=== PATIENT | female | born 1945 | race Caucasian/White ===

== ENCOUNTER 2018-09-11 06:52 | Day surgery (SDC) | payer OTHER ==
--- OUTSIDE RECORDS SUMMARY | 2018-09-11 06:57 | XMS REPORT | Clinical Summary ---
:1945 Author Organization [facility] Address [address] [place] [address] Care Team Providers Name Role Phone Lola Whitney MD Primary Care Provider Allergies Active Allergy Reactions Severity Noted Date Comments Meperidine Other (See Comments) Hallucinations Medications Medication Sig Dispensed Refills Start Date End Date Status DULoxetine (CYMBALTA) Take 60 mg by 0 Active 60 MG capsule mouth daily. BABY ASPIRIN ORAL Take by mouth. 0 Active cholecalciferol, Take 1,000 Units 0 Active vitamin D3, 1,000 unit by mouth daily. capsule NITROSTAT 0.4 mg SL 0 07/15/2015 Active tablet predniSONE (DELTASONE) 0 2015 Active 10 MG tablet pantoprazole Take 40 mg by 0 Active (PROTONIX) 40 MG mouth daily. tablet vitamin E 400 UNIT Take 400 Units by 0 Active capsule mouth daily. ORENCIA CLICKJECT 125 0 09/09/2016 Active mg/mL AtIn atorvastatin (LIPITOR) 0 09/08/2016 Active 40 MG tablet CALCIUM CARBONATE Take by mouth 2 0 Active (CALCIUM 600 ORAL) (two) times daily. metFORMIN (GLUCOPHAGE) TAKE ONE TABLET BY 90 tablet 0 04/05/2017 Active 500 MG tablet MOUTH DAILY WITH BREAKFAST metoprolol (TOPROL-XL) TAKE ONE TABLET BY 90 tablet 0 04/05/2017 Active 25 MG 24 hr tablet MOUTH DAILY losartan (COZAAR) 100 Take 100 mg by 0 03/15/2017 Active MG tablet mouth daily . Active Problems Problem Noted Date Elevated hemoglobin A1c 10/05/2016 Rheumatoid arthritis involving multiple sites with positive rheumatoid 2015 factor Elevated blood sugar 09/30/2015 Coronary artery disease 07/13/2015 Overview: s/p PCI after accelerating angina Hypertension GERD (gastroesophageal reflux disease) Immunizations Name Dates Previously Given Next Due Pneumococcal Conjugate (Prevnar) 13-Valent 09/30/2015 Family History Medical History Relation Name Comments Appendicitis Brother Colon cancer Father Alzheimer's disease Mother Arthritis Mother Hydrocephalus Mother Hypertension Mother Relation Name Status Comments Brother Alive Father Mother Sister Alive Social History Tobacco Use Types Packs/Day Years Used Date Never Smoker Smokeless Tobacco: Never Used Alcohol Use Drinks/Week oz/Week Comments Yes Socially Sex Assigned at Date Recorded Not on file Job Start Date Occupation Industry Not on file Not on file Not on file Travel History Travel Start Travel End No recent travel history available. Last Filed Vital Signs Not on file Plan of Treatment Not on file Results Not on fileafter 09/10/2017 Insurance Payer Benefit Plan / Group Subscriber ID Type Phone Address MEDICARE MEDICARE PART B xxxxxxxxxx Medicare AETNA - [place] CARE AETNA PPO OPEN [facility] xxxxxxxxxx PPO NAP HUMANA - MEDICARE M[place] HUMANA MEDICARE ADV xxxxxxxxx Maps Contracted CARE
--- OUTSIDE RECORDS SUMMARY | 2018-09-11 06:57 | XMS REPORT ---
:1945 [facility] Address [address] [place] [address] Care Team Providers Name Role Phone Unavailable Unavailable Unavailable Payers Payer Name Policy Type Policy Number Effective Date Expiration Date Problems This patient has no known problems. Allergies, Adverse Reactions, Alerts Allergy Allergy Status Severity Reaction(s) Onset Inactive Treating Comments Name Type Date Date Clinician No Known DA Active U 2003-03 Contrast -18 Allergies 00:00:0 0 No Known DA Active U 2003-03 Drug -18 Allergies 00:00:0 0 No Known DA Active U 2003-03 Food -18 Allergies 00:00:0 0 No Known DA Active U 2003-03 Other -18 Allergies 00:00:0 0 Medications This patient has no known medications. Results Test Description Test Time Test Comments Text Results Atomic Results Result Comments ZNEY SAGASTUME, 2 2017-08-03 17:14:00 Reason for FINAL REPORT PATIENT ID: VIEWS, LEFT Exam:->m05.79 [id number] 3 VIEWS OF THE RIGHT HAND, 3 VIEWS OF THE LEFT HAND HISTORY: Bilateral hand pain, M 05.79 COMPARISON: No comparison hand imaging FINDINGS: RIGHT HAND: AP, oblique, and lateral views of the right hand were obtained. No fracture or dislocation are identified. 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 Mild to moderate osteoarthritis of the thumb CMC and IP joints. Mild osteoarthritis of the third through fifth DIP joints. Mild soft tissue swelling at the level of the second DIP joint. No erosive changes are visualized in the hand. No acral osteolysis. LEFT HAND: AP, oblique, and lateral views the left hand were obtained. No fracture or dislocation are identified. Mild to moderate osteoarthritis of the thumb CMC and IP joints. Moderate to severe osteoarthritis of the fifth DIP joint. Moderate osteoarthritis of the third DIP joint. Mild osteoarthritis of the second and fourth DIP joints. No erosive changes are visualized. No acral osteolysis. IMPRESSION: 1. 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 2. No erosive changes are visualized. Signed: Yumiko Montgomery Verified Date/Time: 08/03/2017 17:14:37 Reading Location: [facility] Radiology Reading Room , HAND, 2 2017-08-03 17:14:00 Reason for FINAL REPORT PATIENT ID: DEV, RIGHT Exam:->m05.79 [id number] 3 VIEWS OF THE RIGHT HAND, 3 VIEWS OF THE LEFT HAND HISTORY: Bilateral hand pain, M 05.79 COMPARISON: No comparison hand imaging FINDINGS: RIGHT HAND: AP, oblique, and lateral views of the right hand were obtained. No fracture or dislocation are identified. 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 Mild to moderate osteoarthritis of the thumb CMC and IP joints. Mild osteoarthritis of the third through fifth DIP joints. Mild soft tissue swelling at the level of the second DIP joint. No erosive changes are visualized in the hand. No acral osteolysis. LEFT HAND: AP, oblique, and lateral views the left hand were obtained. No fracture or dislocation are identified. Mild to moderate osteoarthritis of the thumb CMC and IP joints. Moderate to severe osteoarthritis of the fifth DIP joint. Moderate osteoarthritis of the third DIP joint. Mild osteoarthritis of the second and fourth DIP joints. No erosive changes are visualized. No acral osteolysis. IMPRESSION: 1. 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 2. No erosive changes are visualized. Signed: Yumiko Montgomery Verified Date/Time: 08/03/2017 17:14:37 Reading Location: [facility] Radiology Reading Room , HIP, 2 2017-08-03 14:30:00 Reason for FINAL REPORT PATIENT ID: DEV, LEFT Exam:->m05.79 [id number] RIGHT HIP 2 VIEWS, LEFT HIP 2 VIEWS HISTORY: Bilateral hip pain, m 05.79 COMPARISON: No comparison hip imaging FINDINGS: AP and lateral views of each hip were obtained. No fracture or dislocation are identified. No joint space narrowing. Minimal lateral acetabular osteophytes bilaterally. Small enthesophytes in the bilateral greater trochanters. No femoral head collapse. No destructive bone lesion is identified. No erosive changes are visualized. Mild arthrosis of the sacroiliac joints. IMPRESSION: Minimal radiographic evidence of degenerative disease in the hips. Signed: Yumiko Montgomery Verified Date/Time: 08/03/2017 14:30:48 Reading Location: [facility] Radiology Reading Room , HIP, 2 2017-08-03 14:30:00 Reason for FINAL REPORT PATIENT ID: VIEWS, RIGHT Exam:->m05.79 [id number] RIGHT HIP 2 VIEWS, LEFT HIP 2 VIEWS HISTORY: Bilateral hip pain, m 05.79 COMPARISON: No comparison hip imaging FINDINGS: AP and lateral views of each hip were obtained. No fracture or dislocation are identified. No joint space narrowing. Minimal lateral acetabular osteophytes bilaterally. Small enthesophytes in the bilateral greater trochanters. No femoral head collapse. No destructive bone lesion is identified. No erosive changes are visualized. Mild arthrosis of the sacroiliac joints.
--- OUTSIDE RECORDS SUMMARY | 2018-09-11 06:57 | XMS REPORT | Clinical Summary ---
:1945 Author Organization [facility] Address [address] [place] [address] Care Team Providers Name Role Phone Lola Whitney MD Primary Care Provider Allergies Active Allergy Reactions Severity Noted Date Comments Meperidine Other (See Comments) 12/14/2015 other Medications Medication Sig Dispensed Refills Start Date End Date Status cholecalciferol, Take 1,000 0 Active vitamin D3, (VITAMIN Units by D3) 1,000 unit mouth. capsule DULoxetine (CYMBALTA) Take 60 mg by 0 Active 60 MG capsule mouth. aspirin 81 mg Chew. 0 Active chewable tablet tofacitinib citrate Take 1 tablet 0 Active (XELJANZ ORAL) by mouth daily. losartan (COZAAR) 100 Take 1 tablet 30 tablet 0 05/17/2018 Active MG tablet (100 mg 9 total) by mouth daily. NIFEdipine XL Take 1 tablet 30 tablet 0 05/17/2018 Active (PROCARDIA XL) 30 MG (30 mg total) 9 24 hr tablet by mouth daily. metoprolol succinate TAKE ONE 90 tablet 2 05/29/2018 Active XL (TOPROL-XL) 25 mg TABLET BY 24 hr tablet MOUTH DAILY pantoprazole Take 1 tablet 90 tablet 3 08/31/2018 Active (PROTONIX) 40 MG EC (40 mg total) 0 tabletIndications: by mouth Hiatal hernia, daily. Gastroesophageal reflux disease, esophagitis presence not specified, Gastric erosion, unspecified ulcer chronicity, Dyspepsia atorvastatin TAKE ONE 90 tablet 0 09/04/2018 Active (LIPITOR) 40 MG TABLET BY tablet MOUTH EVERY EVENING BABY ASPIRIN ORAL Take 81 mg by 0 Discontinued mouth daily. 8 nitroglycerin 0 07/15/2015 Discontinued (NITROSTAT) 0.4 MG SL 9 tablet abatacept (ORENCIA) 0 09/25/2015 Discontinued 125 mg/mL injection 8 fenofibrate (LOFIBRA) Take 54 mg by 0 Discontinued 54 MG tablet mouth. 8 predniSONE Take 1 tablet 0 Discontinued (DELTASONE) 10 MG every day by 8 tablet oral route. ticagrelor (BRILINTA) Take 1 tablet 180 tablet 3 08/18/2016 Discontinued 90 mg tablet (90 mg total) 8 by mouth 2 (two) times a day. vitamin E 1000 UNIT Take 1,000 0 Discontinued capsule Units by 8 mouth daily. atorvastatin TAKE ONE 90 tablet 2 01/17/2017 Discontinued (LIPITOR) 40 MG TABLET BY 8 tablet MOUTH EVERY EVENING CALCIUM Take by 0 Discontinued CARBONATE/VITAMIN D3 mouth. 8 (CALCIUM 600 + D,3, ORAL) losartan (COZAAR) 50 Take 1 tablet 90 tablet 3 04/05/2017 MG tablet (50 mg total) 8 by mouth daily. metoprolol succinate Take 1 tablet 90 tablet 3 06/06/2017 Discontinued XL (TOPROL-XL) 25 mg (25 mg total) 8 24 hr tablet by mouth once daily. pantoprazole Take 1 tablet 90 tablet 0 07/29/2017 Discontinued (PROTONIX) 40 MG EC (40 mg total) 9 tabletIndications: by mouth Hiatal hernia, daily. Gastroesophageal reflux disease, esophagitis presence not specified, Gastric erosion, unspecified ulcer chronicity, Dyspepsia metFORMIN Take 500 mg 0 Discontinued (GLUCOPHAGE) 500 mg by mouth 9 tablet daily with breakfast. aspirin (ECOTRIN) 81 Take 81 mg by 0 Discontinued MG enteric coated mouth daily. 8 tablet atorvastatin TAKE ONE 90 tablet 1 01/25/2018 Discontinued (LIPITOR) 40 MG TABLET BY 9 tablet MOUTH EVERY EVENING HYDROcodone-acetamino Take 1 tablet 60 tablet 0 04/04/2018 phen (NORCO) 10-325 by mouth 8 mg per tablet every 4 (four) hours as needed for moderate pain for up to 14 days. Max Daily Amount: 6 tablets tiZANidine (ZANAFLEX) Take 1 tablet 60 tablet 0 04/04/2018 2 MG tablet (2 mg total) 8 by mouth every 8 (eight) hours as needed for muscle spasms for up to 30 days. CLENPIQ 10 mg-3.5 Take 1 kit by 320 mL 0 08/31/2018 gram -12 gram/160 mL mouth once 9 solution for 1 dose. As per box Active Problems Problem Noted Date CAD (coronary artery disease) 05/16/2018 Lumbar stenosis 03/29/2018 Chest pain 01/17/2017 Abnormal EKG 01/17/2017 Coronary artery disease involving tanana coronary artery of tanana heart 09/09 without angina pectoris History of coronary artery stent placement 09/09/2016 Essential hypertension 09/09/2016 Ulcerative colitis Hiatal hernia GERD (gastroesophageal reflux disease) Gastric erosion Colon polyp Family history of colon cancer Hemorrhoids Encounters Date Type Specialty Care Team Description 09/02/2018 Refill Cardiology Dwayne Lubin MD 08/31/2018 Office Visit Gastroenterology Rose, Hemorrhoids, unspecified hemorrhoid type (Primary Dx); Arya Hiatal hernia; MD Mehreen Ulcerative colitis without complications, unspecified location (HCC); Gastric erosion, unspecified chronicity; Polyp of colon, unspecified part of colon, unspecified type; Gastroesophageal reflux disease without esophagitis; Gastroesophageal reflux disease, esophagitis presence not specified; Gastric erosion, unspecified ulcer chronicity; Dyspepsia 06/29/2018 Hospital Radiology Yaneli Dailey Low back pain, Encounter MD Magdy unspecified back pain laterality, unspecified chronicity, with sciatica presence unspecified 06/29/2018 Transcribe Orders Access Yaneli Dailey Low back pain, MD Magdy unspecified back pain laterality, unspecified chronicity, with sciatica presence unspecified (Primary Dx) 05/27/2018 Refill Cardiology Dwayne Lubin MD 05/17/2018 Patient Outreach Quality Denia Ray PharmD 05/14/2018 Emergency General Internal Shah, Chest pain, unspecified type (Primary Dx); - Medicine MD Bennett Gastroesophageal reflux disease without esophagitis 05/16/2018 Terry Stearns MD 05/01/2018 Telephone Gastroenterology Mar Oliveira RN 04/12/2018 Hospital Radiology Yaneli Dailey Low back pain, Encounter MD Magdy unspecified back pain laterality, unspecified chronicity, with sciatica presence unspecified 04/12/2018 Transcribe Orders Access Yaneli Dailey Low back pain, MD Magdy unspecified back pain laterality, unspecified chronicity, with sciatica presence unspecified (Primary Dx) 03/29/2018 Anesthesia Event General Surgery Gloria Anderson, SAGAR 03/29/2018 Surgery General Surgery AshlieYaneli EXTREME LATERAL MD Magdy INTERBODY FUSION WITH ALLOGRAFT L3-L5 03/29/2018 Hospital Orthopedic Surgery AshlieYaneli Lumbar stenosis with - Encounter MD Magdy neurogenic 04/04/2018 claudication 03/28/2018 Pre-Admit Testing Pre-Admission Testing Yaneli Dailey Appointment MD Magdy 02/23/2018 Orders Only Cardiology Dwayne Lubin MD 02/12/2018 [facility] Radiology Yaneli Dailey Lumbar radiculopathy Encounter MD Magdy 02/12/2018 Hospital Radiology Yaneli Dailey Lumbar radiculopathy Encounter MD Magdy 02/12/2018 [facility] Radiology Yaneli Dailey Lumbar radiculopathy Encounter MD Magdy 02/12/2018 Transcribe Orders Radiology Yaneli Dailey Lumbar radiculopathy MD Magdy (Primary Dx) 02/09/2018 Transcribe Orders Access Yaneli Dailey Lumbar radiculopathy MD Magdy (Primary Dx) 01/25/2018 Refill Cardiology Dwayne Lubin Med Rafaill MD Ty 01/23/2018 Office Visit Cardiology Dwayne Lubin Coronary artery MD Ty disease involving tanana coronary artery of tanana heart without angina pectoris (Primary Dx) after 09/10/2017 Immunizations Name Dates Previously Given Next Due FLUCELVAX QUAD PF (0.5mL syringe) 04/04/2018 Family History Medical History Relation Name Comments Colon cancer Father Relation Name Status Comments Father Mother Social History Tobacco Use Types Packs/Day Years Used Date Passive Smoke Exposure - Never Smoker Smokeless Tobacco: Never Used Alcohol Use Drinks/Week oz/Week Comments No Sex Assigned at Date Recorded Not on file Job Start Date Occupation Industry Not on file Not on file Not on file Travel History Travel Start Travel End No recent travel history available. Last Filed Vital Signs Vital Sign Reading Time Taken Blood Pressure 161/89 08/31/2018 3:57 PM PSYCHIATRIC ASSISTANT Pulse 132 08/31/2018 3:57 PM PSYCHIATRIC ASSISTANT Temperature 36.4 C (97.5 F) 08/31/2018 3:57 PM PSYCHIATRIC ASSISTANT Respiratory Rate 16 05/16/2018 7:18 AM PSYCHIATRIC ASSISTANT Oxygen Saturation 97% 05/16/2018 11:23 AM PSYCHIATRIC ASSISTANT Inhaled Oxygen Concentration - - Weight 98.4 kg (217 lb) 08/31/2018 3:57 PM PSYCHIATRIC ASSISTANT Height 160 cm (5' 3") 05/14/2018 10:30 AM PSYCHIATRIC ASSISTANT Body Mass Index 38.44 08/31/2018 3:57 PM PSYCHIATRIC ASSISTANT Plan of Treatment Date Type Specialty Care Team Description 11/21/2018 Office Visit Cardiology Dwayne Lubin MD [address] [facility] [address] [place] [id number] Health Maintenance Due Date Last Done Comments BREAST CANCER SCREENING 1996 COLON CANCER SCREENING 1996 SHINGLES VACCINES (#1) 1996 65+ PNEUMOCOCCAL VACCINE (1 of 2 - PCV13) 2011 PNEUMOCOCCAL POLYSACCHARIDE VACCINE AGE 65 AND OVER 2011 INFLUENZA VACCINE Completed 04/04/2018 Implants Implanted Type Area Sort Worker Device Shelf Model / Identifier Expiration Serial / Lot Date Bone Matriz Osteocel Pro Large - [id number] - [id number] Human Tissue N/A: NUVASIVE 11/24/2022 [id number] / Implanted: Qty: 1 on 03/29/2018 by Yaneli Dailey MD Implants N/A [id number] / LOT NA Bone Matriz Osteocel Pro Large - [id number] - [id number] Human Tissue N/A: NUVASIVE 12/27/2022 [id number] / Implanted: Qty: 1 on 03/29/2018 by Yaneli Dailey MD Implants N/A [id number] / LOT NA Drafton Dbm Orthoblend Small Defect 5cc - [id number] - [id number] Human Tissue N/A: MEDTRONIC 09/22/2019 [id number] / Implanted: Qty: 1 on 03/29/2018 by Yaneli Dailey MD Implants N/A SPINAL AND [id number] / BIOLOGICS LOT NA Putty Clgn Mastergraft Cer 0.75cc - [id number] Human Tissue N/A: MEDTRONIC 07/10/2020 [id number] / Implanted: Qty: 1 on 03/29/2018 by Yaneli Dailey MD Implants N/A SPINAL AND / BIOLOGICS [id number] Spacer [id number] Elevate X-Dayana 28x7mm - [id number] IPM IMPLANT N/A: MEDTRONIC 07/29/2023 [id number] / Implanted: 03/29/2018 (Quantity not on file) DEVICES N/A SOFAMOR DANEK / [id number] Screw [id number] Cn Mas 7.5x50 Cc - [id number] [id number] IMPLANT N/A: MEDTRONIC [id number] / Implanted: Qty: 2 on 03/29/2018 by Yaneli Dailey MD DEVICES N/A SOFAMOR DANEK / Shine [id number] 85mm Perc Shine 4.75mm Ccm - [id number] IPM IMPLANT N/A: MEDTRONIC [id number] / Implanted: Qty: 2 on 03/29/2018 by Yaneli Dailey MD DEVICES N/A SOFAMOR DANEK / Modulus Xlw, [id number] 15deg - [id number] IPM IMPLANT N/A: NUVASIVE SPINE 09/12/2022 [id number] / Implanted: 03/29/2018 (Quantity not on file) DEVICES N/A / [id number] Modulus Xlw, [id number] 10deg - [id number] IPM IMPLANT N/A: NUVASIVE SPINE 09/13/2022 [id number] / Implanted: 03/29/2018 (Quantity not on file) DEVICES N/A / [id number] Tmap Activator & Electrode Kit - [id number] IPM IMPLANT N/A: NUVASIVE SPINE / Implanted: 03/29/2018 (Quantity not on file) DEVICES N/A / Material Bone Hmsts Wtrsolbl 2.5g Ostene - [id number] Orthopedic N/A: [id number] / Implanted: 03/29/2018 (Quantity not on file) Trauma N/A / Implants [id number] Material Bone Hmsts Wtrsolbl 2.5g Ostene - [id number] Orthopedic N/A: [id number] / Implanted: 03/29/2018 (Quantity not on file) Trauma N/A / Implants [id number] Module Spinal Maxcess 4 - [id number] Spinal N/A: NUVASIVE [id number] / Implanted: Qty: 1 on 03/29/2018 by Yaneli Dailey MD Implants N/A / Kit Dil M5 Xlif - [id number] Spinal N/A: NUVASIVE [id number] / Implanted: 03/29/2018 (Quantity not on file) Implants N/A / Screw Bone Mul-Ax 6.5x45mm - [id number] Spinal N/A: MEDTRONIC [id number] / Implanted: Qty: 3 on 03/29/2018 by Yaneli Dailey MD Implants N/A SPINAL AND / BIOLOGICS Screw Spinal Canltd Mul-Ax Co-Cr Ti 4.75x6.5x50mm - [id number] Spinal N/A: MEDTRONIC [id number] / Implanted: Qty: 1 on 03/29/2018 by Yaneli Dailey MD Implants N/A SPINAL AND / BIOLOGICS Screw Spinal Canltd Mul-Ax Co-Cr Ti 4.75x7.5x40mm - [id number] Spinal N/A: MEDTRONIC [id number] / Implanted: Qty: 1 on 03/29/2018 by Yaneli Dailey MD Implants N/A SPINAL AND / BIOLOGICS Screw Bone Canltd Mul-Ax 7.5x45mm Cd Horizon - [id number] Spinal N/A: MEDTRONIC [id number] / Implanted: Qty: 1 on 03/29/2018 by Yaneli Dailey MD Implants N/A SPINAL AND / BIOLOGICS Set Screw 4.75 Solera Perc Ti - [id number] Spinal N/A: MEDTRONIC [id number] / Implanted: Qty: 8 on 03/29/2018 by Yaneli Dailey MD Implants N/A SPINAL AND / BIOLOGICS Pin Surgcl Percutns 100mm - [id number] Surgical N/A: MEDTRONIC [id number] / Implanted: 03/29/2018 (Quantity not on file) Implants; N/A NAVIGATION / Expanders; TECHNOLOGIES [id number] Extenders; [employer] Procedures Procedure Name Priority Date/Time Associated Comments Diagnosis XR LUMBAR SPINE AP Routine 06/29/2018 10:11 Low back pain, Results for this LATERAL FLEXION AND AM PSYCHIATRIC ASSISTANT unspecified back procedure are in EXTENSION pain laterality, the results unspecified section. chronicity, with sciatica presence unspecified CV CTA CORONARY STAT 05/30/2018 1:20 Results for this ARTERIES W CONTRAST AND PM PSYCHIATRIC ASSISTANT procedure are in FFR the results section. POC GLUCOSE Routine 05/16/2018 7:20 Results for this AM PSYCHIATRIC ASSISTANT procedure are in the results section. POC GLUCOSE Routine 05/15/2018 9:17 Results for this PM PSYCHIATRIC ASSISTANT procedure are in the results section. TROPONIN STAT 05/15/2018 1:00 Results for this PM PSYCHIATRIC ASSISTANT procedure are in the results section. POC GLUCOSE Routine 05/15/2018 11:47 Results for this AM PSYCHIATRIC ASSISTANT procedure are in the results section. ECHOCARDIOGRAM 2D Routine 05/15/2018 10:16 Results for this COMPLETE W MMODE AM PSYCHIATRIC ASSISTANT procedure are in SPECTRAL COLOR DOPPLER the results (69563) section. POC GLUCOSE Routine 05/15/2018 7:01 Results for this AM PSYCHIATRIC ASSISTANT procedure are in the results section. ESTIMATED GFR Routine 05/15/2018 5:08 Results for this AM PSYCHIATRIC ASSISTANT procedure are in the results section. COMPREHENSIVE METABOLIC Routine 05/15/2018 5:08 Results for this PANEL AM PSYCHIATRIC ASSISTANT procedure are in the results section. ECG 12-LEAD STAT 05/15/2018 3:23 Results for this AM PSYCHIATRIC ASSISTANT procedure are in the results section. POC GLUCOSE Routine 05/14/2018 9:20 Results for this PM PSYCHIATRIC ASSISTANT procedure are in the results section. URINALYSIS SCREEN AND Routine 05/14/2018 6:10 Results for this MICROSCOPY, WITH REFLEX PM PSYCHIATRIC ASSISTANT procedure are in TO CULTURE the results section. URINE CULTURE Routine 05/14/2018 6:10 Results for this PM PSYCHIATRIC ASSISTANT procedure are in the results section. TROPONIN Routine 05/14/2018 4:40 Results for this PM PSYCHIATRIC ASSISTANT procedure are in the results section. POC GLUCOSE Routine 05/14/2018 3:48 Results for this PM PSYCHIATRIC ASSISTANT procedure are in the results section. ECG 12-LEAD STAT 05/14/2018 11:53 Results for this AM PSYCHIATRIC ASSISTANT procedure are in the results section. XR CHEST 2 VW STAT 05/14/2018 11:13 Results for this AM PSYCHIATRIC ASSISTANT procedure are in the results section. ESTIMATED GFR STAT 05/14/2018 10:58 Results for this AM PSYCHIATRIC ASSISTANT procedure are in the results section. TROPONIN, I-STAT STAT 05/14/2018 10:58 Results for this AM PSYCHIATRIC ASSISTANT procedure are in the results section. COMPREHENSIVE METABOLIC STAT 05/14/2018 10:58 Results for this PANEL AM PSYCHIATRIC ASSISTANT procedure are in the results section. HC COMPLETE BLD COUNT STAT 05/14/2018 10:58 Results for this W/AUTO DIFF AM PSYCHIATRIC ASSISTANT procedure are in the results section. ECG ED PRELIMINARY Routine 05/14/2018 10:18 Results for this INTERPRETATION AM PSYCHIATRIC ASSISTANT procedure are in the results section. XR LUMBAR SPINE 2 OR 3 Routine 04/12/2018 1:28 Low back pain, Results for this VW PM CDT unspecified back procedure are in pain laterality, the results unspecified section. chronicity, with sciatica presence unspecified POC GLUCOSE Routine 04/04/2018 8:49 Results for this AM CDT procedure are in the results section. POC GLUCOSE Routine 04/04/2018 3:21 Results for this AM CDT procedure are in the results section. POC GLUCOSE Routine 04/03/2018 10:40 Results for this PM CDT procedure are in the results section. POC GLUCOSE Routine 04/03/2018 6:18 Results for this PM CDT procedure are in the results section. HEMOGLOBIN & HEMATOCRIT STAT 04/03/2018 12:25 Results for this PM CDT procedure are in the results section. POC GLUCOSE Routine 04/03/2018 12:20 Results for this PM CDT procedure are in the results section. POC GLUCOSE Routine 04/03/2018 7:22 Results for this AM CDT procedure are in the results section. ESTIMATED GFR Routine 04/03/2018 4:37 Results for this AM CDT procedure are in the results section. HC COMPLETE BLD COUNT Routine 04/03/2018 4:37 Results for this W/AUTO DIFF AM CDT procedure are in the results section. BASIC METABOLIC PANEL Routine 04/03/2018 4:37 Results for this AM CDT procedure are in the results section. PHOSPHORUS LEVEL Routine 04/03/2018 4:37 Results for this AM CDT procedure are in the results section. POC GLUCOSE Routine 04/02/2018 9:21 Results for this PM CDT procedure are in the results section. POC GLUCOSE Routine 04/02/2018 5:53 Results for this PM CDT procedure are in the results section. POC GLUCOSE Routine 04/02/2018 1:31 Results for this PM CDT procedure are in the results section. POC GLUCOSE Routine 04/02/2018 8:03 Results for this AM CDT procedure are in the results section. SMEAR REVIEW Routine 04/02/2018 4:30 Results for this AM CDT procedure are in the results section. HC COMPLETE BLD COUNT Routine 04/02/2018 4:30 Results for this W/AUTO DIFF AM CDT procedure are in the results section. ESTIMATED GFR Routine 04/02/2018 4:00 Results for this AM CDT procedure are in the results section. PHOSPHORUS LEVEL Routine 04/02/2018 4:00 Results for this AM CDT procedure are in the results section. MAGNESIUM LEVEL Routine 04/02/2018 4:00 Results for this AM CDT procedure are in the results section. BASIC METABOLIC PANEL Routine 04/02/2018 4:00 Results for this AM CDT procedure are in the results section. POC GLUCOSE Routine 04/01/2018 10:43 Results for this PM CDT procedure are in the results section. POC GLUCOSE Routine 04/01/2018 4:51 Results for this PM CDT procedure are in the results section. POC GLUCOSE Routine 04/01/2018 12:53 Results for this PM CDT procedure are in the results section. HC COMPLETE BLD COUNT Routine 04/01/2018 5:15 Results for this W/AUTO DIFF AM CDT procedure are in the results section. ESTIMATED GFR Routine 04/01/2018 4:00 Results for this AM CDT procedure are in the results section. PHOSPHORUS LEVEL Routine 04/01/2018 4:00 Results for this AM CDT procedure are in the results section. MAGNESIUM LEVEL Routine 04/01/2018 4:00 Results for this AM CDT procedure are in the results section. BASIC METABOLIC PANEL Routine 04/01/2018 4:00 Results for this AM CDT procedure are in the results section. POC GLUCOSE Routine 03/31/2018 6:44 Results for this PM CDT procedure are in the results section. ESTIMATED GFR Routine 03/31/2018 4:00 Results for this PM CDT procedure are in the results section. BASIC METABOLIC PANEL Routine 03/31/2018 4:00 Results for this PM CDT procedure are in the results section. POC GLUCOSE Routine 03/31/2018 11:56 Results for this AM CDT procedure are in the results section. POC GLUCOSE Routine 03/31/2018 8:32 Results for this AM CDT procedure are in the results section. B NATRIURETIC PEPTIDE Routine 03/31/2018 4:15 Results for this AM CDT procedure are in the results section. ESTIMATED GFR Routine 03/31/2018 4:00 Results for this AM CDT procedure are in the results section. PHOSPHORUS LEVEL Routine 03/31/2018 4:00 Results for this AM CDT procedure are in the results section. MAGNESIUM LEVEL Routine 03/31/2018 4:00 Results for this AM CDT procedure are in the results section. BASIC METABOLIC PANEL Routine 03/31/2018 4:00 Results for this AM CDT procedure are in the results section. URINALYSIS, AUTOMATED Routine 03/31/2018 12:00 Results for this WITH MICROSCOPY AM CDT procedure are in the results section. POC GLUCOSE Routine 03/30/2018 9:38 Results for this PM CDT procedure are in the results section. XR LUMBAR SPINE Routine 03/30/2018 9:11 Results for this COMPLETE 4+ VW PM CDT procedure are in the results section. XR CHEST 1 VW PORTABLE Routine 03/30/2018 7:12 Results for this PM CDT procedure are in the results section. POC GLUCOSE Routine 03/30/2018 5:33 Results for this PM CDT procedure are in the results section. ESTIMATED GFR STAT 03/30/2018 2:25 Results for this PM CDT procedure are in the results section. HC COMPLETE BLD COUNT STAT 03/30/2018 2:25 Results for this W/AUTO DIFF PM CDT procedure are in the results section. BASIC METABOLIC PANEL STAT 03/30/2018 2:25 Results for this PM CDT procedure are in the results section. BLOOD CULTURE, AEROBIC Routine 03/30/2018 11:35 Results for this & ANAEROBIC AM CDT procedure are in the results section. POC GLUCOSE Routine 03/30/2018 7:24 Results for this AM CDT procedure are in the results section. POC GLUCOSE Routine 03/29/2018 9:51 Results for this PM CDT procedure are in the results section. POC GLUCOSE Routine 03/29/2018 6:38 Results for this PM CDT procedure are in the results section. POC GLUCOSE Routine 03/29/2018 3:33 Results for this PM CDT procedure are in the results section. SURGICAL PATHOLOGY Routine 03/29/2018 3:21 Results for this REQUEST PM CDT procedure are in the results section. OR FL > 1 HOUR Routine 03/29/2018 2:30 Results for this PM CDT procedure are in the results section. POC GLUCOSE Routine 03/29/2018 11:57 Results for this AM CDT procedure are in the results section. OR FL > 1 HOUR Routine 03/29/2018 10:02 Results for this AM CDT procedure are in the results section. VA AN ELECTIVE Routine 03/29/2018 8:38 ENDOTRACHEAL AIRWAY AM CDT Procedure Note - Morales Marcelo CRNA - 03/29/2018 8:38 AM CDT Airway Date/Time: 03/29/2018 8:18 AM Performed by: MORALES MARCELO Authorized by: LILIAN REYES Location: OR Urgency: Elective Difficult Airway: No Preoxygenated with 100% O2: Yes C-spine Precautions Maintained Throughout: No Mask Ventilation: Easy mask (with oral airway in place ) Final Airway Type: Endotracheal airway Final Endotracheal Airway: ETT Cuffed: Yes Technique Used: Direct laryngoscopy Devices/Methods Used in Placement: Intubating stylet Insertion Site: Oral Blade Type: Knox Laryngoscope Blade/Videolaryngoscope Blade Size: 2 ETT Size (mm): 7.0 Cuff at minimum occlusion pressure: Yes Measured from: Teeth ETT to Teeth (cm): 21 Placement Verified by: CO2 detection, direct visualization and equal breath sounds Laryngoscopic view: Grade IIa - partial view of glottis Rapid Sequence Induction (RSI): No Modified RSI: No Number of Attempts at Approach: 1 Pt preoxygenated with 100% oxygen. MDA present for smooth IV induction. Eyes taped shut prior to airway manipulation. No change to dentition or oral mucosa. LAMINECTOMY, LUMBAR 03/29/2018 8:00 AM CDT Lumbar stenosis with neurogenic claudication Case Notes 11. LATERAL RIGHT SIDE DOWN POSITION, REGULAR OR BED REVERSED, C-ARM, NUVASIVE COROENT INSTRUMENTATION, 2, PRONE POSITION, PRO AXIS TABLE, WILL USE REGULAR CRISTAL TABLE, O-ARM, STEALTH S7, MICROSCOPE, BONE SCALPEL, AQUAMANTYS, MEDTRONIC VOYAGER INSTRUMENTATION, HOGSHEAD HOOPER, EST 6 HRS Special Needs 1. LATERAL RIGHT SIDE DOWN POSITION, REGULAR OR BED REVERSED, C-ARM, NUVASIVE COROENT INSTRUMENTATION, 2, PRONE POSITION, PRO AXIS TABLE, WILL USE REGULAR CRISTAL TABLE, O-ARM, STEALTH S7, MICROSCOPE, BONE SCALPEL, AQUAMANTYS, MEDTRONIC VOYAGER INSTRUMENTATION, HOGSHEAD HOOPER, EST 6 HRS FUSION, SPINE, LUMBAR, 03/29/2018 8:00 AM CDT Lumbar stenosis with INTERBODY, TRANSFORAMINAL neurogenic claudication APPROACH Case Notes 11. LATERAL RIGHT SIDE DOWN POSITION, REGULAR OR BED REVERSED, C-ARM, NUVASIVE COROENT INSTRUMENTATION, 2, PRONE POSITION, PRO AXIS TABLE, WILL USE REGULAR CRISTAL TABLE, O-ARM, STEALTH S7, MICROSCOPE, BONE SCALPEL, AQUAMANTYS, MEDTRONIC VOYAGER INSTRUMENTATION, HOGSHEAD HOOPER, EST 6 HRS Special Needs 1. LATERAL RIGHT SIDE DOWN POSITION, REGULAR OR BED REVERSED, C-ARM, NUVASIVE COROENT INSTRUMENTATION, 2, PRONE POSITION, PRO AXIS TABLE, WILL USE REGULAR CRISTAL TABLE, O-ARM, STEALTH S7, MICROSCOPE, BONE SCALPEL, AQUAMANTYS, MEDTRONIC VOYAGER INSTRUMENTATION, HOGSHEAD HOOPER, EST 6 HRS FUSION, SPINE, LUMBAR, 03/29/2018 8:00 AM CDT Lumbar stenosis with POSTERIOR APPROACH neurogenic claudication Case Notes 11. LATERAL RIGHT SIDE DOWN POSITION, REGULAR OR BED REVERSED, C-ARM, NUVASIVE COROENT INSTRUMENTATION, 2, PRONE POSITION, PRO AXIS TABLE, WILL USE REGULAR CRISTAL TABLE, O-ARM, STEALTH S7, MICROSCOPE, BONE SCALPEL, AQUAMANTYS, MEDTRONIC VOYAGER INSTRUMENTATION, HOGSHEAD HOOPER, EST 6 HRS Special Needs 1. LATERAL RIGHT SIDE DOWN POSITION, REGULAR OR BED REVERSED, C-ARM, NUVASIVE COROENT INSTRUMENTATION, 2, PRONE POSITION, PRO AXIS TABLE, WILL USE REGULAR CRISTAL TABLE, O-ARM, STEALTH S7, MICROSCOPE, BONE SCALPEL, AQUAMANTYS, MEDTRONIC VOYAGER INSTRUMENTATION, HOGSHEAD HOOPER, EST 6 HRS FUSION, SPINE, LUMBAR, 03/29/2018 8:00 AM CDT Lumbar stenosis with neurogenic XLIF claudication Case Notes 11. LATERAL RIGHT SIDE DOWN POSITION, REGULAR OR BED REVERSED, C-ARM, NUVASIVE COROENT INSTRUMENTATION, 2, PRONE POSITION, PRO AXIS TABLE, WILL USE REGULAR CRISTAL TABLE, O-ARM, STEALTH S7, MICROSCOPE, BONE SCALPEL, AQUAMANTYS, MEDTRONIC VOYAGER INSTRUMENTATION, HOGSHEAD HOOPER, EST 6 HRS Special Needs 1. LATERAL RIGHT SIDE DOWN POSITION, REGULAR OR BED REVERSED, C-ARM, NUVASIVE COROENT INSTRUMENTATION, 2, PRONE POSITION, PRO AXIS TABLE, WILL USE REGULAR CRISTAL TABLE, O-ARM, STEALTH S7, MICROSCOPE, BONE SCALPEL, AQUAMANTYS, MEDTRONIC VOYAGER INSTRUMENTATION, HOGSHEAD HOOPER, EST 6 HRS TYPE AND SCREEN Routine 03/29/2018 6:00 AM Results for this CDT procedure are in the results section. POC GLUCOSE Routine 03/29/2018 5:57 AM Results for this CDT procedure are in the results section. GENERAL SURGERY Routine 02/23/2018 XR LUMBAR SPINE Routine 02/12/2018 11:47 AM Lumbar radiculopathy Results for this COMPLETE W BENDING CDT procedure are in the results section. XR SPINE SCOLIOSIS Routine 02/12/2018 11:47 AM Lumbar radiculopathy Results for this 1 VIEW CDT procedure are in the results section. MRI LUMBAR SPINE Routine 02/12/2018 11:43 AM Lumbar radiculopathy Results for this WO CONTRAST CDT procedure are in the results section. ECG 12-LEAD Routine 01/23/2018 1:33 PM Coronary artery Results for this CDT disease involving procedure are in [place]ana coronary artery the results of [place]ana heart section. without angina pectoris after 09/10/2017 Results XR Lumbar Spine Ap Lateral Flexion And Extension (06/29/2018 10:11 AM PSYCHIATRIC ASSISTANT) Narrative Performed At EXAMINATION: XR LUMBAR SPINE AP LATERALFLEXION AND EXTENSION RADIANT CLINICAL HISTORY: M54.5 Low back pain, m54.5 COMPARISON:Lumbar radiographs 04/12/2018 IMPRESSION: Stable exam compared with 04/12/2018. Posterior spinal fusion L3-S1 with bilateral rods and screws. Interbody cage devices are again noted at these levels. Hardware appears intact. Preservation of the normal lumbar lordosis. Minimal left convex lower lumbar curvature. Vertebral body heights appear maintained. Mild intervertebral disc space narrowing at L1-L2 and L2-L3. No suspicious osseous lesion. [id number] Procedure Note Interface, Radiology Results Incoming - 06/29/2018 10:21 AM PSYCHIATRIC ASSISTANT EXAMINATION: XR LUMBAR SPINE AP LATERAL FLEXION AND EXTENSION CLINICAL HISTORY: M54.5 Low back pain, m54.5 COMPARISON: Lumbar radiographs 04/12/2018 IMPRESSION: Stable exam compared with 04/12/2018. Posterior spinal fusion L3-S1 with bilateral rods and screws. Interbody cage devices are again noted at these levels. Hardware appears intact. Preservation of the normal lumbar lordosis. Minimal left convex lower lumbar curvature. Vertebral body heights appear maintained. Mild intervertebral disc space narrowing at L1-L2 and L2-L3. No suspicious osseous lesion. [id number] Performing Organization Address City/State/Zipcode Phone Number [facility] [address] [place] [address] Cv cta coronary arteries w contrast and ffr if needed (05/30/2018 1:20 PM PSYCHIATRIC ASSISTANT) Narrative Performed At [facility] Nuclear Cardiology and Cardiac CT [address] [place] [address] CTA Coronary Arteries Report Pat.Name:KATHRYN BEASLEY Pat.ID:[id number] St.Date: 05/15/2018 Refer.MD:SOBEIDA BORGES MD Exam Time: 5:07:00 PMStudy Type:CTA Coronary Arteries Height:63inBSA: 1.96 m2 DOBAge:1945,72YSex: FEMALE BP:172/83HR: 66 bpm Nuclear Tech:YRN Gutiérrez(N)(CT) CPT - 4: CCTA w Thoracic Aorta (NonCongenital) [id number] Nuclear Event ID:[id number] Order ID:[id number] Reason for Study:Triple Rule Out Procedures:CT Prospective (intervals) SUMMARY: Technique: IV contrast was administered and sequential 0.[address] cuts were obtained through the chest using the Siemens Somatom Force CT scanner. Post-processing and 3D reconstruction were done using the Teliris workstation. Interactive image viewing and volumetric display and analysis were also performed. CTA RESULTS Left Main: A normal sized artery which arises normally from the left sinus of Valsalva and divides into the left anterior descending and circumflex coronary arteries. No significant atherosclerotic plaque is present. Left anterior descending (LAD): A normal sized artery which wraps around the apex and gives off one diagonal branch. Mild calcified and non-calcified atherosclerotic plaque is present in the proximal segment but without significant stenosis. Patent 15 mm long stent in the prox/mid LAD. The first diagonal is a normal sized artery which has no significant atherosclerotic plaquepresent. Left circumflex: A normal sized non-dominant artery which arises normally from the left main and gives off one major obtuse marginal artery before terminating in the AV groove. Mild non-calcified atherosclerotic plaque is present in the proximal segment with with moderate (50-69%) stenosis. The first obtuse marginal is a normal sized artery which has no significan atherosclerotic plaquepresent. Right coronary artery: A normal sized dominant artery which arises normally from the right sinus of Valsalva and gives off several right ventricular branches, the posterior descending artery and the posterolateral artery. No significant atherosclerotic plaqueis present in the proximal segment but without significant stenosis. The posterior descending is a normal sized artery which has no significant calcified and non-calcified atherosclerotic plaque present but no significant stenosis. The posterolateral is a normal sized artery which has mild calcified and non-calcified atherosclerotic plaque present but no significant stenosis. Stents: Patent 15 mm long stent in the mid LAD. Bypass Grafts: None. Pulmonary Arteries: Normal pulmonary artery sizes with no proximal thrombus identified. Left Atrial and Pulmonary Vein Dimensions: Left atrial size (A-P diameter) 4.1 cm. Normal PV anatomy There is no evidence of the left atrial appendage clot. Thoracic Aortic Dimensions: No aortic aneurysm or dissection is seen. Aortic root3.2 cm. Mid ascending aorta 3.7 cm. Aortic arch 2.5 cm.There is normal takeoff of the great vessels and no significant stenosis in the proximal visualized segments. Aortic Isthmus 2.7 cm. Descending thoracic aorta 2.4 cm. Pericardium: No pericardial effusion or pericardial thickening. Non-Cardiac Findings: Calcified right hilar lymph node. Calcifiec 6 mm right middle lobe. CONCLUSION Coronary CTA shows mild coronary atherosclerosis with moderate (50-69%) stenosis in the proximal LCx. No significant coronary artery stenosis in the LAD and LCX territories. Patent 15 mm long stent in the mid LAD. FFR-CT of 0.89 in the LCX distribution suggests that the lesion is not hemodynamically significant. STUDY QUALITY The study quality is excellent. COMMENTS None. The above report was based on a dedicated Cardiovascular CTA Protocol and interpreted by a Window Decorator.Should a more comprehensive assessment of non-cardiovascular findings be desired, please consult a radiologist.These images are available in the [facility] [place] PACS system. Signed 05/16/2018 8:30:09 AM Storm Mcelroy MD Revised Procedure Note Interface, Radiology Results In - 05/16/2018 8:30 AM [facility] Nuclear Cardiology and Cardiac CT [address] [place] [address] CTA Coronary Arteries Report Pat.Name: KATHRYN BEASLEY Pat.ID: [id number] .Date: 05/15/2018 Refer.MD: SOBEIDA BORGES MD Exam Time: 5:07:00 PM Study Type:CTA Coronary Arteries Height: 63in BSA: 1.96 m2 Age: 13 1945,72Y Sex: FEMALE BP: 172/83 HR: 66 bpm Nuclear Tech:YRN Gutiérrez(N)(CT) CPT - 4: CCTA w Thoracic Aorta (NonCongenital) [id number] Nuclear Event ID:[id number] Order ID: [id number] Reason for Study:Triple Rule Out Procedures:CT Prospective (intervals) SUMMARY: Technique: IV contrast was administered and sequential 0.[address] cuts were obtained through the chest using the Siemens Somatom Force CT scanner. Post-processing and 3D reconstruction were done using the Teliris workstation. Interactive image viewing and volumetric display and analysis were also performed. CTA RESULTS Left Main: A normal sized artery which arises normally from the left sinus of Valsalva and divides into the left anterior descending and circumflex coronary arteries. No significant atherosclerotic plaque is present. Left anterior descending (LAD): A normal sized artery which wraps around the apex and gives off one diagonal branch. Mild calcified and non-calcified atherosclerotic plaque is present in the proximal segment but without significant stenosis. Patent 15 mm long stent in the prox/mid LAD. The first diagonal is a normal sized artery which has no significant atherosclerotic plaque present. Left circumflex: A normal sized non-dominant artery which arises normally from the left main and gives off one major obtuse marginal artery before terminating in the AV groove. Mild non-calcified atherosclerotic plaque is present in the proximal segment with with moderate (50-69%) stenosis. The first obtuse marginal is a normal sized artery which has no significan atherosclerotic plaque present. Right coronary artery: A normal sized dominant artery which arises normally from the right sinus of Valsalva and gives off several right ventricular branches, the posterior descending artery and the posterolateral artery. No significant atherosclerotic plaque is present in the proximal segment but without significant stenosis. The posterior descending is a normal sized artery which has no significant calcified and non-calcified atherosclerotic plaque present but no significant stenosis. The posterolateral is a normal sized artery which has mild calcified and non-calcified atherosclerotic plaque present but no significant stenosis. Stents: Patent 15 mm long stent in the mid LAD. Bypass Grafts: None. Pulmonary Arteries: Normal pulmonary artery sizes with no proximal thrombus identified. Left Atrial and Pulmonary Vein Dimensions: Left atrial size (A-P diameter) 4.1 cm. Normal PV anatomy There is no evidence of the left atrial appendage clot. Thoracic Aortic Dimensions: No aortic aneurysm or dissection is seen. Aortic root 3.2 cm. Mid ascending aorta 3.7 cm. Aortic arch 2.5 cm. There is normal takeoff of the great vessels and no significant stenosis in the proximal visualized segments. Aortic Isthmus 2.7 cm. Descending thoracic aorta 2.4 cm. Pericardium: No pericardial effusion or pericardial thickening. Non-Cardiac Findings: Calcified right hilar lymph node. Calcifiec 6 mm right middle lobe. CONCLUSION Coronary CTA shows mild coronary atherosclerosis with moderate (50-69%) stenosis in the proximal LCx. No significant coronary artery stenosis in the LAD and LCX territories. Patent 15 mm long stent in the mid LAD. FFR-CT of 0.89 in the LCX distribution suggests that the lesion is not hemodynamically significant. STUDY QUALITY The study quality is excellent. COMMENTS None. The above report was based on a dedicated Cardiovascular CTA Protocol and interpreted by a Window Decorator. Should a more comprehensive assessment of non-cardiovascular findings be desired, please consult a radiologist. These images are available in the [facility] [place] PACS system. Signed 05/16/2018 8:30:09 AM Storm Mcelroy MD Revised Performing Organization Address City/State/Zipcode Phone Number [facility] [address] [place] [address] POC glucose (05/16/2018 7:20 AM PSYCHIATRIC ASSISTANT)Only the most recent of30 resultswithin the time period is included. POC glucose 107 (H) 65 - 99 mg/dL [facility] DEPARTMENT OF PATHOLOGY AND Comment: [facility] Notified RN Meter ID: [id number] Resistor Tester: janie roberts Performing Organization Address City/[facility]/Zipcode Phone Number [facility] DEPARTMENT OF PATHOLOGY AND [address] [place] [address] Troponin (05/15/2018 1:00 PM PSYCHIATRIC ASSISTANT)Only the most recent of2 resultswithin the time period is included. Troponin <0.30 0.00 - 0.30 ng/mL [facility] DEPARTMENT OF PATHOLOGY Comment: AND GENOMIC MEDICINE 0.30 - 1.49 ng/mlMay indicate increased risk of acute coronary syndrome. >=1.5 ng/mlConsistent with acute myocardial infarction. The diagnostic value of a single normal or non-diagnostic result is questionable.Serial samples at 2-6 hour intervals are required to rule out acute myocardial injury. Specimen Plasma specimen Performing Organization Address [facility] Phone Number [facility] DEPARTMENT OF PATHOLOGY AND [address] [place] [address] Echocardiogram complete w contrast and 3D if needed (05/15/2018 10:16 AM PSYCHIATRIC ASSISTANT) Narrative Performed At [facility] Echocardiography Report [address] [place] [address] Pat.Name:KATHRYN BEASLEY Pat.ID:[id number] .Date: 05/15/2018 Refer.MD:Terry Stearns MD Exam Time: 9:21:00 AMStudy Type:Routine Echo Height:63inWeight: 205lb BSA: 1.96 m2 DOBAge:1945,72Y Sex: FEMALEBP:168/91 HR:84 bpmSonogrphr: SOREN Marie Pat. Stat.:Inpatient Room:[facility] Study Status:Final Echo Event ID:[id number] Order ID:[id number] Reason for Study:CP, LAD, EVAL EF Procedures:2D Echo, Colorflow Doppler Race:C SUMMARY: LV EF is normal. Overall wall motion is normal. RV systolic function is normal. FINDINGS: LV: LV size is normal. Concentric left ventricular remodeling. LVEF is normal. Overall wall motion is normal. Estimated EFis 60-64%. RV: RV size is normal. RV systolic function is normal. RV wall motionis normal. LA: LA size is normal. RA: RA size is normal. AO: Aortic root diameter is normal. HENRIQUE: No pericardial effusion. AV: No structural AV abnormalities noted. MV: No structural MV abnormalities noted. PV: Pulmonic valve not well seen. TV: No structural TV abnormalities noted. A trace of tricuspid regurgitation Javed: LV relaxation is reduced, appropriate for age. LV filling pressureis normal. Other:Insufficient TR jet to estimate PA systolic pressure. MEASUREMENTS: 2D Parasternal [place] Ao An1.9 cmLVPWd1.1 cm LVOT 1.8 cmLA Ds2.9 cm LVIDd4.7 cmIndex2.4 cm/m Ao Rtd 3 cm Index1.5 cm/m LVIDs2.2 cmLV Jqfw406.8 g(87-129) LV%fs 53.2 % LVM Index 89.2 g/m2 IVSd 1 cmRWT0.5 LA Sng Plane LA Area 18.8 cm2(8.8-23.4) LA Vol51.7 ml Index26.4 ml/m LA LngAx 5.7 cm RA Sng Plane RA Area 15.1 cm2(8.3-19.5) RA Vol39.6 ml Index20.2 ml/m RA LngAx 5 cm DOPPLER LVOT Stroke Vol LVOT 1.9 cmLVOT CO7 l/min LVOT TVI31.8 cmLVOT CI3.6 l/m/m2 LVOT Tm328 xibwTK07 bpm LVOT SV 90.2 ml Signed 05/15/2018 01:27 PM Macrina Perez M.D. Procedure Note Interface, Radiology Results In - 05/15/2018 1:28 PM PSYCHIATRIC ASSISTANT Echocardiography Report [address] [place] [address] Pat.Name: KATHRYN BEASLEY [facility].ID: [id number] .Date: 05/15/2018 Refer.MD: Terry Stearns MD Exam Time: 9:21:00 AM Study Type:Routine Echo Height: 63in Weight: 205lb BSA: 1.96 m2 Age: 13 1945,72Y Sex: FEMALE BP: 168/91 HR: 84 bpm Sonogrphr: SOREN Marie. Stat.:Inpatient Room: [facility] Study Status:Final Echo Event ID:[id number] Order ID: [id number] Reason for Study:CP, LAD, EVAL EF Procedures:2D Echo, Colorflow Doppler Race: C SUMMARY: LV EF is normal. Overall wall motion is normal. RV systolic function is normal. FINDINGS: LV: LV size is normal. Concentric left ventricular remodeling. LV EF is normal. Overall wall motion is normal. Estimated EF is 60-64%. RV: RV size is normal. RV systolic function is normal. RV wall motion is normal. LA: LA size is normal. RA: RA size is normal. AO: Aortic root diameter is normal. HENRIQUE: No pericardial effusion. AV: No structural AV abnormalities noted. MV: No structural MV abnormalities noted. PV: Pulmonic valve not well seen. TV: No structural TV abnormalities noted. A trace of tricuspid regurgitation Javed: LV relaxation is reduced, appropriate for age. LV filling pressure is normal. Other: Insufficient TR jet to estimate PA systolic pressure. MEASUREMENTS: 2D Parasternal [place] Ao An 1.9 cm LVPWd 1.1 cm LVOT 1.8 cm LA Ds 2.9 cm LVIDd 4.7 cm Index 2.4 cm/m Ao Rtd 3 cm Index 1.5 cm/m LVIDs 2.2 cm LV Mass 174.8 g (87-129) LV%fs 53.2 % LVM Index 89.2 g/m2 IVSd 1 cm RWT 0.5 LA Sng Plane LA Area 18.8 cm2 (8.8-23.4) LA Vol 51.7 ml Index 26.4 ml/m LA LngAx 5.7 cm RA Sng Plane RA Area 15.1 cm2 (8.3-19.5) RA Vol 39.6 ml Index 20.2 ml/m RA LngAx 5 cm DOPPLER LVOT Stroke Vol LVOT 1.9 cm LVOT CO 7 l/min LVOT TVI 31.8 cm LVOT CI 3.6 l/m/m2 LVOT Tm 328 msec HR 78 bpm LVOT SV 90.2 ml Signed 05/15/2018 01:27 PM Macrina Perez M.D. Performing Organization Address City/State/Zipcode Phone Number [facility] [address] [place] [address] Estimated GFR (05/15/2018 5:08 AM PSYCHIATRIC ASSISTANT)Only the most recent of8 resultswithin the time period is included. Estimated GFR 84 mL/min/1.73 m2 [facility] DEPARTMENT OF Comment: PATHOLOGY AND GENOMIC CatergoryUnitsInterpretation MEDICINE G1 >=90 Normal or high G2 60-89Mildly decreased [id number] to moderately decreased [id number] to severely decreased G4 15-29Severely decreased G5 <15Kidney failure The eGFR was calculated using the Chronic Kidney Disease Epidemiology Collaboration (CKD-EPI) equation. Interpretation is based on recommendations of the National Kidney Foundation-Kidney Disease Outcomes Quality Initiative (NKF-KDOQI) published in 2014. Specimen Plasma specimen Performing Organization Address City/State/Zipcode Phone Number [facility] DEPARTMENT OF PATHOLOGY AND [address] [place] [address] [facility] Comprehensive metabolic panel (05/15/2018 5:08 AM PSYCHIATRIC ASSISTANT)Only the most recent of2 resultswithin the time period is included. Sodium 142 135 - 148 mEq/L [facility] DEPARTMENT OF PATHOLOGY AND GENOMIC MEDICINE Potassium 3.7 3.5 - 5.0 mEq/L [facility] DEPARTMENT OF PATHOLOGY AND GENOMIC MEDICINE Chloride 102 98 - 112 mEq/L [facility] DEPARTMENT OF PATHOLOGY AND GENOMIC MEDICINE CO2 26 24 - 31 mEq/L [facility] DEPARTMENT OF PATHOLOGY AND GENOMIC MEDICINE Anion gap 14@ANIO 7 - 15 mEq/L [facility] DEPARTMENT OF PATHOLOGY AND GENOMIC MEDICINE BUN 14 8 - 23 mg/dL [facility] DEPARTMENT OF PATHOLOGY AND GENOMIC MEDICINE Creatinine 0.72 0.50 - 0.90 mg/dL [facility] DEPARTMENT OF PATHOLOGY AND GENOMIC MEDICINE Glucose 106 (H) 65 - 99 mg/dL [facility] DEPARTMENT OF PATHOLOGY AND GENOMIC MEDICINE Calcium 9.4 8.8 - 10.2 mg/dL [facility] DEPARTMENT OF PATHOLOGY AND GENOMIC MEDICINE Protein 6.7 6.3 - 8.3 g/dL [facility] DEPARTMENT OF Comment: PATHOLOGY AND GENOMIC [place] 4.6-7.0 g/dL MEDICINE 1 week 4.4-7.6 g/dL 7 months-1year5.1-7.3 g/dL 1-2 years5.6-7.5 g/dL >3 years6.0-8.0 g/dL 18-150 6.3-8.3 g/dL Albumin 3.4 (L) 3.5 - 5.0 g/dL [facility] DEPARTMENT OF PATHOLOGY AND GENOMIC MEDICINE A/G ratio 1.0 0.7 - 3.8 [facility] DEPARTMENT OF PATHOLOGY AND GENOMIC MEDICINE Alkaline phosphatase 107 (H) 35 - 104 U/L [facility] DEPARTMENT OF PATHOLOGY AND GENOMIC MEDICINE AST 36 (H) 10 - 35 U/L [facility] DEPARTMENT OF PATHOLOGY AND GENOMIC MEDICINE ALT 23 5 - 50 U/L [facility] DEPARTMENT OF PATHOLOGY AND GENOMIC MEDICINE Total bilirubin 0.3 0.0 - 1.2 mg/dL [facility] DEPARTMENT OF PATHOLOGY AND GENOMIC MEDICINE Specimen Plasma specimen Performing Organization Address [facility] Phone Number [facility] DEPARTMENT PATHOLOGY AND [address] [place] [address] [facility] ECG 12 lead (05/15/2018 3:23 AM PSYCHIATRIC ASSISTANT)Only the most recent of3 resultswithin the time period is included. Ventricular rate 69 [facility] MUSE Atrial rate 69 [facility] MUSE VA interval 144 [facility] MUSE QRSD interval 78 [facility] MUSE QT interval 396 [facility] MUSE QTC interval 424 [facility] MUSE P axis 1 65 [facility] MUSE QRS axis 1 35 [facility] MUSE T wave axis 62 [facility] MUSE EKG impression Normal sinus rhythm-Normal ECG-In automated [facility] MUSE comparison with ECG of 23-JAN-2018 13:33,-No significant change was found- Performing Organization Address [facility] Phone Number [facility] MUSE [address] [place] [address] Urinalysis screen and microscopy, with reflex to culture (05/14/2018 6:10 PM PSYCHIATRIC ASSISTANT) Specimen site Clean catch [facility] DEPARTMENT OF PATHOLOGY AND GENOMIC MEDICINE Color, UA Yellow [facility] DEPARTMENT OF PATHOLOGY AND GENOMIC MEDICINE Appearance, UA Clear [facility] DEPARTMENT OF PATHOLOGY AND GENOMIC MEDICINE Specific gravity, UA 1.015 1.001 - 1.035 [facility] DEPARTMENT OF PATHOLOGY AND GENOMIC MEDICINE pH, UA 5.0 5.0 - 8.5 [facility] DEPARTMENT OF PATHOLOGY AND GENOMIC MEDICINE Protein, UA Negative Negative [facility] DEPARTMENT OF PATHOLOGY AND GENOMIC MEDICINE Glucose, UA Negative Negative [facility] DEPARTMENT OF PATHOLOGY AND GENOMIC MEDICINE Ketones, UA Negative Negative [facility] DEPARTMENT OF PATHOLOGY AND GENOMIC MEDICINE Bilirubin, UA Negative Negative [facility] DEPARTMENT OF PATHOLOGY AND GENOMIC MEDICINE Blood, UA Negative Negative [facility] DEPARTMENT OF PATHOLOGY AND GENOMIC MEDICINE Nitrite, UA Negative Negative [facility] DEPARTMENT OF PATHOLOGY AND GENOMIC MEDICINE Urobilinogen, UA <2.0 <2.0 [facility] DEPARTMENT OF PATHOLOGY AND GENOMIC MEDICINE Leukocyte esterase, UA Negative Negative [facility] DEPARTMENT OF PATHOLOGY AND GENOMIC MEDICINE Epithelial cells, UA 2 /HPF [facility] DEPARTMENT OF PATHOLOGY AND GENOMIC MEDICINE WBC, UA 1 0 - 4 /HPF [facility] DEPARTMENT OF PATHOLOGY AND GENOMIC MEDICINE RBC, UA 1 0 - 5 /HPF [facility] DEPARTMENT OF PATHOLOGY AND GENOMIC MEDICINE Bacteria, UA Few None seen [facility] DEPARTMENT OF PATHOLOGY AND GENOMIC MEDICINE Yeast, UA None seen [facility] DEPARTMENT OF PATHOLOGY AND GENOMIC MEDICINE Yeast with pseudohyphae, UA None seen [facility] DEPARTMENT OF PATHOLOGY AND GENOMIC MEDICINE Specimen Urine Performing Organization Address City/[facility]/Zipcode Phone Number [facility] DEPARTMENT OF PATHOLOGY AND [address] [place] [address] [facility] Urine culture (05/14/2018 6:10 PM PSYCHIATRIC ASSISTANT) Urine culture SEE COMMENTComment: Bacteriuria [facility] DEPARTMENT OF PATHOLOGY screen negative. AND GENOMIC MEDICINE Performing Organization Address [facility] Phone Number [facility] DEPARTMENT OF PATHOLOGY AND [address] [place] [address] [facility] XR Chest 2 Vw (05/14/2018 11:13 AM PSYCHIATRIC ASSISTANT) Narrative Performed At EXAMINATION:XR CHEST 2 VW [facility]IANT CLINICAL HISTORY:Chest painnormal ekg COMPARISON:Single view chest from 03/30/2018 and 2 view chest from 07/12/2015 IMPRESSION: PA and lateral radiographs of the chest was submitted for interpretation. No significant change in appearance of the chest when compared to previous examination. The lungs are clear. Calcified granulomas again noted within the right midlung. The mediastinal contours and cardiac silhouette are unchanged and unremarkable. Reticular/sclerotic bony lesion is again seen within the proximal right humerus which is unchanged compared to 07/2015 and is likely benign. The bones are otherwise unremarkable. [id number] Procedure Note Interface, Radiology Results Incoming - 05/14/2018 11:18 AM PSYCHIATRIC ASSISTANT EXAMINATION: XR CHEST 2 VW CLINICAL HISTORY: Chest pain normal ekg COMPARISON: Single view chest from 03/30/2018 and 2 view chest from 07/12/2015 IMPRESSION: PA and lateral radiographs of the chest was submitted for interpretation. No significant change in appearance of the chest when compared to previous examination. The lungs are clear. Calcified granulomas again noted within the right midlung. The mediastinal contours and cardiac silhouette are unchanged and unremarkable. Reticular/sclerotic bony lesion is again seen within the proximal right humerus which is unchanged compared to 07/2015 and is likely benign. The bones are otherwise unremarkable. [id number] Performing Organization Address City/[facility]/Zipcode Phone Number RADIANT [address] [place] [address] Troponin, I-Stat (05/14/2018 10:58 AM PSYCHIATRIC ASSISTANT) Troponin, I-Stat 0.00 0.00 - 0.08 ng/mL DEPARTMENT OF Comment: PATHOLOGY AND GENOMIC 0.09 - 1.49 ng/mlMay indicate increased risk of acute [facility] coronary syndrome. [facility] >=1.5 ng/mlConsistent with acute myocardial infarction. The diagnostic value of a single normal or non-diagnostic result is questionable.Serial samples at 2-6 hour intervals are required to rule out acute myocardial injury. Specimen Plasma specimen Performing Organization Address City/State/Zipcode Phone Number DEPARTMENT OF PATHOLOGY AND [address] [place] [address] [facility] CBC with platelet and differential (05/14/2018 10:58 AM PSYCHIATRIC ASSISTANT)Only the most recent of5 resultswithin the time period is included. WBC 6.30 4.50 - 11.00 k/uL [facility] RBC 3.99 (L) 4.20 - 5.50 m/uL [facility] HGB 11.1 (L) 12.0 - 16.0 g/dL [facility] HCT 33.8 (L) 37.0 - 47.0 % [facility] MCV 84.7 82.0 - 100.0 fL [facility] MCH 27.8 27.0 - 34.0 pg [facility] MCHC 32.8 31.0 - 37.0 g/dL [facility] RDW - SD 39.8 37.0 - 55.0 fL [facility] MPV 9.8 8.8 - 13.2 fL [facility] Platelet count 297 150 - 400 k/uL [facility] Neutrophils 54.3 39.0 - 69.0 % [facility] Lymphocytes 34.3 25.0 - 45.0 % [facility] Monocytes 8.4 0.0 - 10.0 % [facility] Eosinophils 2.5 0.0 - 5.0 % [facility] Basophils 0.5 0.0 - 1.0 % [facility] Specimen Blood Performing Organization Address City/State/Zipcode Phone Number DEPARTMENT OF PATHOLOGY AND [address] [place] [address] [facility] ECG ED Preliminary Interpretation - NOT AN ORDER (05/14/2018 10:18 AM PSYCHIATRIC ASSISTANT) Narrative Performed At Bennett Shah MD 05/14/20184:22 PM ECG ED Preliminary Interpretation - Not an Order Performed by: BENNETT SHAH Authorized by: BENNETT SHAH ECG reviewed by ED Physician in the absence of a medicaid specialist: yes Previous ECG: Previous ECG:Unavailable Interpretation: Interpretation: normal Rate: ECG rate:64 ECG rate assessment: normal Rhythm: Rhythm: sinus rhythm Ectopy: Ectopy: none QRS: QRS axis:Normal QRS intervals:Normal Conduction: Conduction: normal ST segments: ST segments:Normal T waves: T waves: normal XR Lumbar Spine 2 Or 3 Vw (04/12/2018 1:28 PM CDT) Narrative Performed At Study:XR LUMBAR SPINE 2 OR 3 VW RADIANT History:M54.5 Low back pain, M54.5 COMPARISON:March 30, 2018 IMPRESSION: 2 views of the lumbar spine. Stable changes of posterolateral and interbody fusion from L3 through S1. No hardware fractures or displacement. The lumbar lordosis is maintained. There are no subluxations. Vertebral body heights are within normal limits. The remaining disc spaces are without significant loss of height. Overlying soft tissues are unremarkable. [facility]-[id number] Procedure Note Interface, Radiology Results Incoming - 04/12/2018 2:24 PM CDT Study:XR LUMBAR SPINE 2 OR 3 VW History:M54.5 Low back pain, M54.5 COMPARISON:March 30, 2018 IMPRESSION: 2 views of the lumbar spine. Stable changes of posterolateral and interbody fusion from L3 through S1. No hardware fractures or displacement. The lumbar lordosis is maintained. There are no subluxations. Vertebral body heights are within normal limits. The remaining disc spaces are without significant loss of height. Overlying soft tissues are unremarkable. [id number] Performing Organization Address City/[facility]/Zipcode Phone Number [facility] [address] [place] [address] Hemoglobin & hematocrit (04/03/2018 12:25 PM CDT) HGB 8.1 (L) 12.0 - 16.0 g/dL [facility] DEPARTMENT OF PATHOLOGY AND GENOMIC MEDICINE HCT 25.8 (L) 37.0 - 47.0 % [facility] DEPARTMENT OF PATHOLOGY AND GENOMIC MEDICINE Specimen Blood Performing Organization Address [facility] Phone Number [facility] DEPARTMENT PATHOLOGY AND [address] [place] [phone] GENOMIC [facility] Phosphorus level (04/03/2018 4:37 AM CDT)Only the most recent of4 resultswithin the time period is included. Phosphorus 3.6 2.4 - 4.5 mg/dL [facility] DEPARTMENT OF PATHOLOGY AND GENOMIC MEDICINE Specimen Plasma specimen Performing Organization Address [facility] Phone Number [facility] DEPARTMENT PATHOLOGY AND [address] [place] [address] [facility] MEDICINE Basic metabolic panel (04/03/2018 4:37 AM CDT)Only the most recent of6 resultswithin the time period is included. Sodium 138 135 - 148 mEq/L [facility] DEPARTMENT OF PATHOLOGY AND GENOMIC MEDICINE Potassium 4.0 3.5 - 5.0 mEq/L [facility] DEPARTMENT OF PATHOLOGY AND GENOMIC MEDICINE Chloride 100 98 - 112 mEq/L [facility] DEPARTMENT OF PATHOLOGY AND GENOMIC MEDICINE CO2 26 24 - 31 mEq/L [facility] DEPARTMENT OF PATHOLOGY AND GENOMIC MEDICINE Anion gap 12@ANIO 7 - 15 mEq/L [facility] DEPARTMENT OF PATHOLOGY AND GENOMIC MEDICINE BUN 10 8 - 23 mg/dL [facility] DEPARTMENT OF PATHOLOGY AND GENOMIC MEDICINE Creatinine 0.67 0.50 - 0.90 mg/dL [facility] DEPARTMENT OF PATHOLOGY AND GENOMIC MEDICINE Glucose 96 65 - 99 mg/dL [facility] DEPARTMENT OF PATHOLOGY AND GENOMIC MEDICINE Calcium 8.7 (L) 8.8 - 10.2 mg/dL [facility] DEPARTMENT OF PATHOLOGY AND GENOMIC MEDICINE Specimen Plasma specimen Performing Organization Address [facility]/Zipcode Phone Number [facility] DEPARTMENT OF PATHOLOGY AND [address] [place] [address] GENOMIC MEDICINE Smear review (04/02/2018 4:30 AM CDT) Platelet slide review Logan adequate [facility] DEPARTMENT OF PATHOLOGY AND GENOMIC MEDICINE Anisocytosis Moderate [facility] DEPARTMENT OF PATHOLOGY AND GENOMIC MEDICINE Polychromasia Moderate [facility] DEPARTMENT OF PATHOLOGY AND GENOMIC MEDICINE Performing Organization Address City/[facility] Phone Number [facility] DEPARTMENT OF PATHOLOGY AND [address] [place] [address] Magnesium level (04/02/2018 4:00 AM CDT)Only the most recent of3 resultswithin the time period is included. Magnesium 2.3 1.6 - 2.4 mg/dL [facility] DEPARTMENT OF PATHOLOGY AND GENOMIC MEDICINE Specimen Plasma specimen Performing Organization Address City/[facility] Phone Number [facility] DEPARTMENT OF PATHOLOGY AND [address] [place] [address] B natriuretic peptide (03/31/2018 4:15 AM CDT) BNP 90 0 - 100 pg/mL [facility] DEPARTMENT OF PATHOLOGY AND GENOMIC MEDICINE Specimen Blood Performing Organization Address City/[facility] Phone Number [facility] DEPARTMENT OF PATHOLOGY AND [address] [place] [address] Urinalysis, automated with microscopy (03/31/2018 12:00 AM CDT) Color, UA Yellow [facility] DEPARTMENT OF PATHOLOGY AND GENOMIC MEDICINE Appearance, UA Clear [facility] DEPARTMENT OF PATHOLOGY AND GENOMIC MEDICINE Specific gravity, UA 1.018 1.001 - 1.035 [facility] DEPARTMENT OF PATHOLOGY AND GENOMIC MEDICINE pH, UA 5.0 5.0 - 8.5 [facility] DEPARTMENT OF PATHOLOGY AND GENOMIC MEDICINE Protein, UA Negative Negative [facility] DEPARTMENT OF PATHOLOGY AND GENOMIC MEDICINE Glucose, UA Negative Negative [facility] DEPARTMENT OF PATHOLOGY AND GENOMIC MEDICINE Ketones, UA Negative Negative [facility] DEPARTMENT OF PATHOLOGY AND GENOMIC MEDICINE Bilirubin, UA Negative Negative [facility] DEPARTMENT OF PATHOLOGY AND GENOMIC MEDICINE Blood, UA Negative Negative [facility] DEPARTMENT OF PATHOLOGY AND GENOMIC MEDICINE Nitrite, UA Negative Negative [facility] DEPARTMENT OF PATHOLOGY AND GENOMIC MEDICINE Urobilinogen, UA <2.0 <2.0 [facility] DEPARTMENT OF PATHOLOGY AND GENOMIC MEDICINE Leukocyte esterase, UA Negative Negative [facility] DEPARTMENT OF PATHOLOGY AND GENOMIC MEDICINE WBC, UA 2 0 - 4 /HPF [facility] DEPARTMENT OF PATHOLOGY AND GENOMIC MEDICINE RBC, UA 1 0 - 5 /HPF [facility] DEPARTMENT OF PATHOLOGY AND GENOMIC MEDICINE Bacteria, UA None seen None seen [facility] DEPARTMENT OF PATHOLOGY AND GENOMIC MEDICINE Yeast, UA None seen [facility] DEPARTMENT OF PATHOLOGY AND GENOMIC MEDICINE Yeast with pseudohyphae, UA None seen [facility] DEPARTMENT OF PATHOLOGY AND GENOMIC MEDICINE Specimen Urine Performing Organization Address City/[facility]/Zipcode Phone Number [facility] DEPARTMENT OF PATHOLOGY AND [address] [place] [address] GENOMIC MEDICINE XR Lumbar Spine Complete 4+ Vw (03/30/2018 9:11 PM CDT) Narrative Performed At EXAMINATION: XR LUMBAR SPINE COMPLETE 4VW RADIANT CLINICAL HISTORY: FOLLOW UP SPINE FUSION COMPARISON:Preoperative x-rays and lumbar spine from 02/12/2018. Findings:There is new anterior and posterior fusion from L3 to S1, with pedicle screws connected by vertical rods and laminectomy. There is graft material in the disc spaces. No acute abnormality is seen in the hardware or bone surrounding the hardware. There is good alignment. Compared to the preoperative exam, there is some increased disc space height, greater at L3-4 and L5-S1, and better alignment. The vertebral and disc space height and alignment, and degenerative changes are otherwise relatively stable at the other levels. IMPRESSION: Postoperative changes with areas of improved disc space height and alignment. [id number] Procedure Note Hm Interface, Radiology Results Incoming - 03/30/2018 11:32 PM CDT EXAMINATION: XR LUMBAR SPINE COMPLETE 4 VW CLINICAL HISTORY: FOLLOW UP SPINE FUSION COMPARISON: Preoperative x-rays and lumbar spine from 02/12/2018. Findings: There is new anterior and posterior fusion from L3 to S1, with pedicle screws connected by vertical rods and laminectomy. There is graft material in the disc spaces. No acute abnormality is seen in the hardware or bone surrounding the hardware. There is good alignment. Compared to the preoperative exam, there is some increased disc space height, greater at L3-4 and L5-S1, and better alignment. The vertebral and disc space height and alignment, and degenerative changes are otherwise relatively stable at the other levels. IMPRESSION: Postoperative changes with areas of improved disc space height and alignment. [facility]-[id number] Performing Organization Address [facility]/Zipcode Phone Number RADI[facility] [address] [place] [address] XR Chest 1 Vw Portable (03/30/2018 7:12 PM CDT) Narrative Performed At EXAMINATION:XR CHEST 1 VW PORTABLE HM RADIANT CLINICAL HISTORY:Shoulder painbursitis or tenosynovitis suspectedxray nondiagnostic, sob COMPARISON:December 14, 2015 chest IMPRESSION: No acute abnormality single view chest The lungs are clear. The heart is not enlarged. Mild vascular ectasia and atherosclerosis of the aorta unchanged The bony structures are within normal limits. [id number] Procedure Note Hm Interface, Radiology Results Incoming - 03/30/2018 7:28 PM CDT EXAMINATION: XR CHEST 1 VW PORTABLE CLINICAL HISTORY: Shoulder pain bursitis or tenosynovitis suspected xray nondiagnostic, sob COMPARISON: December 14, 2015 chest IMPRESSION: No acute abnormality single view chest The lungs are clear. The heart is not enlarged. Mild vascular ectasia and atherosclerosis of the aorta unchanged The bony structures are within normal limits. [id number] Performing Organization Address City/[facility]/Zipcode Phone Number [facility] [address] [place] [address] Blood culture, aerobic & anaerobic (03/30/2018 11:35 AM CDT) Blood culture isolate No growth after 5 days of incubation. [facility] DEPARTMENT OF Comment: PATHOLOGY AND GENOMIC Specimen Information MEDICINE Specimen Source: Blood Specimen Site: Antecubital Left Specimen Blood Performing Organization Address City/[facility] Phone Number [facility] DEPARTMENT OF PATHOLOGY AND [address] [place] [phone] GENOMIC MEDICINE Surgical pathology request (03/29/2018 3:21 PM CDT) [facility] DEPARTMENT OF PATHOLOGY AND GENOMIC MEDICINE Surgical pathology report See link below for PDF [facility] DEPARTMENT OF Lab Report PATHOLOGY AND GENOMIC MEDICINE Result status This is Final Report [facility] DEPARTMENT OF for [id number] PATHOLOGY AND GENOMIC MEDICINE Performing Organization Address [facility]ode Phone Number [facility] DEPARTMENT OF PATHOLOGY AND [address] [place] [address] GENOMIC MEDICINE OR [place] > I Hour (03/29/2018 2:30 PM CDT)Only the most recent of2 resultswithin the time period is included. Narrative Performed At EXAMINATION:OR FL 1 HOUR RADIANT C-arm fluoroscopy was requested in OR. LOCATION:OR # [id number] PROCEDURE: Posterior Lumbar Fusion START: 1015 END: 1430 FLUORO TIME:3.72secs DOSE:53.72 TECH(S): MA Scans:2 O-arm Case IMPRESSION: Separate operative report will be issued by the physician performing the procedure. [id number] Procedure Note Interface, Radiology Results Incoming - 03/29/2018 9:20 PM CDT EXAMINATION: OR FL 1 HOUR C-arm fluoroscopy was requested in OR. LOCATION:D3OR # [id number] PROCEDURE: Posterior Lumbar Fusion START: 1015 END: 1430 FLUORO TIME: 3.72secs DOSE:53.72 TECH(S): MA Scans:2 O-arm Case IMPRESSION: Separate operative report will be issued by the physician performing the procedure. [id number] Performing Organization Address City/[facility]/Zipcode Phone Number [facility] [address] [place] [address] Type and screen (03/29/2018 6:00 AM CDT) ABO grouping O [facility] DEPARTMENT OF PATHOLOGY AND GENOMIC MEDICINE Rh type NEG [facility] DEPARTMENT OF PATHOLOGY AND GENOMIC MEDICINE Antibody screen (gel) NEG [facility] DEPARTMENT OF PATHOLOGY AND GENOMIC MEDICINE Specimen Blood Performing Organization Address City/[facility] Phone Number [facility] DEPARTMENT OF PATHOLOGY AND [address] [place] [phone] GENOMIC MEDICINE General surgery (02/23/2018) Narrative Performed At XR Lumbar Spine Complete W Flex and Ext (02/12/2018 11:47 AM CDT) Narrative Performed At Study:XR LUMBAR SPINE COMPLETE W FLEX & EXTEND RADI[facility] History:M54.16 Radiculopathylumbar region, m54.16 COMPARISON:May 18, 2006 IMPRESSION: 6 views of the lumbar spine performed to include flexion and extension. There is a left convex curvature of the lumbar spine centered at L4. The lumbar lordosis maintained. There are no subluxations or induced listhesis. Vertebral body heights are within normal limits. No erosions. No lateral listhesis. There is severe disc space loss at L4-5 and L5/S1 indicating degenerative disc disease. Remaining disc spaces are mildly narrowed. There is significant facet arthrosis bilaterally at L3-4, L4-5, and L5/S1. Overlying soft tissues are unremarkable. [id number] Procedure Note Interface, Radiology Results Incoming - 02/12/2018 12:55 PM CDT Study:XR LUMBAR SPINE COMPLETE W FLEX & EXTEND History:M54.16 Radiculopathy lumbar region, m54.16 COMPARISON:May 18, 2006 IMPRESSION: 6 views of the lumbar spine performed to include flexion and extension. There is a left convex curvature of the lumbar spine centered at L4. The lumbar lordosis maintained. There are no subluxations or induced listhesis. Vertebral body heights are within normal limits. No erosions. No lateral listhesis. There is severe disc space loss at L4-5 and L5/S1 indicating degenerative disc disease. Remaining disc spaces are mildly narrowed. There is significant facet arthrosis bilaterally at L3-4, L4-5, and L5/S1. Overlying soft tissues are unremarkable. [id number] Performing Organization Address City/State/Zipcode Phone Number [facility] [address] [place] [address] XR Spine Scoliosis 1 vw (02/12/2018 11:47 AM CDT) Narrative Performed At EXAMINATION:XR SPINE SCOLIOSIS 1 VIEW [facility]IANT CLINICAL HISTORY:M54.16 Radiculopathylumbar region, m54.16 IMPRESSION: 8 images of the spine are submitted per scoliosis protocol. There is mild convex right curvature of the thoracolumbar region with a Swain angle 10 degrees spanning T10-L3.. Minimal convex left curvature of the upper thoracic spine and lower lumbar spine is also seen. The plumbline measures 3.4 cm right of the mid sacral line. The plumbline measures 2.6 cm anterior to the posterosuperior corner of the S1 vertebral body. Moderate multilevel disc degenerative changes are noted. Thoracic kyphosis is mildly exaggerated. [facility]-[id number] Procedure Note Interface, Radiology Results Incoming - 02/12/2018 12:58 PM CDT EXAMINATION: XR SPINE SCOLIOSIS 1 VIEW CLINICAL HISTORY: M54.16 Radiculopathy lumbar region, m54.16 IMPRESSION: 8 images of the spine are submitted per scoliosis protocol. There is mild convex right curvature of the thoracolumbar region with a Swain angle 10 degrees spanning T10-L3. . Minimal convex left curvature of the upper thoracic spine and lower lumbar spine is also seen. The plumbline measures 3.4 cm right of the mid sacral line. The plumbline measures 2.6 cm anterior to the posterosuperior corner of the S1 vertebral body. Moderate multilevel disc degenerative changes are noted. Thoracic kyphosis is mildly exaggerated. [facility]-[id number] Performing Organization Address City/State/Zipcode Phone Number YUAN BENITEZ [address] [place] [address] MRI Lumbar Spine Wo Contrast (02/12/2018 11:43 AM CDT) Narrative Performed At EXAMINATION: MRI LUMBAR SPINE WO CONTRAST ELI CLINICAL HISTORY: M54.16 Radiculopathylumbar region, M54.16 COMPARISON:Lumbar spine x-rays from 02/12/2018. TECHNIQUE: Multiplanar multisequence noncontrast enhanced examination was performed of the Lumbar spine. FINDINGS: There is increased lumbar lordosis. The lumbar curvature is convex towards the left. There are degenerative changes in the upper sacroiliac joints. There is decreased T2 signal in the lumbar discs. L5-S1: There is severe posterior disc space narrowing. There is dorsal spondylosis with central and paracentral protrusion indenting the subarachnoid space in the region of the S1 nerve roots with poste rior displacement of the left S1 nerve root. There is mild central canal stenosis. There is facet and ligamentum flavum hypertrophic changes with severe left and moderate right foraminal stenosis. There is extraforaminal spondylosis greater on the left and larger left lateral osteophytes with outward displacement of the left nerve and extension into the right nerve with possible outward displacement. L4-5: There is severe disc space narrowing with surrounding endplate degenerative change. There is mild left lateral listhesis. There is dorsal spondylosis with right paracentral protrusion indenting th e anterior subarachnoid space, greater on the right with mass effect on the right L5 nerve root. There is right laminectomy and resection of ligamentum flavum with enlargement of the posterior right subarachnoid space. There are facet hypertrophic change s and left ligamentum flavum hypertrophy. There is moderate left and severe right foraminal stenosis. L3-4: There is severe posterior disc space narrowing. There is broad central and paracentral protrusion superimposed upon disc bulge. There is posterior epidural fat and severe narrowing of the subarach noid space. There are facet and ligamentum flavum hypertrophic changes with moderate to severe right and moderate left foraminal stenosis. L2-3: There is greater posterior disc space narrowing. There is bulge with paracentral protrusions indenting the subarachnoid space. There is posterior epidural fat and mild narrowing of the AP dimensio n of the central subarachnoid space. There are facet and ligamentum flavum hypertrophic changes with mild left and moderate right foraminal stenosis. L1-2: There is bulge and facet hypertrophic changes without significant canal or foraminal stenosis. The distal cord ends at the L1-2 level and is grossly unremarkable. The study is not performed for proper imaging of soft tissue structures in the abdomen and pelvis. IMPRESSION: Degenerative changes with severe narrowing of the subarachnoid space at L3-4. Mass effect on the right L5 nerve root and the left S1 nerve root. Possible mass effect on the right S1 nerve root. Multilevel foraminal stenosis. Extraforaminal spondylosis at L5-S1 with outward displacement of the left nerve and extension into the right nerve and possible outward displacement. [id number] Procedure Note Hm Interface, Radiology Results - 02/12/2018 1:41 PM CDT EXAMINATION: MRI LUMBAR SPINE WO CONTRAST CLINICAL HISTORY: M54.16 Radiculopathy lumbar region, M54.16 COMPARISON: Lumbar spine x-rays from 02/12/2018. TECHNIQUE: Multiplanar multisequence noncontrast enhanced examination was performed of the Lumbar spine. FINDINGS: There is increased lumbar lordosis. The lumbar curvature is convex towards the left. There are degenerative changes in the upper sacroiliac joints. There is decreased T2 signal in the lumbar discs. L5-S1: There is severe posterior disc space narrowing. There is dorsal spondylosis with central and paracentral protrusion indenting the subarachnoid space in the region of the S1 nerve roots with posterior displacement of the left S1 nerve root. There is mild central canal stenosis. There is facet and ligamentum flavum hypertrophic changes with severe left and moderate right foraminal stenosis. There is extraforaminal spondylosis greater on the left and larger left lateral osteophytes with outward displacement of the left nerve and extension into the right nerve with possible outward displacement. L4-5: There is severe disc space narrowing with surrounding endplate degenerative change. There is mild left lateral listhesis. There is dorsal spondylosis with right paracentral protrusion indenting the anterior subarachnoid space, greater on the right with mass effect on the right L5 nerve root. There is right laminectomy and resection of ligamentum flavum with enlargement of the posterior right subarachnoid space. There are facet hypertrophic changes and left ligamentum flavum hypertrophy. There is moderate left and severe right foraminal stenosis. L3-4: There is severe posterior disc space narrowing. There is broad central and paracentral protrusion superimposed upon disc bulge. There is posterior epidural fat and severe narrowing of the subarachnoid space. There are facet and ligamentum flavum hypertrophic changes with moderate to severe right and moderate left foraminal stenosis. L2-3: There is greater posterior disc space narrowing. There is bulge with paracentral protrusions indenting the subarachnoid space. There is posterior epidural fat and mild narrowing of the AP dimension of the central subarachnoid space. There are facet and ligamentum flavum hypertrophic changes with mild left and moderate right foraminal stenosis. L1-2: There is bulge and facet hypertrophic changes without significant canal or foraminal stenosis. The distal cord ends at the L1-2 level and is grossly unremarkable. The study is not performed for proper imaging of soft tissue structures in the abdomen and pelvis. IMPRESSION: Degenerative changes with severe narrowing of the subarachnoid space at L3-4. Mass effect on the right L5 nerve root and the left S1 nerve root. Possible mass effect on the right S1 nerve root. Multilevel foraminal stenosis. Extraforaminal spondylosis at L5-S1 with outward displacement of the left nerve and extension into the right nerve and possible outward displacement. [id number] Performing Organization Address City/State/Zipcode Phone Number [facility] [address] [place] [address] after 09/10/2017 Insurance Payer Benefit Plan / Group Subscriber ID Type Phone Address [employer]ARE PPO/PFFS/[facility] xxxxxxxxx PPO Vijay cheung (Home) [place], [place] [phone] (Work) Advance Directives Patient has advance care planning documents on file. For more information, please contact:Sascha Senist[address] [place] [address]
[2018-09-11] MEDS ORDERED: NA CHLORIDE 0.9% 500 ML ONE (07:18)
[2018-09-11] MEDS ORDERED: PHENYLEPHRINE 10% OPTH 5ML ONE (07:18)
[2018-09-11] MEDS ORDERED: LIDOCAINE HCL/PF 3.5% OPTH GEL ONE (07:18)
[2018-09-11] MEDS ORDERED: CYCLOPENTOLATE 1% OPTH 2 ML ONE (07:18)
[2018-09-11] MEDS ORDERED: BUPIVACAINE 0.25% PF 10 ML VIAL ONE (07:18)
[2018-09-11] MEDS ORDERED: TETRACAINE HCL 0.5% 2ML OPTH ONE (07:18)
[2018-09-11] MEDS ORDERED: LIDOCAINE 2% MPF 5 ML VIAL ONE (07:18)
[2018-09-11] MEDS ORDERED: PHENYLEPHRINE 10% OPTH 5ML OPTH ONE ×2 (07:21→07:28)
[2018-09-11] MEDS ORDERED: CYCLOPENTOLATE 1% OPTH 2 ML OPTH ONE ×2 (07:21→07:28)
[2018-09-11] MEDS ORDERED: MIDAZOLAM HCL 2 MG/2 ML INJ ONE (08:27)
[2018-09-11] MEDS ORDERED: FENTANYL CITR 100 MCG/2 ML ONE (08:27)
--- NOTE | 2018-09-11 09:10 | P.BOP ---
Preoperative diagnosis: Nuclear sclerotic cataract OS Postoperative diagnosis: Same Primary procedure: Phacoemulsification with Toric IOL OS Estimated blood loss: None Anesthesia: Local (Topical with anesthesia for cataract surgery) Complications: None Implants: SA6AT6 +19.5 @ 166 Transferred to: Other (Day surgery) Condition: Good
[2018-09-11] MEDS ORDERED: EPINEPHRINE/PF 1 MG/ML AMP ONE ×2 (09:27→09:29)
[2018-09-11] MEDS ORDERED: NS 0.9% VIAL 0 ML ONE (09:27)
[2018-09-11] MEDS ORDERED: BALANCED SALT IRRIG PLAIN 500 ML BTL IRR ONE ×2 (09:27→09:29)
[2018-09-11] MEDS ORDERED: NS 0.9% VIAL 10 ML ONE (09:28)
[2018-09-11] MEDS ORDERED: DUOVISC 1 KIT OPTH ONE ×2 (09:28→09:29)
[2018-09-11] MEDS ORDERED: MOXIFLOXACIN HCL 10 DROPS/ML **OR USE OPTH ONE (09:29)
[2018-09-11] MEDS ORDERED: LIDOCAINE 1% MPF 2 ML AMPULE ONE (09:29)
--- NOTE | 2018-09-11 21:23 | OP ---
Date of Procedure: 09/11/2018 Surgeon: Savannah Aldana MD Anesthesiologist: Mindi Matt CRNA. Preoperative Diagnosis: Nuclear sclerotic cataract, OS (left eye). Operation Performed: Phacoemulsification with intraocular lens implant, left eye. Anesthesia: Per cataract surgery. Complications: None. Description Of Procedure: In the operating room the patient was prepped and draped in the usual sterile fashion for ophthalmic surgery. A lid speculum was placed in the left eye. Two paracentesis sites were made superiorly and inferiorly in the limbal cornea. Viscoat was placed in the anterior chamber and a crescent blade was used to make a corneal groove and tunnel, and a keratome was used to enter the anterior chamber. Provisc was placed in the anterior chamber and a 360 degree capsulotomy was performed with a cystitome. The lens was hydrodissected with BSS and rotated freely. The lens was removed with a stop and chop technique. A 3.95 phaco CDE was used to remove the lens. Residual cortex was removed with the irrigation and aspiration. Provisc was placed in the capsular bag. An SA6AT6 + 19.5 lens at 166 degrees was placed in the capsular bag without complications. Irrigation and aspiration was used to remove residual viscoelastic. The paracentesis sites were hydrated with BSS. The wound and paracentesis sites were inspected and found to be watertight. Vigamox 0.07 cc was placed intracamerally at the end of the procedure. The eye was irrigated with balanced salt solution. The eye was patched with a soft cotton patch and Mc metal shield. The patient was returned to day surgery in good condition. Comments: Akten was placed in the eye in Day Surgery and irrigated out of the eye with BSS in the OR. Preservative-free 1% lidocaine was placed in the anterior chamber prior to Viscoat. Discharge Instructions: Ms. Beasley is discharged to home in good condition and is to follow up with Dr. Aldana in the morning. JEREMIAS/CAROLINA Voice ID: [id number] Report ID: [id number]
== END 2018-09-11 09:52 | disposition home or self-care (01) ==
LOC: OR 06:52
PROVIDERS: ATTEND Ophthalmology Retina Specialist
PROC: 08RK3JZ Replacement of Left Lens with Synthetic Substitute, Percutaneous Approach (ICD-10-PCS; principal; 2018-09-11 08:30)
DX: H25.12 Age-related nuclear cataract, left eye (principal); I10 Essential (primary) hypertension; I25.10 Atherosclerotic heart disease of native coronary artery without angina pectoris; E78.5 Hyperlipidemia, unspecified; K21.9 Gastro-esophageal reflux disease without esophagitis; M19.90 Unspecified osteoarthritis, unspecified site; F32.9 Major depressive disorder, single episode, unspecified; Z95.5 Presence of coronary angioplasty implant and graft; Z79.82 Long term (current) use of aspirin; Z88.6 Allergy status to analgesic agent; Z80.9 Family history of malignant neoplasm, unspecified; Z82.3 Family history of stroke; Z82.49 Family history of ischemic heart disease and other diseases of the circulatory system
CPT/HCPCS: 66984; J0171; J2250; J3010; J2001; V2630; V2787

== ENCOUNTER 2018-10-23 07:19 | Day surgery (SDC) | payer OTHER ==
--- OUTSIDE RECORDS SUMMARY | 2018-10-23 07:23 | XMS REPORT | Clinical Summary ---
:1945 Author Organization [facility] Address [address] [place] [address] Care Team Providers Name Role Phone Lola [...] Abnormal EKG 01/17/2017 Coronary artery disease involving tangirnaq coronary artery of tangirnaq heart 09/09 without angina pectoris History of [...] Orders Only Cardiology Dwayne Lubin MD 02/12/2018 [facility] Radiology Yaneli Dailey Lumbar radiculopathy Encounter MD Magdy 02/12/2018 [facility] Radiology Yaneli Dailey Lumbar radiculopathy Encounter MD Magdy 02/12/2018 [facility] Radiology Yaneli Dailey Lumbar radiculopathy Encounter MD Magdy 02/12/2018 Transcribe Orders Radiology Yaneli Dailey Lumbar radiculopathy MD Magdy (Primary Dx) 02/09/2018 Transcribe Orders Access Yaneli Dailey Lumbar radiculopathy MD Magdy (Primary Dx) 01/25/2018 Refill Cardiology Dwayne Lubin Med Rafaill MD Ty 01/23/2018 Office Visit Cardiology Dwayne Lubin Coronary artery MD Ty disease involving tangirnaq coronary artery of tangirnaq heart without angina pectoris (Primary Dx) after 10/22/2017 Immunizations Name Dates Previously Given Next Due [...] Taken Blood Pressure 161/89 08/31/2018 3:57 PM EMERGENCY SERVICES DIRECTOR Pulse 132 08/31/2018 3:57 PM EMERGENCY SERVICES DIRECTOR Temperature 36.4 C (97.5 F) 08/31/2018 3:57 PM EMERGENCY SERVICES DIRECTOR Respiratory Rate 16 05/16/2018 7:18 AM EMERGENCY SERVICES DIRECTOR Oxygen Saturation 97% 05/16/2018 11:23 AM EMERGENCY SERVICES DIRECTOR Inhaled Oxygen Concentration - - Weight 98.4 kg (217 lb) 08/31/2018 3:57 PM EMERGENCY SERVICES DIRECTOR Height 160 cm (5' 3") 05/14/2018 10:30 AM EMERGENCY SERVICES DIRECTOR Body Mass Index 38.44 08/31/2018 3:57 PM EMERGENCY SERVICES DIRECTOR Plan of Treatment Date Type Specialty Care Team Description 11/21/2018 Office Visit Cardiology Dwayne Lubin MD [address] [facility] [address] [place] [address] Health Maintenance Due Date Last Done Comments BREAST CANCER SCREENING 1996 COLON CANCER SCREENING 1996 SHINGLES VACCINES (#1) 1996 65+ PNEUMOCOCCAL VACCINE (1 of 2 - PCV13) 2011 PNEUMOCOCCAL POLYSACCHARIDE VACCINE AGE 65 AND OVER 2011 INFLUENZA VACCINE 02/08/2019 04/04/2018 Implants Implanted Type Area Nutter Up Device Shelf Model / Identifier Expiration Serial / Lot Date Bone Matriz Osteocel Pro Large - [id number] - [id number] Human Tissue N/A: NUVASIVE 11/24/2022 [id number] / Implanted: Qty: 1 on 03/29/2018 by Yaneli Dailey MD Implants N/A [id number] / LOT NA Bone Matriz Osteocel Pro Large - [id number] - [id number] Human Tissue N/A: NUVASIVE 12/27/2022 [id number] / Implanted: Qty: 1 on 03/29/2018 by Yaneli Dailey MD Implants N/A [id number] / LOT NA Drafton Dbm Orthoblend Small Defect 5cc - [id number] - [id number] Human Tissue N/A: MEDTRONIC 09/22/2019 [id number] / Implanted: Qty: 1 on 03/29/2018 by Yaneli Dailey MD Implants N/A SPINAL AND [id number] / BIOLOGICS LOT NA Putty Clgn Mastergraft Cermc 0.75cc - [id number] Human Tissue N/A: MEDTRONIC 07/10/2020 [id number] / Implanted: Qty: 1 on 03/29/2018 by Yaneli Daiely MD Implants N/A SPINAL AND / BIOLOGICS [id number] Spacer [id number] Elevate X-Dayana 28x7mm - [id number] [id number] IMPLANT N/A: MEDTRONIC 07/29/2023 [id number] / Implanted: 03/29/2018 (Quantity not on file) DEVICES N/A SOFAMOR DANEK / [id number] Screw [id number] Cn Mas 7.5x50 Cc - [id number] [id number] IMPLANT N/A: MEDTRONIC [id number] / Implanted: Qty: 2 on 03/29/2018 by Yaneli Dailey MD DEVICES N/A SOFAMOR DANEK / Shine [id number] 85mm Perc Shine 4.75mm Ccm - [id number] [id number] IMPLANT N/A: MEDTRONIC [id number] / Implanted: Qty: 2 on 03/29/2018 by Yaneli Dailey MD DEVICES N/A SOFAMOR DANEK / Modulus Xlw, [id number] 15deg - [id number] [id number] IMPLANT N/A: NUVASIVE SPINE 09/12/2022 [id number] / Implanted: 03/29/2018 (Quantity not on file) DEVICES N/A / [id number] Modulus Xlw, [id number] 10deg - [id number] [id number] IMPLANT N/A: NUVASIVE SPINE 09/13/2022 [id number] / Implanted: 03/29/2018 (Quantity not on file) DEVICES N/A / [id number] Tmap Activator & Electrode Kit - [id number] [id number] IMPLANT N/A: NUVASIVE SPINE / Implanted: 03/29/2018 (Quantity not on file) DEVICES N/A / Material Bone Hmsts Wtrsolbl 2.5g Ostene - [id number] Orthopedic N/A: [id number] / Implanted: 03/29/2018 (Quantity not on file) Trauma N/A / Implants [id number] Material Bone Hmsts Wtrsolbl 2.5g Ostene - [id number] Orthopedic N/A: [id number] / Implanted: 03/29/2018 (Quantity not on file) Trauma N/A / Implants [id number] Spinal Maxcess 4 - [id number] Spinal N/A: NUVASIVE [id number] / Implanted: Qty: 1 on 03/29/2018 by Yaneli Dailey MD Implants N/A / Kit Dil M5 Xlif - [id number] Spinal N/A: NUVASIVE [id number] / Implanted: 03/29/2018 (Quantity not on file) Implants N/A / Screw Bone Mul-Ax 6.5x45mm - [id number] Spinal N/A: MEDTRONIC [id number] / Implanted: Qty: 3 on 03/29/2018 by Yaneli Dailey MD Implants N/A SPINAL AND / BIOLOGICS Screw Spinal Canltd Mul-Ax Co-Cr Ti 4.75x6.5x50mm - [id number] Spinal N/A: MEDTRONIC [id number] / Implanted: Qty: 1 on 03/29/2018 by Yaneli Dailey MD Implants N/A SPINAL AND / BIOLOGICS Screw Spinal Canltd Mul-Ax Co-Cr Ti 4.75x7.5x40mm - [id number] Spinal N/A: MEDTRONIC [id number] / Implanted: Qty: 1 on 03/29/2018 by Yaneli Dailey MD Implants N/A SPINAL AND / BIOLOGICS Screw Bone Canltd Mul-Ax 7.5x45mm Cd Horizon - [id number] Spinal N/A: MEDTRONIC [id number] / Implanted: Qty: 1 on 03/29/2018 by Yaneli Dailey MD Implants N/A SPINAL AND / BIOLOGICS Set Screw 4.75 Solera Perc Ti - [id number] Spinal N/A: MEDTRONIC [id number] / Implanted: Qty: 8 on 03/29/2018 by Yaneli Dailey MD Implants N/A SPINAL AND / BIOLOGICS Pin Surgcl Percutns 100mm - [id number] Surgical N/A: MEDTRONIC [id number] / Implanted: 03/29/2018 (Quantity not on file) Implants; N/A NAVIGATION / Expanders; TECHNOLOGIES [id number] Extenders; [place] [employer] Procedures Procedure Name Priority Date/Time Associated Comments Diagnosis XR LUMBAR SPINE AP Routine 06/29/2018 10:11 Low back pain, Results for this LATERAL FLEXION AND AM EMERGENCY SERVICES DIRECTOR unspecified back procedure are in EXTENSION pain laterality, the results unspecified section. chronicity, with sciatica presence unspecified CV CTA CORONARY STAT 05/30/2018 1:20 Results for this ARTERIES W CONTRAST AND PM EMERGENCY SERVICES DIRECTOR procedure are in FFR the results section. POC GLUCOSE Routine 05/16/2018 7:20 Results for this AM EMERGENCY SERVICES DIRECTOR procedure are in the results section. POC GLUCOSE Routine 05/15/2018 9:17 Results for this PM EMERGENCY SERVICES DIRECTOR procedure are in the results section. TROPONIN STAT 05/15/2018 1:00 Results for this PM EMERGENCY SERVICES DIRECTOR procedure are in the results section. POC GLUCOSE Routine 05/15/2018 11:47 Results for this AM EMERGENCY SERVICES DIRECTOR procedure are in the results section. ECHOCARDIOGRAM 2D Routine 05/15/2018 10:16 Results for this COMPLETE W MMODE AM EMERGENCY SERVICES DIRECTOR procedure are in SPECTRAL COLOR DOPPLER the results (54076) section. POC GLUCOSE Routine 05/15/2018 7:01 Results for this AM EMERGENCY SERVICES DIRECTOR procedure are in the results section. ESTIMATED GFR Routine 05/15/2018 5:08 Results for this AM EMERGENCY SERVICES DIRECTOR procedure are in the results section. COMPREHENSIVE METABOLIC Routine 05/15/2018 5:08 Results for this PANEL AM EMERGENCY SERVICES DIRECTOR procedure are in the results section. ECG 12-LEAD STAT 05/15/2018 3:23 Results for this AM EMERGENCY SERVICES DIRECTOR procedure are in the results section. POC GLUCOSE Routine 05/14/2018 9:20 Results for this PM EMERGENCY SERVICES DIRECTOR procedure are in the results section. URINALYSIS SCREEN AND Routine 05/14/2018 6:10 Results for this MICROSCOPY, WITH REFLEX PM EMERGENCY SERVICES DIRECTOR procedure are in TO CULTURE the results section. URINE CULTURE Routine 05/14/2018 6:10 Results for this PM EMERGENCY SERVICES DIRECTOR procedure are in the results section. TROPONIN Routine 05/14/2018 4:40 Results for this PM EMERGENCY SERVICES DIRECTOR procedure are in the results section. POC GLUCOSE Routine 05/14/2018 3:48 Results for this PM EMERGENCY SERVICES DIRECTOR procedure are in the results section. ECG 12-LEAD STAT 05/14/2018 11:53 Results for this AM EMERGENCY SERVICES DIRECTOR procedure are in the results section. XR CHEST 2 VW STAT 05/14/2018 11:13 Results for this AM EMERGENCY SERVICES DIRECTOR procedure are in the results section. ESTIMATED GFR STAT 05/14/2018 10:58 Results for this AM EMERGENCY SERVICES DIRECTOR procedure are in the results section. TROPONIN, I-STAT STAT 05/14/2018 10:58 Results for this AM EMERGENCY SERVICES DIRECTOR procedure are in the results section. COMPREHENSIVE METABOLIC STAT 05/14/2018 10:58 Results for this PANEL AM EMERGENCY SERVICES DIRECTOR procedure are in the results section. HC COMPLETE BLD COUNT STAT 05/14/2018 10:58 Results for this W/AUTO DIFF AM EMERGENCY SERVICES DIRECTOR procedure are in the results section. ECG ED PRELIMINARY Routine 05/14/2018 10:18 Results for this INTERPRETATION AM EMERGENCY SERVICES DIRECTOR procedure are in the results section. XR [...] CDT procedure are in the results section. VT AN ELECTIVE Routine 03/29/2018 8:38 ENDOTRACHEAL AIRWAY [...] MICROSCOPE, BONE SCALPEL, AQUAMANTYS, MEDTRONIC VOYAGER INSTRUMENTATION, EXTENSION DIVISION DIRECTOR, EST 6 HRS Special Needs 1. LATERAL RIGHT SIDE DOWN POSITION, REGULAR OR BED REVERSED, C-ARM, NUVASIVE COROENT INSTRUMENTATION, 2, PRONE POSITION, PRO AXIS TABLE, WILL USE REGULAR CRISTAL TABLE, O-ARM, STEALTH S7, MICROSCOPE, BONE SCALPEL, AQUAMANTYS, MEDTRONIC VOYAGER INSTRUMENTATION, EXTENSION DIVISION DIRECTOR, EST 6 HRS FUSION, SPINE, LUMBAR, 03/29/2018 8:00 AM CDT Lumbar stenosis with INTERBODY, TRANSFORAMINAL neurogenic claudication APPROACH Case Notes 11. LATERAL RIGHT SIDE DOWN POSITION, REGULAR OR BED REVERSED, C-ARM, NUVASIVE COROENT INSTRUMENTATION, 2, PRONE POSITION, PRO AXIS TABLE, WILL USE REGULAR CRISTAL TABLE, O-ARM, STEALTH S7, MICROSCOPE, BONE SCALPEL, AQUAMANTYS, MEDTRONIC VOYAGER INSTRUMENTATION, EXTENSION DIVISION DIRECTOR, EST 6 HRS Special Needs 1. LATERAL RIGHT SIDE DOWN POSITION, REGULAR OR BED REVERSED, C-ARM, NUVASIVE COROENT INSTRUMENTATION, 2, PRONE POSITION, PRO AXIS TABLE, WILL USE REGULAR CRISTAL TABLE, O-ARM, STEALTH S7, MICROSCOPE, BONE SCALPEL, AQUAMANTYS, MEDTRONIC VOYAGER INSTRUMENTATION, EXTENSION DIVISION DIRECTOR, EST 6 HRS FUSION, SPINE, LUMBAR, 03/29/2018 8:00 AM CDT Lumbar stenosis with POSTERIOR APPROACH neurogenic claudication Case Notes 11. LATERAL RIGHT SIDE DOWN POSITION, REGULAR OR BED REVERSED, C-ARM, NUVASIVE COROENT INSTRUMENTATION, 2, PRONE POSITION, PRO AXIS TABLE, WILL USE REGULAR CRISTAL TABLE, O-ARM, STEALTH S7, MICROSCOPE, BONE SCALPEL, AQUAMANTYS, MEDTRONIC VOYAGER INSTRUMENTATION, EXTENSION DIVISION DIRECTOR, EST 6 HRS Special Needs 1. LATERAL RIGHT SIDE DOWN POSITION, REGULAR OR BED REVERSED, C-ARM, NUVASIVE COROENT INSTRUMENTATION, 2, PRONE POSITION, PRO AXIS TABLE, WILL USE REGULAR CRISTAL TABLE, O-ARM, STEALTH S7, MICROSCOPE, BONE SCALPEL, AQUAMANTYS, MEDTRONIC VOYAGER INSTRUMENTATION, EXTENSION DIVISION DIRECTOR, EST 6 HRS FUSION, SPINE, LUMBAR, 03/29/2018 8:00 AM CDT Lumbar stenosis with neurogenic XLIF claudication Case Notes 11. LATERAL RIGHT SIDE DOWN POSITION, REGULAR OR BED REVERSED, C-ARM, NUVASIVE COROENT INSTRUMENTATION, 2, PRONE POSITION, PRO AXIS TABLE, WILL USE REGULAR CRISTAL TABLE, O-ARM, STEALTH S7, MICROSCOPE, BONE SCALPEL, AQUAMANTYS, MEDTRONIC VOYAGER INSTRUMENTATION, EXTENSION DIVISION DIRECTOR, EST 6 HRS Special Needs 1. LATERAL RIGHT SIDE DOWN POSITION, REGULAR OR BED REVERSED, C-ARM, NUVASIVE COROENT INSTRUMENTATION, 2, PRONE POSITION, PRO AXIS TABLE, WILL USE REGULAR CRISTAL TABLE, O-ARM, STEALTH S7, MICROSCOPE, BONE SCALPEL, AQUAMANTYS, MEDTRONIC VOYAGER INSTRUMENTATION, EXTENSION DIVISION DIRECTOR, EST 6 HRS TYPE AND SCREEN Routine [...] this CDT disease involving procedure are in tangirnaq coronary artery the results of tangirnaq heart section. without angina pectoris after 10/22/2017 Results XR Lumbar Spine Ap Lateral Flexion And Extension (06/29/2018 10:11 AM EMERGENCY SERVICES DIRECTOR) Narrative Performed At EXAMINATION: XR LUMBAR SPINE AP LATERALFLEXION AND EXTENSION HM [facility] CLINICAL HISTORY: M54.5 Low back pain, [...] L1-L2 and L2-L3. No suspicious osseous lesion. [id number] Procedure Note Hm Interface, Radiology Results Incoming - 06/29/2018 10:21 AM EMERGENCY SERVICES DIRECTOR EXAMINATION: XR LUMBAR SPINE AP LATERAL FLEXION [...] L1-L2 and L2-L3. No suspicious osseous lesion. [id number] Performing Organization Address City/State/Zipcode Phone Number [facility] [address] [place] [address] Cv cta coronary arteries w contrast and ffr if needed (05/30/2018 1:20 PM EMERGENCY SERVICES DIRECTOR) Narrative Performed At [facility] Nuclear Cardiology and Cardiac CT [address] [address] CTA Coronary Arteries Report Pat.Name:KATHRYN BEASLEY Pat.ID:[id number] St.Date: 05/15/2018 Refer.MD:SOBEIDA BORGES MD Exam Time: 5:07:00 PMStudy Type:CTA Coronary Arteries Height:63inBSA: 1.96 m2 DOBAge:1945,72YSex: FEMALE BP:172/83HR: 66 bpm Nuclear Tech:YRN Gutiérrez(N)(CT) CPT - 4: CCTA w Thoracic Aorta (NonCongenital) [id number] Nuclear Event ID:[id number] Order ID:[id number] Reason for Study:Triple Rule Out Procedures:CT Prospective (intervals) SUMMARY: Technique: IV contrast was administered and sequential 0.[address] cuts were obtained through the chest using the Siemens Somatom Force CT scanner. Post-processing and 3D reconstruction were done using the Living Lens Enterprise workstation. Interactive image viewing and volumetric display [...] Cardiovascular CTA Protocol and interpreted by a Home Health Assistant.Should a more comprehensive assessment of non-cardiovascular findings be desired, please consult a radiologist.These images are available in the [facility] [employer] PACS system. Signed 05/16/2018 8:30:09 AM Storm Mcelroy MD Revised Procedure Note Interface, Radiology Results In - 05/16/2018 8:30 AM EMERGENCY SERVICES DIRECTOR Nuclear Cardiology and Cardiac CT [address] [place] [address] CTA Coronary Arteries Report Pat.Name: KATHRYN BEASLEY Pat.ID: [id number] .Date: 05/15/2018 Refer.MD: SOBEIDA BORGES MD Exam Time: 5:07:00 PM Study Type:CTA Coronary Arteries Height: 63in BSA: 1.96 m2 Age: 13 1945,72Y Sex: FEMALE BP: 172/83 HR: 66 bpm Nuclear Tech:YRN Gutiérrez(N)(CT) CPT - 4: CCTA w Thoracic Aorta (NonCongenital) [id number] Nuclear Event ID:[id number] Order ID: [id number] Reason for Study:Triple Rule Out Procedures:CT Prospective (intervals) SUMMARY: Technique: IV contrast was administered and sequential 0.[address] cuts were obtained through the chest using the Siemens Somatom Force CT scanner. Post-processing and 3D reconstruction were done using the Living [employer] Enterprise workstation. Interactive image viewing and volumetric display [...] Cardiovascular CTA Protocol and interpreted by a Home Health Assistant. Should a more comprehensive assessment of non-cardiovascular findings be desired, please consult a radiologist. These images are available in the [facility] [employer] PACS system. Signed 05/16/2018 8:30:09 AM Storm Mcelroy MD Revised Performing Organization Address City/State/Zipcode Phone Number [facility] [address] [place] [address] POC glucose (05/16/2018 7:20 AM EMERGENCY SERVICES DIRECTOR)Only the most recent of30 resultswithin the time period is included. POC glucose 107 (H) 65 - 99 mg/dL [facility] DEPARTMENT OF PATHOLOGY AND Comment: [employer] MEDICINE [facility] Notified RN Meter ID: [id number] Filament Cutter: janie roberts Performing Organization Address City/[facility]/Zipcode Phone Number [facility] DEPARTMENT OF PATHOLOGY AND [address] [place] [address] GENOMIC [facility] Troponin (05/15/2018 1:00 PM EMERGENCY SERVICES DIRECTOR)Only the most recent of2 resultswithin the time period is included. Troponin <0.30 0.00 - 0.30 ng/mL [facility] DEPARTMENT OF PATHOLOGY Comment: AND GENOMIC MEDICINE 0.30 - 1.49 ng/mlMay indicate increased risk of acute coronary syndrome. >=1.5 ng/mlConsistent with acute myocardial infarction. The diagnostic value of a single normal or non-diagnostic result is questionable.Serial samples at 2-6 hour intervals are required to rule out acute myocardial injury. Specimen Plasma specimen Performing Organization Address City/[facility] Phone Number [facility] DEPARTMENT OF PATHOLOGY AND [address] [place] [address] Echocardiogram complete w contrast and 3D if needed (05/15/2018 10:16 AM EMERGENCY SERVICES DIRECTOR) Narrative [facility] E[facility] Report [address] [place] [address] Pat.Name:KATHRYN BEASLEY Christina Pat.ID:[id number] .Date: 05/15/2018 Refer.MD:Terry Stearns MD Exam Time: 9:21:00 AMStudy Type:Routine Echo Height:63inWeight: 205lb BSA: 1.96 m2 DOBAge:1945,72Y Sex: FEMALEBP:168/91 HR:84 bpmSonogrphr: SOREN Marie Pat. Stat.:Inpatient Room:[facility] Study Status:Final Echo Event ID:[id number] Order ID:[id number] Reason for Study:CP, LAD, EVAL EF Procedures:2D [...] PA systolic pressure. MEASUREMENTS: 2D Parasternal Long [place] Ao An1.9 cmLVPWd1.1 cm LVOT 1.8 cmLA Ds2.9 cm LVIDd4.7 cmIndex2.4 cm/m Ao Rtd 3 cm Index1.5 cm/m LVIDs2.2 cmLV Ghzi389.8 g(87-129) LV%fs 53.2 % LVM Index 89.2 g/m2 IVSd 1 cmRWT0.5 LA Sng Plane LA Area 18.8 cm2(8.8-23.4) LA Vol51.7 ml Index26.4 ml/m LA LngAx 5.7 cm RA Sng Plane RA Area 15.1 cm2(8.3-19.5) RA Vol39.6 ml Index20.2 ml/m RA LngAx 5 cm DOPPLER LVOT Stroke Vol LVOT 1.9 cmLVOT CO7 l/min LVOT TVI31.8 cmLVOT CI3.6 l/m/m2 LVOT Tm328 qkzgBW60 bpm LVOT SV 90.2 ml Signed 05/15/2018 01:27 PM Macrina Perez M.D. Procedure Note Interface, Radiology Results In - 05/15/2018 1:28 PM EMERGENCY SERVICES DIRECTOR Echocardiography Report [address] [facility], [place] [address] Pat.Name: KATHRYN BEASLEY Pat.ID: [id number] .Date: 05/15/2018 Refer.MD: Terry Stearns MD Exam Time: 9:21:00 AM Study Type:Routine Echo Height: 63in Weight: 205lb BSA: 1.96 m2 Age: 13 1945,72Y Sex: FEMALE BP: 168/91 HR: 84 bpm Sonogrphr: SOREN Marie. Stat.:Inpatient Room: [facility] Study Status:Final Echo Event ID:[id number] Order ID: [id number] Reason for Study:CP, LAD, EVAL EF Procedures:2D [...] PA systolic pressure. MEASUREMENTS: 2D Parasternal Long [place] Ao An 1.9 cm LVPWd 1.1 cm [...] Performing Organization Address City/State/Zipcode Phone Number [facility] [address] [place] [address] Estimated GFR (05/15/2018 5:08 AM EMERGENCY SERVICES DIRECTOR)Only the most recent of8 resultswithin the time period is included. Estimated GFR 84 mL/min/1.73 m2 [facility] DEPARTMENT OF Comment: PATHOLOGY AND GENOMIC CatergoryUnitsInterpretation MEDICINE G1 >=90 Normal or high G2 60-89Mildly decreased P6t67-17Towphr to moderately decreased L6d11-09Qrvvpjwjtp to severely decreased G4 15-29Severely decreased G5 <15Kidney failure The eGFR was calculated using the Chronic Kidney Disease Epidemiology Collaboration (CKD-EPI) equation. Interpretation is based on recommendations of the National Kidney Foundation-Kidney Disease Outcomes Quality Initiative (NKF-KDOQI) published in 2014. Specimen Plasma specimen Performing Organization Address City/State/Zipcode Phone Number [facility] DEPARTMENT OF PATHOLOGY AND [address] [place] [address] [employer] MEDICINE Comprehensive metabolic panel (05/15/2018 5:08 AM EMERGENCY SERVICES DIRECTOR)Only the most recent of2 resultswithin the time period is included. Sodium 142 135 - 148 mEq/L [facility] DEPARTMENT OF PATHOLOGY AND GENOMIC MEDICINE Potassium 3.7 3.5 - 5.0 mEq/L [facility] DEPARTMENT OF PATHOLOGY AND GENOMIC MEDICINE Chloride 102 98 - 112 mEq/L [facility] DEPARTMENT OF PATHOLOGY AND GENOMIC MEDICINE CO2 26 24 - 31 mEq/L [facility] DEPARTMENT OF PATHOLOGY AND GENOMIC MEDICINE Anion gap 14@ANIO 7 - 15 mEq/L [facility] DEPARTMENT OF PATHOLOGY AND GENOMIC MEDICINE BUN 14 8 - 23 mg/dL [facility] DEPARTMENT OF PATHOLOGY AND GENOMIC MEDICINE Creatinine 0.72 0.50 - 0.90 mg/dL [facility] DEPARTMENT OF PATHOLOGY AND GENOMIC MEDICINE Glucose 106 (H) 65 - 99 mg/dL [facility] DEPARTMENT OF PATHOLOGY AND GENOMIC MEDICINE Calcium 9.4 8.8 - 10.2 mg/dL [facility] DEPARTMENT OF PATHOLOGY AND GENOMIC MEDICINE Protein 6.7 6.3 - 8.3 g/dL [facility] DEPARTMENT OF Comment: PATHOLOGY AND GENOMIC [place] 4.6-7.0 g/dL MEDICINE 1 week 4.4-7.6 g/dL 7 months-1year5.1-7.3 g/dL 1-2 years5.6-7.5 g/dL >3 years6.0-8.0 g/dL 18-150 6.3-8.3 g/dL Albumin 3.4 (L) 3.5 - 5.0 g/dL [facility] DEPARTMENT OF PATHOLOGY AND GENOMIC MEDICINE A/G ratio 1.0 0.7 - 3.8 [facility] DEPARTMENT OF PATHOLOGY AND GENOMIC MEDICINE Alkaline phosphatase 107 (H) 35 - 104 U/L [facility] DEPARTMENT OF PATHOLOGY AND GENOMIC MEDICINE AST 36 (H) 10 - 35 U/L [facility] DEPARTMENT OF PATHOLOGY AND GENOMIC MEDICINE ALT 23 5 - 50 U/L [facility] DEPARTMENT OF PATHOLOGY AND GENOMIC MEDICINE Total bilirubin 0.3 0.0 - 1.2 mg/dL [facility] DEPARTMENT OF PATHOLOGY AND GENOMIC MEDICINE Specimen Plasma specimen Performing Organization Address City/[facility] [place] [place] Phone Number [facility] DEPARTMENT PATHOLOGY AND [address] [place] [address] [facility] ECG 12 lead (05/15/2018 3:23 AM EMERGENCY SERVICES DIRECTOR)Only the most recent of3 resultswithin the time period is included. Ventricular rate 69 [facility] Atrial rate 69 [facility] VT interval 144 [facility] QRSD interval 78 [facility] QT interval 396 [facility] QTC interval 424 [facility] P axis 1 65 [facility] MUSE QRS axis 1 35 [facility] T wave axis 62 [facility] EKG impression Normal sinus rhythm-Normal ECG-In automated [facility] comparison with ECG of 23-JAN-2018 13:33,-No significant change was found- Performing Organization Address City/[facility] Phone Number [facility] [address] [place] [address] Urinalysis screen and microscopy, with reflex to culture (05/14/2018 6:10 PM EMERGENCY SERVICES DIRECTOR) Specimen site Clean catch [facility] DEPARTMENT OF PATHOLOGY AND GENOMIC MEDICINE Color, UA Yellow [facility] DEPARTMENT OF PATHOLOGY AND GENOMIC MEDICINE Appearance, UA Clear [facility] DEPARTMENT OF PATHOLOGY AND GENOMIC MEDICINE Specific gravity, UA 1.015 1.001 - 1.035 [facility] DEPARTMENT OF PATHOLOGY AND GENOMIC MEDICINE pH, UA 5.0 5.0 - 8.5 [facility] DEPARTMENT OF PATHOLOGY AND GENOMIC MEDICINE Protein, UA Negative Negative [facility] DEPARTMENT OF PATHOLOGY AND GENOMIC MEDICINE Glucose, UA Negative Negative [facility] DEPARTMENT OF PATHOLOGY AND GENOMIC MEDICINE Ketones, UA Negative Negative [facility] DEPARTMENT OF PATHOLOGY AND GENOMIC MEDICINE Bilirubin, UA Negative Negative [facility] DEPARTMENT OF PATHOLOGY AND GENOMIC MEDICINE Blood, UA Negative Negative [facility] DEPARTMENT OF PATHOLOGY AND GENOMIC MEDICINE Nitrite, UA Negative Negative [facility] DEPARTMENT OF PATHOLOGY AND GENOMIC MEDICINE Urobilinogen, UA <2.0 <2.0 [facility] DEPARTMENT OF PATHOLOGY AND GENOMIC MEDICINE Leukocyte esterase, UA Negative Negative [facility] DEPARTMENT OF PATHOLOGY AND GENOMIC MEDICINE Epithelial cells, UA 2 /HPF [facility] DEPARTMENT OF PATHOLOGY AND GENOMIC MEDICINE WBC, UA 1 0 - 4 /HPF [facility] DEPARTMENT OF PATHOLOGY AND GENOMIC MEDICINE RBC, UA 1 0 - 5 /HPF [facility] DEPARTMENT OF PATHOLOGY AND GENOMIC MEDICINE Bacteria, UA Few None seen [facility] DEPARTMENT OF PATHOLOGY AND GENOMIC MEDICINE Yeast, UA None seen [facility] DEPARTMENT OF PATHOLOGY AND GENOMIC MEDICINE Yeast with pseudohyphae, UA None seen [facility] DEPARTMENT OF PATHOLOGY AND GENOMIC MEDICINE Specimen Urine Performing Organization Address City/[facility]ode Phone Number [facility] DEPARTMENT OF PATHOLOGY AND [address] [place] [address] [facility] MEDICINE Urine culture (05/14/2018 6:10 PM EMERGENCY SERVICES DIRECTOR) Urine culture SEE COMMENTComment: Bacteriuria [facility] DEPARTMENT OF PATHOLOGY screen negative. AND GENOMIC MEDICINE Performing Organization Address [facility] Centercoor Phone Number [facility] DEPARTMENT OF PATHOLOGY AND [address] [place] [address] GENOMIC MEDICINE XR Chest 2 Vw (05/14/2018 11:13 AM EMERGENCY SERVICES DIRECTOR) Narrative Performed At EXAMINATION:XR CHEST 2 VW [...] likely benign. The bones are otherwise unremarkable. [id number] Procedure Note Interface, Radiology Results Incoming - 05/14/2018 11:18 AM EMERGENCY SERVICES DIRECTOR EXAMINATION: XR CHEST 2 VW CLINICAL HISTORY: [...] likely benign. The bones are otherwise unremarkable. [id number] Performing Organization Address City/State/Zipcode Phone Number [facility] [address] [place] [address] Troponin, I-Stat (05/14/2018 10:58 AM EMERGENCY SERVICES DIRECTOR) Troponin, I-Stat 0.00 0.00 - 0.08 ng/mL DEPARTMENT OF Comment: PATHOLOGY AND GENOMIC 0.09 - 1.49 ng/mlMay indicate increased risk of acute [facility] coronary syndrome. [facility] >=1.5 ng/mlConsistent with acute myocardial infarction. The diagnostic value of a single normal or non-diagnostic result is questionable.Serial samples at 2-6 hour intervals are required to rule out acute myocardial injury. Specimen Plasma specimen Performing Organization Address City/[facility]/Zipcode Phone Number DEPARTMENT OF PATHOLOGY AND [address] [place] [address] [facility] CBC with platelet and differential (05/14/2018 10:58 AM EMERGENCY SERVICES DIRECTOR)Only the most recent of5 resultswithin the time period is included. WBC 6.30 4.50 - 11.00 k/uL [facility] RBC 3.99 (L) 4.20 - 5.50 m/uL [facility] HGB 11.1 (L) 12.0 - 16.0 g/dL [facility] HCT 33.8 (L) 37.0 - 47.0 % [facility] MCV 84.7 82.0 - 100.0 fL [facility] MCH 27.8 27.0 - 34.0 pg [facility] MCHC 32.8 31.0 - 37.0 g/dL [facility] RDW - SD 39.8 37.0 - 55.0 fL [facility] MPV 9.8 8.8 - 13.2 fL [facility] Platelet count 297 150 - 400 k/uL DEPARTMENT OF PATHOLOGY AND GENOMIC MEDICINE, [facility] Neutrophils 54.3 39.0 - 69.0 % [facility] Lymphocytes 34.3 25.0 - 45.0 % [facility] Monocytes 8.4 0.0 - 10.0 % [facility] Eosinophils 2.5 0.0 - 5.0 % [facility] Basophils 0.5 0.0 - 1.0 % [facility] Specimen Blood Performing Organization Address City/State/Zipcode Phone Number DEPARTMENT OF PATHOLOGY AND [address] [place] [address] [facility] ECG ED Preliminary Interpretation - NOT AN ORDER (05/14/2018 10:18 AM EMERGENCY SERVICES DIRECTOR) Narrative Performed At Bennett Shah MD 05/14/20184:22 PM ECG ED Preliminary Interpretation - Not an Order Performed by: BENNETT SHAH Authorized by: BENNETT SHAH ECG reviewed by ED Physician 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 Overlying soft tissues are unremarkable. [facility]-[id number] Procedure Note Interface, Radiology Results Incoming - [...] of height. Overlying soft tissues are unremarkable. [id number] Performing Organization Address City/[facility] Centercode Phone Number [facility] [address] [place] [address] Hemoglobin & hematocrit (04/03/2018 12:25 PM CDT) HGB 8.1 (L) 12.0 - 16.0 g/dL [facility] DEPARTMENT OF PATHOLOGY AND GENOMIC MEDICINE HCT 25.8 (L) 37.0 - 47.0 % [facility] DEPARTMENT OF PATHOLOGY AND GENOMIC MEDICINE Specimen Blood Performing Organization Address [facility] [place] [place] Phone Number [facility] DEPARTMENT OF PATHOLOGY AND [address] [place] [address] GENOMIC MEDICINE Phosphorus level (04/03/2018 4:37 AM CDT)Only the most recent of4 resultswithin the time period is included. Phosphorus 3.6 2.4 - 4.5 mg/dL [facility] DEPARTMENT OF PATHOLOGY AND GENOMIC MEDICINE Specimen Plasma specimen Performing Organization Address [facility], [place] Phone Number [facility] DEPARTMENT OF PATHOLOGY AND [address] [place] [address] [facility] MEDICINE Basic metabolic panel (04/03/2018 4:37 AM CDT)Only the most recent of6 resultswithin the time period is included. Sodium 138 135 - 148 mEq/L [facility] DEPARTMENT OF PATHOLOGY AND GENOMIC MEDICINE Potassium 4.0 3.5 - 5.0 mEq/L [facility] DEPARTMENT OF PATHOLOGY AND GENOMIC MEDICINE Chloride 100 98 - 112 mEq/L [facility] DEPARTMENT OF PATHOLOGY AND GENOMIC MEDICINE CO2 26 24 - 31 mEq/L [facility] DEPARTMENT OF PATHOLOGY AND GENOMIC MEDICINE Anion gap 12@ANIO 7 - 15 mEq/L [facility] DEPARTMENT OF PATHOLOGY AND GENOMIC MEDICINE BUN 10 8 - 23 mg/dL [facility] DEPARTMENT OF PATHOLOGY AND GENOMIC MEDICINE Creatinine 0.67 0.50 - 0.90 mg/dL [facility] DEPARTMENT OF PATHOLOGY AND GENOMIC MEDICINE Glucose 96 65 - 99 mg/dL [facility] DEPARTMENT OF PATHOLOGY AND GENOMIC MEDICINE Calcium 8.7 (L) 8.8 - 10.2 mg/dL [facility] DEPARTMENT OF PATHOLOGY AND GENOMIC MEDICINE Specimen Plasma specimen Performing Organization Address [facility] Centercode Phone Number [facility] DEPARTMENT OF PATHOLOGY AND [address] [place] [address] GENOMIC MEDICINE Smear review (04/02/2018 4:30 AM CDT) Platelet slide review Logan adequate [facility] DEPARTMENT OF PATHOLOGY AND GENOMIC MEDICINE Anisocytosis Moderate [facility] DEPARTMENT OF PATHOLOGY AND GENOMIC MEDICINE Polychromasia Moderate [facility] DEPARTMENT OF PATHOLOGY AND GENOMIC MEDICINE Performing Organization Address City/[facility] Centercode Phone Number [facility] DEPARTMENT OF PATHOLOGY AND [address] [place] [address] Magnesium level (04/02/2018 4:00 AM CDT)Only the most recent of3 resultswithin the time period is included. Magnesium 2.3 1.6 - 2.4 mg/dL [facility] DEPARTMENT OF PATHOLOGY AND GENOMIC MEDICINE Specimen Plasma specimen Performing Organization Address City/[facility] Centercode Phone Number [facility] DEPARTMENT OF PATHOLOGY AND [address] [place] [address] B natriuretic peptide (03/31/2018 4:15 AM CDT) BNP 90 0 - 100 pg/mL [facility] DEPARTMENT OF PATHOLOGY AND GENOMIC MEDICINE Specimen Blood Performing Organization Address [facility] Centercoor Phone Number [facility] DEPARTMENT OF PATHOLOGY AND [address] [place] [address] Urinalysis, automated with microscopy (03/31/2018 12:00 AM CDT) Color, UA Yellow [facility] DEPARTMENT OF PATHOLOGY AND GENOMIC MEDICINE Appearance, UA Clear [facility] DEPARTMENT OF PATHOLOGY AND GENOMIC MEDICINE Specific gravity, UA 1.018 1.001 - 1.035 [facility] DEPARTMENT OF PATHOLOGY AND GENOMIC MEDICINE pH, UA 5.0 5.0 - 8.5 [facility] DEPARTMENT OF PATHOLOGY AND GENOMIC MEDICINE Protein, UA Negative Negative [facility] DEPARTMENT OF PATHOLOGY AND GENOMIC MEDICINE Glucose, UA Negative Negative [facility] DEPARTMENT OF PATHOLOGY AND GENOMIC MEDICINE Ketones, UA Negative Negative [facility] DEPARTMENT OF PATHOLOGY AND GENOMIC MEDICINE Bilirubin, UA Negative Negative [facility] DEPARTMENT OF PATHOLOGY AND GENOMIC MEDICINE Blood, UA Negative Negative [facility] DEPARTMENT OF PATHOLOGY AND GENOMIC MEDICINE Nitrite, UA Negative Negative [facility] DEPARTMENT OF PATHOLOGY AND GENOMIC MEDICINE Urobilinogen, UA <2.0 <2.0 [facility] DEPARTMENT OF PATHOLOGY AND GENOMIC MEDICINE Leukocyte esterase, UA Negative Negative [facility] DEPARTMENT OF PATHOLOGY AND GENOMIC MEDICINE WBC, UA 2 0 - 4 /HPF [facility] DEPARTMENT OF PATHOLOGY AND GENOMIC MEDICINE RBC, UA 1 0 - 5 /HPF [facility] DEPARTMENT OF PATHOLOGY AND GENOMIC MEDICINE Bacteria, UA None seen None seen [facility] DEPARTMENT OF PATHOLOGY AND GENOMIC MEDICINE Yeast, UA None seen [facility] DEPARTMENT OF PATHOLOGY AND GENOMIC MEDICINE Yeast with pseudohyphae, UA None seen [facility] DEPARTMENT OF PATHOLOGY AND GENOMIC MEDICINE Specimen Urine Performing Organization Address City/[facility]/Zipcode Phone Number [facility] DEPARTMENT OF PATHOLOGY AND [address] [place] [address] GENOMIC MEDICINE XR Lumbar Spine Complete 4+ [...] of improved disc space height and alignment. [id number] Procedure Note Interface, Radiology Results Incoming - 03/30/2018 11:32 [...] of improved disc space height and alignment. [id number] Performing Organization Address City/[facility]/Zipcode Phone Number [facility] [address] [place] [address] XR Chest 1 Vw Portable (03/30/2018 7:12 PM CDT) Narrative Performed At EXAMINATION:XR CHEST 1 VW PORTABLE HM [facility] CLINICAL HISTORY:Shoulder painbursitis or tenosynovitis suspectedxray nondiagnostic, sob COMPARISON:December 14, 2015 chest IMPRESSION: No acute abnormality single view chest The lungs are clear. The heart is not enlarged. Mild vascular ectasia and atherosclerosis of the aorta unchanged The bony structures are within normal limits. [id number] Procedure Note Hm Interface, Radiology Results Incoming [...] The bony structures are within normal limits. [id number] Performing Organization Address City/[facility]/Zipcode Phone Number [facility] [address] [place] [address] Blood culture, aerobic & anaerobic (03/30/2018 11:35 AM CDT) Blood culture isolate No growth after 5 days of incubation. [facility] DEPARTMENT OF Comment: PATHOLOGY AND GENOMIC Specimen Information MEDICINE Specimen Source: Blood Specimen Site: Antecubital Left Specimen Blood Performing Organization Address City/[facility]ercode Phone Number [facility] DEPARTMENT OF PATHOLOGY AND [address] [place] [address] GENOMIC MEDICINE Surgical pathology request (03/29/2018 3:21 PM CDT) [facility] DEPARTMENT OF PATHOLOGY AND GENOMIC MEDICINE Surgical pathology report See link below for PDF [facility] DEPARTMENT OF Lab Report PATHOLOGY AND GENOMIC MEDICINE Result status This is Final Report [facility] DEPARTMENT OF for [id number] PATHOLOGY AND GENOMIC MEDICINE Performing Organization Address [facility]/Zipcode Phone Number [facility] DEPARTMENT OF PATHOLOGY AND [address] [place] [address] GENOMIC MEDICINE OR [place] > I Hour [...] performing the procedure. [id number] Performing Organization Address City/[facility]/Zipcode Phone Number [facility] [address] [place] [address] Type and screen (03/29/2018 6:00 AM CDT) ABO grouping O [facility] DEPARTMENT OF PATHOLOGY AND GENOMIC MEDICINE Rh type NEG [facility] DEPARTMENT OF PATHOLOGY AND GENOMIC MEDICINE Antibody screen (gel) NEG [facility] DEPARTMENT OF PATHOLOGY AND GENOMIC MEDICINE Specimen Blood Performing Organization Address City/[facility]ercoor Phone Number [facility] DEPARTMENT OF PATHOLOGY AND [address] [place] [address] GENOMIC MEDICINE General surgery (02/23/2018) Narrative Performed [...] and L5/S1. Overlying soft tissues are unremarkable. [id number] Procedure Note Interface, Radiology Results Incoming - [...] and L5/S1. Overlying soft tissues are unremarkable. [id number] Performing Organization Address City/State/Zipcode Phone Number [facility] [address] [place] [address] XR Spine Scoliosis 1 vw (02/12/2018 11:47 [...] are noted. Thoracic kyphosis is mildly exaggerated. [facility]-[id number] Procedure Note Interface, Radiology Results Incoming - [...] are noted. Thoracic kyphosis is mildly exaggerated. 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 [facility]-[id number] Procedure Note Hm Interface, Radiology Results - [...] the right nerve and possible outward displacement. [facility]-[id number] Performing Organization Address City/State/Zipcode Phone Number [facility] [address] [place] [address] after 10/22/2017 Insurance Payer Benefit Plan / Group Subscriber ID Type Phone Address [employer] MEDICARE [employer] MEDICARE PPO/PFFS/[facility] xxxxxxxxx PPO Vijay cheung (Home) [place], [place] [phone] (Work) Advance Directives Patient has advance care planning documents on file. For more information, please contact:Sascha Mendoza[address] [place] [address]
--- OUTSIDE RECORDS SUMMARY | 2018-10-23 07:23 | XMS REPORT ---
:1945 Author Organization [facility] Address [address] [place] [address] Care Team Providers Name Role Phone Unavailable [...] Comments Text Results Atomic Results Result Comments ZENY SAGASTUME, 2 2017-08-03 17:14:00 Reason for FINAL REPORT PATIENT ID: VIEWS, LEFT Exam:->[id number] 3 VIEWS OF THE RIGHT HAND, 3 [...] Montgomery Verified Date/Time: 08/03/2017 17:14:37 Reading Location: [facility] Radiology Reading Room , HAND, 2 2017-08-03 17:14:00 Reason for FINAL REPORT PATIENT ID: DEV, RIGHT Exam:->[id number] 3 VIEWS OF THE RIGHT HAND, 3 [...] [place] Verified Date/Time: 08/03/2017 17:14:37 Reading Location: [facility] Radiology Reading Room , HIP, 2 2017-08-03 14:30:00 Reason for FINAL REPORT PATIENT ID: DEV, LEFT Exam:->[id number] [id number] RIGHT HIP 2 VIEWS, LEFT HIP 2 [...] [place] Verified Date/Time: 08/03/2017 14:30:48 Reading Location: [facility] Radiology Reading Room , HIP, 2 2017-08-03 14:30:00 Reason for FINAL REPORT PATIENT ID: VIEWS, RIGHT Exam:->m05.79 [id number] RIGHT HIP 2 VIEWS, LEFT HIP 2 [...]
[2018-10-23] MEDS ORDERED: LIDOCAINE 2% MPF 5 ML VIAL ONE (08:08)
[2018-10-23] MEDS ORDERED: CYCLOPENTOLATE 1% OPTH 2 ML ONE (08:08)
[2018-10-23] MEDS ORDERED: TETRACAINE HCL 0.5% 4ML OPTH ONE (08:09)
[2018-10-23] MEDS ORDERED: BUPIVACAINE 0.25% PF 10 ML VIAL ONE (08:09)
[2018-10-23] MEDS ORDERED: PHENYLEPHRINE 10% OPTH 5ML OPTH ONE ×2 (08:12→08:17)
[2018-10-23] MEDS ORDERED: CYCLOPENTOLATE 1% OPTH 2 ML OPTH ONE ×2 (08:12→08:17)
[2018-10-23] MEDS ORDERED: PHENYLEPHRINE 10% OPTH 5ML ONE ×2 (08:13→08:23)
[2018-10-23] MEDS ORDERED: NA CHLORIDE 0.9% 0 ML ONE (08:13)
[2018-10-23] MEDS ORDERED: LIDOCAINE HCL/PF 3.5% OPTH GEL ONE ×2 (08:14→08:23)
[2018-10-23] MEDS ORDERED: NS 0.9% VIAL 10 ML ONE (08:19)
[2018-10-23] MEDS ORDERED: NA CHLORIDE 0.9% 500 ML ONE (08:23)
[2018-10-23] MEDS: DUOVISC 1 KIT OPTH ONE ×2 (08:47→09:18)
[2018-10-23] MEDS: BALANCED SALT IRRIG PLAIN 500 ML BTL IRR ONE ×2 (08:47→09:18)
[2018-10-23] MEDS: LIDOCAINE 1% MPF 2 ML AMPULE ONE ×2 (08:48→09:18)
[2018-10-23] MEDS: EPINEPHRINE/PF 1 MG/ML AMP ONE ×2 (08:48→09:18)
[2018-10-23] MEDS: MOXIFLOXACIN HCL 10 DROPS/ML **OR USE OPTH ONE ×4 (08:48→09:42)
[2018-10-23] MEDS ORDERED: MIDAZOLAM HCL 2 MG/2 ML INJ ONE (09:04)
[2018-10-23] MEDS ORDERED: FENTANYL CITR 100 MCG/2 ML ONE (09:04)
--- NOTE | 2018-10-23 09:49 | P.BOP ---
Preoperative diagnosis: Nuclear sclerotic cataract and regular astigmatism OD Postoperative diagnosis: Same Primary procedure: Phacoemulsification with Toric IOL OD Estimated blood loss: None Anesthesia: Local (Topical with anesthesia for cataract surgery) Complications: None Implants: SN6AT5 +18.5 @ 12 degrees Transferred to: Other (Day surgery) Condition: Good
--- NOTE | 2018-10-23 21:06 | OP ---
Date of Procedure: 10/23/2018 Surgeon: Savannah Aldana MD Anesthesiologist: 1.Elmira Shipley CRNA. 2. Lexa Rowe MD. Preoperative Diagnosis: Nuclear sclerotic cataract and regular astigmatism, right eye. Operation Performed: Phacoemulsification with Toric intraocular lens implant, right eye. Anesthesia: Per cataract surgery. Complications: None. Description Of Procedure: In the operating room the patient was prepped and draped in the usual sterile fashion for ophthalmic surgery. A lid speculum was placed in the right eye. Two paracentesis sites were made superiorly and inferiorly in the limbal cornea. Viscoat was placed in the anterior chamber and a crescent blade was used to make a corneal groove and tunnel, and a keratome was used to enter the anterior chamber. Provisc was placed in the anterior chamber and a 360 degree capsulotomy was performed with a cystitome. The lens was hydrodissected with BSS and rotated freely. The lens was removed with a stop and chop technique. 4.88 phaco CDE was used to remove the lens. Residual cortex was removed with the irrigation and aspiration. Provisc was placed in the capsular bag. A SN6AT5 +18.5 at 12 degrees lens was placed in the capsular bag without complications. Irrigation and aspiration were used to remove residual viscoelastic. The paracentesis sites were hydrated with BSS. The wound and paracentesis sites were inspected and found to be watertight. Vigamox 0.07 cc was placed intracamerally at the end of the procedure. The eye was irrigated with balanced salt solution. The eye was patched with a soft cotton patch and Mc metal shield. The patient was returned to day surgery in good condition. Comments: Akten was placed in the eye in Day Surgery and irrigated out of the eye in the OR. Preservative-free 1% lidocaine was placed in the anterior chamber prior to Viscoat. Discharge Instructions: Ms. Beasley is discharged to home in good condition and is to follow up with Dr. Aldana in the morning. JEREMIAS/CAROLINA Voice ID: [id number] Report ID: [id number] AGA
== END 2018-10-23 10:22 | disposition home or self-care (01) ==
LOC: OR 07:19
PROVIDERS: ATTEND Ophthalmology Retina Specialist
PROC: 08RJ3JZ Replacement of Right Lens with Synthetic Substitute, Percutaneous Approach (ICD-10-PCS; principal; 2018-10-23 09:00)
DX: H25.11 Age-related nuclear cataract, right eye (principal); H52.221 Regular astigmatism, right eye; E11.9 Type 2 diabetes mellitus without complications; I10 Essential (primary) hypertension; M19.90 Unspecified osteoarthritis, unspecified site; Z79.899 Other long term (current) drug therapy
CPT/HCPCS: 66984; J0171; J2250; J3010; J2001

== ENCOUNTER 2021-04-09 19:41 | Emergency (ER) | payer OTHER ==
[2021-04-09 21:23] LABS: SARS-COV-2 RT PCR NEGATIVE (NEGATIVE)
--- NOTE | 2021-04-09 21:25 | RAD REPORT ---
EXAM DESCRIPTION: Wero Valdez (2 Views)04/09/2021 9:11 pm CLINICAL HISTORY: Cough COMPARISON: 2017 FINDINGS: Calcified granuloma right lung. The lungs appear clear of acute infiltrate. The heart is normal size IMPRESSION: No acute abnormalities displayed
[2021-04-09 21:51] LABS: Absolute Lymphocytes (CBC) 1.2 K/uL (0.7-4.9); Basophils % 1.3 % (0-1.3); Hematocrit 34.8 % (36.0-45.0); Lymphocytes % 31.4 % (15.3-44.8); MPV 7.6 fL (7.6-11.3); RBC Red Blood Cell Count 4.03 M/uL (3.86-4.86)
[2021-04-09 22:09] LABS: ALT/SGPT 39 U/L (12-78); AST/SGOT 31 U/L (15-37); Albumin 3.4 g/dL (3.4-5.0); Alkaline Phosphatase 93 U/L (45-117); BUN Blood Urea Nitrogen 26 mg/dL (7-18); Bicarbonate 24 mmol/L (21-32); Bilirubin Direct 0.2 mg/dL (0-0.2); Bilirubin Total 0.7 mg/dL (0.2-1.0); Glucose Level 140 mg/dL (74-106); NT PRO-BNP 119 pg/mL (<125); Potassium 3.3 mmol/L (3.5-5.1); Sodium Level 137 mmol/L (136-145); Troponin (Emerg Dept Use Only) < 0.02 ng/mL (0.0-0.045)
[2021-04-09 22:11] LABS: Anisocytosis 1+; Blood Morphology Comment NOTED (NOT SEEN); Hypochromasia 1+; Platelet Estimate ADEQ; Polychromasia 1+; White Blood Cell Scan OK (OK)
[2021-04-09 22:13] LABS: Protime INR 1.11
[2021-04-09 22:18] LABS: Magnesium 1.4 mg/dL (1.8-2.4)
[2021-04-09 23:38] LABS: Urine Blood Trace-intact (Negative); Urine Glucose Negative (Negative); Urine Protein Negative (Negative)
[2021-04-09] MEDS ORDERED: NA CHLORIDE 0.9% 250 ML ONE (23:45)
[2021-04-10] MEDS ORDERED: Magnesium Sulfate 2gm IVPB 2 G/50 ML BAG IV ONE (00:26)
[2021-04-10] MEDS ORDERED: POTASSIUM 25 MEQ EFFERV TAB ONE (00:26)
[2021-04-10 00:44] LABS: Urine Bacteria <20 /HPF (<20); Urine RBC <5 /HPF (NONE SEEN)
[2021-04-10] MEDS ORDERED: NA CHLORIDE 0.9% 1,000 ML ONE (01:05)
--- NOTE | 2021-04-10 01:52 | EDPHYS ---
Physician Documentation [facility] Name: Leonor Beasley Age: 75 yrs Sex: Female : 1945 Arrival Date: 04/09/2021 Time: 19:47 Bed 24 Private MD: ED Physician Micheal Syed HPI: 04/09 21:00 This 75 yrs old Female presents to ER via Ambulatory with complaints of cp Cough, Fever. 21:00 The patient or guardian reports cough, with no sputum, fever. cp 21:00 Onset: The symptoms/episode began/occurred 04/02/2021. cp 21:00 Severity of symptoms: in the emergency department the symptoms are unchanged, despite cp home interventions. Modifying factors: the symptoms are aggravated by exertion. Associated signs and symptoms: Pertinent negatives: chest pain, abdominal pain, shortness of breath. Patient reports she has been taking prescribed Zithromax and without improvement of cough. Historical: - Allergies: 20:11 Demerol; vg1 - Home Meds: 20:11 atorvastatin oral [Active]; Metoprolol Tartrate Oral [Active]; Melatonin Oral [Active]; vg1 Famotidine Oral [Active]; duloxetine oral [Active]; pantoprazole oral [Active]; losartan oral [Active]; Hydrochlorothiazide Oral [Active]; - PMHx: 20:11 Hypertensive disorder; High Cholesterol; Rheumatoid arthritis; Pneumonia; vg1 - PSHx: 20:11 Stented artery; vg1 - Immunization history:: Adult Immunizations up to date, Client reports receiving the 2nd dose of the Covid vaccine. - Social history:: Smoking status: Patient denies any tobacco usage or history of. ROS: 21:05 Constitutional: Negative for body aches, chills, fever, poor PO intake. cp 21:05 Eyes: Negative for injury, pain, redness, and discharge. cp 21:05 ENT: Negative for drainage from ear(s), ear pain, sore throat, difficulty swallowing, difficulty handling secretions. 21:05 Cardiovascular: Negative for chest pain, edema, palpitations. 21:05 Respiratory: Positive for cough, with no reported sputum, Negative for shortness of breath, wheezing. 21:05 Abdomen/GI: Negative for abdominal pain, vomiting, diarrhea, constipation. 21:05 Neuro: Negative for altered mental status, dizziness, headache, syncope, weakness. 21:05 All other systems are negative. Exam: 21:10 Constitutional: The patient appears in no acute distress, alert, awake, cp non-diaphoretic, non-toxic, well developed, well nourished, obese. 21:10 Head/Face: Normocephalic, atraumatic. cp 21:10 Eyes: Periorbital structures: appear normal, Conjunctiva: normal, no exudate, no injection, Sclera: no appreciated abnormality, Lids and lashes: appear normal, bilaterally. 21:10 ENT: External ear(s): are unremarkable, Ear canal(s): are normal, clear, TM's: dullness, bilaterally, Nose: is normal, Mouth: Lips: moist, Oral mucosa: moist, Posterior pharynx: Airway: no evidence of obstruction, patent, Tonsils: no enlargement, no exudate, erythema, that is mild. 21:10 Neck: ROM/movement: is normal, is supple, without pain, no range of motions limitations, no meningismus. 21:10 Chest/axilla: Inspection: normal, Palpation: is normal, no crepitus, no tenderness. 21:10 Cardiovascular: Rate: tachycardic, Rhythm: regular, Edema: is not appreciated, JVD: is not appreciated. 21:10 Respiratory: the patient does not display signs of respiratory distress, Respirations: normal, no use of accessory muscles, no retractions, Breath sounds: bronchial sounds, that are mild, are heard diffusely, stridor, is not appreciated, wheezing: is not appreciated. 21:10 Abdomen/GI: Inspection: abdomen appears normal, Bowel sounds: active, all quadrants, Palpation: abdomen is soft and non-tender, in all quadrants, rebound tenderness, is not appreciated, involuntary guarding, is not appreciated. 21:10 Back: pain, is absent, ROM is normal. 21:10 Neuro: Orientation: to person, place \T\ time. Mentation: is normal, Motor: moves all fours, strength is normal. Vital Signs: 20:00 BP 104 / 78; Pulse 118; Resp 22; Temp 99; Pulse Ox 94% ; Weight 96.6 kg; Height 5 ft. 3 wr in. (160.02 cm); Pain 0/10; 20:00 BP 145 / 83; Pulse 100; Resp 20; Temp 99; Pulse Ox 92% ; wr 20:06 BP 104 / 78; Pulse 118; Resp 22; Temp 99.4(O); Pulse Ox 94% on R/A; Weight 96.62 kg; vg1 Height 5 ft. 3 in. (160.02 cm); Pain 0/10; 04/10 01:38 BP 148 / 85; Pulse 100; Resp 20; Temp 99; Pulse Ox 92% ; wr 03:49 BP 135 / 79; Pulse 88; Resp 16; Temp 98.5(O); Pulse Ox 100% on R/A; Pain 0/10; bc5 04/09 20:06 Body Mass Index 37.73 (96.62 kg, 160.02 cm) vg1 MDM: 04/09 20:51 Patient medically screened. cp 04/10 01:50 Data reviewed: vital signs, nurses notes, lab test result(s), radiologic studies, plain cp films. 01:50 Test interpretation: by ED physician or midlevel provider: plain radiologic studies. cp Counseling: I had a detailed discussion with the patient and/or guardian regarding: the historical points, exam findings, and any diagnostic results supporting the discharge/admit diagnosis, lab results, radiology results, to return to the emergency department if symptoms worsen or persist or if there are any questions or concerns that arise at home. Response to treatment: the patient's symptoms have markedly improved after treatment. ED course: VSS. Patient reports symptoms improved. No signs of respiratory distress and patient appears non-toxic. Oxygen sats 100% on RA. Will discharge to home for continued monitoring. 04/09 21:07 Order name: Basic Metabolic Panel cp 04/09 21:07 Order name: CBC with Diff cp 04/09 21:07 Order name: LFT's cp 04/09 21:07 Order name: Magnesium cp 04/09 21:07 Order name: NT PRO-BNP cp 04/09 21:07 Order name: PT-INR; Complete Time: 23:24 cp 04/10 01:30 Interpretation: Normal except: PT 12.8. cp 04/09 21:07 Order name: Troponin (emerg Dept Use Only); Complete Time: 23:24 cp 04/09 21:07 Order name: Lactate; Complete Time: 23:24 cp 04/09 21:07 Order name: Procalcitonin; Complete Time: 23:24 04/09 21:07 Order name: Blood Culture Adult (2) 04/09 20:52 Order name: XRAY Chest Pa And Lat (2 Views); Complete Time: 21:45 04/09 21:45 Interpretation: Report reviewed. 04/09 21:08 Order name: Basic Metabolic Panel; Complete Time: 23:24 EDMS 04/09 23:24 Interpretation: Normal except: K 3.3; GLUC 140; BUN 26; CRE 1.37; GFR 38. 04/09 21:08 Order name: CBC with Automated Diff; Complete Time: 23:24 EDMS 04/09 23:25 Interpretation: Normal except: WBC 4.00; HCT 34.8; RDW 22.8. 04/09 21:08 Order name: Liver (Hepatic) Function; Complete Time: 23:24 EDMS 04/10 01:31 Interpretation: Normal except: GLOB 3.6; A/G 0.9. 04/09 21:08 Order name: Magnesium; Complete Time: 23:24 EDMS 04/10 01:30 Interpretation: Abnormal: MG 1.4. 04/09 21:08 Order name: NT PRO-BNP; Complete Time: 23:24 EDMS 04/09 21:23 Order name: COVID-19/FLU A+B; Complete Time: 21:45 EDMS 04/09 21:46 Order name: Urine Microscopic Only; Complete Time: 00:57 04/10 01:31 Interpretation: Normal except: UWBC 5-10; SQEPI 5-10. 04/09 21:52 Order name: CBC Smear Scan; Complete Time: 23:24 EDMS 04/09 23:38 Order name: Urine Dipstick-Ancillary; Complete Time: 00:32 EDMS 04/10 00:32 Interpretation: Normal except: UBLD Trace-intact; UESTR 1+. 04/09 21:07 Order name: EKG; Complete Time: 21:08 04/09 21:07 Order name: Cardiac monitoring; Complete Time: 00:17 04/09 21:07 Order name: EKG - Nurse/Tech; Complete Time: 00:16 04/09 21:07 Order name: IV Saline Lock; Complete Time: 00:16 04/09 21:07 Order name: Labs collected and sent; Complete Time: 00:16 cp 04/09 21:07 Order name: O2 Per Protocol; Complete Time: 00:16 cp 04/09 21:07 Order name: O2 Sat Monitoring; Complete Time: 00:17 cp 04/09 21:46 Order name: Urine Dipstick-Ancillary (obtain specimen); Complete Time: 00:16 cp Administered Medications: 04/09 23:27 CANCELLED (Physician Discretion): NS 0.9% 250 ml IV at bolus once cp 23:27 CANCELLED (Physician Discretion): SOLU-Medrol (methylPrednisoLONE) 80 mg IVP once cp 04/10 00:14 Drug: Magnesium Sulfate 2 grams Route: IVPB; Infused Over: 2 hrs; Site: right wr antecubital; 00:15 Drug: Potassium Effervescent Tablet 50 mEq Route: PO; wr 00:16 Not Given (Patient Refused): NS 0.9% 500 ml IV at 500 ml/hr continuous wr 00:50 Drug: NS 0.9% 1000 ml Route: IV; Rate: 1 bolus; Site: right antecubital; wr 02:00 Drug: Xopenex (levalbuterol) 1.25 mg Route: Inhalation; wr 02:00 Drug: LevaQUIN (levofloxacin) 750 mg Route: IVPB; Site: right antecubital; wr 02:13 Drug: SOLU-Medrol (methylPrednisoLONE) 80 mg Route: IVP; Site: right antecubital; wr 02:14 Drug: NS 0.9% 500 ml Route: IV; Rate: bolus; Site: right antecubital; wr 02:26 Not Given (Duplicate Order; Given IV): LevaQUIN (levofloxacin) 750 mg PO once wr Disposition Summary: 04/10/21 01:51 Discharge Ordered Location: Home cp Problem: new cp Symptoms: have improved cp Condition: Stable cp Diagnosis - Acute bronchitis, unspecified cp Followup: cp - With: Christina Coleman MD - When: 2 - 3 days - Reason: Recheck today's complaints Discharge Instructions: - Discharge Summary Sheet cp - Acute Bronchitis, Adult cp Forms: - Medication Reconciliation Form cp - Thank You Letter cp - Antibiotic Education cp - Prescription Opioid Use cp Prescriptions: - albuterol sulfate 90 mcg/actuation Inhalation HFA aerosol inhaler - inhale 2 puff by INHALATION route every 4-6 hours; 1 Inhaler; Refills: 0, cp Product Selection Permitted - Prednisone 20 mg Oral Tablet - take 2 tablets by ORAL route once daily for 5 days; 10 tablet; Refills: 0, cp Product Selection Permitted - levofloxacin 500 mg Oral Tablet - take 1 tablet by ORAL route once daily for 7 days start morning of 04-11-2021; 7 cp tablet; Refills: 0, Product Selection Permitted - Tessalon Perles 100 mg Oral Capsule - take 2 capsule by ORAL route every 8 hours As needed; 30 capsule; Refills: 0, cp Product Selection Permitted Signatures: Dispatcher [employer] EDMS Julio Rollins PA PA cp Jovita Bain RN RN vg1 Jr Carlin Corrections: (The following items were deleted from the chart) 04/09 20:14 20:11 PMHx: Myocardial infarction; 1 1 20:38 20:16 CORONAVIRUS+MR.LAB.BRZ ordered. EDMS EDMS 20:38 20:16 Influenza Screen (A \T\ B)+BA.LAB.BRZ ordered. EDMS EDMS 21:41 21:08 CORONAVIRUS+MR.LAB.BRZ ordered. EDMS EDMS 23:27 21:46 NS 0.9% 250 ml IV at bolus once ordered. cp cp 23:27 23:26 SOLU-Medrol (methylPrednisoLONE) 80 mg IVP once ordered. cp cp
--- NOTE | 2021-04-10 01:52 | ER ---
Nurse's Notes [facility] Name: Leonor Beasley Age: 75 yrs Sex: Female : 1945 Arrival Date: 04/09/2021 Time: 19:47 Bed 24 Private MD: Diagnosis: Acute bronchitis, unspecified Presentation: 04/09 20:06 Chief complaint: Patient states: Productive cough began on 04/02/21. On 04/04/21 was vg1 tested at [facility] for Covid and results were Negative. Pt states fatigue, cough, congestion, diarrhea. States is prone to getting pneumonia. Denies shortness of breath, difficulty breathing, chest pain. Coronavirus screen: Vaccine status: Patient reports receiving the 2nd dose of the covid vaccine. Client presents with at least one sign or symptom that may indicate coronavirus-19. Standard/surgical mask placed on the client. Provider contacted for isolation considerations. Ebola Screen: Patient negative for fever greater than or equal to 101.5 degrees Fahrenheit, and additional compatible Ebola Virus Disease symptoms. Initial Sepsis Screen: Does the patient meet any 2 criteria? RR > 20 per min. HR > 90 bpm. Yes Does the patient have a suspected source of infection?. Risk Assessment: Do you want to hurt yourself or someone else? Patient reports no desire to harm self or others. Onset of symptoms was April 02, 2021. 20:06 Method Of Arrival: Ambulatory vg1 20:06 Acuity: BOUCHRA 3 vg1 Triage Assessment: 20:11 General: Appears in no apparent distress. comfortable, Behavior is calm, cooperative. vg1 Pain: Denies pain. Historical: - Allergies: 20:11 Demerol; vg1 - Home Meds: 20:11 atorvastatin oral [Active]; Metoprolol Tartrate Oral [Active]; Melatonin Oral [Active]; vg1 Famotidine Oral [Active]; duloxetine oral [Active]; pantoprazole oral [Active]; losartan oral [Active]; Hydrochlorothiazide Oral [Active]; - PMHx: 20:11 Hypertensive disorder; High Cholesterol; Rheumatoid arthritis; Pneumonia; vg1 - PSHx: 20:11 Stented artery; vg1 - Immunization history:: Adult Immunizations up to date, Client reports receiving the 2nd dose of the Covid vaccine. - Social history:: Smoking status: Patient denies any tobacco usage or history of. Screenin/01 00:33 Abuse screen: Denies. Nutritional screening: No deficits noted. Tuberculosis screening: wr No symptoms or risk factors identified. Fall Risk None identified. Assessment: 00:33 Reassessment: No changes from previously documented assessment. wr Vital Signs: 04/09 20:00 BP 104 / 78; Pulse 118; Resp 22; Temp 99; Pulse Ox 94% ; Weight 96.6 kg; Height 5 ft. 3 wr in. (160.02 cm); Pain 0/10; 20:00 BP 145 / 83; Pulse 100; Resp 20; Temp 99; Pulse Ox 92% ; wr 20:06 BP 104 / 78; Pulse 118; Resp 22; Temp 99.4(O); Pulse Ox 94% on R/A; Weight 96.62 kg; vg1 Height 5 ft. 3 in. (160.02 cm); Pain 0/10; 04/10 01:38 BP 148 / 85; Pulse 100; Resp 20; Temp 99; Pulse Ox 92% ; wr 03:49 BP 135 / 79; Pulse 88; Resp 16; Temp 98.5(O); Pulse Ox 100% on R/A; Pain 0/10; bc5 04/09 20:06 Body Mass Index 37.73 (96.62 kg, 160.02 cm) vg1 ED Course: 04/09 19:47 Patient arrived in ED. wm 20:11 Triage completed. vg1 20:11 Arm band placed on. vg1 20:23 COVID swab sent to lab. Flu and/or RSV swab sent to lab. vg1 20:30 Julio Rollins PA is PHCP. cp 20:30 Micheal Syed MD is Attending Physician. cp 21:11 XRAY Chest Pa And Lat (2 Views) In Process Unspecified. EDMS 21:40 Magnesium Sent. wr 21:40 NT PRO-BNP Sent. wr 21:40 CBC with Automated Diff Sent. wr 21:40 Liver (Hepatic) Function Sent. wr 21:40 Basic Metabolic Panel Sent. wr 21:55 Procalcitonin Sent. wr 04/10 00:16 Urine Microscopic Only Sent. wr 00:17 NT PRO-BNP Sent. wr 00:17 Magnesium Sent. wr 00:17 LFT's Sent. wr 00:17 CBC with Diff Sent. wr 00:17 Basic Metabolic Panel Sent. wr 01:51 Christina Coleman MD is Referral Physician. cp 03:48 Patient has correct armband on for positive identification. bc5 03:48 No provider procedures requiring assistance completed. IV discontinued, intact, bc5 bleeding controlled, No redness/swelling at site. Pressure dressing applied. Administered Medications: 04/09 23:27 CANCELLED (Physician Discretion): NS 0.9% 250 ml IV at bolus once cp 23:27 CANCELLED (Physician Discretion): SOLU-Medrol (methylPrednisoLONE) 80 mg IVP once cp 04/10 00:14 Drug: Magnesium Sulfate 2 grams Route: IVPB; Infused Over: 2 hrs; Site: right wr antecubital; 00:15 Drug: Potassium Effervescent Tablet 50 mEq Route: PO; wr 00:16 Not Given (Patient Refused): NS 0.9% 500 ml IV at 500 ml/hr continuous wr 00:50 Drug: NS 0.9% 1000 ml Route: IV; Rate: 1 bolus; Site: right antecubital; wr 02:00 Drug: Xopenex (levalbuterol) 1.25 mg Route: Inhalation; wr 02:00 Drug: LevaQUIN (levofloxacin) 750 mg Route: IVPB; Site: right antecubital; wr 02:13 Drug: SOLU-Medrol (methylPrednisoLONE) 80 mg Route: IVP; Site: right antecubital; wr 02:14 Drug: NS 0.9% 500 ml Route: IV; Rate: bolus; Site: right antecubital; wr 02:26 Not Given (Duplicate Order; Given IV): LevaQUIN (levofloxacin) 750 mg PO once wr Outcome: 01:51 Discharge ordered by . cp 03:48 Discharged to home ambulatory, with family. bc5 03:48 Condition: improved 03:48 Discharge instructions given to patient, Instructed on discharge instructions, follow up and referral plans. 03:49 Patient left the ED. bc5 Signatures: Dispatcher [employer] EDMS Julio Rollins PA PA cp Garcia, Victoria, RN RN vg1 Jaci Tellez Willena Griselda Coulter RN RN bc5 Corrections: (The following items were deleted from the chart) 04/09 20:14 20:11 PMHx: Myocardial infarction; vg1 vg1 21:41 21:40 CORONAVIRUS+MRDAKOTA.BRZ drawn and sent. EDMS 04/10 01:41 00:54 BP 148 / 85; Pulse 100bpm; Resp 20bpm; Pulse Ox 62%; Temp 99F; wr 02:17 02:14 LevaQUIN (levofloxacin) 750 mg PO [facility]
[2021-04-10] MEDS ORDERED: NA CHLORIDE 0.9% 500 ML ONE (02:22)
[2021-04-10] MEDS ORDERED: METHYLPREDNISOLONE 40 MG INJ ONE (02:27)
[2021-04-10] MEDS ORDERED: LEVALBUTEROL 1.25 MG/3 ML NEB ONE (02:29)
[2021-04-10] MEDS ORDERED: Levofloxacin 750mg IV 750 MG/150 ML BAG IV ONE (02:29)
[2021-04-10 04:01] VITALS: BP 135/79; TEMP 98.5; O2SAT 100
== END 2021-04-10 03:49 | disposition home or self-care (01) ==
LOC: ER 19:41
DX: J20.9 Acute bronchitis, unspecified (principal); I10 Essential (primary) hypertension; E78.00 Pure hypercholesterolemia, unspecified; Z20.822 Contact with and (suspected) exposure to COVID-19; Z88.5 Allergy status to narcotic agent
CPT/HCPCS: 87040 ×2; 85025; 80048; 36415; 83735; 85610; 80076; 83605; 84484; 84145; 83880; 0240U; 71046; 96375; 96374; 99284; J3475; J7050; J7040; J7030; J2920; 81003; 81015

== ENCOUNTER 2022-11-18 18:10 | Inpatient (IN) | payer OTHER ==
--- OUTSIDE RECORDS SUMMARY | 2022-11-18 18:45 | XMS REPORT | Continuity of Care Document ---
:1945 Author Organization [facility] t Address [address] [facility] [address] [place] [id number] Care Team Providers Name Role Phone Jared NEWBERRY, Gold Rose Primary Care Physician Mendel Fuller Attending Clinician Unavailable Kenisha NEWBERRY, Dwayne Crawford Attending Clinician Chi Dailey MD Attending Clinician ALFREDO ANDRADE Attending Clinician Unavailable GC_SWHATBIC_Baird_M Attending Clinician Unavailable Nayla Maier MA Attending Clinician Unavailable Yumiko Marsh Attending Clinician Unavailable ARLET_Mary_Nina Attending Clinician Unavailable Yumiko Marsh Attending Clinician [phone] Adri Mark RN Attending Clinician Unavailable Jorge Sharp Attending Clinician JORGE SHARP Attending Clinician Unavailable GC_SWHAOMC_Baird_M Attending Clinician Unavailable Kirti Nicolas RN Attending Clinician Unavailable Only, Ang Db Test Attending Clinician Unavailable Marybeth Tate Attending Clinician MARYBETH ALONSO Attending Clinician Unavailable Doctor Unassigned, [place] Attending Clinician Unavailable Kenisha NEWBERRY, Suraj Attending Clinician Rose NEWBERRY, Arya Verde Attending Clinician [phone] Gena Elizondo MA Attending Clinician Unavailable Priscila Byrnes MD, [facility] Attending Clinician Unavailable Jaspal Lundy DO Attending Clinician Hua NEWBERRY, Ortiz Streeter Attending Clinician [phone] Delfina Dodson APRN Attending Clinician Mo Rangel Attending Clinician Unavailable NADEEN MARK Attending Clinician Unavailable JARED YEN Admitting Clinician Unavailable GC_SWHATBIC_Baird_M Admitting Clinician Unavailable DWAYNE DE Admitting Clinician Unavailable Yumiko Marsh Admitting Clinician Unavailable ARLET_Mary_Faviola_ Admitting Clinician Unavailable Jorge Sharpmalo Admitting Clinician JORGE SHARP AHMAD Admitting Clinician Unavailable GC_SWHAOMC_Baird_M Admitting Clinician Unavailable Mendel Fuller Admitting Clinician Unavailable Physician, No Primary or Family Admitting Clinician UnavailCHI Keller Admitting Clinician Unavailable Payers Payer Name Policy Type Policy Number Effective Date Expiration Date S jeremiah UHC MEDICARE [id number] 2020 [facility] 00:00:00 ZZZHMO/POS [id number] 2015 00:00:00 MEDICARE PART A [id number] \[id number] - MEDICARE TRS-CARE MEDICARE [id number] [facility] ZZZTRS-CARE [id number] MEDICARE ADVANTAGE [employer] [id number] (MEDICARE REPLACEMENT/ADVANT AGE - PPO) Problems Condition Condition Condition Status Onset Resolution Last Treating Co mments Source Name Details Category Date Date Treatment Clinician Date Arthritis Arthritis Problem Active Aza tigre of left of Left 8-05 Orthope foot Foot 00:00: dic 00 Sports Medicin e Arthritis Arthritis Problem Active Aza tigre of right of Right 8-05 Orthop e foot Foot 00:00: dic 00 Sports Medicin e Bilateral Bilateral Problem Active Aza tigre foot joint Foot Joint 02-11 Or thope pain Pain 00:00: dic 00 Sports Medicin e PAIN PAIN Diagnosis Active 2021-12-12 Mem oria Active 11-26 07:33:00 l 11/26/2021 00:00: [place] [address] 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 peripheral Peripheral 2- Or thope neuropathy Neuropathy 00:00: di c 00 Sports Medicin e Lumbar Lumbar Problem Active 2020-07 Shannon radiculopa Radiculopa 2- Or thope thy thy 00:00: dic 00 Sports Medicin e Acetabular Acetabular Problem Active 2020-07 A zalea labrum Labrum 2 Orthope detachment Detachment 00:00: di c 00 Sports Medicin e Greater Greater Problem Active Shannon trochanter Trochanter 03-11 Or thope ic pain ic Pain 00:00: dic syndrome Syndrome 00 Sports Medicin e Chronic Chronic Disease Active [facility] left left 8-09 Health shoulder shoulder 00:00: pain pain 00 Nontraumat Nontraumat Disease Active U T ic ic 8-09 Health incomplete incomplete 00:00: tear of tear of 00 left left rotator rotator cuff cuff Synovitis Synovitis Disease Active [facility] of left of left 8-09 Health shoulder shoulder 00:00: 00 Primary Primary Disease Active UT osteoarthr osteoarthr 8 He alth itis of itis of 00:00: left left 00 shoulder shoulder Loose body Loose Body Problem Active A zalea in joint in Joint 720 Orthop e of left of Left 00:00: dic shoulder Shoulder 00 Sports region Region Medicin e Preop Preop Disease Active 2019-07 Methodi examinatio examinatio 07-22 st n n 00:00: Hospita 00 l Pain of Pain of Problem Active Shannon left Left 04-08 Orthope shoulder Shoulder 00:00: dic joint Joint 00 Sports Medicin e Iliotibial Iliotibial Problem Active A zalea band Band 1-03 Orthope friction Friction 00:00: dic syndrome Syndrome 00 Sports Medicin e Articular Articular Problem Active Aza tigre cartilage Cartilage 04-09 Orth ope disorder Disorder 00:00: dic of hip of Hip 00 Sports Medicin e Soft Soft Problem Active Shannon tissue Tissue 04-09 Orthope lesion Lesion 00:00: dic 00 Sports Medicin e Injury of Injury of Problem Active Aza tigre lower limb Lower Limb 04-09 Or thope 00:00: dic 00 Sports Medicin e Rheumatoid Rheumatoid Problem Active A zalea arthritis Arthritis 02-05 Orth ope 00:00: dic 00 Sports Medicin e Secondary Secondary Problem Active Aza tigre osteoarthr Osteoarthr 02-05 Or thope itis itis 00:00: dic 00 Sports Medicin e Ganglion Ganglion Problem Active Azapatricio a cyst of Cyst of 02-05 Orthope right foot Right Foot 00:00: di c 00 Sports Medicin e Hip pain Hip Pain Problem Active Azale a 5-06 Orthope 00:00: dic 00 Sports Medicin e CAD CAD Disease Active 2017-07 Methodi (coronary (coronary 07-16 st artery artery 00:00: Hospita disease) disease) 00 l Lumbar Lumbar Disease Active Methodi stenosis stenosis 03-29 st 00:00: Hospita 00 l Rotator Rotator Problem Active Shannon cuff Cuff 1-24 Orthope syndrome Syndrome 00:00: dic 00 Sports Medicin e Shoulder Shoulder Problem Active Azale a tendinitis Tendinitis - Or thope 00:00: dic 00 Sports Medicin e Full Full Problem Active Shannon thickness Thickness 1-24 Orth ope rotator Rotator 00:00: dic cuff tear Cuff Tear 00 Spor ts Medicin e Sprain of Sprain of Problem Active Aza tigre shoulder Shoulder 1-24 Orthop e 00:00: dic 00 Sports Medicin e Chest pain Chest pain Disease Active M ethodi 7 st 00:00: Hospita 00 l Angina Angina Disease Active Methodi pectoris pectoris 7 st 00:00: Hospita 00 l Abnormal Abnormal Disease Active Metho di EKG EKG 7 st 00:00: Hospita 00 l Elevated Elevated Disease Active [facility] hemoglobin hemoglobin 3-28 [facility] kes A1c A1c 00:00: Medical 00 Center CAD in CAD in Disease Active [facility] [place] 3[place]02 st artery artery 00:00: Hospita 00 l History of History of Disease Active M ethodi coronary coronary 3-02 st artery artery 00:00: Hospita stent stent 00 l placement placement Essential Essential Disease Active Met hodi hypertensi hypertensi 3-02 st on on 00:00: Hospita 00 l Vitamin D Vitamin D Problem Active Roseline via deficiency Deficiency 07-19 Me dical 00:00: 00 Rheumatoid Rheumatoid Problem Active P rivia arthritis Arthritis 07-19 Medi yokasta 00:00: 00 Osteopenia Osteopenia Problem Active P rivia 07-19 Medical 00:00: 00 History of History of Problem Active P [facility] hormone Hormone 07-19 Medical replacemen Replacemen 00:00: t (HRT) t (HRT) 00 History of History of Problem Active P [facility] vaginal Vaginal 07-19 Medical hysterecto Hysterecto 00:00: my my 00 Rheumatoid Rheumatoid Disease Active C [facility] arthritis arthritis 9-13 [facility] s involving involving 00:00: Medi yokasta multiple multiple 00 Center sites with sites with positive positive rheumatoid rheumatoid factor factor Elevated Elevated Disease Active [facility] blood [facility] 3[facility]22 [facility] sugar sugar 00:[facility] Medical 00 Center Coronary Coronary Disease Active Overview: [facility] artery artery 1-03 [facility] disease disease 00:00: g of this Medic al 00 note Center might be different from the original. s/p PCI after accelerat ing angina Coronary Coronary Disease Active Overview: [facility] artery artery 1-03 [facility] disease disease 00:00: g of this Medic al 00 note Center might be different from the original. s/p PCI after accelerat ing angina Coronary Coronary Problem Active Priv[facility] a arterioscl Arterioscl 1- Me dical erosis erosis 00:00: 00 Idiopathic Idiopathic Problem Active P rivia peripheral Peripheral 8- Me dical neuropathy Neuropathy 00:00: 00 Visual Visual Problem Active [facility] disturbanc Disturbanc 8 Me dical e e 00:00: 00 Acute Acute Problem Active [facility] ill-define Ill-define 8 Me dical d d 00:00: cerebrovas Cerebrovas 00 cular cular disease Disease Disorder Disorder Problem Active Privi a of trunk of Trunk 02-13 Medica l 00:00: 00 Hypertensi Hypertensi Disease Active C [facility] Ulcerative Ulcerative Disease Active M ethodi colitis colitis st Hospita l Hiatal Hiatal Disease Active Methodi hernia hernia st Hospita l GERD GERD Disease Active Methodi (gastroeso (gastroeso st phageal phageal Hospita reflux reflux l disease) disease) Gastric Gastric Disease Active Methodi erosion erosion st Hospita l Colon Colon Disease Active [facility]i polyp polyp st Hospita l Family Family Disease Active Methodi history of history of st colon colon Hospita cancer cancer l Hemorrhoid Hemorrhoid Disease Active M ethodi s s st Hospita l Lower Lower Disease Active Methodi abdominal abdominal st pain pain Hospita l Chronic Chronic Problem Active 2021-12-13 Me moria back pain back pain 21:32:29 l (disorder) (disorder) He rmann Active Problem 12/13/2021 [facility] Depressive Depressiv Problem Active 2021-12-13 Memoria disorder e disorder 21:32:29 l (disorder) (disorder) He rmann Active Problem 12/13/2021 [facility] 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:32: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 Herm luis eyelids eyelids (disorder) (disorder) Active Problem 12/13/2021 and ptosis [facility] Hyperlipid Hyperlipi Problem Active 2021-12-13 Memoria emia demia 21:32:29 l (disorder) (disorder) He ann Active Problem 12/13/2021 [facility] History of Past Illness Condition Condition Condition Status Onset Resolution Last Treating Co mments Source Name Details Category Date Date Treatment Clinician Date Unspecifie Unspecifi Problem 2021-12-13 2021-12-13 Memoria d ed 12-10 21:32:29 21:32:29 l ectropion ectropion 20:01: Herm luis of right of right 00 eye, eye, unspecifie unspecifie d eyelid d eyelid 12/10/2021 12/13/2021 [facility] Unspecifie Problem 2021-12-13 2021-12-13 Memoria d ptosis Unspecifie 12-10 21:32:29 21:32:29 l of d ptosis 20:00: [place] bilateral of 00 eyelids bilateral eyelids 12/10/2021 12/13/2021 [facility] Unspecifie Unspecifi Problem 2021-12-13 2021-12-13 Memoria d ed 12-10 21:32:29 21:32:29 l ectropion ectropion 20:00: Herm luis of left of left 00 lower lower eyelid eyelid 12/10/2021 12/13/2021 [facility] Unspecifie Unspecifi Problem 2021-12-13 2021-12-13 Memoria d ed 12-10 21:32:29 21:32:29 l exophthalm exophthalm 19:59: He rmann os os 00 12/10/2021 12/13/2021 [facility] Allergies, Adverse Reactions, Alerts Allergy Allergy Status Severity Reaction(s) Onset Inactive Treating Comm ents Source Name Type Date Date Clinician Demerol Allergy Active Confusion 2020-07 Azale a to 09-01 Orthope substanc 00:00: dic e 00 Sports Medicin e meperidi DA Active SV HALLUCINATIO 2020-07 HC A ne N 08-16 00:00: Orthope 00 dic Hospita l cedar DA Active MO SINUS 2020-07 [facility] leaf [place] Orthope 00 dic Hospita l Meperidi Propensi Active Other [place] ne ty to 02-16 reaction( Health adverse 00:00: s): Other reaction 00 (See s Comments) Hallucina tions meperidi DA Active SV 2020-0 [facility] ne 5 00:00: Orthope 00 dic Hospita l cedar DA Active MO 2019-0 [facility] leaf 11-27 00:00: Orthope 00 dic Hospita l meperidi DA Active SV HALLUCINATIO 2019-0 HC A ne N -20 [place] 00:00: Orthope 00 dic Hospita l cedar DA Active MO SINUS 2019-0 [facility] [place] 00:[place] Orthope 00 dic Hospita l meperidi DA Active SV 2020-0 [facility] ne 1-03 [place] 00:00: Orthope 00 dic Hospita l cedar DA Active MO 2020-0 [facility] leaf 1-03 00:00: Orthope 00 dic Hospita l meperidi DA Active SV HALLUCINATIO 2020-0 HC A ne N 1-03 [place] 00:00: Orthope 00 dic Hospita l cedar DA Active MO SINUS 2020-0 [facility] leaf CONGE[place]/S 1-[place] 00:00: Orthope 00 dic Hospita l meperidi DA Active SV 2019- [facility] ne 2- [place] 00:00: Orthope 00 dic Hospita l cedar DA Active MO 2018- [facility] leaf 2- [place] 00:00: Orthope 00 dic Hospita l meperidi DA Active SV HALLUCINATIO 2018- HC A ne N 2 [place] 00:00: Orthope 00 dic Hospita l cedar DA Active MO SINUS 2018- [facility] leaf [place]- [place] 00:00: Orthope 00 dic Hospita l meperidi DA Active SV 2018- [facility] ne 0-03 [place] 00:00: Orthope 00 dic Hospita l meperidi DA Active SV 2018-0 [facility] ne 03-09 [place] 00:00: Orthope 00 dic Hospita l Meperidi Propensi Active Other (See 20160 other Me thodi ne ty to Comments) 12-13 st adverse 00:00: Hospita reaction 00 l s to drug Meperidi Drug Active UT ne Hcl Allergy 02-13 Health 00:00: 00 Demerol Allergy Active [facility] to 02-13 Medical substanc 00:00: e 00 No Known DA Active U 2002- [facility] Contrast 03-28 [place] Allergie 00:00: Orthope s 00 dic Hospita l No Known DA Active U 2002-0 [facility] Drug 03-28 [place] Allergie 00:00: Orthope s 00 dic Hospita l No Known DA Active U 2002-0 [facility] Food 03-28 [place] Allergie 00:00: Orthope s 00 dic Hospita l No Known DA Active U 2002-0 [facility] Other 03-28 [place] Allergie 00:00: Orthope s 00 dic Hospita l MEPERIDI Allergy Active Other [facility] Demerol< Demerol< Active Memori a sup>1</s sup>1</s l up> up> Jarrod Meperidi Drug Active Other (See Hallucina C HI [facility] ne Allergy Comments) [facility] NO KNOWN Drug Active Univers ALLERGIE Class ity of S [facility] Family History Family Member Diagnosis Comments Start Date Stop Date Source Natural mother Alzheimer's disease C [facility] Natural mother Arthritis [facility] Natural mother Hydrocephalus [facility] Natural mother Hypertension [facility] Natural mother No Known Problems [facility] Natural brother Appendicitis [facility] Natural brother No Known Problems [facility] Natural father Colon cancer [facility] Natural father Colon [facility] Maternal aunt No Known Problems [facility] Maternal No Known Problems [facility] No Known Problems [facility] Maternal uncle No Known Problems [facility] Other No [facility] Paternal aunt No Known Problems [facility] Paternal No Known Problems [facility] Paternal No Known Problems [facility] Paternal uncle No Known Problems [facility] Natural sister No Known Problems [facility] Family member Nguyễn's esophagus Me [facility] Family member [facility] Family member Celiac disease [facility] Family member Cirrhosis [facility] Family member Colon polyps [facility] Family member Crohn's disease [facility] Family member Cystic fibrosis [facility] Family member Eating disorder [facility] Family member Esophageal cancer Meth [facility] Family member GERD [facility] Family member MARKETING PROJECT MANAGER Cancer [facility] Family member Hemochromatosis Method [facility] Family member Inflammatory bowel Met [facility] Family member Irritable bowel Method [facility] Family member Liver [facility] Family member [facility] disease [facility] Family member [facility]reatic [facility] member [facility]reatitis [facility] Family member Rectal [facility] Family member Stomach cancer [facility] Family member Ulcerative colitis [facility] Social History Social Habit Start Date Stop Date Quantity Comments Source History of tobacco Passive smoker Tx thodist [facility] Gender [facility] Sexual orientation [facility] Exposure to Not sure University of SARS-CoV-2 (event) [place] [facility] History SDOH [facility] Alcohol [facility] History SDOH [facility] Alcohol Std Drinks Medica l Center History SDOH [facility] Alcohol Binge Medical Angelita ter Tobacco use and 2022-07-15 2022-07-15 Smokeless [place] [employer] of exposure 00:00:00 00:00:00 tobacco non-user Medicine Alcohol intake 2022-03-11 2022-03-11 Current Cheondoism 00:00:00 00:00:00 non-drinker of Hospital alcohol (finding) History of Social 2022-03-11 2022-03-[address] function 00:00:00 00:00:00 Hospital Social History 2021-11-27 2021-11-27 [facility] ermann 20:55:55 20:55:55 Alcohol Comment 2015-09-30 2015-09-[address] [facility] kes 00:00:00 00:00:00 [facility] Sex [birth year] [facility]ism 00:00:00 00:00:00 [facility] Smoking Status Start Date Stop Date Source Unknown if ever smoked [facility] Never smoked tobacco [place] [facility] Medications Ordered Filled Start Stop Current Ordering Indication Dosage Frequency Signature Comments Components Source Medication Medication Date Date Medication? Clinician (SIG) Name Name aspirin 2022- No 81mg QD Take 1 Methodi (ECOTRIN) - 05-02 tablet (81 st 81 MG 10:46: 00:00 mg total) Hospit a enteric 02 :00 by mouth l coated daily. tablet famotidine Yes 40mg QD Take 1 Metho di (PEPCID) 40 5-02 tablet (40 st MG tablet 09:50: mg total) Hos mary 09 by mouth l daily. folic acid Yes 1mg QD Take 1 Metho di (FOLVITE) 1 5-02 tablet (1 st MG tablet 09:50: mg total) Hos mary 09 by mouth l daily. methotrexat 0 Yes 2.5mg Q7D Take 1 Met hodi e 2.5 MG 5-[address] tablet 09:50: (2.5 mg Hospita 09 total) by l mouth once a week. 4 tablets cholecalcif 0 Yes 1000U Take 1 Met hodi polina, 5-[address] vitamin D3, 09:50: (1,000 Hosp brice (VITAMIN 09 Units l D3) 1,000 total) by unit mouth. capsule DULoxetine 2022-0 Yes 60mg Take 1 Metho di (CYMBALTA) 5-[address] 60 MG 09:50: (60 mg Hospita capsule 09 total) by l mouth. ezetimibe 2022-0 Yes 10mg QD Take 1 Method i (ZETIA) 10 5-02 tablet (10 st mg tablet 09:50: mg total) Hos mary 09 by mouth l daily. losartan 3-0 Yes 100mg QD Take 1 Method i (COZAAR) 5-[address] 100 MG 09:50: (100 mg Hospita tablet 09 total) by l mouth daily. melatonin 3 2022-0 Yes 5mg QD Take 5 mg M ethodi mg tablet -[address] 09:50: nightly. Hospita 09 l golimumab 2022-0 Yes 2mg/kg Infuse 2 Me thodi (SIMPONI 5-02 mg/kg into st ARIA) 12.5 09:50: a venous Hos mary mg/mL 09 catheter l solution once. metoprolol 2022-0 Yes TAKE ONE Met hodi succinate 4-[address] XL 00:00: MOUTH Hospita (TOPROL-XL) 00 DAILY l 50 mg 24 hr tablet methotrexat 2022-0 Yes 2.5mg Take 2.5 B aylor e 1-05 mg by Rentz (RHEUMATREX 15:14: mouth of ) 2.5 MG 36 every 7 Medicin tablet days. e potassium 2022-0 Yes 10meq Take 10 Bayl or chloride 1-05 mEq by Rentz (MICRO-K) 15:14: mouth of 10 MEQ 36 daily. Medicin capsule e famotidine 2022-0 Yes 10mg Take 10 mg B aylor (PEPCID) 10 1-05 by mouth Marycruz ege MG tablet 15:14: two times of 36 daily. Medicin e aspirin EC 2022-0 Yes [id number] Take by [place] 81 MG 1-05 mouth. College tablet 15:14: of 36 Medicin e vitamin E 3-0 Yes [id number] 400U Take 400 Javier 400 UNITS 1-05 [facility] 15:14: mouth. of 36 Medicin e Vitamin E 3-0 Yes [id number] 1000U Take 1,000 Javier 1000 UNITS 1-05 Units by Colle ge CAPS 15:14: mouth. of 36 Medicin e Cholecalcif Yes Vitamin D3 [place] polina 25 MCG 1-05 25 mcg Colleg e (1000 UT) 15:14: (1,000 of CAPS 36 unit) Medicin capsule e Take by oral route. duloxetine Yes 60mg Take 60 mg B aylor (CYMBALTA) 1-05 by mouth Colle ge 60 MG 15:14: daily. of capsule 36 Medicin e Melatonin 3 Yes melatonin B aylor MG [facility] 1-05 3 mg Rentz 15:14: capsule of 36 Medicin e gabapentin 2021-07 Yes 100mg Take 100 Ba ylor (NEURONTIN) 2-25 mg by Rentz 100 MG 00:00: mouth 3 of capsule 00 times Medicin daily. e atorvastati 2021-07 Yes TAKE ONE Me thodi n (LIPITOR) 1-[address] 40 mg 00:00: MOUTH Hospita tablet 00 EVERY l EVENING atorvastati 2021-07 Yes TAKE ONE Me thodi n (LIPITOR) 1-[address] 40 mg 00:00: MOUTH Hospita tablet 00 EVERY l EVENING hydroCHLORO 2021-07 Yes TAKE ONE Me thodi thiazide 0-[address] (HYDRODIURI 00:00: MOUTH Hospi ta L) 12.5 MG 00 DAILY l tablet hydroCHLORO 2021-07 Yes TAKE ONE Me thodi thiazide 0-[address] (HYDRODIURI 00:00: MOUTH Hospi ta L) 12.5 MG 00 DAILY l tablet golimumab 2021-07 Yes 2mg/kg Infuse 2 Me thodi (SIMPONI 0-11 mg/kg into st ARIA) 12.5 13:19: a venous Hos mary mg/mL 25 catheter l solution once. furosemide 2021-07 No 40mg QD Take 1 Meth veronika (LASIX) 40 0-11 10-12 tablet (40 st mg tablet 00:00: 04:59 mg total) Ho spita 00 :00 by mouth l daily. potassium 2021-07 No 10meq QD Take 1 Meth veronika chloride 0-11 10-12 tablet (10 st (KLOR-CON) 00:00: 04:59 mEq total) Hospita 10 MEQ CR 00 :00 by mouth l tablet daily. furosemide 2021-07 No 40mg QD Take 1 Meth veronika (LASIX) 40 0-11 10-12 tablet (40 st mg tablet 00:00: 04:59 mg total) Ho spita 00 :00 by mouth l daily. potassium 2021-07 No 10meq QD Take 1 Meth veronika chloride 0-11 10-12 tablet (10 st (KLOR-CON) 00:00: 04:59 mEq total) Hospita 10 MEQ CR 00 :00 by mouth l tablet daily. famotidine Yes 40mg QD Take 1 Metho di (PEPCID) 40 9- tablet (40 st MG tablet 19:55: mg total) Hos mary 04 by mouth l daily. aspirin Yes 81mg QD Take 1 Methodi (ECOTRIN) 03-11 tablet (81 st 81 MG 19:55: mg total) Hospita enteric 04 by mouth l coated daily. tablet folic acid Yes 1mg QD Take 1 Metho di (FOLVITE) 1 03-11 tablet (1 st MG tablet 19:55: mg total) Hos mary 04 by mouth l daily. methotrexat Yes 2.5mg Q7D Take 1 Met hodi e 2.5 MG 03-[address] tablet 19:55: (2.5 mg Hospita 04 total) by l mouth once a week. 4 tablets cholecalcif Yes 1000U Take 1,000 Methodi polina, 8-[address] vitamin D3, 21:16: mouth. Hosp brice (VITAMIN 57 l D3) 1,000 unit capsule DULoxetine Yes 60mg Take 60 mg M ethodi (CYMBALTA) 8-[address] 60 MG 21:16: Hospita capsule 57 l ezetimibe 0 Yes 10mg QD Take 10 mg Me thodi (ZETIA) 10 8-[address] mg tablet 21:16: daily. Hospit a 57 l losartan 0 Yes 100mg QD Take 100 Meth veronika (COZAAR) 8-[address] 100 MG 21:16: mouth Hospita tablet 57 daily. l melatonin 3 Yes 5mg QD Take 5 mg M ethodi mg tablet 8-[address] 21:16: nightly. Hospita 57 l furosemide 2021- No 40mg QD Take 1 Meth veronika (LASIX) 40 03-10 tablet (40 st mg tablet 00:00: 04:59 mg total) Ho spita 00 :00 by mouth l daily for 30 days. potassium 2021- No 10meq QD Take 1 Meth veronika chloride 03-[address] (MICRO-K) 00:00: 04:59 (10 mEq Hosp brice 10 MEQ CR 00 :00 total) by l capsule mouth daily for 30 days. furosemide 2021- No 40mg QD Take 1 Meth veronika (LASIX) 40 03-10 tablet (40 st mg tablet 00:00: 04:59 mg total) Ho spita 00 :00 by mouth l daily for 30 days. potassium 2021- No 10meq QD Take 1 Meth veronika chloride 03-[address] (MICRO-K) 00:00: 04:59 (10 mEq Hosp brice 10 MEQ CR 00 :00 total) by l capsule mouth daily for 30 days. atorvastati 2021- No TAKE ONE M ethodi n (LIPITOR) 8-10 -[address] 40 mg 00:00: 00:00 [facility] tablet 00 :00 EVERY l EVENING atorvastati 2021- No TAKE ONE M ethodi n (LIPITOR) 8-10 11-[address] 40 mg 00:00: 00:[facility] tablet 00 :00 EVERY l EVENING metoprolol Yes TAKE ONE Met hodi succinate 7-[address] XL 00:00: [facility] (TOPROL-XL) 00 DAILY l 50 mg 24 hr tablet metoprolol 2022- No TAKE ONE Me thodi succinate 7-18 04-[address] XL 00:00: 00:00 [facility] (TOPROL-XL) 00 :00 DAILY l 50 mg 24 hr tablet atorvastati No Notes: Margarito jase n 6- (Same as: l 02:00: Lipitor) famotidine No 40 mg, Memor ia 6 Route: PO, l 02:00: Bedtime, Dosing Weight 104.091, kg, Start date: 12/11/21 21:00:00 CDT, Duration: 30 day, Stop date: 01/09/22 21:00:00 CDT melatonin No Notes: Memori a 6-04 (Same as: l 02:00: Melatonin) Metoprolol No Notes: Memor ia Succinate 6-04 (Same as: l ER 50 mg 02:00: Toprol XL) Her rao oral May split tablet, tab, but extended do not release crush. atorvastati No Notes: Margarito jase n 6-04 (Same as: l 02:00: Lipitor) famotidine No 40 mg, Memor ia 6-04 Route: PO, l 02:00: Bedtime, Dosing Weight 104.091, kg, Start date: 12/11/21 21:00:00 CDT, Duration: 30 day, Stop date: 01/09/22 21:00:00 CDT melatonin No Notes: Memori a 6-04 (Same as: l 02:00: Melatonin) Metoprolol No Notes: Memor ia Succinate 6-04 (Same as: l ER 50 mg 02:00: Toprol XL) Her rao oral May split tablet, tab, but extended do not release crush. atorvastati No Notes: Margarito ajse n 6-04 (Same as: l 02:00: Lipitor) famotidine No 40 mg, Memor ia 6-04 Route: PO, l 02:00: Bedtime, Dosing Weight 104.091, kg, Start date: 12/11/21 21:00:00 CDT, Duration: 30 day, Stop date: 01/09/22 21:00:00 CDT melatonin No Notes: Memori a 6-04 (Same as: l 02:00: Melatonin) Metoprolol No Notes: Memor ia Succinate 6-04 (Same as: l ER 50 mg 02:00: Toprol XL) Her rao oral 00 May split tablet, tab, but extended do not release crush. atorvastati No Notes: Margarito jase n 6-04 (Same as: l 02:00: Lipitor) famotidine No 40 mg, Memor ia 6-04 Route: PO, l 02:00: Bedtime, Dosing Weight 104.091, kg, Start date: 12/11/21 21:00:00 CDT, Duration: 30 day, Stop date: 01/09/22 21:00:00 CDT melatonin No Notes: Memori a 6-04 (Same as: l 02:00: Melatonin) Metoprolol No Notes: Memor ia Succinate 6-04 (Same as: l ER 50 mg 02:00: Toprol XL) Her rao oral May split tablet, tab, but extended do not release crush. atorvastati No Notes: Margarito jase n 6-04 (Same as: l 02:00: Lipitor) famotidine No 40 mg, Memor ia 6- Route: PO, l 02:00: Bedtime, Dosing Weight 104.091, kg, Start date: 12/11/21 21:00:00 CDT, Duration: 30 day, Stop date: 01/09/22 21:00:00 CDT melatonin No Notes: Memori a 6-04 (Same as: l 02:00: Melatonin) Metoprolol No Notes: Memor ia Succinate 6-04 (Same as: l ER 50 mg 02:00: Toprol XL) Her rao oral May split tablet, tab, but extended do not release crush. atorvastati No Notes: Margarito jase n 6-04 (Same as: l 02:00: Lipitor) famotidine No 40 mg, Memor ia 6-04 Route: PO, l 02:00: Bedtime, Dosing Weight 104.091, kg, Start date: 12/11/21 21:00:00 CDT, Duration: 30 day, Stop date: 01/09/22 21:00:00 CDT melatonin No Notes: Memori a 6-04 (Same as: l 02:00: Melatonin) [place] 00 Metoprolol No Notes: Memor ia Succinate 6-04 (Same as: l ER 50 mg 02:00: Toprol XL) Her rao oral 00 May split tablet, tab, but extended do not release crush. DULoxetine No Notes: Memor ia 6-03 (Same as: l 14:00: Cymbalta) [place] (Do Not Crush) ezetimibe No Notes: Memori a 6-03 (Same as: l 14:00: Zetia) [place] hydrochloro No 12.5 mg, 1 Memoria thiazide 6-03 cap, l 14:00: Route: PO, [place] 00 Drug form: CAP, Daily, Dosing Weight 104.091, kg, Start date: 12/11/21 9:00:00 CDT, Duration: 30 day, Stop date: 01/09/22 9:00:00 CDT, 0 losartan No Notes: Memoria 6-03 (Same as: l 14:00: Cozaar) [place] pantoprazol No Notes: Margarito jase e 6-03 Tablet l 14:00: should not [place] 00 be chewed or crushed. (Same as: Protonix) pantoprazol No Notes: Margarito jase e 6-03 Tablet l 14:00: should not [place] 00 be chewed or crushed. (Same as: Protonix) DULoxetine No Notes: Memor ia 6-03 (Same as: l 14:00: Cymbalta) [place] 00 (Do Not Crush) ezetimibe No Notes: Memori a 6-03 (Same as: l 14:00: Zetia) [place] hydrochloro No 12.5 mg, 1 Memoria thiazide 6-03 cap, l 14:00: Route: PO, [place] 00 Drug form: CAP, Daily, Dosing Weight 104.091, kg, Start date: 12/11/21 9:00:00 CDT, Duration: 30 day, Stop date: 01/09/22 9:00:00 CDT, 0 losartan 2021-0 No Notes: Memoria 6-03 (Same as: l 14:00: Cozaar) [place] pantoprazol No Notes: Margarito jase e 6-03 Tablet l 14:00: should not [place] 00 be chewed or crushed. (Same as: Protonix) DULoxetine No Notes: Memor ia 6-03 (Same as: l 14:00: Cymbalta) [place] (Do Not Crush) ezetimibe No Notes: Memori a 6-03 (Same as: l 14:00: Zetia) [place] hydrochloro No 12.5 mg, 1 Memoria thiazide 6-03 cap, l 14:00: Route: PO, [place] 00 Drug form: CAP, Daily, Dosing Weight 104.091, kg, Start date: 12/11/21 9:00:00 CDT, Duration: 30 day, Stop date: 01/09/22 9:00:00 CDT, 0 losartan No Notes: Memoria 6-03 (Same as: l 14:00: Cozaar) [place] 00 pantoprazol No Notes: Margarito jase e 6-03 Tablet l 14:00: should not [place] 00 be chewed or crushed. (Same as: Protonix) DULoxetine No Notes: Memor ia 6-03 (Same as: l 14:00: Cymbalta) [place] (Do Not Crush) ezetimibe No Notes: Memori a 6-03 (Same as: l 14:00: Zetia) [place] hydrochloro No 12.5 mg, 1 Memoria thiazide 6-03 cap, l 14:00: Route: PO, [place] 00 Drug form: CAP, Daily, Dosing Weight 104.091, kg, Start date: 12/11/21 9:00:00 CDT, Duration: 30 day, Stop date: 01/09/22 9:00:00 CDT, 0 losartan No Notes: Memoria 6-03 (Same as: l 14:00: Cozaar) [place] 00 pantoprazol No Notes: Margarito jase e 6-03 Tablet l 14:00: should not [place] 00 be chewed or crushed. (Same as: Protonix) DULoxetine No Notes: Memor ia 6-03 (Same as: l 14:00: Cymbalta) [place] 00 (Do Not Crush) ezetimibe No Notes: Memori a 6-03 (Same as: l 14:00: Zetia) hydrochloro No 12.5 mg, 1 Memoria thiazide 6-03 cap, l 14:00: Route: PO, Drug form: CAP, Daily, Dosing Weight 104.091, kg, Start date: 12/11/21 9:00:00 CDT, Duration: 30 day, Stop date: 01/09/22 9:00:00 CDT, 0 losartan No Notes: Memoria 6-03 (Same as: l 14:00: Cozaar) pantoprazol No Notes: Margarito jase e 6-03 Tablet l 14:00: should not [place] 00 be chewed or crushed. (Same as: Protonix) DULoxetine No Notes: Memor ia 6-03 (Same as: l 14:00: Cymbalta) (Do Not Crush) ezetimibe No Notes: Memori a 6-03 (Same as: l 14:00: Zetia) hydrochloro No 12.5 mg, 1 Memoria thiazide 6-03 cap, l 14:00: Route: PO, [place] 00 Drug form: CAP, Daily, Dosing Weight 104.091, kg, Start date: 12/11/21 9:00:00 CDT, Duration: 30 day, Stop date: 01/09/22 9:00:00 CDT, 0 losartan No Notes: Memoria 6-03 (Same as: l 14:00: Cozaar) Tobradex Yes 1 appl, Memori a ophthalmic 6-03 BOTH EYES, l ointment 13:02: QID, X 15 Herm day, # 3.5 gm, 0 Refill(s), Pharmacy: [facility] [id number], 160.02, cm, 12/10/21 20:42:00 CDT, Height, 104.091, kg, 12/10/21 20:42:00 CDT, Weight Tobradex 2-0 Yes 1 appl, Memori a ophthalmic 6-03 BOTH EYES, l ointment 13:02: QID, X 15 Herm luis 00 day, # 3.5 gm, 0 Refill(s), Pharmacy: [facility] [id number], 160.02, cm, 12/10/21 20:42:00 CDT, Height, 104.091, kg, 12/10/21 20:42:00 CDT, Weight Tobradex 2021-0 Yes 1 appl, Memori a ophthalmic 6-03 BOTH EYES, l ointment 13:02: QID, X 15 Herm luis 00 day, # 3.5 gm, 0 Refill(s), Pharmacy: [facility] [id number], 160.02, cm, 12/10/21 20:42:00 CDT, Height, 104.091, kg, 12/10/21 20:42:00 CDT, Weight Tobradex 2021-0 Yes 1 appl, Memori a ophthalmic 6-03 BOTH EYES, l ointment 13:02: QID, X 15 Herm luis 00 day, # 3.5 gm, 0 Refill(s), Pharmacy: [facility] [id number], 160.02, cm, 12/10/21 20:42:00 CDT, Height, 104.091, kg, 12/10/21 20:42:00 CDT, Weight Tobradex 2-0 Yes 1 appl, Memori a ophthalmic 6-03 BOTH EYES, l ointment 13:02: QID, X 15 Herm luis 00 day, # 3.5 gm, 0 Refill(s), Pharmacy: [facility] [id number], 160.02, cm, 12/10/21 20:42:00 CDT, Height, 104.091, kg, 12/10/21 20:42:00 CDT, Weight Tobradex 2022-0 Yes 1 appl, Memori a ophthalmic 6-03 BOTH EYES, l ointment 13:02: QID, X 15 Herm day, # 3.5 gm, 0 Refill(s), Pharmacy: [facility] [id number], 160.02, cm, 12/10/21 20:42:00 CDT, Height, 104.091, kg, 12/10/21 20:42:00 CDT, Weight lidocaine No Route: IV, Me moria (ANES) 12-10 Drug form: l 20:25: INJ, ONCE, Stop date: 12/10/21 15:25:00 CDT glycopyrrol No Route: IV, Memoria ate (ANES) 12-10 Drug form: l 20:25: INJ, ONCE, Stop date: 12/10/21 15:25:00 CDT neostigmine No Route: IV, Memoria (ANES) 12-10 Drug form: l 20:25: INJ, ONCE, Stop date: 12/10/21 15:25:00 CDT lidocaine No Route: IV, Me moria (ANES) 12-10 Drug form: l 20:25: INJ, ONCE, Stop date: 12/10/21 15:25:00 CDT glycopyrrol No Route: IV, Memoria ate (ANES) 12-10 Drug form: l 20:25: INJ, ONCE, Stop date: 12/10/21 15:25:00 CDT neostigmine No Route: IV, Memoria (ANES) 12-10 Drug form: l 20:25: INJ, ONCE, Stop date: 12/10/21 15:25:00 CDT lidocaine No Route: IV, Me moria (ANES) 12-10 Drug form: l 20:25: INJ, ONCE, Stop date: 12/10/21 15:25:00 CDT glycopyrrol No Route: IV, Memoria ate (ANES) 12-10 Drug form: l 20:25: INJ, ONCE, Stop date: 12/10/21 15:25:00 CDT neostigmine No Route: IV, Memoria (ANES) 12-10 Drug form: l 20:25: INJ, ONCE, Stop date: 12/10/21 15:25:00 CDT lidocaine No Route: IV, Me moria (ANES) 12-10 Drug form: l 20:25: INJ, ONCE, Stop date: 12/10/21 15:25:00 CDT glycopyrrol No Route: IV, Memoria ate (ANES) 12-10 Drug form: l 20:25: INJ, ONCE, Stop date: 12/10/21 15:25:00 CDT neostigmine No Route: IV, Memoria (ANES) 12-10 Drug form: l 20:25: INJ, ONCE, Stop date: 12/10/21 15:25:00 CDT lidocaine No Route: IV, Me moria (ANES) 12-10 Drug form: l 20:25: INJ, ONCE, Stop date: 12/10/21 15:25:00 CDT glycopyrrol No Route: IV, Memoria ate (ANES) 12-10 Drug form: l 20:25: INJ, ONCE, Stop date: 12/10/21 15:25:00 CDT neostigmine No Route: IV, Memoria (ANES) 12-10 Drug form: l 20:25: INJ, ONCE, Stop date: 12/10/21 15:25:00 CDT lidocaine No Route: IV, Me moria (ANES) 12-10 Drug form: l 20:25: INJ, ONCE, Stop date: 12/10/21 15:25:00 CDT glycopyrrol No Route: IV, Memoria ate (ANES) 12-10 Drug form: l 20:25: INJ, ONCE, Stop date: 12/10/21 15:25:00 CDT neostigmine No Route: IV, Memoria (ANES) 12-10 Drug form: l 20:25: INJ, ONCE, Stop date: 12/10/21 15:25:00 CDT ondansetron 2021-0 No Route: IV, Memoria (ANES) 12-10 Drug form: l 19:49: INJ, ONCE, Stop date: 12/10/21 14:49:00 CDT ondansetron 2021-0 No Route: IV, Memoria (ANES) 12-10 Drug form: l 19:49: INJ, ONCE, Stop date: 12/10/21 14:49:00 CDT ondansetron 2021-0 No Route: IV, Memoria (ANES) 12-10 Drug form: l 19:49: INJ, ONCE, Stop date: 12/10/21 14:49:00 CDT ondansetron 2021-0 No Route: IV, Memoria (ANES) 12-10 Drug form: l 19:49: INJ, ONCE, Stop date: 12/10/21 14:49:00 CDT ondansetron 2021-0 No Route: IV, Memoria (ANES) 12-10 Drug form: l 19:49: INJ, ONCE, Stop date: 12/10/21 14:49:00 CDT ondansetron 2021-0 No Route: IV, Memoria (ANES) 12-10 Drug form: l 19:49: INJ, ONCE, Stop date: 12/10/21 14:49:00 CDT hydromorpho 2021-0 No Route: IV, Memoria ne (ANES) 12-10 Drug form: l 19:34: INJ, ONCE, Stop date: 12/10/21 14:34:00 CDT hydromorpho 2021-0 No Route: IV, Memoria ne (ANES) 12-10 Drug form: l 19:34: INJ, ONCE, Stop date: 12/10/21 14:34:00 CDT hydromorpho 2021-0 No Route: IV, Memoria ne (ANES) 12-10 Drug form: l 19:34: INJ, ONCE, Stop date: 12/10/21 14:34:00 CDT hydromorpho 2021-0 No Route: IV, Memoria ne (ANES) 12-10 Drug form: l 19:34: INJ, ONCE, Stop date: 12/10/21 14:34:00 CDT hydromorpho 0 No Route: IV, Memoria ne (ANES) 12-10 Drug form: l 19:34: INJ, ONCE, Stop date: 12/10/21 14:34:00 CDT hydromorpho 0 No Route: IV, Memoria ne (ANES) 12-10 Drug form: l 19:34: INJ, ONCE, Stop date: 12/10/21 14:34:00 CDT fentaNYL 0 No Route: IV, Mem oria (ANES) 12-10 Drug form: l 18:53: INJ, ONCE, Stop date: 12/10/21 13:53:00 CDT fentaNYL 2021-0 No Route: IV, Mem oria (ANES) 12-10 Drug form: l 18:53: INJ, ONCE, Stop date: 12/10/21 13:53:00 CDT fentaNYL 2021-0 No Route: IV, Mem oria (ANES) 12-10 Drug form: l 18:53: INJ, ONCE, Stop date: 12/10/21 13:53:00 CDT fentaNYL 2021-0 No Route: IV, Mem oria (ANES) 12-10 Drug form: l 18:53: INJ, ONCE, Stop date: 12/10/21 13:53:00 CDT fentaNYL 2021-0 No Route: IV, Mem oria (ANES) 12-10 Drug form: l 18:53: INJ, ONCE, Stop date: 12/10/21 13:53:00 CDT fentaNYL 2021-0 No Route: IV, Mem oria (ANES) 12-10 Drug form: l 18:53: INJ, ONCE, Stop date: 12/10/21 13:53:00 CDT ePHEDrine 0 No Route: IV, Me moria (ANES) 12-10 Drug form: l 18:32: INJ, ONCE, Stop date: 12/10/21 13:32:00 CDT ePHEDrine 0 No Route: IV, Me moria (ANES) 12-10 Drug form: l 18:32: INJ, ONCE, Stop date: 12/10/21 13:32:00 CDT ePHEDrine 0 No Route: IV, moria (ANES) 12-10 Drug form: l 18:32: INJ, ONCE, Stop date: 12/10/21 13:32:00 CDT ePHEDrine 0 No Route: IV, moria (ANES) 12-10 Drug form: l 18:32: INJ, ONCE, Stop date: 12/10/21 13:32:00 CDT ePHEDrine No Route: IV, moria (ANES) 12-10 Drug form: l 18:32: INJ, ONCE, Stop date: 12/10/21 13:32:00 CDT ePHEDrine No Route: IV, moria (ANES) 12-10 Drug form: l 18:32: INJ, ONCE, Stop date: 12/10/21 13:32:00 CDT midazolam No Route: IV, moria (ANES) 12-10 Drug form: l 18:27: SOLN, ONCE, Stop date: 12/10/21 13:27:00 CDT propofol No Route: IV, Mem oria (ANES) 12-10 Drug form: l 18:27: INJ, ONCE, Stop date: 12/10/21 13:27:00 CDT rocuronium No Route: IV, M emoria (ANES) 12-10 Drug form: l 18:27: INJ, ONCE, Stop date: 12/10/21 13:27:00 CDT dexamethaso No Route: IV, Memoria ne (ANES) 12-10 Drug form: l 18:27: INJ, ONCE, Stop date: 12/10/21 13:27:00 CDT ceFAZolin No Route: IV, moria (ANES) 12-10 Drug form: l 18:27: INJ, ONCE, Stop date: 12/10/21 13:27:00 CDT phenylephri No Route: IV, Memoria ne (ANES) 12-10 Drug form: l 18:27: INJ, ONCE, [place] 00 Stop date: 12/10/21 13:27:00 CDT midazolam 0 No Route: IV, Me moria (ANES) 12-10 Drug form: l 18:27: SOLN, [place] ONCE, Stop date: 12/10/21 13:27:00 CDT propofol 0 No Route: IV, Mem oria (ANES) 12-10 Drug form: l 18:27: INJ, ONCE, [place] 00 Stop date: 12/10/21 13:27:00 CDT rocuronium 0 No Route: IV, M emoria (ANES) 12-10 Drug form: l 18:27: INJ, ONCE, Stop date: 12/10/21 13:27:00 CDT dexamethaso No Route: IV, Memoria ne (ANES) 12-10 Drug form: l 18:27: INJ, ONCE, [place] 00 Stop date: 12/10/21 13:27:00 CDT ceFAZolin No Route: IV, Me moria (ANES) 12-10 Drug form: l 18:27: INJ, ONCE, Stop date: 12/10/21 13:27:00 CDT phenylephri 0 No Route: IV, Memoria ne (ANES) 12-10 Drug form: l 18:27: INJ, ONCE, [place] 00 Stop date: 12/10/21 13:27:00 CDT midazolam 0 No Route: IV, Me moria (ANES) 12-10 Drug form: l 18:27: SOLN, [place] ONCE, Stop date: 12/10/21 13:27:00 CDT propofol 0 No Route: IV, Mem oria (ANES) 12-10 Drug form: l 18:27: INJ, ONCE, [place] 00 Stop date: 12/10/21 13:27:00 CDT rocuronium 0 No Route: IV, M emoria (ANES) 12-10 Drug form: l 18:27: INJ, ONCE, [place] 00 Stop date: 12/10/21 13:27:00 CDT dexamethaso 2021-0 No Route: IV, Memoria ne (ANES) 12-10 Drug form: l 18:27: INJ, ONCE, Stop date: 12/10/21 13:27:00 CDT ceFAZolin 2021-0 No Route: IV, Me moria (ANES) 12-10 Drug form: l 18:27: INJ, ONCE, Stop date: 12/10/21 13:27:00 CDT phenylephri 2021-0 No Route: IV, Memoria ne (ANES) 12-10 Drug form: l 18:27: INJ, ONCE, Stop date: 12/10/21 13:27:00 CDT midazolam 2021-0 No Route: IV, Me moria (ANES) 12-10 Drug form: l 18:27: SOLN, ONCE, Stop date: 12/10/21 13:27:00 CDT propofol 2021-0 No Route: IV, Mem oria (ANES) 12-10 Drug form: l 18:27: INJ, ONCE, Stop date: 12/10/21 13:27:00 CDT rocuronium 2021-0 No Route: IV, M emoria (ANES) 12-10 Drug form: l 18:27: INJ, ONCE, Stop date: 12/10/21 13:27:00 CDT dexamethaso 2021-0 No Route: IV, Memoria ne (ANES) 12-10 Drug form: l 18:27: INJ, ONCE, Stop date: 12/10/21 13:27:00 CDT ceFAZolin 2021-0 No Route: IV, Me moria (ANES) 12-10 Drug form: l 18:27: INJ, ONCE, Stop date: 12/10/21 13:27:00 CDT phenylephri 2021-0 No Route: IV, Memoria ne (ANES) 12-10 Drug form: l 18:27: INJ, ONCE, Stop date: 12/10/21 13:27:00 CDT midazolam 2021-0 No Route: IV, Me moria (ANES) 6-02 Drug form: l 18:27: SOLN, [place] 00 ONCE, Stop date: 12/10/21 13:27:00 CDT propofol 0 No Route: IV, Mem oria (ANES) 12-10 Drug form: l 18:27: INJ, ONCE, [place] 00 Stop date: 12/10/21 13:27:00 CDT rocuronium 0 No Route: IV, Stevo emoria (ANES) 12-10 Drug form: l 18:27: INJ, ONCE, [place] 00 Stop date: 12/10/21 13:27:00 CDT dexamethaso 0 No Route: IV, Memoria ne (ANES) 12-10 Drug form: l 18:27: INJ, ONCE, Stop date: 12/10/21 13:27:00 CDT ceFAZolin No Route: IV, Me moria (ANES) 12-10 Drug form: l 18:27: INJ, ONCE, Stop date: 12/10/21 13:27:00 CDT phenylephri 0 No Route: IV, Memoria ne (ANES) 12-10 Drug form: l 18:27: INJ, ONCE, Stop date: 12/10/21 13:27:00 CDT midazolam 0 No Route: IV, Me moria (ANES) 12-10 Drug form: l 18:27: SOLN, [place] 00 ONCE, Stop date: 12/10/21 13:27:00 CDT propofol 0 No Route: IV, Mem oria (ANES) 12-10 Drug form: l 18:27: INJ, ONCE, [place] 00 Stop date: 12/10/21 13:27:00 CDT rocuronium 0 No Route: IV, M emoria (ANES) 12-10 Drug form: l 18:27: INJ, ONCE, [place] 00 Stop date: 12/10/21 13:27:00 CDT dexamethaso 0 No Route: IV, Memoria ne (ANES) 12-10 Drug form: l 18:27: INJ, ONCE, [place] 00 Stop date: 12/10/21 13:27:00 CDT ceFAZolin No Route: IV, Me moria (ANES) 12-10 Drug form: l 18:27: INJ, ONCE, Stop date: 12/10/21 13:27:00 CDT phenylephri No Route: IV, Memoria ne (ANES) 12-10 Drug form: l 18:27: INJ, ONCE, Stop date: 12/10/21 13:27:00 CDT ANES No 10 mg, 2 Memoria labetalol 6-02 mL, Route: l 18:16: IVP, Drug form: INJ, Q5Min, Dosing Weight 102.4, kg, PRN Elevated BP, Start date: 12/10/21 13:16:00 CDT, Duration: 5 doses or times, Stop date: 12/12/21 0:00:00 CDT, 0 ANES No Notes: Max Memoria acetaminoph -02 acetaminop l en 18:16: hen 4000 mg/day (4 gm/day). (Same as: Tylenol Extra Strength) ANES No Notes: Memoria oxyCODONE 5 6-02 (Same as: l mg 18:16: Roxicodone ) release tablet ANES No Notes: Memoria HYDROmorpho 6-02 Same as l ne 18:16: Dilaudid ANES No Notes: Memoria flumazenil 6-02 (Same as: l 18:16: Romazicon) ANES No Notes: Memoria naloxone 6-02 Same as l 18:16: Narcan No Notes: Memoria ondansetron 6-02 (Same as: l 18:16: Zofran) MEDICATION WASTE Product Size: 4 mg Product Wasted: ___ mg ANES No 10 mg, 2 Memoria labetalol 6-02 mL, Route: l 18:16: IVP, Drug form: INJ, Q5Min, Dosing Weight 102.4, kg, PRN Elevated BP, Start date: 12/10/21 13:16:00 CDT, Duration: 5 doses or times, Stop date: 12/12/21 0:00:00 CDT, 0 No Notes: Max Memoria acetaminoph 6-02 acetaminop l en 18:16: hen 4000 [place] 00 mg/day (4 gm/day). (Same as: Tylenol Extra Strength) No Notes: Memoria oxyCODONE 5 6-02 (Same as: l mg 18:16: Roxicodone immediate ) release tablet No Notes: Memoria HYDROmorpho 6-02 Same as l ne 18:16: Dilaudid No Notes: Memoria flumazenil 6-02 (Same as: l 18:16: Romazicon) No Notes: Memoria naloxone 6-02 Same as l 18:16: Narcan No Notes: Memoria ondansetron 6-02 (Same as: l 18:16: Zofran) MEDICATION WASTE Product Size: 4 mg Product Wasted: ___ mg No 10 mg, 2 Memoria labetalol 6-02 mL, Route: l 18:16: IVP, Drug form: INJ, Q5Min, Dosing Weight 102.4, kg, PRN Elevated BP, Start date: 12/10/21 13:16:00 CDT, Duration: 5 doses or times, Stop date: 12/12/21 0:00:00 CDT, 0 No Notes: Max Memoria acetaminoph 6-02 acetaminop l en 18:16: hen 4000 [place] 00 mg/day (4 gm/day). (Same as: Tylenol Extra Strength) No Notes: Memoria oxyCODONE 5 6-02 (Same as: l mg 18:16: Roxicodone immediate ) release tablet No Notes: Memoria HYDROmorpho 6-02 Same as l ne 18:16: Dilaudid No Notes: Memoria flumazenil 6-02 (Same as: l 18:16: Romazicon) [place] No Notes: Memoria naloxone 6-02 Same as l 18:16: Narcan [place] No Notes: Memoria ondansetron 6-02 (Same as: l 18:16: Zofran) [place] 00 MEDICATION WASTE Product Size: 4 mg Product Wasted: ___ mg No 10 mg, 2 Memoria labetalol 6-02 mL, Route: l 18:16: IVP, Drug [place] 00 form: INJ, Q5Min, Dosing Weight 102.4, kg, PRN Elevated BP, Start date: 12/10/21 13:16:00 CDT, Duration: 5 doses or times, Stop date: 12/12/21 0:00:00 CDT, 0 No Notes: Max Memoria acetaminoph 6-02 acetaminop l en 18:16: hen 4000 00 mg/day (4 gm/day). (Same as: Tylenol Extra Strength) No Notes: [facility]oria oxyCODONE 5 6-02 (Same as: l mg 18:16: Roxicodone [place] ) release tablet No Notes: Memoria HYDROmorpho 6-02 Same as l ne 18:16: Dilaudid [place] 00 No Notes: Memoria flumazenil 6-02 (Same as: l 18:16: Romazicon) No Notes: Memoria naloxone 6-02 Same as l 18:16: Narcan [place] No Notes: Memoria ondansetron 6-02 (Same as: l 18:16: Zofran) MEDICATION WASTE Product Size: 4 mg Product Wasted: ___ mg ANE No 10 mg, 2 Memoria labetalol 6-02 mL, Route: l 18:16: IVP, Drug [place] 00 form: INJ, Q5Min, Dosing Weight 102.4, kg, PRN Elevated BP, Start date: 12/10/21 13:16:00 CDT, Duration: 5 doses or times, Stop date: 12/12/21 0:00:00 CDT, 0 No Notes: Max Memoria acetaminoph 6-02 acetaminop l en 18:16: hen 4000 [place] 00 mg/day (4 gm/day). (Same as: Tylenol Extra Strength) No Notes: [facility]oria oxyCODONE 5 6-02 (Same as: l mg 18:16: Roxicodone immediate ) release tablet No Notes: [facility]oria HYDROmorpho 6-02 Same as l ne 18:16: Dilaudid No Notes: [facility]oria flumazenil 6-02 (Same as: l 18:16: Romazicon) No Notes: [facility]oria naloxone 6-02 Same as l 18:16: Narcan No Notes: [facility] ondansetron 6-02 (Same as: l 18:16: Zofran) MEDICATION WASTE Product Size: 4 mg Product Wasted: ___ mg No 10 mg, 2 Memoria labetalol 6-02 mL, Route: l 18:16: IVP, Drug form: INJ, Q5Min, Dosing Weight 102.4, kg, PRN Elevated BP, Start date: 12/10/21 13:16:00 CDT, Duration: 5 doses or times, Stop date: 12/12/21 0:00:00 CDT, 0 No Notes: Max Memoria acetaminoph 6-02 acetaminop l en 18:16: hen 4000 [place] 00 mg/day (4 gm/day). (Same as: Tylenol Extra Strength) No Notes: [facility]oria oxyCODONE 5 6-02 (Same as: l mg 18:16: Roxicodone immediate ) release tablet No Notes: [facility]oria HYDROmorpho 6-02 Same as l ne 18:16: Dilaudid No Notes: [facility]oria flumazenil 6- (Same as: l 18:16: Romazicon) No Notes: [facility]oria naloxone 6- Same as l 18:16: Narcan No Notes: [facility]oria ondansetron - (Same as: l 18:16: Zofran) MEDICATION WASTE Product Size: 4 mg Product Wasted: ___ mg Isolyte S No Route: IV, Me moria PH 7.4 6-02 Total l (ANES) 1000 17:45: Volume: Her rao mL 00 1,000, Start date: 12/10/21 12:45:00 CDT, Stop date: 12/10/21 13:45:00 CDT Isolyte S No Route: IV, Me moria PH 7.4 6-02 Total l (ANES) 1000 17:45: Volume: Her rao mL 00 1,000, Start date: 12/10/21 12:45:00 CDT, Stop date: 12/10/21 13:45:00 CDT Isolyte S No Route: IV, Me moria PH 7.4 6-02 Total l (ANES) 1000 17:45: Volume: Her rao mL 00 1,000, Start date: 12/10/21 12:45:00 CDT, Stop date: 12/10/21 13:45:00 CDT Isolyte S No Route: IV, Me moria PH 7.4 6-02 Total l (ANES) 1000 17:45: Volume: Her rao mL 00 1,000, Start date: 12/10/21 12:45:00 CDT, Stop date: 12/10/21 13:45:00 CDT Isolyte S No Route: IV, Me moria PH 7.4 6-02 Total l (ANES) 1000 17:45: Volume: Her rao mL 00 1,000, Start date: 12/10/21 12:45:00 CDT, Stop date: 12/10/21 13:45:00 CDT Isolyte S 2022-0 No Route: IV, Me moria PH 7.4 12-10 Total l (ANES) 1000 17:45: Volume: Her rao mL 00 1,000, Start date: 12/10/21 12:45:00 CDT, Stop date: 12/10/21 13:45:00 CDT Isolyte S No Notes: Memori a PH 7.4 12-10 (Same as: l 1,000 mL 15:33: Isolyte S Herm luis 00 PH7.4, Normosol-R PH 7.4, Plasma-Lyt e A ) Isolyte S No Notes: Memori a PH 7.4 12-10 (Same as: l 1,000 mL 15:33: Isolyte S Herm luis 00 PH7.4, Normosol-R PH 7.4, Plasma-Lyt e A ) Isolyte S No Notes: Memori a PH 7.4 12-10 (Same as: l 1,000 mL 15:33: Isolyte S Herm luis 00 PH7.4, Normosol-R PH 7.4, Plasma-Lyt e A ) Isolyte S No Notes: Memori a PH 7.4 12-10 (Same as: l 1,000 mL 15:33: Isolyte S Herm luis 00 PH7.4, Normosol-R PH 7.4, Plasma-Lyt e A ) Isolyte S No Notes: Memori a PH 7.4 12-10 (Same as: l 1,000 mL 15:33: Isolyte S Herm luis 00 PH7.4, Normosol-R PH 7.4, Plasma-Lyt e A ) Isolyte S No Notes: Memori a PH 7.4 12-10 (Same as: l 1,000 mL 15:33: Isolyte S Herm luis 00 PH7.4, Normosol-R PH 7.4, Plasma-Lyt e A ) Emend No 40 mg, Memoria 12-10 Route: PO, l 10:00: PRE OP, [place] 00 Dosing Weight 102.6, kg, Start date: 12/10/21 5:00:00 CDT, Duration: 1 doses or times Emend No 40 mg, Memoria 12-10 Route: PO, l 10:00: PRE OP, Dosing Weight 102.6, kg, Start date: 12/10/21 5:00:00 CDT, Duration: 1 doses or times Emend 0 No 40 mg, Memoria 12-10 Route: PO, l 10:00: PRE OP, Dosing Weight 102.6, kg, Start date: 12/10/21 5:00:00 CDT, Duration: 1 doses or times Emend 0 No 40 mg, Memoria 12-10 Route: PO, l 10:00: PRE OP, Dosing Weight 102.6, kg, Start date: 12/10/21 5:00:00 CDT, Duration: 1 doses or times Emend 0 No 40 mg, [facility]oria 12-10 Route: PO, l 10:00: PRE OP, Dosing Weight 102.6, kg, Start date: 12/10/21 5:00:00 CDT, Duration: 1 doses or times Emend 0 No 40 mg, [facility] 12-10 Route: PO, l 10:00: PRE OP, Dosing Weight 102.6, kg, Start date: 12/10/21 5:00:00 CDT, Duration: 1 doses or times Simponi 2021-0 No IV, 0 [facility] Aria 5-20 Refill(s) l 21:18: Simponi 2021-0 No IV, 0 [facility] Aria 5-20 Refill(s) l 21:18: Simponi 2021-0 No IV, 0 [facility] Aria 5-20 Refill(s) l 21:18: Simponi 2021-0 No IV, 0 [facility] Aria 5-20 Refill(s) l 21:18: Simponi 2021-0 No IV, 0 [facility] Aria 5-20 Refill(s) l 21:18: [place] 2021-0 No IV, 0 [facility] Aria 5-20 Refill(s) l 21:18: losartan 2021-0 Yes 100 mg = 1 [facility] 100 mg oral 5-20 tab, PO, l tablet 21:17: Daily, 0 [place] 00 Refill(s) hydrochloro 0 Yes 12.5 mg, Me moria thiazide 5-20 PO, Daily, l 21:17: 0 [place] 00 Refill(s) Unknown No Refill(s) [facility] Home 5-20 0 l Medication 21:17: losartan Yes 100 mg = 1 [facility] 100 mg oral 5-20 tab, PO, l tablet 21:17: Daily, 0 [place] 00 Refill(s) hydrochloro 0 Yes 12.5 mg, Me [facility]ia thiazide 5-20 PO, Daily, l 21:17: 0 [place] 00 Refill(s) Unknown No Refill(s) [facility] 5-20 0 l Medication 21:17: losartan 0 Yes 100 mg = 1 [facility] 100 mg oral 5-20 tab, PO, l tablet 21:17: Daily, 0 [place] 00 Refill(s) hydrochloro 0 Yes 12.5 mg, Me moria thiazide 5-20 PO, Daily, l 21:17: 0 [place] 00 Refill(s) Unknown No Refill(s) [facility] 5-20 0 l Medication 21:17: losartan Yes 100 mg = 1 [facility] 100 mg oral 5-20 tab, PO, l tablet 21:17: Daily, 0 [place] 00 Refill(s) hydrochloro 0 Yes 12.5 mg, Me moria thiazide 5-20 PO, Daily, l 21:17: 0 [place] 00 Refill(s) Unknown No Refill(s) [facility] 5-20 0 l Medication 21:17: losartan 0 Yes 100 mg = 1 [facility] 100 mg oral 5-20 tab, PO, l tablet 21:17: Daily, 0 [place] 00 Refill(s) hydrochloro 0 Yes 12.5 mg, Me moria thiazide 5-20 PO, Daily, l 21:17: 0 [place] 00 Refill(s) Unknown No Refill(s) [facility] 5-20 0 l Medication 21:17: [place] 00 losartan 0 Yes 100 mg = 1 [facility] 100 mg oral 5-20 tab, PO, l tablet 21:17: Daily, 0 Refill(s) hydrochloro 0 Yes 12.5 mg, Me moria thiazide 5-20 PO, Daily, l 21:17: 0 Refill(s) Unknown No Refill(s) [facility] 5-20 0 l Medication 21:17: ezetimibe Yes 10 mg = 1 [facility] 10 mg oral 5-20 tab, PO, l tablet 21:16: Daily, 0 Refill(s) DULoxetine 0 Yes 60 mg, PO, M emoria 5-20 Daily, 0 l 21:16: Refill(s) pantoprazol 0 Yes 40 mg, PO, Memoria e 5-20 Daily, 0 l 21:16: Refill(s) ezetimibe Yes 10 mg = 1 [facility] 10 mg oral 5-20 tab, PO, l tablet 21:16: Daily, 0 Refill(s) DULoxetine 0 Yes 60 mg, PO, M emoria 5-20 Daily, 0 l 21:16: Refill(s) pantoprazol 0 Yes 40 mg, PO, Memoria e 5-20 Daily, 0 l 21:16: Refill(s) ezetimibe Yes 10 mg = 1 [facility] 10 mg oral 5-20 tab, PO, l tablet 21:16: Daily, 0 Refill(s) DULoxetine 0 Yes 60 mg, PO, M emoria 5-20 Daily, 0 l 21:16: Refill(s) pantoprazol 2021-0 Yes 40 mg, PO, Memoria e 5-20 Daily, 0 l 21:16: Refill(s) ezetimibe Yes 10 mg = 1 [facility] 10 mg oral 5-20 tab, PO, l tablet 21:16: Daily, 0 Refill(s) DULoxetine 2022-0 Yes 60 mg, PO, M emoria 5-20 Daily, 0 l 21:16: Refill(s) pantoprazol 0 Yes 40 mg, PO, Memoria e 5-20 Daily, 0 l 21:16: Refill(s) ezetimibe 0 Yes 10 mg = 1 [facility] 10 mg oral 5-20 tab, PO, l tablet 21:16: Daily, 0 Refill(s) DULoxetine 0 Yes 60 mg, PO, M emoria 5-20 Daily, 0 l 21:16: Refill(s) pantoprazol 0 Yes 40 mg, PO, Memoria e 5-20 Daily, 0 l 21:16: Refill(s) ezetimibe Yes 10 mg = 1 [facility] 10 mg oral 5-20 tab, PO, l tablet 21:16: Daily, 0 Refill(s) DULoxetine 0 Yes 60 mg, PO, M emoria 5-20 Daily, 0 l 21:16: Refill(s) pantoprazol 0 Yes 40 mg, PO, Memoria e 5-20 Daily, 0 l 21:16: Refill(s) Metoprolol Yes 50 mg = 1 Me moria Succinate 5-20 tab, PO, l ER 50 mg 21:15: Bedtime, 0 Her rao oral 00 Refill(s) tablet, extended release melatonin 0 Yes Bedtime, 0 Me moria 5-20 Refill(s) l 21:15: famotidine 0 Yes 40 mg, PO, M emoria 5-20 Bedtime, 0 l 21:15: Refill(s) Metoprolol 0 Yes 50 mg = 1 Me moria Succinate 5-20 tab, PO, l ER 50 mg 21:15: Bedtime, 0 Her rao oral 00 Refill(s) tablet, extended release melatonin 2021-0 Yes Bedtime, 0 Me moria 5-20 Refill(s) l 21:15: famotidine 2021-0 Yes 40 mg, PO, M emoria 5-20 Bedtime, 0 l 21:15: Refill(s) Metoprolol Yes 50 mg = 1 Me moria Succinate 5-20 tab, PO, l ER 50 mg 21:15: Bedtime, 0 Her rao oral 00 Refill(s) tablet, extended release melatonin 0 Yes Bedtime, 0 Me moria 5-20 Refill(s) l 21:15: famotidine 0 Yes 40 mg, PO, M emoria 5-20 Bedtime, 0 l 21:15: Refill(s) Metoprolol Yes 50 mg = 1 Me moria Succinate 5-20 tab, PO, l ER 50 mg 21:15: Bedtime, 0 Her rao oral 00 Refill(s) tablet, extended release melatonin 0 Yes Bedtime, 0 Me moria 5-20 Refill(s) l 21:15: famotidine 0 Yes 40 mg, PO, M emoria 5-20 Bedtime, 0 l 21:15: Refill(s) Metoprolol Yes 50 mg = 1 Me moria Succinate 5-20 tab, PO, l ER 50 mg 21:15: Bedtime, 0 Her rao oral 00 Refill(s) tablet, extended release melatonin 0 Yes Bedtime, 0 Me moria 5-20 Refill(s) l 21:15: famotidine 0 Yes 40 mg, PO, M emoria 5-20 Bedtime, 0 l 21:15: Refill(s) Metoprolol 0 Yes 50 mg = 1 Me moria Succinate 5-20 tab, PO, l ER 50 mg 21:15: Bedtime, 0 Her rao oral 00 Refill(s) tablet, extended release melatonin 0 Yes Bedtime, 0 Me moria 5-20 Refill(s) l 21:15: famotidine 2021-0 Yes 40 mg, PO, M emoria 5-20 Bedtime, 0 l 21:15: Refill(s) atorvastati Yes 40 mg = 1 M emoria n 40 mg 5-20 tab, PO, l oral tablet 21:14: Bedtime, 0 Refill(s) atorvastati Yes 40 mg = 1 M emoria n 40 mg 5-20 tab, PO, l oral tablet 21:14: Bedtime, 0 Refill(s) atorvastati Yes 40 mg = 1 M emoria n 40 mg 5-20 tab, PO, l oral tablet 21:14: Bedtime, 0 Refill(s) atorvastati Yes 40 mg = 1 M emoria n 40 mg 5-20 tab, PO, l oral tablet 21:14: Bedtime, 0 Refill(s) atorvastati Yes 40 mg = 1 M emoria n 40 mg 5-20 tab, PO, l oral tablet 21:14: Bedtime, 0 Refill(s) atorvastati Yes 40 mg = 1 M emoria n 40 mg 5-20 tab, PO, l oral tablet 21:14: Bedtime, 0 Refill(s) aspirin Yes 81 mg, PO, Margarito jase 5-20 Daily, 0 l 21:07: Refill(s) aspirin Yes 81 mg, PO, Margarito jase 5-20 Daily, 0 l 21:07: Refill(s) aspirin Yes 81 mg, PO, Margarito jase 5-20 Daily, 0 l 21:07: Refill(s) aspirin Yes 81 mg, PO, Margarito ajse 5-20 Daily, 0 l 21:07: Refill(s) aspirin Yes 81 mg, PO, Margarito jase 5-20 Daily, 0 l 21:07: Refill(s) aspirin Yes 81 mg, PO, Margarito jase 5-20 Daily, 0 l 21:07: Refill(s) ezetimibe Yes 10mg Take 10 mg Ba [facility] (ZETIA) 10 5-20 by mouth Colle ge MG tablet 00:00: daily. Medicin e losartan Yes 100mg Take 100 [facility] or (COZAAR) 5-20 mg by [facility] 100 MG 00:00: mouth of tablet 00 daily. Medicin e hydroCHLORO 2021- No [id number] TAKE ONE [facility] thiazide 4-19 10-[address] (HYDRODIURI 00:00: 00:00 MOUTH Hosp brice L) 12.5 MG 00 :00 DAILY l tablet hydroCHLORO 2021- No [id number] TAKE ONE [facility] thiazide 4-19 10-[address] (HYDRODIURI 00:00: 00:00 MOUTH Hosp brice L) 12.5 MG 00 :00 DAILY l tablet atorvastati 2021- No TAKE ONE M ethodi n (LIPITOR) 4-19 08-[address] 40 mg 00:00: 00:00 MOUTH Hospita tablet 00 :00 EVERY l EVENING atorvastati 2021- No TAKE ONE M ethodi n (LIPITOR) -19 08-[address] 40 mg 00:00: 00:00 MOUTH Hospita tablet 00 :00 EVERY l EVENING atorvastati 2021- No TAKE ONE M ethodi n (LIPITOR) 1-21 04-[address] 40 mg 00:00: 00:00 MOUTH Hospita tablet 00 :00 EVERY l EVENING metoprolol 2020-07- No TAKE ONE Me thodi succinate 0-04 07-[address] XL 00:00: 00:00 MOUTH Hospita (TOPROL-XL) 00 :00 DAILY l 50 mg 24 hr tablet metoprolol 2020-07- No TAKE ONE Me thodi succinate 0-04 07-[address] XL 00:00: 00:00 MOUTH Hospita (TOPROL-XL) 00 :00 DAILY l 50 mg 24 hr tablet hydroCHLORO 2020-07- No [id number] TAKE ONE [facility] thiazide 0-04 04-[address] (HYDRODIURI 00:00: 00:00 MOUTH Hosp brice L) 12.5 MG 00 :00 DAILY l tablet golimumab Yes 2mg/kg Infuse 2 Me thodi ([place] 8-17 mg/kg into st ARI[facility]) 12.5 16:08: a venous Hos mary mg/mL 39 catheter l solution once. lidocaine 2020- No [id number] 1mL UT (Xylocaine) 02-16 Health 1 % 19:20: 19:20 injection 1 00 :00 mL methylPREDN 2020- No [id number] 80mg UT ISolone 02-16 Health acetate 19:20: 19:20 (DEPO-Medro 00 :00 l) injection 80 mg methylPREDN 2020- No [id number] 80mg 80 mg, UT ISolone 02-16 Intra-rosa mar[facility] Healt h acetate 19:20: 19:20 cular, (DEPO-Medro 00 :00 Once PRN l) Procedure, injection Starting 80 mg on Tue02/16/21 at 1420, For 1 dose lidocaine 2020- No [id number] 1mL 1 mL, UT (Xylocaine) 02-16 Injection, H ealth 1 % 19:20: 19:20 Once PRN injection 1 00 :00 Procedure, mL Starting on Tue02/16/21 at 1420, For 1 dose atorvastati Yes TAKE ONE Me thodi n (LIPITOR) 7-[address] 40 mg 00:00: MOUTH Hospita tablet 00 EVERY l EVENING pantoprazol Yes 40mg QD Take 1 Meth veronika e 7-13 tablet (40 st (PROTONIX) 00:00: mg total) Ho spita 40 MG EC 00 by mouth l tablet daily. pantoprazol Yes 40mg QD Take 1 Meth veronika e 7-13 tablet (40 st (PROTONIX) 00:00: mg total) Ho spita 40 MG EC 00 by mouth l tablet daily. pantoprazol 2021- No 40mg QD Take 1 Met hodi e 7-13 07-14 tablet (40 st (PROTONIX) 00:00: 04:59 mg total) H ospita 40 MG EC 00 :00 by mouth l tablet daily. cholecalcif Yes 1000U Take 1,000 [facility] polina, 7-[address] vitamin D3, 14:28: mouth. Hosp brice (VITAMIN 50 l D3) 1,000 unit capsule DULoxetine Yes 60mg Take 60 mg M ethodi (CYMBALTA) 01-[address] 60 MG 14:28: Hospita capsule 50 l ezetimibe Yes 10mg QD Take 10 mg Me thodi (ZETIA) 10 01-[address] mg tablet 14:28: daily. Hospit a 50 l losartan Yes 100mg QD Take 100 Meth veronika (COZAAR) 01-[address] 100 MG 14:28: mouth Hospita tablet 50 daily. l melatonin 3 Yes Take by Met hodi mg tablet [address] 14:28: Hospita 50 l NIFEdipine 2020- No 30mg QD Take 30 mg [facility] XL 01-[address] (PROCARDIA 14:20: 00:00 daily. Hosp brice XL) 30 MG 44 :00 l 24 hr tablet pantoprazol Yes [id number] TAKE ONE [facility] e 7-[address] (PROTONIX) 00:00: MOUTH Hospit a 40 MG EC 00 DAILY l tablet pantoprazol Yes [id number] TAKE ONE [facility] e 7-[address] (PROTONIX) 00:00: MOUTH Hospit a 40 MG EC 00 DAILY l tablet pantoprazol Yes [id number] TAKE ONE [facility] e 7-[address] (PROTONIX) 00:00: MOUTH Hospit a 40 MG EC 00 DAILY l tablet atorvastati 2020- No TAKE ONE M ethodi n (LIPITOR) 4- TABLET BY st 40 mg 00:00: 00:00 MOUTH Hospita tablet 00 :00 EVERY l EVENING hydroCHLORO Yes [id number] TAKE ONE [facility] thiazide 4-[address] (HYDRODIURI 00:00: MOUTH Hospi ta L) 12.5 MG 00 DAILY l tablet atorvastati 2020- No TAKE ONE M ethodi n (LIPITOR) 1-11 -[address] 40 mg 00:00: 00:00 MOUTH Hospita tablet 00 :00 EVERY l EVENING metoprolol 2019-07 Yes TAKE ONE Met hodi succinate 2-[address] XL 00:00: MOUTH Hospita (TOPROL-XL) 00 DAILY l 50 mg 24 hr tablet pantoprazol 2019-07 [id number] TAKE ONE Methodi e 2-28 07-[address] (PROTONIX) 00:00: 00:00 MOUTH Hospi ta 40 MG EC 00 :00 DAILY l tablet phenazopyri 2019-07 200mg [id number] Take 1 [facility] dine 08-08 12-[id number] (PYRIDIUM) 00:00: 05:59 3D (200 mg Hos mary 200 MG 00 :00 total) by l tablet mouth 3 (three) times a day as needed for bladder spasms for up to 3 days. aspirin 81 2019-07 Chew. Metho di mg chewable 07-28 st tablet 00:17: 00:00 Hospita 30 :00 l meloxicam 2019-07 15mg QD Take 15 mg M ethodi (MOBIC) 15 07-[address] mg tablet 00:17: 00:00 daily. Hospi ta 30 :00 l nitrofurant 2019-07 100mg Q.5D Take 1 Me thodi oin, 07-[address] macrocrysta 00:00: 05:59 (100 mg Ho spita l-monohydra 00 :00 total) by l te, mouth 2 (Macrobid) (two) 100 MG times a capsule day for 7 days. tiZANidine 2019-07 2mg Q8H Take 1 Meth veronika (ZANAFLEX) 07-27 tablet (2 st 2 MG tablet 00:00: 05:59 mg total) Hospita 00 :00 by mouth l every 8 (eight) hours as needed for muscle spasms for up to 30 days. HYDROcodone 2019-07 [id number] 1{tbl} Q6H Take 1 [facility] -acetaminop 07-[address] hen (NORCO) 00:00: 05:59 mouth Hosp brice 5-325 mg 00 :00 every 6 l per tablet (six) hours as needed for moderate pain for up to 10 days .acute pain. Max Daily Amount: 4 tablets atorvastati 2019-07 TAKE ONE M ethodi n (LIPITOR) 0-09 01-[address] 40 mg 00:00: 00:00 MOUTH Hospita tablet 00 :00 EVERY l EVENING atorvastati 2019- No TAKE ONE M ethodi n (LIPITOR) 01-[address] 40 mg 00:00: 00:00 MOUTH Hospita tablet 00 :00 EVERY l EVENING hydroCHLORO 2020- No [id number] TAKE ONE [facility] thiazide 12-16 04-[address] (HYDRODIURI 00:00: 00:00 MOUTH Hosp brice L) 12.5 MG 00 :00 DAILY l tablet pantoprazol 2019- No [id number] TAKE ONE Methodi e 3-15 12- TABLET BY st (PROTONIX) 00:00: 00:00 MOUTH Hospi ta 40 MG EC 00 :00 DAILY l tablet Robaxin-750 Robaxin-750 No Robaxin-75 [place] 750 mg 750 mg 2-27 0 750 mg [facility] tablet TAKE tablet TAKE 00:00: tablet dic 1 PO BID 1 PO BID 00 TAKE 1 PO Sp orts BID Medicin e naproxen naproxen No naproxen A zalea 500 mg 500 mg 1-02 500 mg [facility] tablet Take tablet Take 00:00: tablet dic 1 by mouth 1 by mouth 00 Take 1 by Sports twice a day twice a day mouth Medicin with food with food twice a e day with food [place] 5 [place] 5 No [place] 5 Azal ea mg-325 mg mg-325 mg 1-02 mg-325 mg [facility] tablet TAKE tablet TAKE 00:00: tablet dic 1 PO EVERY 1 PO EVERY 00 TAKE 1 PO Sports 6 HOURS PRN 6 HOURS PRN EVERY 6 Medicin PAIN PAIN HOURS PRN e PAIN metoprolol 2018-07- No 25mg QD Take 1 Meth veronika succinate 08-16- tablet (25 st XL 00:00: 00:00 mg total) Hospita (TOPROL-XL) 00 :00 by mouth l 25 mg 24 hr daily. tablet pantoprazol Yes [id number] 40mg Take 40 mg Javier e 1-19 by mouth. [facility] (PROTONIX) 00:00: of 40 MG 00 Medicin tablet e pantoprazol 2016-07 Yes 40mg QD Take [address] [facility] 0-13 [facility] (PROTONIX) 13:12: daily. Medic al 40 MG 11 Center tablet pantoprazol 2016-07 Yes 40mg QD Take [address] [facility] 0-13 by [facility] (PROTONIX) 13:12: daily. Medic al 40 MG 11 Center tablet pantoprazol 2016-07 Yes 40mg QD Take [address] [facility] 0-13 by [facility] (PROTONIX) 13:12: daily. Medic al 40 MG 11 Center tablet pantoprazol 2016-07 Yes 40mg QD Take [address] [facility] e 0-13 by mouth [facility] (PROTONIX) 13:12: daily. Medic al 40 MG 11 Center tablet DULoxetine 2016-07 Yes 60mg QD Take [address] (CYMBALTA) 0-13 by [facility] 60 MG 13:04: daily. Medical capsule 10 [place] BABY 2016-07 Yes Take by [facility] ASPIRIN 0-13 [facility]. [facility] ORAL 13:04: Medical 10 [place] cholecalcif 2016-07 Yes 1000U QD Take 1,[address] polina, 0-13 Units by [facility] vitamin D3, 13:04: mouth Medic al 1,000 unit 10 daily. [place] capsule vitamin E 2016-07 Yes 400U QD Take [address] 400 UNIT 0-13 Units by [facility] capsule 13:04: mouth Medical 10 daily. [place] CALCIUM 2016-07 Yes Q.5D Take by [facility] CARBONATE 0-13 mouth 2 [facility] (CALCIUM 13:04: (two) Medical 600 ORAL) 10 times Center daily. DULoxetine 2016-07 Yes 60mg QD Take [address] (CYMBALTA) 0-13 [facility] 60 MG 13:04: daily. Medical capsule 10 [place] BABY 2016-07 Yes Take by [facility] ASPIRIN 0-13 mouth. [facility] ORAL 13:04: Medical [address] [place] [address] cholecalcif 2016-07 Yes 1000U QD Take 1,[address] polina, 0-13 Units by [facility] vitamin D3, 13:04: mouth Medic al 1,000 unit 10 daily. [place] capsule vitamin E 2016-07 Yes 400U QD Take [address] 400 UNIT 0-13 Units by [facility] capsule 13:04: mouth Medical 10 daily. [place] CALCIUM 2016-07 Yes Q.5D Take by [facility] CARBONATE 0-13 mouth 2 [facility] (CALCIUM 13:04: (two) Medical 600 ORAL) 10 times Center daily. DULoxetine 2016-07 Yes 60mg QD Take [address] (CYMBALTA) 0-13 [facility] 60 MG 13:04: daily. Medical capsule 10 [place] BABY 2016-07 Yes Take by [facility] ASPIRIN 0-13 mouth. [facility] ORAL 13:04: Medical 10 [place] cholecalcif 2016-07 Yes 1000U QD Take 1,[address] polina, 0-13 Units by [facility] vitamin D3, 13:04: mouth Medic al 1,000 unit 10 daily. [place] capsule vitamin E 2016-07 Yes 400U QD Take [address] 400 UNIT 0-13 Units by [facility] capsule 13:04: mouth Medical 10 daily. [place] CALCIUM 2016-07 Yes Q.5D Take by [facility] CARBONATE 0-13 mouth 2 [facility] (CALCIUM 13:04: (two) Medical 600 ORAL) 10 times Center daily. DULoxetine 2016-07 Yes 60mg QD Take [address] (CYMBALTA) 0-13 [facility] 60 MG 13:04: daily. Medical capsule 10 [place] BABY 2016-07 Yes Take by [facility] ASPIRIN 0-13 mouth. [facility] ORAL 13:04: Medical 10 [place] cholecalcif 2016-07 Yes 1000U QD Take 1,[address] polina, 0-13 Units by [facility] vitamin D3, 13:04: mouth Medic al 1,000 unit 10 daily. [place] capsule vitamin E 2016-07 Yes 400U QD Take [address] 400 UNIT 0-13 Units by [facility] capsule 13:04: mouth Medical 10 daily. [place] CALCIUM 2016-07 Yes Q.5D Take by [facility] CARBONATE 0-13 mouth 2 [facility] (CALCIUM 13:04: (two) Medical 600 ORAL) 10 times Center daily. metFORMIN Yes TAKE ONE [facility] (GLUCOPHAGE 9-26 TABLET BY Tomy es ) 500 MG 00:00: MOUTH Medical tablet 00 DAILY WITH Center BREAKFAST metoprolol Yes TAKE ONE [facility] (TOPROL-XL) 9-26 TABLET BY Tomy es 25 MG 24 hr 00:00: MOUTH Medic al tablet 00 DAILY [place] metoprolol Yes [id number] TAKE ONE [place] (TOPROL-XL) 9-26 TABLET BY Col lege 25 MG XL 00:00: MOUTH of tablet 00 DAILY Medicin e metformin Yes [id number] TAKE ONE Javier (GLUCOPHAGE 9-26 TABLET BY Col lege ) 500 MG 00:00: MOUTH of tablet 00 DAILY WITH Medicin BREAKFAST e metoprolol Yes TAKE ONE [facility] (TOPROL-XL) 9-26 TABLET BY Tomy es 25 MG 24 hr 00:00: MOUTH Medic al tablet 00 DAILY [place] metFORMIN Yes TAKE ONE [facility] (GLUCOPHAGE 9-26 TABLET BY Tomy es ) 500 MG 00:00: MOUTH Medical tablet 00 DAILY WITH Center BREAKFAST metoprolol Yes TAKE ONE [facility] (TOPROL-XL) 9-26 TABLET BY Tomy es 25 MG 24 hr 00:00: MOUTH Medic al tablet 00 DAILY [place] metFORMIN Yes TAKE ONE [facility] (GLUCOPHAGE 9-26 TABLET BY Tomy es ) 500 MG 00:00: MOUTH Medical tablet 00 DAILY WITH Center BREAKFAST metoprolol Yes TAKE ONE [facility] (TOPROL-XL) 9-26 TABLET BY Tomy es 25 MG 24 hr 00:00: MOUTH Medic al tablet 00 DAILY [place] metFORMIN Yes TAKE ONE [facility] (GLUCOPHAGE 9-26 TABLET BY Tomy es ) 500 MG 00:00: MOUTH Medical tablet 00 DAILY WITH Center BREAKFAST losartan Yes 100mg QD Take [address] (COZAAR) 9-05 mg by [facility] 100 MG 00:00: mouth Medical tablet 00 daily . [place] losartan Yes 100mg QD Take [address] (COZAAR) 9-05 mg by [facility] 100 MG 00:00: mouth Medical tablet 00 daily . [place] losartan Yes 100mg QD Take [address] (COZAAR) 9-05 mg by [facility] 100 MG 00:00: mouth Medical tablet 00 daily . [place] losartan Yes 100mg QD Take [address] (COZAAR) 9-05 mg by [facility] 100 MG 00:00: mouth Medical tablet 00 daily . [place] ORENCIA Yes [facility] CLICKJECT 3-02 [facility] 125 mg/mL 00:00: Medical AtIn 00 [place] Abatacept Yes [id number] [facility] 125 MG/ML 09-09 [facility] SOAJ 00:00: of 00 Medicin e ORENCIA Yes [facility] CLICKJECT 3-02 [facility] 125 mg/mL 00:00: Medical AtIn 00 [place] ORENCIA Yes [facility] CLICKJECT 3-02 [facility] 125 mg/mL 00:[facility] [address] [facility]-02 [facility] 125 mg/mL 00:00: Medical AtIn 00 [place] atorvasta Yes [facility] n (LIPITOR) 3-01 [facility] 40 MG 00:00: Medical tablet 00 [place] atorvastati Yes [id number] Ba [facility] n (LIPITOR) 3-01 [facility] 40 MG 00:[facility] 40 MG 00:00: Medical tablet 00 [place] atorvasta Yes [facility] n (LIPITOR) 3-01 [facility] 40 MG 00:00: Medical tablet 00 [place] atorvasta Yes [facility] n (LIPITOR) 3-01 [facility] 40 MG 00:00: Medical tablet 00 [place] NITROSTAT [address] [facility] 0.4 mg SL 1-05 [facility] tablet 00:00: Medical 00 [place] NITROSTAT [address] [facility] 0.4 mg SL 1-05 [facility] tablet 00:00: Medical 00 [place] NITROSTAT [address] [facility] 0.4 mg SL 1-05 [facility] tablet 00:00: Medical 00 [place] NITROSTAT [id number] [facility] [facility] 0.4 mg SL 1-05 [facility] tablet 00:00: Medical 00 [place] predniSONE 2015- Yes [facility] (DELTASONE) 2-23 [facility] 10 MG 00:00: Medical tablet 00 [place] predniSONE 2015- Yes [facility] (DELTASONE) 2-23 [facility] 10 MG 00:00: Medical tablet 00 [place] predniSONE 2015- Yes [facility] (DELTASONE) 2-23 [facility] 10 MG 00:00: Medical tablet 00 [place] predniSONE 2015- Yes [facility] (DELTASONE) 2-23 [facility] 10 MG 00:00: Medical tablet 00 [place] pantoprazol pantoprazol No pantoprazo [facility] 40 mg e 40 mg le 40 mg Medic al intravenous intravenous intravenou solution solution s solution Inject by Inject by Inject by intravenous intravenous intravenou route. route. s route. pantoprazol pantoprazol No pantoprazo [facility] 40 mg e 40 mg le 40 mg Medic al tablet,sher tablet,sher tablet,del yed release yed release ayed release potassium potassium No potassium [facility] chloride ER chloride ER chloride Medical 10 mEq 10 mEq ER 10 mEq capsule,ext capsule,ext capsule,ex ended ended tended release release release Vitamin D3 Vitamin D3 No Vitamin D3 [facility] 25 mcg 25 mcg 25 mcg Medical (1,000 (1,000 (1,000 unit) unit) unit) capsule capsule capsule Take by Take by Take by oral route. oral route. oral route. amlodipine amlodipine No amlodipine [facility] 2.5 2.5 2.5 [facility] mg-atorvast mg-atorvast mg-atorvas dic atin 10 mg atin 10 mg tatin 10 Sports tablet RX tablet RX mg tablet Medicin by other MD by other RX by e irma NEWBERRY atorvastati atorvastati No atorvastat [facility] n 40 mg n 40 mg in 40 mg Medic al tablet Take tablet Take tablet 1 tablet 1 tablet Take 1 every day every day tablet by oral by oral every day route. route. by oral route. Aspir-81 mg Aspir-81 mg No Aspir-81 [facility] tablet,sher tablet,sher mg O rthope yed release yed release tablet,del dic RX by other RX by other debi vizcaino MD, MD release RX Medicin by other e cephalexin cephalexin No cephalexin [facility] 500 mg 500 mg 500 mg Medical capsule capsule capsule atorvastati atorvastati No atorvastat [facility] n 40 mg n 40 mg in 40 mg Orth[facility] pe tablet tablet tablet dic Sports Medicin e duloxetine duloxetine No duloxetine [facility] 60 mg 60 mg 60 mg Medical capsule,del capsule,del capsule,de ayed ayed layed release release release duloxetine duloxetine No duloxetine [facility] 20 mg 20 mg 20 mg [facility] capsule,del capsule,del capsule,de dic ayed ayed layed Sports release RX release RX release RX Medicin by other MD by other MD by other e ezetimibe ezetimibe No ezetimibe [facility] 10 mg 10 mg 10 mg Medical tablet tablet tablet duloxetine duloxetine No duloxetine [facility] 60 mg 60 mg 60 mg [facility] capsule,del capsule,del capsule,de dic ayed ayed layed Sports release release release Medici n e famotidine famotidine No famotidine [facility] 40 mg 40 mg 40 mg Medical tablet Take tablet Take tablet 1 tablet 1 tablet Take 1 every day every day tablet by oral by oral every day route. route. by oral route. ezetimibe ezetimibe No ezetimibe [facility] 10 mg 10 mg 10 mg [facility] tablet RX tablet RX tablet RX dic by other MD by other by other Sports MD Antoinette turner folic acid folic acid No folic acid [facility] 1 mg tablet 1 mg tablet 1 mg M edical tablet famotidine famotidine No famotidine [facility] 40 mg 40 mg 40 mg [facility] tablet tablet tablet dic [facility] Medic[facility] e furosemide furosemide No furosemide [facility] 40 mg 40 mg 40 mg Medical tablet tablet tablet hydrochloro hydrochloro No hydrochlor [facility] thiazide thiazide othiazide Or thope 12.5 mg 12.5 mg 12.5 mg dic capsule RX capsule RX capsule RX Sports by other MD by other MD by other Antoinette turner hydrochloro hydrochloro No hydrochlor [facility] thiazide thiazide othiazide Me dical 12.5 mg 12.5 mg 12.5 mg tablet tablet tablet losartan 25 losartan 25 No losartan [facility] mg tablet mg tablet 25 mg [facility] RX by other RX by other tablet RX dic MD [place] by other Sports MD Antoinette turner hydrocodone hydrocodone No hydrocodon [facility] 10 10 e 10 Medical mg-acetamin mg-acetamin mg-acetami ophen 325 ophen 325 nophen 325 mg tablet mg tablet mg tablet melatonin 3 melatonin 3 No melatonin [facility] mg capsule mg capsule 3 mg Ort hope capsule dic [facility] Medicin e losartan losartan No losartan Roseline via 100 mg 100 mg 100 mg Medical tablet tablet tablet metoprolol metoprolol No metoprolol [facility] succinate succinate succinate Orthope ER 100 mg ER 100 mg ER 100 mg dic tablet,exte tablet,exte tablet,ext Sports nded nded ended Medicin release 24 release 24 release 24 e hr RX by hr RX by hr RX by other MD irma solis MD methotrexat methotrexat No methotrexa [facility] e sodium e sodium te sodium Me dical 2.5 mg 2.5 mg 2.5 mg tablet tablet tablet Protonix 40 Protonix 40 No Protonix [facility] mg granules mg granules 40 mg [facility] delayed-rel delayed-rel granules dic ease packet ease packet delayed-re Sports RX by other RX by other triston Curry MD, MD packet RX e by other metoprolol metoprolol No metoprolol [facility] succinate succinate succinate Medical ER 50 mg ER 50 mg ER 50 mg tablet,exte tablet,exte tablet,ext nded nded ended release 24 release 24 release 24 hr hr hr Simponi Simponi No Simponi [facility] ARIA ARIA ARIA Orthope dic Sports Medicin e mupirocin 2 mupirocin 2 No mupirocin [facility] % topical % topical 2 % Medic al ointment ointment topical ointment neomycin neomycin No neomycin Roseline via 3.5 3.5 3.5 Medical mg/g-polymy mg/g-polymy mg/g-polym ochoa B ochoa B yxin B 10,000 10,000 10,000 unit/g-dexa unit/g-dexa unit/g-dex meth 0.1 % meth 0.1 % ameth 0.1 eye oint eye oint % eye oint Immunizations Ordered Immunization Filled Immunization Date Status Commen Source Name Name [id number]-FwZ-[id number]-19mR 2021-11-30 Completed Margarito rial [facility]rod NABNT-[id number] 00:00:00 OSCC-UfF-1STPDD-19mR 2021-11-30 Completed Margarito ria Jarrod NABNT-[id number] 00:00:00 KVVW-QuG-9YPMPQ-19mR 2021-11-30 Completed Margarito rial [place] NABNT-[id number] 00:00:00 RWAZ-BgP-3PXMXK-19mR 2021-11-30 Completed Margarito rial [place] NABNT-[id number] 00:00:00 VWSU-WjH-3HISIS-19mR 2021-11-30 Completed [place] NABNT-[id number] 00:00:00 VIVB-DaI-6FJVFO-19mR 2021-11-30 Completed Margarito rial [place] NABNT-[id number] 00:00:00 SQTY-EsE-3XUAII-19mR 2020-09-04 Completed [facility] [facility] [place] NABNT-[id number] 00:00:00 Covid-19 Vaccine 2020-09-[address] [facility] MRNA (PF) 12yr+ 00:00:00 Medical C enter (Pfizer/BioNTech)(IM M601) Covid-19 Vaccine 2020-09-[address] [facility] MRNA (PF) 12yr+ 00:00:00 Medical C enter (Pfizer/BioNTech)(IM M601) Covid-19 Vaccine 2020-09-[address] [facility] Mrna (Pf) 00:00:00 [facility] Center (Pfizer/biontech) Covid-19 Vaccine 2020-09-[address] [facility] MRNA (PF) 12yr+ 00:00:00 Medical C enter (Pfizer/BioNTech)(IM M601) SMNE-JpK-6AEPNQ-19mR 2020-09-04 Completed [facility] [facility] [place] NABNT-[id number] 00:00:00 KPAA-QdR-2IYYYX-19mR 2020-09-04 Completed [facility] [place] NABNT-[id number] 00:00:00 LFFW-XyD-6APDVB-19mR 2020-09-04 Completed [place] [facility] [place] NABNT-[id number] 00:00:00 LMWQ-ZvJ-3NSZHT-19mR 2020-09-04 Completed [facility] [place] NABNT-[id number] 00:00:00 JZSW-ZnD-4PGBFE-19mR 2020-09-04 Completed Margarito rial [place] NABNT-[id number] 00:00:00 LVNV-HtB-3YGHTV-19mR 2020-08-07 Completed Margarito rial [facility] NABNT-[id number] 00:00:00 Covid-19 Vaccine 2020-08-[address] [facility] MRNA (PF) 12yr+ 00:00:00 Medical C enter (Pfizer/BioNTech)(IM M601) Covid-19 Vaccine 2020-08-[address] [facility] MRNA (PF) 12yr+ 00:00:00 Medical C enter (Pfizer/BioNTech)(IM M601) Covid-19 Vaccine 2020-08-[address] [facility] Mrna (Pf) 00:00:00 [facility] Center (Pfizer/biontech) Covid-19 Vaccine 2020-08-[address] [facility] MRNA (PF) 12yr+ 00:00:00 Medical C enter (Pfizer/BioNTech)(IM M601) BCAW-NoY-7NIRHE-19mR 2020-08-07 Completed [facility] [place] NABNT-[id number] 00:00:00 JCYQ-MpX-4LTSTB-19mR 2020-08-07 Completed [facility] [place] NABNT-[id number] 00:00:00 OEQS-TkZ-0YTDCY-19mR 2020-08-07 Completed Margarito rial [place] NABNT-[id number] 00:00:00 DCEU-WuW-9HIDFH-19mR 2020-08-07 Completed [place] [facility] [place] NABNT-[id number] 00:00:00 OUUU-QyH-7BEEAH-19mR 2020-08-07 Completed Margarito rial [facility]rod NABNT-[id number] 00:00:00 FLUCELVAX QUAD PF 2018-04-[address] [facility] Hospital FLUCELVAX QUAD PF 2018-04-[address] 00:[facility] Hospital FLUCELVAX QUAD PF 2018-04-[address] 00:[facility]:00 Hospital Pneumococcal 2015-09-[address] [facility] Conjugate (Prevnar) 00:00:00 [facility] Pneumococcal 2015-09-[address] [facility] Conjugate (Prevnar) 00:00:00 [facility] Pneumococcal 2015-09-[address] [facility] Conjugate (Prevnar) 00:00:00 [facility] Pneumococcal 2015-09-[address] [facility] Conjugate (Prevnar) 00:00:00 [facility] Vital Signs Vital Name Observation Time Observation Value Comments Source Systolic blood 2022-07-15 20:55:00 120 mm[Hg] [facility] Medicine Diastolic blood 2022-07-15 20:55:00 78 mm[Hg] [facility] Medicine Heart rate 2022-07-15 20:55:00 70 /min [facility] Respiratory rate 2022-07-15 20:55:00 16 /min [facility] Body height 2022-07-15 20:55:[address] [facility] Body weight 2022-07-15 20:55:[address] [facility] BMI 2022-07-15 20:55:00 38.67 kg/m2 [facility] BP Diastolic 2022-05-14 00:00:00 80 mm[Hg] Vivekia Stevo edical Height 2022-05-14 00:00:00 63 [in_i] [facility] BMI (Body Mass 2022-05-14 00:00:00 39.3 kg/m2 [facility] Medical Index) BP Systolic 2022-05-14 00:00:00 126 mm[Hg] Bonnie Whiteside edical Body Weight 2022-05-14 00:00:00 221.8 [lb_av] [facility] Body height 2021-02-16 18:17:00 [facility] 2021-02-16 18:17:00 [facility] BMI 2021-02-16 18:17:00 38.44 kg[facility] Body height 2021-02-16 18:17:00 160 [facility] Body weight 2021-02-16 18:17:00 [facility]431 [facility] BMI 2021-02-16 18:17:00 38.44 kg[facility] Systolic blood 2022-11-09 14:48:00 143 mm[Hg] [facility] pressure Diastolic blood 2022-11-09 14:48:00 74 mm[Hg] [facility] pressure Heart rate 2022-11-09 14:48:00 87 /min [facility] Body height 2022-11-09 14:48:00 160 cm [facility] Body weight 2022-11-09 14:48:00 101.152 [facility] 2022-11-09 14:48:00 39.50 kg/m2 [facility] Systolic blood 2022-04-20 18:19:00 136 mm[Hg] [facility] pressure Diastolic blood 2022-04-20 18:19:00 72 mm[Hg] [facility] pressure Heart rate 2022-04-20 18:19:00 70 /min [facility] Body height 2022-04-20 18:19:00 160 cm [facility] Body weight 2022-04-20 18:19:00 101.152 kg [facility] BMI 2022-04-20 18:19:00 39.50 kg/m2 [facility] Respiratory rate 2022-03-11 00:30:00 21 /min [facility] Oxygen saturation in 2022-03-11 00:30:00 95 /min [facility] Arterial blood by Pulse oximetry Body temperature 2022-03-10 23:05:00 36.11 Bianka [facility] Heart Rate 2021-12-11 13:03:09 [facility] [place] Respitory Rate 2021-12-11 13:03:09 [facility] Systolic (mm Hg) 2021-12-11 13:02:36 Margarito rial [facility] Diastolic (mm Hg) 2021-12-11 13:02:36 Mem [facility]rial [facility] Heart Rate 2021-12-11 13:02:36 [facility] Heart Rate 2021-12-11 04:15:30 [facility] Respitory Rate 2021-12-11 04:15:30 [facility] [place] Systolic (mm Hg) 2021-12-11 04:15:25 Marg[facility]ito [facility] [place] Diastolic (mm Hg) 2021-12-11 04:15:25 [facility] [place] Temperature Oral (F) 2021-12-11 04:14:54 [facility] 2021-12-11 01:42:00 160.02 cm [facility] Weight 2021-12-11 01:42:00 [facility] BMI Calculated 2021-12-11 01:42:00 [facility] [place] Respitory Rate 2021-12-11 01:39:41 [facility] Systolic (mm Hg) 2021-12-11 01:39:34 Margarito rial [place] Diastolic (mm Hg) 2021-12-11 01:39:34 Mem [facility] [place] Temperature Oral (F) 2021-12-11 01:38:55 98 F [facility] [place] Weight 2021-12-10 15:48:00 [facility] BMI Calculated 2021-12-10 15:48:00 Giacomo brannon [place] Temperature Oral (F) 2021-12-03 14:39:51 98.2 F [facility] Height 2021-11-27 20:18:00 160.02 cm [facility] Systolic blood 2021-02-24 16:08:00 139 mm[Hg] [facility] pressure Diastolic blood 2021-02-24 16:08:00 63 mm[Hg] [facility] pressure Heart rate 2021-02-24 16:08:00 67 /min [facility] Body height 2021-02-24 16:08:00 160 cm [facility] Body weight 2021-02-24 16:08:00 100.245 kg [facility] BMI 2021-02-24 16:08:00 39.15 kg/m2 [facility] Body temperature 2020-06-08 17:55:58 36.56 Bianka [facility] Respiratory rate 2020-06-08 17:55:58 18 /min [facility] Oxygen saturation in 2020-06-08 17:55:58 100 /min [facility] Arterial blood by Pulse oximetry Procedures Procedure Date / Time Performing Clinician Source Performed CT LUMBAR SPINE WO 2022-09-20 22:00:04 [facility] CONTRAST XR SPINE SCOLIOSIS 2-3 2022-09-20 21:49:[address] [facility] VIEWS AMB REF TO 2022-07-15 15:39:05 [facility] GASTROENTEROLOGY [facility] Medicine MAMMO, screening, 2022-05-14 00:00:00 [facility] ical bilateral CV LEFT HEART CATH LV GRAM 2022-03-10 22:51:47 Dwayne De [facility] WITH CORS POC GLUCOSE 2022-03-10 18:09:00 Dwayne De spital ECG PRE/POST OP 2022-03-10 17:52:55 Dwayne De spital COMPREHENSIVE METABOLIC 2022-03-09 16:11:00 Dwayne De [facility] PANEL CBC WITH PLATELET AND 2022-03-09 16:11:[address] [facility] DIFFERENTIAL PT AND PTT 2022-03-09 16:11:00 Dwayne De spital XR, foot, 2 view 2022-02-12 00:00:00 [facility], foot, w/o contrast 2022-02-12 00:00:00 Harjit lerma [facility] ECG 12-LEAD 2021-12-15 16:08:45 Dwayne De Ho spital ASSIGNMENT OF BENEFITS 2021-04-05 15:45:46 Doctor Unassigned, Un iversity [facility] [place] ARTHROCENTESIS 2021-02-16 19:20:00 Debora, [facility] ASPIR&/INJ MAJOR JT/BURSA W/O US CV STRESS TEST NUCLEAR 2020-09-11 19:25:39 [facility] MYOCARDIAL PERFUSION 2020-09-11 19:25:39 [facility] REST STRESS 1 DAY XR LUMBAR SPINE 2 OR 3 2020-09-03 16:23:47 [facility] XR LUMBAR SPINE 2 OR 3 2020-06-17 19:42:04 [facility] URINALYSIS 2020-06-08 17:03:[address] [facility] BLOOD CULTURE, AEROBIC & 2020-06-08 16:30:00 Kamron [facility] ANAEROBIC URINE CULTURE 2020-06-08 16:15:[address] [facility] BLOOD CULTURE, AEROBIC & 2020-06-08 16:15:00 Kamron Jaspal [facility] ANAEROBIC HC COMPLETE BLD COUNT 2020-06-08 16:15:00 Kamron Jaspal [facility] W/AUTO DIFF BASIC METABOLIC PANEL 2020-06-08 16:15:00 Kamron [facility] LACTIC ACID, I-STAT 2020-06-08 16:15:00 Jaspal Lundy [facility] ESTIMATED GFR 2020-06-08 16:15:[address] [facility] XR LUMBAR SPINE 2 OR 3 VW 2020-06-04 14:30:09 [facility]SE 2020-05-27 19:07:00 Chi Dailey [facility] ospital BASIC METABOLIC PANEL 2020-05-27 11:01:00 [facility] HC COMPLETE BLD COUNT 2020-05-27 11:01:00 [facility] W/AUTO DIFF MAGNESIUM LEVEL 2020-05-27 11:01:00 Melinda Francois Ho spital PHOSPHORUS LEVEL 2020-05-27 11:01:00 Melinda Francois H ospital ESTIMATED GFR 2020-05-27 11:01:00 Melinda Francois spital INFLUENZA ANTIGEN TEST, 2020-05-26 23:46:00 [facility] REFLEX NEGATIVE TO RPP RESPIRATORY PATHOGEN PANEL 2020-05-26 23:46:00 [facility] WITH COVID-19 RT-PCR XR CHEST 1 VW PORTABLE 2020-05-26 23:43:30 [facility] BASIC METABOLIC PANEL 2020-05-26 11:50:00 Melinda scott [facility] HC COMPLETE BLD COUNT 2020-05-26 11:50:00 Melinda scott [facility] W/AUTO DIFF MAGNESIUM LEVEL 2020-05-26 11:50:00 Melinda Francois Ho spital PHOSPHORUS LEVEL 2020-05-26 11:50:00 Melinda Francois ospital ESTIMATED GFR 2020-05-26 11:50:00 Melinda Francois Ho spital URINALYSIS, AUTOMATED WITH 2020-05-26 02:28:00 [facility] XR ABDOMEN 1 VW PORTABLE 2020-05-25 23:38:48 Aylin Petty [facility] BLOOD CULTURE, AEROBIC & 2020-05-25 22:49:00 Aylin Petty [facility] ANAEROBIC [facility] LACTIC ACID LEVEL 2020-05-25 22:48:00 [facility] COMPLETE BLD COUNT 2020-05-25 22:48:00 Aylin Petty [facility]FF [facility] PANEL 2020-05-25 22:48:00 Aylin Petty [facility] ESTIMATED GFR 2020-05-25 22:48:00 Aylin Petty Ho spital [place] BLOOD CULTURE, AEROBIC & 2020-05-25 22:24:00 Aylin Petty [facility] ANAEROBIC [facility] BASIC METABOLIC PANEL 2020-05-25 11:00:00 Melinda Francois [facility] HC COMPLETE BLD COUNT 2020-05-25 11:00:00 Melinda Francois [facility] W/AUTO DIFF MAGNESIUM LEVEL 2020-05-25 11:00:00 Melinda Francois Ho spital PHOSPHORUS LEVEL 2020-05-25 11:00:00 Melinda Francois H ospital ESTIMATED GFR 2020-05-25 11:00:00 Melinda Francois spital POC GLUCOSE 2020-05-25 03:30:00 Chi Dailey H ospital XR LUMBAR SPINE COMPLETE 2020-05-24 23:39:21 Cih Dailey [facility] 4+ VW PREPARE RBC 2020-05-24 18:45:00 Aylin Petty Ho spital [place] HEMOGLOBIN & HEMATOCRIT 2020-05-24 16:55:00 [facility] POC GLUCOSE 2020-05-24 16:39:00 Chi Dailey H ospital HC COMPLETE BLD COUNT 2020-05-24 11:30:00 Leland Erazo [facility] W/AUTO DIFF Francisco BASIC METABOLIC PANEL 2020-05-24 11:30:00 Leland Erazo [facility] Francisco MAGNESIUM LEVEL 2020-05-24 11:30:00 Leland Erazo spital [place] ESTIMATED GFR 2020-05-24 11:30:00 Leland Erazo spital Francisco POC GLUCOSE 2020-05-24 03:06:00 Chi Dailey H ospital POC GLUCOSE 2020-05-23 22:52:00 Ashlie, Chi Curran Cheondoism H ospital POC GLUCOSE 2020-05-23 17:33:00 Ashlie, Chi Curran [facility] H ospital POC GLUCOSE 2020-05-23 14:47:00 Chi Dailey Cheondoism H ospital HC COMPLETE BLD COUNT 2020-05-23 10:12:00 [facility] W/AUTO DIFF Francisco BASIC METABOLIC PANEL 2020-05-23 10:12:00 [facility] Francisco B NATRIURETIC PEPTIDE 2020-05-23 10:12:00 [facility] Francisco MAGNESIUM LEVEL 2020-05-23 10:12:00 Castro, [facility] Kelly [place] PHOSPHORUS LEVEL 2020-05-23 10:12:00 Zachariah Erazooj Cheondoism ospital [place] ESTIMATED GFR 2020-05-23 10:12:00 Zachariah Erazooj Kelly Najera spilety [place] SMEAR REVIEW 2020-05-23 10:12:00 Zachariah Erazooj Kelyl Najera spilety [place] XR CHEST 1 VW PORTABLE 2020-05-22 23:18:54 Ramon Oneal [facility] POC GLUCOSE 2020-05-22 21:54:00 Chi Dailey Magdy Mendoza H ospital [place] > 1 HOUR 2020-05-22 20:15:00 Chi Dailey Magdy Senist H ospital ARTERIAL BLOOD GAS, 2020-05-22 18:55:00 [facility], [facility] CORRECTED SODIUM LEVEL, SYRINGE 2020-05-22 18:55:00 [facility], [facility] POTASSIUM, SYRINGE 2020-05-22 18:55:00 [facility] HEMOGLOBIN, SYRINGE 2020-05-22 18:55:00 [facility] IONIZED CALCIUM, ARTERIAL 2020-05-22 18:55:00 [facility] GLUCOSE LEVEL, SYRINGE 2020-05-22 18:55:[address] [facility] MAGNESIUM LEVEL 2020-05-22 18:55:00 [facility] LACTIC ACID, SYRINGE 2020-05-22 18:55:00 [facility] Center Hospital SODIUM LEVEL, SYRINGE 2020-05-22 16:30:00 Gist, [facility] ARTERIAL BLOOD GAS, 2020-05-22 16:30:00 Gist, [facility] CORRECTED POTASSIUM, SYRINGE 2020-05-22 16:30:00 Gist, [facility] HEMOGLOBIN, SYRINGE 2020-05-22 16:30:00 Gist, [facility] IONIZED CALCIUM, ARTERIAL 2020-05-22 16:30:00 Gist, [facility] GLUCOSE LEVEL, SYRINGE 2020-05-22 16:30:00 Gist, [facility] LACTIC ACID, SYRINGE 2020-05-22 16:30:00 Gist, [facility] MAGNESIUM LEVEL 2020-05-22 16:30:00 [facility], [facility] ospital OR [place] < 1 HOUR 2020-05-22 15:05:00 Gist, [facility] ospital CENTRAL LINE 2020-05-22 15:02:36 Ramon Oneal ospital [place] AN ELECTIVE 2020-05-22 14:48:00 Ramon Oneal ospital ENDOTRACHEAL AIRWAY SURGICAL PATHOLOGY REQUEST 2020-05-22 14:48:00 [facility], [facility] ARTERIAL LINE 2020-05-22 14:45:01 Ramon Oneal ospital ARTERIAL BLOOD GAS, 2020-05-22 14:40:00 Gist, [facility] CORRECTED POTASSIUM, SYRINGE 2020-05-22 14:40:00 [facility], [facility] SODIUM LEVEL, SYRINGE 2020-05-22 14:40:00 Gist, [facility] IONIZED CALCIUM, ARTERIAL 2020-05-22 14:40:00 Gist, [facility] HEMOGLOBIN, SYRINGE 2020-05-22 14:40:00 [facility], [facility] MAGNESIUM LEVEL 2020-05-22 14:40:00 [facility], [facility] ospital GLUCOSE LEVEL, SYRINGE 2020-05-22 14:40:00 [facility], [facility] LACTIC ACID, SYRINGE 2020-05-22 14:40:00 [facility], [facility] FUSION, SPINE, LUMBAR, 2020-05-22 13:10:00 [facility], [facility] XLIF FUSION, SPINE, LUMBAR, 2020-05-22 13:10:00 [facility] POSTERIOR APPROACH COVID-19 QUALITATIVE 2020-05-19 17:44:00 Chi Dailey [facility] RT-PCR ECG PRE/POST OP 2020-05-19 17:37:15 Ivory [facility] PREPARE RBC 2020-05-19 17:20:00 [facility] HEMOGLOBIN A1C 2020-05-19 17:20:00 [facility] PARTIAL THROMBOPLASTIN 2020-05-19 17:20:00 Ivory [facility] TIME (PTT) PROTHROMBIN TIME WITH INR 2020-05-19 17:20:00 [facility] COMPREHENSIVE METABOLIC 2020-05-19 17:20:00 [facility] PANEL HC COMPLETE BLD COUNT 2020-05-19 17:20:00 [facility]O DIFF ESTIMATED GFR 2020-05-19 17:20:00 [facility] Orthopedic Surgery 2020-05-11 00:00:[address] [facility] [facility] LUMBAR SPINE WO 2020-03-26 20:03:11 [facility] CONTRAST MRI LUMBAR SPINE WO 2020-03-26 18:08:00 [facility] Chi [facility] CONTRAST XR LUMBAR SPINE 2 OR 3 VW 2020-03-19 18:46:32 [facility] Hip Arthroscopy Dx 2019-07-11 00:00:00 [facility] Operative Procedure on 2019-03-11 00:00:00 [facility] Spinal Structure Back / Spine Surgery 2018-03-11 00:00:00 [facility] Colonoscopy 2014-07-11 00:00:00 [facility] Urologic Surgery 2009-09-15 00:00:00 [facility] yokasta Back / Spine Surgery 2006-07-11 00:00:00 [facility] Hysterectomy (Ovaries 1982-07-11 00:00:00 [facility] Remain) Ophthalmology - Cataract [facility] Surgery Breast Surgery - [facility] Lumpectomy Hysterectomy [facility] [place] stimulator<sup>3</sup> back surgery<sup>1</sup> Titi Chaoann PCI<sup>2</sup> [facility] Plan of Care Planned Activity Planned Date Details Comments Source Future Scheduled Test 2025-04-10 [facility] Center colon (procedure) [code = 488050757] Future Scheduled Test 2023-03-[address] VACC[address] [facility] 00:00:00 (Season Ended) [code Medical Center = INFLUENZA VACCINE (Season Ended)] Future Scheduled Test 2023-03-[address] [facility] 00:00:00 (Season Ended) [code Medical Center = INFLUENZA VACCINE (Season Ended)] Future Scheduled Test 2022-11-18 Hepatitis C screening [facility] 18:29:12 (procedure) [code = 325827987] Future Scheduled Test 2022-11-18 SHINGLES VACCINES (1 [facility] 18:29:12 of 2) [code = SHINGLES VACCINES (1 of 2)] Future Scheduled Test 2022-11-18 65+ PNEUMOCOCCAL [facility] 18:29:12 VACCINE (2 - PPSV23 if available, else PCV20) [code = 65+ PNEUMOCOCCAL VACCINE (2 - PPSV23 if available, else PCV20)] Future Scheduled Test 2022-11-18 COLONOSCOPY SCREENING [facility] 18:29:12 [code = COLONOSCOPY SCREENING] Future Scheduled Test 2022-11-18 INFLUENZA VACCINE [facility] 18:29:12 [code = INFLUENZA VACCINE] Future Scheduled Test 2022-10-07 Hepatitis C screening [facility] 16:12:32 (procedure) [code = 266031360] Future Scheduled Test 2022-10-07 SHINGLES VACCINES (1 [facility] 16:12:32 of 2) [code = SHINGLES VACCINES (1 of 2)] Future Scheduled Test 2022-10-07 65+ PNEUMOCOCCAL [facility] 16:12:32 VACCINE (2 - PPSV23 if available, else PCV20) [code = 65+ PNEUMOCOCCAL VACCINE (2 - PPSV23 if available, else PCV20)] Future Scheduled Test 2022-10-07 COLONOSCOPY SCREENING [facility] 16:12:32 [code = COLONOSCOPY SCREENING] Future Scheduled Test 2022-07-22 TETANUS SHOT (ADULT) [employer] 20:41:38 [code = TETANUS SHOT Medicin e (ADULT)] Future Scheduled Test 2022-07-22 BMI Follow Up Plan [facility] 20:41:38 [code = BMI Follow Up Medici ne Plan] Future Scheduled Test 2022-07-22 Hepatitis C screening [facility] 20:41:38 (procedure) [code = Medicine [id number]] Future Scheduled Test 2022-07-22 ZOSTER VACCINE (1 of [facility] 20:41:38 2) [code = ZOSTER Medicine VACCINE (1 of 2)] Future Scheduled Test 2022-07-22 Fall Screen [code = [facility] 20:41:38 Fall Screen] Medicine Future Scheduled Test 2022-07-[address] [facility] 20:41:38 osteoporosis Medicine (procedure) [code = [id number]] Future Scheduled Test 2022-07-22 Pneumococcal 65+ (1 - [facility] 20:41:38 PCV) [code = Medicine Pneumococcal 65+ (1 - PCV)] Future Scheduled Test 2022-07-22 Medicare Awv [facility] 20:41:38 (Initial) [code = Medicine Medicare Awv (Initial)] Future Scheduled Test 2022-07-22 FLU VACCINE > 6 [facility] 20:41:38 MONTHS [code = FLU Medicine VACCINE > 6 MONTHS] Future Scheduled Test 2022-07-22 COVID-19 Vaccine (3 - [facility] 20:41:38 Booster for Pfizer Medicine series) [code = COVID-19 Vaccine (3 - Booster for Pfizer series)] Future Scheduled Test 2022-07-11 [facility] 00:00:00 [code = FALLS RISK Medical C enter SCREENING] Future Scheduled Test 2022-07-11 [facility] R[facility] [facility]CRE[facility] 00:00:00 [code = FALLS RISK Medical C enter SCREENING] Diagnostic Test 2022-05-14 [place] IgE Ab [facility] P[facility] 00:00:00 [Units/volume] in Serum [code = 6195-2] Diagnostic Test 2022-05-14 Mucor racemosus IgE [facility] Pending 00:00:00 Ab [Units/volume] in Serum [code = 6182-0] Future Scheduled Test 2022-03-[address] VACC[address] [facility] (#1[facility] [code = Medical Center INFLUENZA VACCINE (#1)] Future Scheduled Test 2021-07-11 [facility]CRE[facility] 00:00:00 [code = FALLS RISK Medical C enter SCREENING] Future Scheduled Test 2021-03-[address] [facility] 00:00:00 (#1) [code = Medical Center INFLUENZA VACCINE (#1)] Future Scheduled Test 2021-02-01 COVID-19 VACCINE (3 - [facility] 00:00:00 Booster for Pfizer Medical C enter series) [code = COVID-19 VACCINE (3 - Booster for Pfizer series)] Future Scheduled Test 2020-10-30 COVID-19 VACCINE (3 - [facility] 00:00:00 Booster for Pfizer Medical C enter series) [code = COVID-19 VACCINE (3 - Booster for Pfizer series)] Future Scheduled Test 2020-10-30 COVID-19 VACCINE (3 - [facility] 00:00:00 Booster for Pfizer Medical C enter series) [code = COVID-19 VACCINE (3 - Booster for Pfizer series)] Future Scheduled Test 2020-07-11 [facility] [facility]CRE[facility] 00:00:00 [code = FALLS RISK Medical C enter SCREENING] Future Scheduled Test 2016-09-29 PNEUMOCOCCAL 65+ YRS [facility] 00:00:00 (2 of 2 - PPSV23) Medical nter [code = PNEUMOCOCCAL 65+ YRS (2 of 2 - PPSV23)] Future Scheduled Test 2016-09-29 PNEUMOCOCCAL 65+ YRS [facility] 00:00:00 (2 - PPSV23 or PCV20) [facility] [code = PNEUMOCOCCAL 65+ YRS (2 - PPSV23 or PCV20)] Future Scheduled Test 2016-08-12 [facility] [place] breast (procedure) [code = 596383426] Future Scheduled Test 2015-11-25 PNEUMOCOCCAL 65+ Y[facility] 00:00:00 (2 - PPSV23 if Medical Cente r available, else PCV20) [code = PNEUMOCOCCAL 65+ YRS (2 - PPSV23 if available, else PCV20)] Future Scheduled Test 2015-11-25 PNEUMOCOCCAL 65+ YRS [facility] 00:00:00 (2 - PPSV23 if Medical Cente r available, else PCV20) [code = PNEUMOCOCCAL 65+ YRS (2 - PPSV23 if available, else PCV20)] Future Scheduled Test 2012-06-[address] [facility] 00:00:00 WELLNESS (YEAR 2 or Medical Center FIRST YEAR if no IPPE) [code = MEDICARE ANNUAL WELLNESS (YEAR 2 or FIRST YEAR if no IPPE)] Future Scheduled Test 2012-06-[address] [facility] 00:00:00 WELLNESS (YEAR 2 or Medical Center FIRST YEAR if no IPPE) [code = MEDICARE ANNUAL WELLNESS (YEAR 2 or FIRST YEAR if no IPPE)] Future Scheduled Test 2012-06-[address] [facility] 00:00:00 WELLNESS (YEAR 2 or Medical Center FIRST YEAR if no IPPE) [code = MEDICARE ANNUAL WELLNESS (YEAR 2 or FIRST YEAR if no IPPE)] Future Scheduled Test 2012-06-[address] [facility] 00:00:00 WELLNESS (YEAR 2 or Medical Center FIRST YEAR if no IPPE) [code = MEDICARE ANNUAL WELLNESS (YEAR 2 or FIRST YEAR if no IPPE)] Future Scheduled Test 1996 SHINGLES VACCINES ([address] [facility] 00:00:00 of 2) [code = Medical Center SHINGLES VACCINES (1 of 2)] Future Scheduled Test 1996 SHINGLES VACCINES ([address] [facility] 00:00:00 of 2) [code = Medical Center SHINGLES VACCINES (1 of 2)] Future Scheduled Test 1996 SHINGLES VACCINES ([address] [facility] 00:00:00 of 2) [code = Medical Center SHINGLES VACCINES (1 of 2)] Future Scheduled Test 1996 SHINGLES VACCINES ([address] [facility] 00:00:00 of 2) [code = Medical Center SHINGLES VACCINES (1 of 2)] Future Scheduled Test 1965 DTAP/TDAP/TD VACCINES [facility] 00:00:00 (1 - Tdap) [code = Medical C enter DTAP/TDAP/TD VACCINES (1 - Tdap)] Future Scheduled Test 1965 DTAP/TDAP/TD VACCINES [facility] 00:00:00 (1 - Tdap) [code = Medical C enter DTAP/TDAP/TD VACCINES (1 - Tdap)] Future Scheduled Test 1965 DTAP/TDAP/TD VACCINES [facility] 00:00:00 (1 - Tdap) [code = Medical C enter DTAP/TDAP/TD VACCINES (1 - Tdap)] Future Scheduled Test 1965 DTAP/TDAP/TD VACCINES [facility] 00:00:00 (1 - Tdap) [code = Medical C enter DTAP/TDAP/TD VACCINES (1 - Tdap)] Future Scheduled Test 1964 HEPATITIS C SCREENING [facility] 00:00:00 [code = HEPATITIS C Medical Center SCREENING] Future Scheduled Test 1964 HEPATITIS C SCREENING [facility] 00:00:00 [code = HEPATITIS C Medical Center SCREENING] Future Scheduled Test 1964 HEPATITIS C SCREENING [facility] 00:00:00 [code = HEPATITIS C Medical Center SCREENING] Future Scheduled Test 1964 HEPATITIS C SCREENING [facility] 00:00:00 [code = HEPATITIS C Medical Center SCREENING] Future Scheduled Test [address] [facility] 00:00:00 Counseling and Medical Cente r Screening (12+) [code = Tobacco Cessation Counseling and Screening (12+)] Future Scheduled Test [address] [facility] 00:00:00 Counseling and Medical Cente r Screening (12+) [code = Tobacco Cessation Counseling and Screening (12+)] Future Scheduled Test [address] [facility] 00:00:00 Counseling and Medical Cente r Screening (12+) [code = Tobacco Cessation Counseling and Screening (12+)] Future Scheduled Test 1946 DXA SCAN [code = DXA [facility] 00:00:00 SCAN] Medical Center Future Scheduled Test 1946 DXA SCAN [code = DXA [facility] 00:00:00 SCAN] Medical Center Future Scheduled Test 1946 DXA SCAN [code = DXA [facility] 00:00:00 SCAN] Medical Center Future Scheduled Test 65+ PNEUMOCOCCAL Me [facility] VACCINE (1 of 2 - PPSV23) [code = 65+ PNEUMOCOCCAL VACCINE (1 of 2 - PPSV23)] Future Scheduled Test Hepatitis C screening [facility] (procedure) [code = 117307752] Future Scheduled Test BREAST CANCER [facility] SCREENING [code = BREAST CANCER SCREENING] Future Scheduled Test SHINGLES VACCINES [facility] (#1) [code = SHINGLES VACCINES (#1)] Future Scheduled Test INFLUENZA VACCINE [facility] [code = INFLUENZA VACCINE] Future Scheduled Test COLONOSCOPY SCREENING [facility] [code = COLONOSCOPY SCREENING] Future Appointment 2023-05-14 Caity Ram, [address] [facility] 00:00:00 [facility]; [address], [place] [address] Instructions [facility] Encounters Start End Encounter Admission Attending Care Care Encounter Source Date/Time Date/Time Type Type Clinicians Facility Department ID 2022-01-09 Outpatient [facility] [id number] [place] 08:[place]:56 [id number] [facility] 2021-12-03 Outpatient [facility] [id number] [place] 09:16:31 [id number] [facility] 2021-11-26 Outpatient [facility] [id number] [place] 11:12:44 [id number] [facility] 2021-06-15 Outpatient TELMA FullerTO HCATO [id number] [facility] 17:44:33 Mufaddal [facility] 2021-02-16 Outpatient [facility] [id number] [place] 13:10:44 [facility] 2019-07-13 Inpatient EL Alina, HCATO SURG [id number] [facility] 13:00:00 Mufaddal [address] [facility] 2022-11-09 2022-11-09 Office De, 1.2.840.1 [id number] 8089 [facility] 10:00:00 15:02:23 Visit Dwayne Crawford 75937.1.[address] 3.430.2.7 Hospit a .3.894075 l .8 2022-11-09 2022-11-09 Travel 1.2.840.1 1.2.410.151 4346 [id number] [facility] 00:00:00 00:00:[address] 3.430.2.7 0.2.7.3.698 Ho spita .3.979542 084.8 l .8 2022-11-09 2022-11-09 Outpatient KENISHA, [facility] [id number] 954 [place] 00:00:00 00:00:00 DWAYNE [address] 2022-10-19 2022-10-19 Refill Kenisha, 1.2.840.1 [id number] 7925 [facility]i 00:00:00 00:00:00 Dwayne Crawford [address]84.[address] 3.430.2.7 Hospit a .3.613637 l .8 2022-10-18 2022-10-18 Travel 1.2.840.1 1.2.304.583 3732 626328 [facility]i 00:00:00 00:00:[address] 3.430.2.7 0.2.7.3.698 Ho spita .3.905340 084.8 l .8 2022-09-20 2022-09-20 [facility] Gist, 1.2.840.1 [id number] 78771 02024 Methodi 16:22:12 23:59:00 Encounter Chi Curran 23107.1.[address] 3.430.2.7 Hospit a .3.217417 l .8 2022-09-20 2022-09-20 [facility] Gist, 1.2.840.1 [id number] 96909 Methodi 16:21:56 16:21:56 Encounter Chi Curran 12203.1.[address] 3.430.2.7 Hospit a .3.389526 l .8 2022-09-20 2022-09-20 [facility] Gist, 1.2.840.1 [id number] 84888 Methodi 16:21:56 16:21:56 Encounter Chi Curran 92733.1.[address] 3.430.2.7 Hospit a .3.630642 l .8 2022-09-20 2022-09-20 Travel 1.2.840.1 1.2.751.546 8451 728737 Methodi 00:00:00 00:00:[address] 3.430.2.7 0.2.7.3.698 Ho spita .3.059425 084.8 l .8 2022-09-20 2022-09-20 Hospital GIST, 1.2.840.1 [id number] [id number] [place] 00:00:00 00:00:00 Jovanni MIRELES 66573.1.[address] .3.476514 .8 2022-09-20 2022-09-20 Travel 1.2.840.1 1.2.257.201 9144 145991 Methodi 00:00:00 00:00:[address] 3.430.2.7 0.2.7.3.698 Ho spita .3.157433 084.8 l .8 2022-09-06 2022-09-06 Refill De, 1.2.840.1 [id number] 073582 6898 Methodi 00:00:00 00:00:[address] 3.430.2.7 Hospit a .3.123536 l .8 2022-09-06 2022-09-06 Refill Kenisha, 1.2.840.1 [id number] 854637 1909 [facility]i 00:00:00 00:00:00 [address] 3.430.2.7 Hospit a .3.824004 l .8 2022-09-01 2022-09-01 Telephone Kenisha, 1.2.840.1 [id number] 2099 124887 [facility]i 00:00:00 00:00:[address] 3.430.2.7 Hospit a .3.842703 l .8 2022-09-01 2022-09-01 Telephone Kenisha, 1.2.840.1 [id number] 2099 932336 [facility]i 00:00:00 00:00:[address] 3.430.2.7 Hospit a .3.434562 l .8 2022-08-31 2022-08-31 Travel 1.2.840.1 1.2.300.040 0907 004062 Methodi 00:00:00 00:00:[address] 3.430.2.7 0.2.7.3.698 Ho spita .3.735735 084.8 l .8 2022-08-31 2022-08-31 Travel 1.2.840.1 1.2.002.642 1685 740915 Methodi 00:00:00 00:00:[address] 3.430.2.7 0.2.7.3.698 Ho spita .3.331143 084.8 l .8 2022-08-29 2022-08-29 Community Gist, 1.2.840.1 [id number] 2099 433179 Methodi 00:00:00 00:00:00 Orders Chi Curran 77540.1.1 629 s t 3.430.2.7 Hospit a .3.286679 l .8 2022-08-29 2022-08-29 Community Gist, 1.2.840.1 [id number] 2099 827771 Methodi 00:00:00 00:00:00 Orders Chi Curran 07649.1.1 629 s t 3.430.2.7 Hospit a .3.378957 l .8 2022-07-29 2022-07-29 Telephone Kenisha 1.2.840.1 [id number] 2099 006104 Methodi 00:00:00 00:00:00 Dwayne [address] 3.430.2.7 Hospit a .3.183473 l .8 2022-07-29 2022-07-29 Telephone Kenisha 1.2.840.1 [id number] 2099 059610 Methodi 00:00:00 00:00:00 Dwayne Crawford [address].1.[address] 3.430.2.7 Hospit a .3.796703 l .8 2022-07-15 2022-07-23 [facility] OLGA ANDRADE 1.2.840.[id number] [place] [address] 14:29:46 19:53:33 Visit ALFREDO AMBULATOR 350.1.13.21 College Y 0.2.7.2.686 114.9478614 Medi lana 310 e 2022-05-28 2022-05-28 Refill Kenisha, 1.2.840.1 [id number] 819534 8299 Methodi 00:00:00 00:00:00 [address] 3.430.2.7 Hospit a .3.570157 l .8 2022-05-28 2022-05-28 Refill Kenisha, 1.2.840.1 [id number] 030014 8941 Methodi 00:00:00 00:00:[address] 3.430.2.7 Hospit a .3.094067 l .8 2022-05-14 2022-05-14 [facility] 6036-20 [facility] 00:00:00 00:00:00 _Yo_M [id number] Medic al 2022-05-14 2022-05-14 [facility] [id number] [facility] 00:00:00 00:00:00 [facility] tereza Ram MD: [facility]_ [address] [facility]* [place], [address], [place] [address] , Ph. 2022-05-13 2022-05-13 [facility] 6036-20 [facility] 00:00:00 00:00:00 _Bailinh_M [id number] Medic al 2022-04-23 2022-04-23 Refill Kenisha, 1.2.840.1 [id number] 323725 4962 [facility]i 00:00:00 00:00:[address] 3.430.2.7 Hospit a .3.064745 l .8 2022-04-23 2022-04-23 Refchaka De, 1.2.840.1 [id number] 485890 5312 Methodi 00:00:00 00:00:00 [address] 3.430.2.7 Hospit a .3.218588 l .8 2022-04-20 2022-04-20 Office De, 1.2.840.1 [id number] 592483 5129 Methodi 13:20:00 15:46:00 Visit Dwayne R. 95017.1.[address] 3.430.2.7 Hospit a .3.479261 l .8 2022-04-20 2022-04-20 Office De, 1.2.840.1 569657485 820320 4303 Methodi 13:20:00 15:46:00 Visit Dwayne R. 17554.1.[address] 3.430.2.7 Hospit a .3.197117 l .8 2022-04-20 2022-04-20 Travel 1.2.840.1 1.2.735.637 1576 384042 Methodi 00:00:00 00:00:[address] 3.430.2.7 0.2.7.3.698 Ho spita .3.544215 084.8 l .8 2022-04-20 2022-04-20 Travel 1.2.840.1 1.2.909.513 7112 508038 Methodi 00:00:00 00:00:[address] 3.430.2.7 0.2.7.3.698 Ho spita .3.102437 084.8 l .8 2022-03-30 2022-03-30 Telephone De, 1.2.840.1 [id number] 2099 197083 Methodi 00:00:00 00:00:00 [address] 3.430.2.7 Hospit a .3.200684 l .8 2022-03-30 2022-03-30 Telephone De, 1.2.840.1 [id number] 2099 820313 Methodi 00:00:00 00:00:[address] 3.430.2.7 Hospit a .3.727136 l .8 2022-03-18 2022-03-18 Travel 1.2.840.1 1.2.260.117 1140 805390 Methodi 00:00:00 00:00:[address] 3.430.2.7 0.2.7.3.698 Ho spita .3.144655 084.8 l .8 2022-03-18 2022-03-18 Travel 1.2.840.1 1.2.783.996 2982 438209 Methodi 00:00:00 00:00:[address] 3.430.2.7 0.2.7.3.698 Ho spita .3.977878 084.8 l .8 2022-03-10 2022-03-10 [facility] 1.2.840.1 [id number] 52 Methodi 12:18:00 19:55:00 Encounter Dwayne R. 39023.1.[address] 3.430.2.7 Hospit a .3.745134 l .8 2022-03-10 2022-03-10 [facility] 1.2.840.1 [id number] 52 Methodi 12:18:00 19:55:00 Encounter Dwayne R. 81897.1.[address] 3.430.2.7 Hospit a .3.242367 l .8 2022-03-10 2022-03-10 [facility] 1.2.840.1 [id number] 212706 6521 Methodi 15:08:00 15:58:00 [address] 3.430.2.7 Hospit a .3.656912 l .8 2022-03-10 2022-03-10 [facility] 1.2.840.1 [id number] 979328 2087 Methodi 15:08:00 15:58:00 [address] 3.430.2.7 Hospit a .3.667707 l .8 2022-03-09 2022-03-09 Office De, 1.2.840.1 [id number] 532212 4108 Methodi 10:30:00 15:53:09 Visit Dwayne R. 19225.1.[address] 3.430.2.7 Hospit a .3.790494 l .8 2022-03-09 2022-03-09 Office De, 1.2.840.1 702007060 717162 9130 Methodi 10:30:00 15:53:09 Visit Dwayne R. 70648.1.[address] 3.430.2.7 Hospit a .3.589477 l .8 2022-03-09 2022-03-09 Lab De, 1.2.840.1 674314544 127250 9838 Methodi 11:15:00 11:20:00 Dway[address]05.[address] 3.430.2.7 Hospit a .3.596720 l .8 2022-03-09 2022-03-09 Lab Kenisha, 1.2.840.1 [id number] 976317 4633 Methodi 11:15:00 11:20:00 D[address] 3.430.2.7 Hospit a .3.955043 l .8 2022-03-09 2022-03-09 Shima Maier, 1.2.840.1 [id number] 060 9139575 Methodi 00:00:00 00:00:00 Only Nayla 75387.1.[address] 3.430.2.7 Hospit a .3.610518 l .8 2022-03-09 2022-03-09 Travel 1.2.840.1 1.2.288.353 0291 020660 Methodi 00:00:00 00:00:[address] 3.430.2.7 0.2.7.3.698 Ho spita .3.866459 084.8 l .8 2022-03-09 2022-03-09 Orders Livier, 1.2.840.1 [id number] 545 3350309 Methodi 00:00:00 00:00:00 Only Nayla 78289.1.[address] 3.430.2.7 Hospit a .3.720643 l .8 2022-03-09 2022-03-09 Travel 1.2.840.1 1.2.567.820 2283 388779 Methodi 00:00:00 00:00:[address] 3.430.2.7 0.2.7.3.698 Ho spita .3.157691 084.8 l .8 2022-02-25 2022-02-25 Outpatient VALERIE Reed RADI [id number] [facility] 13:08:00 13:08:00 Yumiko 94 [facility] 2022-02-18 2022-02-18 Outpatient VALERIE Reed RADI [id number] [facility] 09:56:00 09:56:00 Yumiko 91 [facility] 2022-02-16 2022-02-16 Abel De, 1.2.840.1 [id number] 697804 6186 Methodi 00:00:00 00:00:00 Dwayne Crawford 30929.1.[address] 3.430.2.7 Hospit a .3.264009 l .8 2022-02-16 2022-02-16 Abel De, 1.2.840.1 [id number] 115099 9979 Methodi 00:00:00 00:00:00 Dwayne Crawford [address]23.1.[address] 3.430.2.7 Hospit a .3.187658 l .8 2022-02-15 2022-02-15 Outpatient FOG_Vennix_ AOSM AOSM 560 2420-20 [facility] 00:00:00 00:00:00 Nina [id number] [facility] 2022-02-12 2022-02-12 Outpatient VALERIE Reed RADI [id number] [facility] 09:28:00 09:28:00 Yumiko 73 [facility] 2022-02-12 2022-02-12 Outpatient FOG_Vennix_ AOSM AOSM 560 2420-20 [facility] 00:00:00 00:00:00 Nina 010048 [facility] e 2022-02-12 2022-02-12 Yumiko Whiteside AOSM [place] - Ortho [id number] 5 [facility] 00:00:00 00:00:00 Mai Marsh MD: 7401 FOG_Ofc dic [facility] Spo [facility], [place] [address] , Ph. [phone] 2022-02-12 2022-02-12 Outpatient PEPPER Marsh AOSM [id number] c-1 00:00:00 00:00:00 Yumiko Whiteside [id number]-b [id number] 2022-02-08 2022-02-08 Telephone Jas, 1.2.840.1 [id number] 2099 028118 Methodi 00:00:00 00:00:[address] 3.430.2.7 Hospit a .3.061392 l .8 2022-02-08 2022-02-08 Telephone Jas 1.2.840.1 [id number] 2099 555741 Methodi 00:00:00 00:00:[address] 3.430.2.7 Hospit a .3.989760 l .8 2022-02-04 2022-02-04 Outpatient FOG_Vennix_ AOSM AOSM 560 2420-20 [facility] 00:00:00 00:00:00 Nina 690172 [facility] 2022-01-23 2022-01-23 Refill Kenisha 1.2.840.1 [id number] 913142 0848 Methodi 00:00:00 00:00:00 [address] 3.430.2.7 Hospit a .3.090948 l .8 2022-01-23 2022-01-23 Refill Kenisha 1.2.840.1 [id number] 565661 5682 Methodi 00:00:00 00:00:00 D[address] 3.430.2.7 Hospit a .3.157425 l .8 2021-12-15 2021-12-15 Office De, 1.2.840.1 [id number] 302542 1780 Methodi 11:30:00 15:57:57 Visit Dwayne Crawford 43725.1.[address] 3.430.2.7 Hospit a .3.157676 l .8 2021-12-15 2021-12-15 Office De, 1.2.840.1 [id number] 671022 7631 Methodi 11:30:00 15:57:57 Visit Dwayne Crawford 03399.1.[address] 3.430.2.7 Hospit a .3.163331 l .8 2021-12-15 2021-12-15 Travel 1.2.840.1 1.2.474.765 5757 190778 Methodi 00:00:00 00:00:[address] 3.430.2.7 0.2.7.3.698 Ho spita .3.386078 084.8 l .8 2021-12-15 2021-12-15 Travel 1.2.840.1 1.2.575.817 0662 612006 Methodi 00:00:00 00:00:[address] 3.430.2.7 0.2.7.3.698 Ho spita .3.262404 084.8 l .8 2021-12-11 2021-12-11 [facility]35 [id number] [facility] 01:37:00 14:15:00 n r Jarrod 00 [facility] 2021-12-11 2021-12-11 [facility] 3735 312485 [facility] 01:37:00 14:15:00 n r Jarrod 00 l [facility] 2021-12-10 2021-12-11 Outpatient Aron [facility] [id number] 20:37:00 09:15:00 Jorge Alaniz 2021-12-10 2021-12-11 [facility] 20:37:00 09:15:00 JORGE 2021-11-02 2021-11-02 Travel 1.2.840.1 1.2.865.967 7917 673812 Methodi 00:00:00 00:00:[address] 3.430.2.7 0.2.7.3.698 Ho spita .3.393078 084.8 l .8 2021-10-26 2021-10-26 Refill Kenisha, 1.2.840.1 [id number] [id number] 3419 Methodi 00:00:00 00:00:00 Dwayne Crawford 15798.1.[address] 3.430.2.7 Hospit a .3.566342 l .8 2021-07-24 2021-07-24 Outpatient [facility]_ PRIV PRIV 501 6036-20 [facility] 01:58:00 01:58:00 Baird_M 635576 Medica l 2021-06-26 2021-06-26 Outpatient [facility]_ PRIV PRIV 501 6036-20 [facility] 02:21:00 02:21:00 Baird_M 734693 Medica l 2021-06-15 2021-06-15 [id number] 12:36:00 12:36:00 Mendel [address] [facility] 2021-04-06 2021-04-06 Letter MAMADOU Nicolas 1.2.840.114 [id number] [facility] 00:00:00 00:00:00 (Out) Kirti LANDAVERDE 350.1.13.10 it y of [facility] 4.2.7.2.686 [place] [phone] [place] [address] [place] 2021-04-05 2021-04-05 Laboratory Only, Ang Db Test [facility] 1.2.8 40.114 [id number] [facility] 10:47:15 11:02:15 Only Abilio [facility] 350.1.13.10 ity of [place] 4.2.7.2.686 [place] as Alonso?Blea [phone] [place] dical [address] Medical Office [facility] 2021-04-05 2021-04-05 Outpatient Dhruv ALONSO [facility] [id number] 003 Univers 11:00:00 11:00:00 MARYBETH ity [facility] 2021-04-05 2021-04-05 Orders Doctor CEDILLO 1.2.840.114 [id number] Univers 00:00:00 00:00:00 Only Unassigned, AKHIL 350.1.13.10 ity of [place] [facility] 4.2.7.2.686 More[place] as [phone] [address] 2021-03-18 2021-03-18 Outpatient GIST, [facility] [id number] [address] [place] 00:00:00 00:00:00 [facility] 2021-03-18 2021-03-18 Outpatient [facility], [facility] [id number] [address] [place] [address] 00:00:00 00:00:00 [facility] Pena [facility] 2021-03-11 2021-03-11 Outpatient LAXMI Fuller, HCATO RADI [id number] -202 [facility] 12:21:00 12:21:00 Mufaddal [address] [facility] 2021-02-24 2021-02-24 Office De, 1.2.840.1 [id number] 6368 Methodi 11:02:10 14:53:21 Visit Dwayne Crawford 21818.1.[address] 3.430.2.7 Hospit a .3.813651 l .8 2021-02-24 2021-02-24 [facility] Gist, 1.2.840.1 [id number] 2100 [id number] Methodi 00:00:00 00:00:00 Orders Chi Curran 01590.1.1 263 s t 3.430.2.7 Hospit a .3.278803 l .8 2021-02-24 2021-02-24 Travel 1.2.840.1 1.2.940.696 3909 617746 Methodi 00:00:00 00:00:[address] 3.430.2.7 0.2.7.3.698 Ho spita .3.646865 084.8 l .8 2021-02-16 2021-02-16 Office SUNDEEP De ORTHO 1.2.740.946 5609 66685 [place] 12:35:38 14:15:01 Visit Suraj SUGAR 350.1.13.58 He alth [place] 9.2.7.2.686 [id number] 1 2021-02-16 2021-02-16 Office SUNDEEP De ORTHO 1.2.258.594 7592 59394 12:35:38 14:15:01 Visit Suraj SUGAR 350.1.13.58 [place] 9.2.7.2.686 [id number] 1 2021-01-26 2021-01-26 Refill Kenisha, 1.2.840.1 [id number] 968217 9970 Methodi 00:00:00 00:00:00 Dwayne Crawford [address]133.1.[address] 3.430.2.7 Hospit a .3.049822 l .8 2021-01-20 2021-01-20 Office Rose, 1.2.840.1 [id number] 07145 70697 Methodi 15:16:13 16:37:29 Visit Arya 19144.1.[address] [place] 3.430.2.7 Hospit a .3.829721 l .8 2021-01-20 2021-01-20 Travel 1.2.840.1 1.2.509.854 5312 154886 Methodi 00:00:00 00:00:[address] 3.430.2.7 0.2.7.3.698 Ho spita .3.307883 084.8 l .8 2021-01-12 2021-01-12 Refill Rose, 1.2.840.1 [id number] 96416 60157 Methodi 00:00:00 00:00:[address] [place] 3.430.2.7 Hospit a .3.655664 l .8 2021-01-06 2021-01-06 Telephone Elizondo, 1.2.840.1 [id number] 2100 388573 Methodi 00:00:00 00:00:[address] 3.430.2.7 Hospit a .3.304155 l .8 2021-01-06 2021-01-06 Telephone Rose, 1.2.840.1 [id number] 755 8030062 Methodi 00:00:00 00:00:[address] [place] 3.430.2.7 Hospit a .3.016813 l .8 2021-01-06 2021-01-06 Travel 1.2.840.1 1.2.718.107 5266 514254 Methodi 00:00:00 00:00:[address] 3.430.2.7 0.2.7.3.698 Ho spita .3.145629 084.8 l .8 2020-10-29 2020-10-29 Refill De, 1.2.840.1 [id number] 6798 Methodi 00:00:00 00:00:00 Dwayne Crawford 72293.1.[address] 3.430.2.7 Hospit a .3.354073 l .8 2020-10-13 2020-10-13 Refill De, 1.2.840.1 [id number] 3070 Methodi 00:00:00 00:00:[address] 3.430.2.7 Hospit a .3.331721 l .8 2020-09-09 2020-09-09 Travel 1.2.840.1 1.2.692.862 5071 810548 Methodi 00:00:00 00:00:[address] 3.430.2.7 0.2.7.3.698 Ho spita .3.209332 084.8 l .8 2020-09-04 2020-09-04 Immunizati Covid [facility] [id number] [id number] 08:54:55 09:04:55 on Employee, Sergio frye Chi [facility] 2020-09-04 2020-09-04 Outpatient EL [facility] [id number] 944 [facility] 00:00:00 00:00:00 2020-09-03 2020-09-03 Hospital [facility], 1.2.840.1 [id number] 22023 94097 Methodi 09:56:33 23:59:00 Encounter Chi Curran 40173.1.[address] 3.430.2.7 Hospit a .3.588143 l .8 2020-09-03 2020-09-03 Travel 1.2.840.1 1.2.670.790 6962 [id number] Methodi 00:00:00 00:00:[address] 3.430.2.7 0.2.7.3.698 Ho spita .3.043138 084.8 l .8 2020-09-03 2020-09-03 Transcribe [facility], 1.2.840.1 [id number] Methodi 00:00:00 00:00:00 Orders Chi Magdy 70395.1.1 763 s t 3.430.2.7 Hospit a .3.356717 l .8 2020-08-12 2020-08-12 Office New [facility], 1.2.840.1 [id number] 9394 Methodi 09:27:24 15:27:03 Visit Dwayne Crawford 56029.1.[address] 3.430.2.7 Hospit a .3.632021 l .8 2020-08-12 2020-08-12 Travel 1.2.840.1 1.2.214.274 4159 196324 Methodi 00:00:00 00:00:[address] 3.430.2.7 0.2.7.3.698 Ho spita .3.177755 084.8 l .8 2020-08-07 2020-08-07 Immunizati Covid [facility] [id number] [id number] [facility] St 14:25:46 14:35:46 on Employee, Sergio frye Chi [facility] 2020-08-07 2020-08-07 Outpatient EL SLE [facility] [id number] [facility] 00:00:00 00:00:00 2020-07-24 2020-07-24 Travel 1.2.840.1 1.2.894.696 8184 780405 Methodi 00:00:00 00:00:[address] 3.430.2.7 0.2.7.3.698 Ho spita .3.583118 084.8 l .8 2020-07-20 2020-07-20 Refill Kenisha, 1.2.840.1 [id number] 127047 2913 Methodi 00:00:00 00:00:00 Dwayne Crawford [address]354.1.[address] 3.430.2.7 Hospit a .3.426039 l .8 2020-07-05 2020-07-05 Refill Kenisha, 1.2.840.1 [id number] 0444 Methodi 00:00:00 00:00:00 Dwayne Crawford [address]1473.1.[address] 3.430.2.7 Hospit a .3.576319 l .8 2020-07-05 2020-07-05 Refill Rose, 1.2.840.1 [id number] 16038 83217 Methodi 00:00:00 00:00:[address] Lyone 3.430.2.7 Hospit a .3.269730 l .8 2020-06-17 2020-06-17 Hospital [facility], 1.2.840.1 [id number] 08970 88414 Methodi 13:16:36 23:59:00 Jovanni Curran [address]444.1.[address] 3.430.2.7 Hospit a .3.255958 l .8 2020-06-17 2020-06-17 Travel 1.2.840.1 1.2.492.144 3107 346048 Methodi 00:00:00 00:00:[address] 3.430.2.7 0.2.7.3.698 Ho spita .3.856820 084.8 l .8 2020-06-16 2020-06-16 [facility] Gist, 1.2.840.1 [id number] 2100 577115 Methodi 00:00:00 00:00:00 Orders Chi Curran 28090.1.1 764 s t 3.430.2.7 Hospit a .3.567572 l .8 2020-06-08 2020-06-08 Emergency Kamron, Jaspal 1.2.840.1 [id number] Methodi 09:12:00 11:57:[address] 3.430.2.7 Hospit a .3.309493 l .8 2020-06-08 2020-06-08 Travel 1.2.840.1 1.2.175.501 4027 160864 Methodi 00:00:00 00:00:[address] 3.430.2.7 0.2.7.3.698 Ho spita .3.240037 084.8 l .8 2020-06-04 2020-06-04 [facility] Gist, 1.2.840.1 [id number] 54320 05050 Methodi 07:30:00 23:59:00 Jovanni Curran [address]324.1.[address] 3.430.2.7 Hospit a .3.394662 l .8 2020-06-04 2020-06-04 [facility] Gist, 1.2.840.1 [id number] Methodi 00:00:00 00:00:00 Orders Chi Curran 13387.1.1 126 s t 3.430.2.7 Hospit a .3.002933 l .8 2020-06-04 2020-06-04 Travel 1.2.840.1 1.2.180.831 1865 946315 Methodi 00:00:00 00:00:[address] 3.430.2.7 0.2.7.3.698 Ho spita .3.606760 084.8 l .8 2020-05-22 2020-05-27 Hospital Gist, 1.2.840.1 [id number] 80387 01479 Methodi 04:40:00 18:17:00 Jovanni Curran [address]855.1.[address] 3.430.2.7 Hospit a .3.401089 l .8 2020-05-22 2020-05-22 Anesthesia Ortiz Sequeira. 1.2.840 .1 [id number] Methodi 07:11:00 15:50:00 Event Delfina Dodson 22809.1.[address] 3.430.2.7 Hospit a .3.760610 l .8 2020-05-22 2020-05-22 Surgery Gist, 1.2.840.1 [id number] 640373 8575 Methodi 07:15:00 13:40:00 Chi Curran 00076.1.1 114 s t 3.430.2.7 Hospit a .3.732327 l .8 2020-05-21 2020-05-21 Travel 1.2.840.1 1.2.609.891 5669 643070 Methodi 00:00:00 00:00:[address] 3.430.2.7 0.2.7.3.698 Ho spita .3.272641 084.8 l .8 2020-05-19 2020-05-19 Pre-Admiss Gist, 1.2.840.1 [id number] 500 [id number] Methodi 11:01:34 12:01:34 ion Chi Curran 17734.1.1 959 s t Testing 3.430.2.7 Hospit a .3.700856 l .8 2020-05-19 2020-05-19 Travel 1.2.840.1 1.2.286.221 9867 041754 Methodi 00:00:00 00:00:[address] 3.430.2.7 0.2.7.3.698 Ho spita .3.511371 084.8 l .8 2020-04-18 2020-04-18 Refill De, 1.2.840.1 [id number] 176332 6067 Methodi 00:00:00 00:00:[address] Dwayne Crawford [address]646.1.[address] 3.430.2.7 Hospit a .3.227876 l .8 2020-04-17 2020-04-17 Outpatient TELMA RangelTO [facility] [id number] -202 [facility] 12:15:00 12:15:00 [place] [address] [facility] 2020-03-26 2020-03-26 [facility], 1.2.840.1 [id number] 13893 Methodi 13:00:00 23:59:00 Encounter Chi Curran 13488.1.[address] 3.430.2.7 Hospit a .3.752558 l .8 2020-03-26 2020-03-26 [facility], 1.2.840.1 [id number] 33830 Methodi 12:20:00 12:59:00 Encounter Chi Curran 75878.1.[address] 3.430.2.7 Hospit a .3.866122 l .8 2020-03-25 2020-03-25 Travel 1.2.840.1 1.2.843.390 8828 060421 Methodi 00:00:00 00:00:[address] 3.430.2.7 0.2.7.3.698 Reinaldo ibarra .3.033492 084.8 l .8 2020-03-20 2020-03-20 Transcribe [facility], 1.2.840.1 [id number] 716 [id number] Methodi 00:00:00 00:00:00 Orders Chi Curran 30500.1.1 346 s t 3.430.2.7 Hospit a .3.649266 l .8 2020-03-19 2020-03-19 [facility], 1.2.840.1 [id number] 10214 33271 Methodi 13:00:00 23:59:00 Encounter Chi Curran 48767.1.[address] 3.430.2.7 Hospit a .3.299032 l .8 2020-03-19 2020-03-19 Travel 1.2.840.1 1.2.721.424 8767 240037 Methodi 00:00:00 00:00:[address] 3.430.2.7 0.2.7.3.698 Ho spita .3.838393 084.8 l .8 2020-03-13 2020-03-13 Transcribe Gist, 1.2.840.1 [id number] 492 [id number] Methodi 00:00:00 00:00:00 Orders Chi Curran 15753.1.1 760 s t 3.430.2.7 Hospit a .3.621794 l .8 2019-11-28 2019-11-28 Outpatient TELMA FullerTO RADI [id number] [facility] 13:30:00 13:30:00 Mendel [address] [facility] 2017-05-02 2017-05-02 Outpatient JAS [facility] [id number] [address] 00:00:00 00:00:00 [facility] Results Test Description Test Time Test Comments Results Result Comments Source ECG Pre/Post Op 2022-03-12 23:34:14 Test Item Value Reference Range Interpretation Comme nts Ventricular rate (test code = 253) 83 Atrial rate (test code = 255) 83 WA interval (test code = 266) 104 QRSD interval (test code = 260) 76 QT interval (test code = 264) 378 QTC interval (test code = 265) 444 P axis 1 (test code = 267) 77 QRS axis 1 (test code = 268) 19 T wave axis (test code = 270) 46 EKG impression (test code = 273) ^^^ Poor data quality, interpretat ion may be adversely affected-Sinus rhythm with short WA-Right atrial enlargement-Marked ST abnormality, possible inferior subendocardial injury-Abnormal ECG-In automated comparison with ECG of 15-DEC-2021 11:08,-ST more depressed in Inferior leads-ST now depressed in Anterior leads-T wave inversion now evident in Inferior leads-Nonspecific T wave abnormality now evident in Anterior leads-Electronically Signed By Halie NEWBERRY, [facility] ([id number]) on 03/12/2022 6:34:09 [id number] 23:34:14 Test Item Value Reference Range Interpretation Comments Ventricular rate 83 (test code = 253) Atrial rate (test 83 code = 255) WA interval (test 104 code = 266) QRSD interval (test 76 code = 260) QT interval (test 378 code = 264) QTC interval (test 444 code = 265) P axis 1 (test code = 77 267) QRS axis 1 (test code 19 = 268) T wave axis (test 46 code = 270) EKG impression (test ^^^ Poor data quality, code = 273) interpretation may be adversely affected-Sinus rhythm with short WA-Right atrial enlargement-Marked ST abnormality, possible inferior subendocardial injury-Abnormal ECG-In automated comparison with ECG of 15-DEC-2021 11:08,-ST more depressed in Inferior leads-ST now depressed in Anterior leads-T wave inversion now evident in Inferior leads-Nonspecific T wave abnormality now evident in Anterior leads-Electronically Signed By Halie NEWBERRY [facility] ([id number]) on 03/12/2022 6:34:[address] [facility] [id number] 18:10:00 Test Item Value Reference Range Interpretation Comments POC glucose (test code = 112 mg/dL 65-99 H Ope rator Name: [id number]) Rodney Sommer e ID: [id number]~Beata tabl e: [facility] Notified cost engineer Interpretation (test Abnormal code = 32729-9) [facility] [id number] 18:10:00 Test Item Value Reference Range Interpretation Comments POC glucose (test code = 112 mg/dL 65-99 H Ope rator Name: [id number]) Rodney Sommer e ID: [id number]~Beata tabl e: TM Notified cost engineer Interpretation (test Abnormal code = 22665-2) [facility] [id number] 12:13:00 Test Item Value Reference Range Interpretation Comments Glucose (test code = 94 mg/dL 65-99 Fastin g 2345-7) reference interval BUN (test code = 23 mg/dL 7-25 3094-0) Creatinine (test 1.04 mg/dL 0.60-1.00 H code = 2160-0) eGFR (test code = 56 See_Comment L The eGFR i s based 8257) on the CKD-EPI 2020 equation. To calculate the n ew eGFR from a previous Creatinine or Cystatin Cresul t, go to https://www.kid ne y.org/profbarbara na paulino/kdoqi/gfr%5F ca lculator [Automated message] The system which generated this result transmitted reference range : > OR = 60 mL/min/1.73m2. The reference range was not used to interpr et this result as normal/abnormal . BUN/creatinine ratio 22 See_Comment [Autom ated (test code = 3097-3) message ] The system which generated this result transmitted reference range : 6 - 22 (calc). The reference range was not used to interpr et this result as normal/abnormal . Sodium (test code = 140 mmol/L 675-200 7614-2) Potassium (test code 4.2 mmol/L 3.5-5.3 = 2823-3) Chloride (test code 104 mmol/L 98-110 = 2075-0) CO2 (test code = 26 mmol/L 20-32 2027-9) Calcium (test code = 9.7 mg/dL 8.6-10.4 04405-9) Protein (test code = 6.7 g/dL 6.1-8.1 2885-2) Albumin, S (test 4.0 g/dL 3.6-5.1 code = 1751-7) Globulin, total 2.7 See_Comment [Automated (test code = message] The 20745-3) system which generated this result transmitted reference range : 1.9 - 3.7 g/dL (calc). The reference range was not used to interpret this result as normal/abnormal . Albumin/globulin 1.5 See_Comment [Automated ratio (test code = message] The 1759-0) system which generated this result transmitted reference range : 1.0 - 2.5 (calc ). The reference range was not used to interpr et this result as normal/abnormal . Total bilirubin 0.5 mg/dL 0.2-1.2 (test code = 1975-2) Alkaline phosphatase 87 U/L 37-153 (test code = 6768-6) AST (test code = 19 U/L 10-35 1920-8) ALT (test code = 22 U/L 01-06 1742-6) RAC (test code = Performing RAC) Organization Information: Site ID: MARTINA Name: [facility] Lab Address: [address] [place] [phone] Director: Heron Kwan Lab Interpretation Abnormal (test code = 76980-0) [facility] with platelet and [id number] 12:13:00 Test Item Value Reference Range Interpretation Comments WBC (test code = 5.8 See_Comment [Automated 7990-2) message] The system which generated this result transmitted reference range : 3.8 - 10.8 Thousand/uL. Th e reference range was not used to interpret this result as normal/abnormal . RBC (test code = 4.24 See_Comment [Automated 569-8) message] The system which generated this result transmitted reference range : 3.80 - 5.10 Million/uL. The reference range was not used to interpret this result as normal/abnormal . HGB (test code = 12.6 g/dL 11.7-15.5 718-7) HCT (test code = 37.5 % 35.0-45.0 4544-3) MCV (test code = 88.4 fL 80.0-100.0 787-2) MCH (test code = 29.7 pg 27.0-33.0 785-6) MCHC (test code = 33.6 g/dL 32.0-36.0 786-4) RDW (test code = 18.0 % 11.0-15.0 H 788-0) Platelet count (test 232 See_Comment [Autom ated code = 777-3) message] The system which generated this result transmitted reference range : 140 - 400 Thousand/uL. Th e reference range was not used to interpret this result as normal/abnormal . MPV (test code = 10.0 fL 7.5-12.5 776-5) Neutrophils, 3712 See_Comment [Automated absolute (test code message] The = 801-8) system which generated this result transmitted reference range : 1,500 - 7,800 cells/uL. The reference range was not used to interpret this result as normal/abnormal . Lymphocytes, 1230 See_Comment [Automated absolute (test code message] The = 731-0) system which generated this result transmitted reference range : 850 - 3,900 cells/uL. The reference range was not used to interpret this result as normal/abnormal . Monocytes, absolute 731 See_Comment [Automa angel (test code = 742-7) message] The system which generated this result transmitted reference range : 200 - 950 cells/uL. The reference range was not used to interpret this result as normal/abnormal . Eosinophils, 110 See_Comment [Automated absolute (test code message] The = 711-2) system which generated this result transmitted reference range : 15 - 500 cells/uL. The reference range was not used to interpret this result as normal/abnormal . Basophils, absolute 17 See_Comment [Automa angel (test code = 704-7) message] The system which generated this result transmitted reference range : 0 - 200 cells/u L. The reference range was not used to interpr et this result as normal/abnormal . Neutrophils (test 64 % code = 770-8) Lymphocytes (test 21.2 % code = 736-9) Monocytes (test code 12.6 % = 5905-5) Eosinophils (test 1.9 % code = 713-8) Basophils + RC (test 0.3 % code = 706-2) RAC (test code = Performing RAC) Organization Information: Site ID: RGA Name: [facility] Lab Address: [address] [place] [phone] Director: Heron Kwan Lab Interpretation Abnormal (test code = 04227-4) [facility] [id number] 12:13:00 Test Item Value Reference Interpretation Comments Range PTT (test code 25 See_Comment This test dee s not been = 13491-8) validated for monitoringunfra ctionated heparin therapy . For testing thatis validated for this type o f therapy, please referto the Heparin Anti-Xa assay ( test code 17811). For add itional information, pl ease refer tohttp://educat ion.Wikibon/fa q/ZOI423(Thi s link is being provided for informational/e ducational purposes only.) [Automated message] The sy stem which generated this result transmitted ref erence range: 23 - 32 sec. The reference range was not used to interpr et this result as aristeo l/abnormal. INR (test code 1.0 Reference Ran ge = 6301-6) 0.9-1.1Moderate -intensity Warfarin Therap y 2.0-3.0Higher-i ntensity Warfarin Therap y 3.0-4.0 Prothrombin 10.3 See_Comment [Automated mes alice] The time (test code system which generated this = 5902-2) result transmit angel reference range : 9.0 - 11.5 sec. The refere nce range was not used to interpret this result as normal/abnormal . RAC (test code Performing = RAC) Organization Information: Site ID: A Name: [facility] Address: [address] [place] [address] Director: Heron Kwan [facility] [id number] 12:13:00 Test Item Value Reference Range Interpretation Comments Glucose (test code = 94 mg/dL 65-99 Fastin g 2345-7) reference interval BUN (test code = 23 mg/dL 7-25 3094-0) Creatinine (test 1.04 mg/dL 0.60-1.00 H code = 2160-0) eGFR (test code = 56 See_Comment L The eGFR i s based 8257) on the CKD-EPI 2020 equation. To calculate the n ew eGFR from a previous Creatinine or Cystatin Cresul t, go to https://www.kid ne y.org/professio na ls/kdoqi/gfr%5F ca lculator [Automated message] The system which generated this result transmitted reference range : > OR = 60 mL/min/1.73m2. The reference range was not used to interpr et this result as normal/abnormal . BUN/creatinine ratio 22 See_Comment [Autom ated (test code = 3097-3) message ] The system which generated this result transmitted reference range : 6 - 22 (calc). The reference range was not used to interpr et this result as normal/abnormal . Sodium (test code = 140 mmol/L 292-997 6401-2) Potassium (test code 4.2 mmol/L 3.5-5.3 = 2823-3) Chloride (test code 104 mmol/L 98-110 = 2075-0) CO2 (test code = 26 mmol/L 20-32 2027-9) Calcium (test code = 9.7 mg/dL 8.6-10.4 77870-9) Protein (test code = 6.7 g/dL 6.1-8.1 5-2) Albumin, S (test 4.0 g/dL 3.6-5.1 code = 1751-7) Globulin, total 2.7 See_Comment [Automated (test code = message] The ) system which generated this result transmitted reference range : 1.9 - 3.7 g/dL (calc). The reference range was not used to interpret this result as normal/abnormal . Albumin/globulin 1.5 See_Comment [Automated ratio (test code = message] The ) system which generated this result transmitted reference range : 1.0 - 2.5 (calc ). The reference range was not used to interpr et this result as normal/abnormal . Total bilirubin 0.5 mg/dL 0.2-1.2 (test code = 1974-) Alkaline phosphatase 87 U/L 37-153 (test code = 6768-6) AST (test code = 19 U/L 10-35 1919-8) ALT (test code = 22 U/L 01-06-6) RAC (test code = Performing RAC) Organization Information: Site ID: RGA [facility]: [facility] Lab Address: [address] [place] [address] Director: Heron Kwan Lab Interpretation Abnormal (test code = 77169-8) [facility] with platelet and [id number] 12:13:00 Test Item Value Reference Range Interpretation Comments WBC (test code = 5.8 See_Comment [Automated 4590-2) message] The system which generated this result transmitted reference range : 3.8 - 10.8 Thousand/uL. Th e reference range was not used to interpret this result as normal/abnormal . RBC (test code = 4.24 See_Comment [Automated 531-8) message] The system which generated this result transmitted reference range : 3.80 - 5.10 Million/uL. The reference range was not used to interpret this result as normal/abnormal . HGB (test code = 12.6 g/dL 11.7-15.5 718-7) HCT (test code = 37.5 % 35.0-45.0 4544-3) MCV (test code = 88.4 fL 80.0-100.0 787-2) MCH (test code = 29.7 pg 27.0-33.0 785-6) MCHC (test code = 33.6 g/dL 32.0-36.0 786-4) RDW (test code = 18.0 % 11.0-15.0 H 788-0) Platelet count (test 232 See_Comment [Autom ated code = 777-3) message] The system which generated this result transmitted reference range : 140 - 400 Thousand/uL. Th e reference range was not used to interpret this result as normal/abnormal . MPV (test code = 10.0 fL 7.5-12.5 776-5) Neutrophils, 3712 See_Comment [Automated absolute (test code message] The = 751-8) system which generated this result transmitted reference range : 1,500 - 7,800 cells/uL. The reference range was not used to interpret this result as normal/abnormal . Lymphocytes, 1230 See_Comment [Automated absolute (test code message] The = 731-0) system which generated this result transmitted reference range : 850 - 3,900 cells/uL. The reference range was not used to interpret this result as normal/abnormal . Monocytes, absolute 731 See_Comment [Automa angel (test code = 742-7) message] The system which generated this result transmitted reference range : 200 - 950 cells/uL. The reference range was not used to interpret this result as normal/abnormal . Eosinophils, 110 See_Comment [Automated absolute (test code message] The = 711-2) system which generated this result transmitted reference range : 15 - 500 cells/uL. The reference range was not used to interpret this result as normal/abnormal . Basophils, absolute 17 See_Comment [Automa angel (test code = 704-7) message] The system which generated this result transmitted reference range : 0 - 200 cells/u L. The reference range was not used to interpr et this result as normal/abnormal . Neutrophils (test 64 % code = 770-8) Lymphocytes (test 21.2 % code = 736-9) Monocytes (test code 12.6 % = 5905-5) Eosinophils (test 1.9 % code = 713-8) Basophils + RC (test 0.3 % code = 706-2) RAC (test code = Performing RAC) Organization Information: Site ID: RAMONA Name: [facility] Lab Address: [address] [place] [address] Director: Heron Kwan Lab Interpretation Abnormal (test code = 37267-6) [facility] [id number] 12:13:00 Test Item Value Reference Interpretation Comments Range PTT (test code 25 See_Comment This test dee s not been = 98884-2) validated for monitoringunfra ctionated heparin therapy . For testing thatis validated for this type o f therapy, please referto the Heparin Anti-Xa assay ( test code 33977). For add itional information, pl ease refer tohttp://educat ion.Wikibon/fa q/SPL363(Thi s link is being provided for informational/e ducational purposes only.) [Automated message] The sy stem which generated this result transmitted ref erence range: 23 - 32 sec. The reference range was not used to interpr et this result as aristeo l/abnormal. INR (test code 1.0 Reference Ran ge = 6301-6) 0.9-1.1Moderate -intensity Warfarin Therap y 2.0-3.0Higher-i ntensity Warfarin Therap y 3.0-4.0 Prothrombin 10.3 See_Comment [Automated mes alice] The time (test code system which generated this = 5902-2) result transmit angel reference range : 9.0 - 11.5 sec. The refere nce range was not used to interpret this result as normal/abnormal . RAC (test code Performing = RAC) Organization Information: Site ID: RAMONA Name: [facility] Lab Address: [address] [place] [address] Director: Heron Kwan [facility]- XR FLUORO [id number] 08:32:00 [facility] 1945 Sex: F Patient Name: KATHRYN CHAUHAN Unit No: [id number] EXAMS: CPT CODE: [id number] XR FLUORO NDL 37278Pbmxlazfbauptapn guided injection of the right second through fourth TMT joints and naviculocuneiform joint with steroid FINDINGS: After informed consent was obtained a needle was placed in the right second through fourth TMT joints and naviculocuneiform joint with fluoroscopic guidance. Its position was confirmed by injecting Isovue 300 and obtaining a radiograph. Subsequently 2 mL of Kenalog 40 mg per cc and 2 mL of lidocaine was injected. No immediate complications were encountered. 23 seconds of fluoroscopy time was utilized. IMPRESSION: Technically successful steroid injection of the right second through fourth TMT joints and naviculocuneiform joint at 0832 Reported and signed by: Bennett Dunlap M.D. CC: Yumiko Marsh MD Technologist: RAÚL BAJWA ARRT; Katalina Hill RT.(R) Transcribed D/ (0832) [facility]: [facility]AU[facility]AN [address] [facility] PHYS: Yumiko Roberto MD : 1945 AGE: 76 SEX: F [place], [place] [address] LOC: Y.RAD PHONE #: [phone] EXAM DATE: 02/25/2022 STATUS: DEP CLI FAX #: [phone] RAD #: D/C DT PAGE 1 Signed Report Patient Name: KATHRYN CHAUHAN Unit No: [id number] EXAMS: CPT CODE: [id number] XR FLUORO NDL 97980 (Continued) Orig Print D/T: S: 02/26/2022 (0835) [facility] NAME: KATHRYN CHAUHAN [address] [facility] [address] PHYS: Yumiko Agustin MD : 1945 AGE: 76 SEX: F [place], [place] [address] LOC: Y.RAD PHONE #: [phone] EXAM DATE: 02/25/2022 STATUS:DEP CLI FAX #: [phone] RAD #: D/C DT PAGE 2 Signed Report- XR FLUORO [id number] [facility] : 1945 Sex: F Patient Name: KATHRYN CHAUHAN Unit No: [id number] EXAMS: CPT CODE: [id number] XR FLUORO NDL 34764Hraxaqxooabnlfrt guided injection of the left 2nd through 5th TMT joints in the left naviculocuneiform joint with steroid FINDINGS: After informed consent was obtained a needle was placed in the left 2nd through 5th TMT joints in the left naviculocuneiform joint with fluoroscopic guidance. Its position was confirmed by injecting Isovue 300 and obtaining a radiograph. Subsequently 2 mL of Kenalog 40 mg per cc and 2 mL of lidocaine was injected. No immediate complications were encountered. 12 secondsof fluoroscopy time was utilized. IMPRESSION: Technically successful steroid injection of the left 2nd through 5th TMT joints in the left naviculocuneiform joint at 1415 Reported and signed by: Bennett Dunlap M.D. CC: Yumiko Marsh MD Technologist: Katalina Hill, RT.(R) Transcribed D/ (1069) [facility] NAME: KATHRYN CHAUHAN [address] [facility] PHYS: Yumiko Agustin MD :1945 AGE: 76 SEX: F [place], [place] [address] LOC: Y.RAD PHONE #: [phone] EXAM DATE: 02/18/2022 STATUS: DEP CLI FAX #: [phone] RAD #: D/C DT PAGE 1 Signed Report Patient Name: KATHRYN CHAUHAN Unit No: [id number] EXAMS: CPT CODE: [id number] XR FLUORO NDL 16049 <Continued> Orig Print D/T: S: 02/21/2022 (2530) [facility] NAME: KATHRYN CHAUHAN [address] [facility] PHYS: Yumiko Agustin MD : 1945 AGE: 76 SEX: F [place], [place] [address] LOC: Y.RAD PHONE #: [phone] EXAM DATE: 02/18/2022 STATUS: DEP CLI FAX #:[phone] RAD #: D/C DT PAGE 2 Signed Report- CT LOWER EXTRM W/O C [id number] 12:53:00 [facility] 1945 Sex: F Patient Name: KATHRYN CHAUHAN Unit No: [id number] EXAMS: CPT CODE: [id number] CT LOWER EXTRM W/O CBI 72180 CT OF THE BILATERAL FEET WITH SAGITTAL AND CORONAL RECONSTRUCTIONS DIAGNOSIS: 1. 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 There is joint space narrowing, sclerosis, cyst and osteophyte. 2. Less pronounced midfoot arthritis involving the naviculocuneiform and 2nd and 3rd tarsometatarsal joints with joint space narrowing, sclerosis, cyst and osteophyte. 3. Bilateral plantar and dorsal calcaneal spurs. COMMENT: COMPARISON: No prior exams available. Scans were performed with thin sections and reconstructions were obtained. CT radia tion dose optimization is achieved for this examination by the use of a CT protocol in accordance with ACR practice standards and adherence to assistant manager quality management's recommendations. Degenerative changes are present as noted. There is no evidence for fracture. at 1253 Reported and signed by: Aren Larkin MD CC: Yumiko Marsh MD Technologist: Kamaljit Jean Baptiste,RT(R) CTDI: DLP: 0 Trnscrpt: 02/12/2022 (7120) t.JOSER.JCL [facility] NAME: KATHRYN CHAUHAN [address] [place] [address] PHYS: Yumiko Agustin MD : AGE: 76 SEX: F [place] [address] LOC: Y.RAD PHONE #: [phone] EXAM DATE: 02/12/2022 STATUS: REG CLI FAX #: [phone] RAD #: D/C DT PAGE 1 Signed Report Patient Name: KATHRYN CHAUHAN Unit No: [id number] EXAMS: CPT CODE: [id number] CT LOWER EXTRM W/[place] [address] <Continued> Orig Print D/T: S: 02/12/2022 (9887) [facility] NAME: KATHRYN CHAUHAN [address] [place] [address] PHYS: Yumiko Agustin MD : 1945 AGE: 76 SEX: F [place] [address] LOC: [place] PHONE #: [phone] EXAM DATE: 02/12/2022 STATUS: REG [place] #: [phone] RAD #: D/C DT PAGE 2 Signed ReportECG 12 [id number] 21:38:56 Test Item Value Reference Range Interpretation Comments Ventricular rate (test 69 code = 253) Atrial rate (test code 69 = 255) WA interval (test code 152 = 266) QRSD interval (test 84 code = 260) QT interval (test code 386 = 264) QTC interval (test code 413 = 265) P axis 1 (test code = 66 267) QRS axis 1 (test code = 35 268) T wave axis (test code 37 = 270) EKG impression (test Sinus rhythm with code = 273) marked sinus arrhythmia-Otherwise normal ECG-In automated comparison with ECG of 19-MAY-2020 11:37,-No significant change was found- [facility] [id number] 21:38:56 Test Item Value Reference Range Interpretation Comments Ventricular rate (test 69 code = 253) Atrial rate (test code 69 = 255) WA interval (test code 152 = 266) QRSD interval (test 84 code = 260) QT interval (test code 386 = 264) QTC interval (test code 413 = 265) P axis 1 (test code = 66 267) QRS axis 1 (test code = 35 268) T wave axis (test code 37 = 270) EKG impression (test Sinus rhythm with code = 273) marked sinus arrhythmia-Otherwise normal ECG-In automated comparison with ECG of 19-MAY-2020 11:37,-No significant change was found- [facility] [id number] 10:09:00 [facility] : 1945 Sex: F Patient Name: KATHRYN CHAUHAN Unit No: [id number] EXAMS: CPT CODE: [id number] XR FLUORO NDL 91636 FLUOROSCOPICALLY GUIDED INJECTION OF THE LEFT HIP WITH STEROID AND MARCAINE COMMENT: COMPARISON: No prior exams available. After informed consent was obtained a needle was placed in the hip joint with fluoroscopic guidance. Its position was confirmed by injecting Isovue 300 and obtaining an AP radiograp h. 16 seconds of fluoroscopy time was utilized. Subsequently 2mL of Kenalog 40 mg per cc and 2mL of 0.75 percent Marcaine was injected. No immediate complications were encountered. at 1009 Reported and signed by: Aren Larkin MD CC: Mendel Fuller MD Technologist: Katalina Hill RT.(R) Transcribed D/ (1009) tZULMARGlennaJCL [facility] NAME: KATHRYN CHAUHAN [address] [facility] PHYS: YVANMMU. - Mendel Fuller : 1945 AGE: 75 SEX: F [place], [place] [address] LOC: Y.MRI PHONE #: [phone] EXAM DATE: 06/15/2021 STATUS: DEP CLI FAX #: [phone] RAD #: D/C DT PAGE 1 Signed Report Patient Name: KATHRYN CHAUHAN Unit No: [id number] EXAMS: CPT CODE: [id number] XR FLUORO NDL 04086 <Continued> Orig Print D/T: S: 06/16/2021 (1012) [facility] NAME: KATHRYN CHAUHAN [address] [facility] PHYS: GOMMU. Mendel Bonilla : 1945 AGE: 75 SEX: F [place], [place] [address] LOC: Y.MRI PHONE #: [phone] EXAM DATE: 06/15/2021 STATUS: FELIX CLI FAX #: [phone] RAD #: D/C DT PAGE 2 Signed Report- MRI LW JNT W/O CONT [id number] 17:41:00 [facility] : 1945 Sex: F Patient Name: KATHRYN CHAUHAN Unit No: [id number] EXAMS: CPT CODE: [id number] [place] JNT W/[place] [address] MRI OF THE LEFT HIP DIAGNOSIS: 1. Partial tears of the gluteus medius medius and minimus tendon insertions without retraction. 2. Strain of the insertion of the vastus lateralis tendon and muscle with bony irregularity at the insertion site consistent with traction change and bone marrow edema. 3. With cartilage loss posteriorly and an anterior superior labral tear. 4. Partial tear of the ligamentum teres insertion in the fovea with mild retraction and laxity. COMMENT: COMPARISON: No prior exams available. Scans were performed in the sagittal, axial and coronal planes utilizing T1, spin density with fat saturation and T2-weighted pulse sequences. Degenerative changes present with cartilagethinning and osteophyte formation. Tendon abnormalities are as described. A muscle strain is presentas noted. The hamstring and iliopsoas tendons are intact. A moderate joint effusion is present. at 1741 Reported and signed by: Aren Larkin MD CC: Mendel Fuller MD Technologist: SETH BHANDARI MRI Transcribed D/ (874) Les [facility] NAME: KATHRYN CHAUHAN [address] [facility] PHYS: GOMMU. - AlinaMendel Stevo : 1945 AGE: 75 SEX: F [place], [place] [address] LOC: Y.MRI PHONE #: [phone] EXAM DATE: 06/15/2021 STATUS: REG CLI FAX #: [phone] RAD #: D/CDT PAGE 1 Signed Report Patient Name: KATHRYN CHAUHAN Unit No: [id number] EXAMS: CPT CODE: [id number] MRI LW JNT W/[place] [address] <Continued> Orig Print D/T: S: 06/15/2021 (143) [facility] NAME: KATHRYN CHAUHAN [address] [facility] PHYS: GOMMU. Mendel Fuller :1945 AGE: 75 SEX: F [place], [place] [address] LOC: Y.MRI PHONE #: [phone] EXAM DATE: 06/15/2021 STATUS: REG CLI FAX #: [phone] RAD #: D/C DT PAGE 2 Signed Report- XR FLUORO NDL 2021-03-11 16:29:00 [facility] 1945 Sex: F Patient Name: KATHRYN CHAUHAN Unit No: [id number] EXAMS: CPT CODE: [id number] XR FLUORO NDL 86291 FLUOROSCOPICALLY GUIDED INJECTION OF THE RIGHT TROCHANTERIC BURSA WITH STEROID AND MARCAINE COMMENT: COMPARISON: No prior exams available. After informed consent was obtained a needle was placed in the trochanteric bursa with fluoroscopic guidance. Its position was confirmed with an AP radiograph. 0.1 m inutes of fluoroscopy time was utilized. Subsequently 2mL of Kenalog 40 mg per cc and 2mL of 0.75% Marcaine was injected. No immediate complications were encountered. FLUOROSCOPICALLY GUIDED INJECTION OF THE LEFT TROCHANTERIC BURSA WITH STEROID AND MARCAINE COMMENT: COMPARISON: No prior exams available. After informed consent was obtained a needle was placed in the trochanteric bursa with fluoroscopic guidance. Its position was confirmed with an AP radiograph. 0.1 minutes of fluoroscopy time was utilized. Subsequently 2mL of Kenalog 40 mg per cc and 2mL of 0.75% Marcaine was injected. No immediate complications were encountered. at 1629 Reported and signed by: Aren Larkin MD CC: Mendel Fuller MD Technologist: RT. Danay(R) Transcribed D/ (2163) tANTWONJCL [facility] NAME: KATHRYN CHAUHAN [address] [facility] PHYS: GOMMU.01 - Mendel Fuller : 1945 AGE: 75 SEX: F [place], [place] [address] LOC: Y.RAD PHONE #: [phone] EXAM DATE: 03/11/2021 STATUS: REG CLI FAX #: [phone] RAD #: D/C DT PAGE 1 Signed Report Patient Name: KATHRYN CHAUHAN Unit No: [id number] EXAMS: CPT CODE: [id number] XR FLUORO NDL 90699 <Continued> Orig Print D/T: S: 03/11/2021 (2858) [facility] NAME: KATHRYN CHAUHAN [address] [facility] PHYS: GOMMU.01 - Mendel Fuller : 1945 AGE: 75 SEX: F [place], [place] [address] LOC: [place] PHONE #: [phone] EXAM DATE: 03/11/2021 STATUS: REG CLI FAX #: [phone] RAD #: D/C DT PAGE 2 Signed ReportL Inj/Asp: L ttcaynaftksw1378-18-21 19:20:00Selinnea Debora, [employer] ? ? 02/19/2021 ?5:34 PML Inj/Asp: L glenohumeral on 02/16/2021 2:20 PMIndications: painDetails: 22 G needle, superior approachMedications: 1 mL lidocaine 1 %; 80 mg methylPREDNISoloneacetate 40 MG/MLOutcome: tolerated well, no immediate complications Patient Education/Instructions: Patient education and reassurance was provided for better understanding of the diagnosis and treatment plan. An opportunity to ask questions was provided. Instructions to keep site iced and elevated were explained in detail. Instructions to contact the office or emergency room for worsening pain, swelling, and/or any concerns were provided. Understanding was acknowledged. Instruction to rest and refrain from vigorous or strenuous activity was given. Understanding was acknowledged. The patient may return to activity as tolerated. ?Patient instructed in after injection care. Patient was monitored after injection and verbalized desire to leave when ready. This encounter was performed under the supervision of Dr. Kenisha Waret was given by the patient. Immediately prior to procedure a time out was called to verify the correct patient, procedure, equipment, credit support specialist and site/side marked as required. Patient was prepped and draped in the usual sterile fashion. [facility] [place] [facility] 2 Or 3 [id number] 20:22:11EXAMINATION: XR LUMBAR SPINE 2 OR 3 VW CLINICAL HISTORY: M54.16 Radiculopathy lumbar region, m54.16 C OMPARISON: Lumbar spine x-rays from June 17, 2020. FINDINGS: There is relatively stable anterior fusion from L2 to S1 with graft material in the L2-3, L3-4, L4-5 and L5-S1 discs. There is relativelystable posterior fusion from L2 down to the sacrum with pedicle screws connected by vertical rods. The lower portion of the vertical rods are connected to large screws extending into the iliac bones. El not see definite evidence of acute findings in the bone surrounding the hardware. There is a relatively stable separate piece of screw in the upper S1 vertebral body on the lateral view which appears to be on the left side on the AP view, although overlying structures obscure details. There are small areas of bone density in the posterior elements consistent with fusion material. Overlying structures obscure details for areas of laminectomy. The vertebral body and disc space height and alignment and degenerative changes are relatively stable. IMPRESSION: No significant changes. Relatively stableanterior and posterior fusion and degenerative changes. [facility]-[id number] Interface, Radiology Results 09/03/2020 2:25 PM CST EXAMINATION: XR LUMBAR SPINE 2 OR 3 VWCLINICAL HISTORY: M54.16 Radiculopathy lumbar region, m54.16COMPARISON: Lumbar spine x- rays from June 17, 2020.FINDINGS:There is relatively stable anterior fusion from L2 to S1 with graft material in the L2-3, L3-4, L4-5 and L5-S1 discs. There is relatively stable posterior fusion from L2 down to the sacrum with pedicle screws connected by vertical rods. The lower portion of the vertical rods are connected to large screws extending into the iliac bones. I do not see definite evidence of acute findings in the bone surrounding the hardware. There is a relatively stable separate piece of screw in the upper S1 vertebral body on the lateral view which appears to be on the left side on the AP view, although overlying structures obscure details. There are small areas of bone density in the posterior elements consistent with fusion material. Overlying structures obscure details for areas of laminectomy. The vertebral body and disc space height and alignment and degenerative changes are relatively stable.IMPRESSION:No significant changes. Relatively stable anterior and posterior fusion and degenerative changes.[facility]-[id number] HospitalOR [place] > I [id number] 16:54:09EXAMINATION: OR FL > 1 HOUR C-arm fluoroscopy was requested in OR. LOCATION: [facility] OR # 11 PROCEDURE: Posterior Lumbar Fusion O-ARM CASE START: 10:30 am END: 2:15 pm FLUORO TIME: 5.23 mGy SCANS: 6 DOSE: 5.23 mGy TECH: JT / GM / JV IMPRESSION: Intraoperative fluoroscopic images. Radiologist was notpresent during the examination.Separate operative report will be issued by the physician performing the procedure. [id number]_LT10Hm Interface, Radiology Results 06/02/2020 10:57 AM CST EXAMINATION: OR FL > 1 HOURC-arm fluoroscopy was requested in OR. LOCATION: [facility] OR # 11 PROCEDURE: Posterior Lumbar Fusion O-ARM CASE START: 10:30 am END: 2:15 pm FLUORO TIME: 5.23 mGy SCANS: 6 DOSE: 5.23 mGy TECH: JT / GM / JVIMPRESSION:Intraoperative fluoroscopic images. Radiologist was not present during the examination.Separate operative report will be issued by the physician performing the procedure.1D2RAD_LT10 [facility] [place] < 1 [id number] 21:32:21EXAMINATION: OR FL < 1 HOUR C-arm fluoroscopy was requested in OR. LOCATION: [facility] OR # 11 PROCEDURE: xlif START: 0823am END: 0905am FLUORO TIME: 52secs DOSE (mGy) : 30.91 TECH: Clifton Stevens IMPRESSION: Intraoperative fluoroscopic images. Radiologist was not present during the examination.Separate operative report will be issued by the physician performing the procedure. 1D2IMG_LT03Hm Interface, Radiology Results 05/30/2020 3:35 PM CST EXAMINATION: OR FL < 1 HOURC-arm fluoroscopy was requested in OR. LOCATION: [facility]OR # 11 PROCEDURE: xlif START: 0823am END: 0905am FLUORO TIME: 52secs DOSE (mGy) : 30.91 TECH: Clifton Stevens IMPRESSION:Intraoperative fluoroscopic images. Radiologist was not present during the examination.Separate operative report will be issued by the physician performing the procedure.1D2IMG_LT03[facility] Centerodi HospitalSurgical pathology request 2020-05-27 22:26:29 Test Item Value Reference Range Interpretation Comments Case number (test code = [id number]) Surgical pathology See link below for report (test code = PDF Lab Report 2255) Result status (test code This is Final Report = [id number]) for [id number] [facility] 1 [id number] 23:54:56EXAMINATION: XR CHEST 1 VW PORTABLE CLINICAL HISTORY: Fever COMPARISON: 05/22/2020 FINDINGS: One view of the chest demonstrates normal cardiomediastinal silhouette. Pulmonary vasculature is within normal limits. There has been interval removal of the right low jugular central line. No new consolidation or pleural effusion is seen. There has been interval resolution of patchy bibasilar infiltrates/atel ectasis. There is no evidence of pneumothorax. Regional osseous structures is unremarkable. IMPRESSION: No radiographic evidence of acute cardiopulmonary process or active disease of the chest. 1D2RAD_PS01 Interface, Radiology Results Incoming - 05/26/2020 5:58 PM CST EXAMINATION: XR CHEST 1 PORTABLECLINICAL HISTORY: FeverCOMPARISON: 05/22/2020FINDINGS:One view of the chest demonstrates normal cardiomediastinal silhouette. Pulmonary vasculature is within normal limits. There has been interval removal of the right low jugular central line.No new consolidation or pleural effusion is seen. There has been interval resolution of patchy bibasilar infiltrates/atelectasis. There is no evidence of pneumothorax.Regional osseous structures isunremarkable.IMPRESSION:No radiographic evidence of acute cardiopulmonary process or active disease of the chest.1D2RAD_PS01[facility] HospitalXR Abdomen 1 [id number] 23:40:30 EXAMINATION: XR ABDOMEN 1 PORTABLE CLINICAL HISTORY: Abd pain unspecified COMPARISON: Chest radiograph 07/22/2019. IMPRESSION: 1.Prominent air-filled loops of large and small bowel may represent a mild ileus. No intraperitoneal air.2.Postsurgical changes of recent L4-S1 and biiliac posterior instrumented fusion with drain overlying the lower back and overlying metallic clips. [facility]- [id number] Interface, Radiology Results Incoming - 05/25/2020 5:43 PM CST EXAMINATION: XR ABDOMEN 1 PORTABLECLINICAL HISTORY: Abd pain unspecifiedCOMPARISON: Chest radiograph 07/22/2019.IMPRESSION:1.Prominent air-filled loops of large and small bowel may represent a mild ileus. No intraperitoneal air.2.Postsurgical changes of recent L4-S1 and biiliac posterior instrumented fusion with drain overlying the lower back and overlying metallic clips.[facility]-[id number] HospitalXR Lumbar Spine Complete 4+ [id number] 23:56:29EXAMINATION: XR LUMBAR SPINE COMPLETE 4 VW CLINICAL HISTORY: FOLLOW UP SPINE FUSION, L S-spine fusion follow up COMPARISON: Lumbar x-ray dated March 19, 2020 IMPRESSION: 5 views of the lumbar spine were obtained. Fusion hardware has been extended now noted from L2 through the sacroiliac regions with pedicle screws with connecting rods as well as interbody grafts at these levels. Previously the hardware when from L3 to S1. Lumbar lordosis is normal. There is no fracture or loss of vertebral body he ight. Laminectomy changes are noted at the level of the fusion with overlying soft tissue catheters in place and recent surgical dudley in the midline posterior back. Partially imaged sacrum appears intact. Oblique images shows no evidence of hardware malpositioning. [facility]-WPHYJWPH Interface, Radiology Results 05/24/2020 5:59 PM CST EXAMINATION: XR LUMBAR SPINE COMPLETE 4 VWCLINICAL HISTORY: FOLLOW UP SPINE FUSION, L S-spine fusion follow upCOMPARISON: Lumbar x-ray dated March 19, 2020IMPRESSION:5 views of the lumbar spine were obtained. Fusion hardware has been extended now noted from L2 through the sacroiliac regions with pedicle screws with connecting rods as well as interbody grafts at these levels. Previously the hardware when from L3 to S1.Lumbar lordosis is normal. There is no fracture or loss of vertebral body height. Laminectomy changes are noted at the level of the fusion with overlying soft tissue catheters inplace and recent surgical dudley in the midline posterior back.Partially imaged sacrum appears intact. Oblique images shows no evidence of hardware malpositioning.[facility]-WPHYJWP [facility] HospitalArterial blood gas, [id number] 19:13:11 Test Item Value Reference Range Interpretation Comments pH, arterial (test code 7.35-7.45 L = 2744-1) pCO2, arterial (test See_Comment [Autom ated message] code = 2019) The system [facility] generated this result transmitted ref erence range: 35 - 45 mmHg. The reference r iglesia was not used to interpret this result as normal/abnor mal. pO2, arterial (test code See_Comment H [A utomated message] = 2703-7) The system [employer] h generated this result transmitted ref erence range: 80 - 90 mmHg. The reference r iglesia was not used to interpret this result as normal/abnor mal. Temperature, Celsius Degrees C (test code = 8310-5) O2 saturation, arterial 99 % 95-100 (test code = 2708-6) pH, arterial corrected (test code = 59133-0) pCO2, arterial corrected mmHg (test code = 80840-8) pO2, arterial corrected mmHg (test code = 65756-1) Base excess, arterial See_Comment L [Auto mated message] (test code = 1925-7) The sys tem which generated this result transmitted ref erence range: -2 - 2 m Eq/L. The reference r iglesia was not used to interpret this result as normal/abnor mal. Lab Interpretation (test Abnormal code = 95469-8) [facility] CenterGlucose level, [id number] 19:13:11 Test Item Value Reference Range Interpretation Comments Glucose, syringe (test code = 174 mg/dL 65-99 H 2345-7) Lab Interpretation (test code = Abnormal 99254-6) [facility] CenterHemoglobin, [id number] 19:13:11 Test Item Value Reference Range Interpretation Comments Hemoglobin, syringe (test code = 10.3 g/dL 12.0-16.0 L 718-7) Lab Interpretation (test code = Abnormal 22983-7) [facility] HospitalIonized calcium, [id number] 19:13:11 Test Item Value Reference Range Interpretation Comments Ionized calcium, arterial (test 1.11 mmol/L 1.11-1.32 code = 84476-6) [facility] HospitalLactic acid, [id number] 19:13:11 Test Item Value Reference Range Interpretation Comments Lactic acid, syringe (test code = 1.1 mmol/L 0.5-2.2 15757-8) [facility] HospitalPotassium, [id number] 19:13:11 Test Item Value Reference Range Interpretation Comments Potassium, syringe See_Comment [Automat ed message] The (test code = 2008) system wh ich generated this result tra nsmitted reference range : 3.5 - 5.0 mEq/L. The refe rence range was not used to interpret this result as normal/abnormal . [facility]odium level, wprwpfw7831-71-17 19:13:11 Test Item Value Reference Range Interpretation Comments Sodium, syringe (test See_Comment [Auto mated message] The code = 2947-0) system which generated this result tra nsmitted reference range : 135 - 148 mEq/L. The refe rence range was not used to interpret this result as normal/abnormal . [facility]ral [id number] 15:02:36Ramon Oneal MD 05/22/2020 10:26 AMCentral linePerformed by: Ramon Oneal MDAuthorized by:Ramon Oneal MD Patient Location: ORStart Time: 05/22/2020 7:45 AMEnd Time: 05/22/2020 8:02 AMStaff: Anesthesiologist: Ramon Oneal MD Performed by: AnesthesiologistPreprocedure:patient identified, IV checked, site and side verified, risks and benefits discussed, procedure verified, surgicalconsent complete, patient position confirmed, monitors and equipment checked, pre-op evaluation complete and timeout performed prior to procedure MSBT: antiseptic used during central venous catheter insertion, all elements of maximal sterile barrier technique followed, hand hygiene performed prior to central venous catheter insertion, cap/gown used by other personnel during central venous catheter insertion, solutions labeled and all ports not used during insertion clamped Indications: Indications: Vascular accessAnesthesia: Anesthesia: GeneralProcedure details: Patient position: Supine Catheter Type: Double lumen Catheter Size: 8 Fr Catheter Site: internal jugular vein Catheter site laterality: Right Pre-procedure: Landmarks identified Ultrasound guidance used: Yes Ultrasound image saved: No Number of attempts: 1 Successful placement: Yes Guidewire removal: Guidewire removal is confirmed Guidewire removal witnessed by: Colleen LizarragaPost-procedure: Post-procedure: line sutured, sterile dressin g applied per protocol and ports flushed with saline Post-procedure: Sterile caps on all hubs and blood cleaned with CHG Assessment: Blood return through all ports and free fluid flow Patient tolerance: Patient tolerated the procedure well with no immediate siemtvevayweySciyfu8455-63-61 14:48:00Ramon Oneal MD 05/22/2020 10:27 AMAirway Date/Time: 05/22/2020 7:18 AMPerformed by: Colleen LizarragaAuthorized by: Ramon Oneal MD Location: ORUrgency: ElectiveDiffatrium [facility]olin[facility] centert Airway: No Anesthesiologist: Ramon Oneal, ROSALIEesident/DAIRY TECHNOLOGIST/AA: Colleen LizarragaPerformed by: resident/DAIRY TECHNOLOGIST/AAPreoxygenated with 100% O2: Yes C-spine Precautions Maintained Throughout: No Mask Ventilation: Not attemptedFinal Airway Type: Endotracheal airwayFinal Endotracheal Airway: ETTCuffed: Yes Technique Used: Video renzo ngoscopyDevices/Methods Used in Placement: Intubating styletInsertion Site: OralBlade Type: MacintoshLaryngoscope Blade/Videolaryngoscope Blade Size: 3ETT Size (mm): 7.0Cuff at minimum occlusion pressure: Yes Measured from: GumsETT to Gums (cm): 21Placement Verified by: CO2 detection, direct visualization and equal breath sounds Laryngoscopic view: Grade I - full view of glottisRapid Sequence Induction (RSI): No Modified RSI: Yes Number of Attempts at Approach: 1 Patient preoxygenated for 2 minutes on 100% FiO2. Eyes taped and protected after loss of eyelash reflex. DL x1 with Alonso 2 and ETT 7.0 visualized through cords. Placement verified via cuff palpation and tube secured in place. Easy and atraumatic intubation with all soft tissue and dentition intact per preop condition.Arterial [id number] 14:45:01Ramon Oneal MD 05/22/2020 10:27 AMArterial linePerformed by: Shanda Lizarragazed by: Ramon Oneal MD Start Time: 05/22/2020 7:30 AMEnd Time: 05/22/2020 7:40 AMStaff: Anesthesiologist: Ramon Oneal MD Resident/DAIRY TECHNOLOGIST/AA: Colleen Lizarraga Performed by: Resident/DAIRY TECHNOLOGIST/AAPre-procedure: patient identified, IV checked, site and side verified, risks and benefits discussed, procedure verified, surgical consent complete, patient position confirmed, monitors and equipment checked, pre-op evaluation complete and timeout performed prior to procedure MSBT: antiseptic used, all elements of maximal sterile barrier technique followed, hand hygiene performed, cap/gown used by other personnel and solutions labeled Indications: Indications: multiple ABGs and hemodynamic monitoring Anesthesia: Anesthesia: GeneralProcedure Details: Arterial Line placement: Placed post induction Line placement site: RadialLine placement side: Right Arterial line gauge: 20 GNumber of attempts: 2Ultrasound guidance used: No Post- procedure: Post-procedure: Sterile dressing applied Patient tolerance: Patient tolerated the procedure well with no immediate complicationsCOVID-19 qualitative [id number] 02:06:48 Test Item Value Reference Range Interpretation Comments Interpretation (test Negative results do code = 6005998) not preclude 2019-nCoV infection and should not be used as the sole basis for treatment or other patient management decisions. Negative results must be combined with clinical observations, patient history, and epidemiological information. COVID-19 qualitative Not-Detected Not-Detected RT-PCR result (test code = 10654-4) COVID-19 qualitative See link below for C ase Number: RT-PCR (test code = PDF Lab Report [id number]) [facility] [id number] 18:02:55 Test Item Value Reference Range Interpretation Comments Ventricular rate (test code = 253) Atrial rate (test code = 255) WA interval (test code = 266) QRSD interval (test code = 260) QT interval (test code = 264) QTC interval (test code = 265) P axis 1 (test code = 267) QRS axis 1 (test code = 268) T wave axis (test code = 270) EKG impression (test Sinus rhythm with code = 273) marked sinus arrhythmia-Nonspecific ST abnormality-Abnormal ECG-In automated comparison with ECG of 22-MAY-2019 10:41,-premature atrial complexes are no longer present- [facility]- [facility] W/O CONT [id number] 13:35:00 Patient Name: KATHRYN CHAUHAN Unit No: [id number] EXAMS: CPT CODE: [id number] MRI [place] JNT W/[place] [address] MR of the left shoulder without contrast TECHNIQUE: Paracoronal, parasagittal and axial multisequence images obtained. COMPARISON: None available. FINDINGS: Acromioclavicular joint: Moderatedegenerative changes. Rotator cuff: Supraspinatus tendinosis is demonstrated with superimposed low-gr elizabeth interstitial tear anteriorly. There is also infraspinatus and subscapularis tendinosis. No full-thickness rotator cuff tear is visualized. Rotator cuff musculature is normal in size and signal intensity. Long head biceps tendon: Severe biceps tendinosis is demonstrated with suspected intrasubstance tear at the groove entrance. Labrum: Complex signal within the superior labrum is likely a labral tear. Cartilage/ bone: Moderate multifocal glenohumeral cartilage loss is demonstrated. No acute fracture. No suspicious osseous lesion. Other: A glenohumeral joint effusion is present with evidence of synovitis. A loose body within the subscapularis recess measures 15 mm IMPRESSION: 1. No full-thickness rotator cuff tear. 2. Severe biceps tendinosis with suspected intrasubstance tear. 3. Moderate glenohumeral osteoarthritis. 4. Other chronic findings as described. at 1335 Reported and signed by: Bennett Dunlap M.D. CC: Mo Rangel MD Technologist: Belinda Beck, RT(R) Transcribed D/ (1335) tZULMAR.[facility] NAME: KATHRYN CHAUHAN [address] [facility] PHYS: EDWTTiffany - Mo Rangel : 1945 AGE: 74 SEX: F [place], [place] [address] LOC: Y.MRI PHONE #: [phone] EXAM DATE: 04/17/2020 STATUS: REG CLI FAX #: [phone] RAD #: D/C DT PAGE 1 Signed ReportPatient Name: KATHRYN CHAUHAN Unit No: [id number] EXAMS: CPT CODE: [id number] [place] JNT W/[place] [address] <Continued> Orig Print D/T: S: 04/17/2020 (9374) [facility] NAME: KATHRYN CHAUHAN [address] [facility] [address] PHYS: EDWT - Mo Rangel : 1945 AGE: 74 SEX: F [place], [place] [address] LOC: Y.MRI PHONE #: [phone] EXAM DATE: 04/17/2020 STATUS: REG CLI FAX #: [phone] RAD #: D/C DT PAGE 2 Signed ReportCT Lumbar Spine Wo [id number] 20:18:20Study: CT LUMBAR SPINE WO CONTRAST. HISTORY: M54.16 Radiculopathy lumbar region, M54.16. COMPARISON:Lumbar spine x-ray March 29, 2020. MRI lumbar spine same date TECHNIQUE: Multiple axial CT imagesof the lumbar spine performed without intravenous contrast. Sagittal and coronal reconstructions performed. CT imaging was performed with iterative reconstruction technique and/or automated exposure control to reduce radiation dose. FINDINGS: Postoperative changes of posterolateral and interbody fusion at L3-S1. No signs of hardware fracture or displacement. No significant hardware lucencies are seen. The lumbar lordosis is maintained. No subluxations. Vertebral body heights within normal limits. There is no acute fracture or erosion. L1-2: Mild disc height loss with shallow disc bulge. Mild facet arthrosis. No canal or foraminal stenosis. L2-3: Severe disc height loss with facet arthrosis and broad shallow disc protrusion. Canal stenosis is approximately 5 mm AP dimension with narrowing of the lateral recesses. There is moderate bilateral foraminal stenosis. L3-4: Postoperative change with somefacet arthrosis. No obvious canal or foraminal stenosis. L4-5: postoperative change with added rightlaminotomy. No obvious canal stenosis. Some facet arthrosis present with moderate right foraminal stenosis. L5/S1: Postoperative change with facet arthrosis. There is some facetectomy on the right side. Mild left foraminal stenosis. No canal stenosis. Paravertebral soft tissues unremarkable. IMPRESSION: Postoperative changes with lumbar spine in anatomic alignment. No signs of hardware complication. Canal stenosis at L2-3 from disc protrusion and degenerative changes. [facility]-[id number] Interface, Rad iology Results 03/26/2020 3:21 PM CDT Study: CT LUMBAR SPINE WO CONTRAST.HISTORY: M54.16 Radiculopathy lumbar region, M54.16.COMPARISON:Lumbar spine x-ray March 29, 2020. MRI lumbar spine same dateTECHNIQUE: Multiple axial CT images of the lumbar spine performed without intravenous contrast. Sagittal and coronal reconstructions performed.CT imaging was performed with iterative reconstruction technique and/or automated exposure control to reduce radiation dose.FINDINGS:Postoperative changes of posterolateral and interbody fusion at L3-S1. No signs of hardware fracture or displacement. No significant hardware lucencies are seen. The lumbar lordosis is maintained. No subluxations. Vertebral body heights within normal limits. There is no acute fracture or erosion.L1-2: Mild disc height loss with shallow disc bulge. Mild facet arthrosis. No canal or foraminal stenosis.L2-3: Severe disc height loss with facet arthrosis and broad shallow disc protrusion. Canal stenosis is approximately 5 mm AP dimension with narrowing of the lateral recesses. There is moderate bilateral foraminal stenosis.L3-4: Postoperative change with some facet arthrosis. No obvious canal or foraminal stenosis.L4-5: postoperative change with added right laminotomy. No obvious canal stenosis. Some facet arthrosis present with moderate right foraminal stenosis.L5/S1: Postoperative change with facet arthrosis. There is some facetectomy on the right side. Mild left foraminal stenosis. No canal stenosis.Paravertebral soft tissues unremarkable.IMPRESSION:Postoperative changes with lumbar spine in anatomic alignment. No signs of hardware complication.Canal stenosis at L2-3 from disc protrusion and degenerative changes.[facility]-[id number] HospitalMRI Lumbar Spine Wo [id number] 18:34:33EXAMINATION: MRI LUMBAR SPINE WO CONTRAST COMPARISON: February 12, 2018. CLINICAL HISTORY: M54.16 Radiculopathy lumbar region, M54.16 COMMENTS: Sagittal and axial MR images of the lumbar spine were obtained. FINDINGS: The lowest functional disc level is assumed to be L5-S1. There are now pedicle screws identified from L3 to S1. L5-S1 shows evidence of laminectomy change. There is no significant canal stenosis. L4-5 shows right- sided laminectomy change. L3-4 shows considerable improvement in the previously seen canal stenosis. L2-3 shows progressive endplate degenerative change. There is progression ofminimal retrolisthesis of L2 with respect to L3. There is a progressive broad-based disc protrusion with slight inferior and superior extension. There is moderate canal stenosis due in part to mild to moderate ligament flavum thickening and facet disease. I suspect that there is bilateral neural foramen stenosis slightly worse on the left. The conus ends at the upper L2 level. L1-2 shows mild facet disease and disc bulge. IMPRESSION: Interval postoperative change. Progressive degenerative change andcanal stenosis and mild neural foramen stenosis at L2-3. [facility]-[id number] Interface, Radiology Results - 03/26/2020 1:37 PM CDT EXAMINATION: MRI LUMBAR SPINE WO CONTRASTCOMPARISON: February 12, 2018.CLINICAL HISTORY: M54.16 Radiculopathy lumbar region, M54.16COMMENTS: Sagittal and axial MR images of the lumbar spine were obtained.FINDINGS: The lowest functional disc level is assumed to be L5-S1.There are now pedicle screws identified from L3 to S1.L5-S1 shows evidence of laminectomy change. There is no significant canal stenosis.L4-5shows right-sided laminectomy change.L3-4 shows considerable improvement in the previously seen canal stenosis.L2-3 shows progressive endplate degenerative change. There is progression of minimal retrol isthesis of L2 with respect to L3. There is a progressive broad-based disc protrusion with slight inferior and superior extension. There is moderate canal stenosis due in part to mild to moderate ligament flavum thickening and facet disease. I suspect that there is bilateral neural foramen stenosis slightly worse on the left.The conus ends at the upper L2 level.L1-2 shows mild facet disease and disc bulge.IMPRESSION: Interval postoperative change. Progressive degenerative change and canal stenosis and mild neural foramen stenosis at L2-3.[facility]-[id number] Hospital- XR FLUORO [id number] 11:58:00 Patient Name: KATHRYN CHAUHAN Unit No: [id number] EXAMS: CPT CODE: [id number] XR FLUORO NDL 52956 Fluoroscopically guided injection of the right trochanteric bursa with steroid and Marcaine COMPARISON: No prior exams available. FINDINGS: After informed consent was obtained a needle was placed in the right trochanteric bursa with fluoroscopic guidance. Its position was confirmed by injecting Isovue 300 and obtaining an AP radiograph. Subsequently 2 mL of Kenalog 40 mg per cc and 4 mL of Marcaine was injected. No immediate complications were encountered. 11 seconds of fluoroscopy time was utilized. IMPRESSION: Technically successful steroid/ Marcaine injection of the right trochanteric bursa at 1158 Reported and signed by: Bennett Dunlap M.D. CC: Mendel Fuller MD Technologist: Katalina Hill, RT.(R) Transcribed D/ (8602) t.J [facility] NAME: KATHRYN CHAUHAN [address] [facility] PHYS: ROSIE [facility] KirkwoodtheodoreMendel roberts Stevo : 1945 AGE: 74 SEX: F [place] [address] LOC: Y.RAD PHONE #: [phone] EXAM DATE: 11/28/2019 STATUS: DEP CLI FAX #: [phone] RAD #: D/C DT PAGE 1 Signed Report Patient Name: KATHRYN CHAUHAN Unit No: [id number] EXAMS: CPT CODE: [id number] XR FLUORO NDL 86660 <Continued> Orig Print D/T: S: 12/05/2019 (1202) [facility] NAME: KATHRYN CHAUHAN [address] [facility] PHYS: LEBRONUPaco AlinaJonasisaac : 1945 AGE: 74 SEX: F [place], [place] [address] LOC: Y.RAD PHONE #: [phone] EXAM DATE: 11/28/2019 STATUS: DEP CLI FAX #: [phone] RAD #: D/C DT PAGE 2 Signed Report- XR FLUORO [id number] 17:41:00 Patient Name: KATHRYN CHAUHAN Unit No: [id number] EXAMS: CPT CODE: [id number] XR FLUORO NDL 54086 Fluoroscopically guided injection of the right gluteal tendon insertion with steroid and Marcaine COMPARISON: No prior exams available. FINDINGS: After informed consent was obtained a needle was placed in the right gluteal tendon insertion with fluoroscopic guidance. Its position was confirmed by obtaining an AP radiograph. Subsequently 2 mL of Kenalog 40 mg per cc and 4 mL of Marcaine was injected. No immediate complications were encountered. 8 seconds of fluoroscopy time was utilized. IMPRESSION: Technically successful steroid/ Marcaine injection of the right gluteal tendon insertion at 1741 Reported and signed by: Bennett Dunlap M.D. CC: Mendel Fuller MD Technologist: RT. Arsen(R) Transcribed D/ (2917) [email or web address] [facility] NAME: KATHRYN CHAUHAN [address] [facility] PHYS: MMU. - Mendel Fuller : 1945 AGE: 73 SEX: F [place] [address] LOC: Y.RAD PHONE #: [phone] EXAM DATE: 04/12/2019 STATUS: DEP CLI FAX #: [phone] RAD #: D/C DT PAGE 1 Signed Report Patient Name: KATHRYN CHAUHAN Unit No: [id number] EXAMS: CPT CODE: [id number] XR FLUORO NDL 89650 <Continued> Orig Print D/T: S: 04/16/2019 (4135) [facility] NAME: KATHRYN CHAUHAN [address] [facility] PHYS: GOMMU. - Mendel Fuller : 1945 AGE: 73 SEX: F [place] [address] LOC: Y.RAD PHONE #: [phone] EXAM DATE:04/12/2019 STATUS: DEP CLI FAX #: [phone] RAD #: D/C DT PAGE 2 Signed Report- XR FLUORO [id number] 20:14:00 Patient Name: KATHRYN CHAUHAN Unit No: [id number] EXAMS: CPT CODE: [id number] XR FLUORO NDL 07237 Fluoroscopically guided injection of the right trochanteric bursa with steroid and lidocaine COMPARISON: No prior exams available. FINDINGS: After informed consent was obtained a needle was placed inthe right trochanteric bursa with fluoroscopic guidance. Its position was confirmed by obtaining an AP radiograph. Subsequently 2 mL of Kenalog 40 mg per cc and 2 mL of 1 percent lidocaine was injected. No immediate complications were encountered. 15 seconds of fluoroscopy time was utilized. IMPRESSION: Technically successful steroid injection of the right trochanteric bursa at 2014 Reported and signed by: Bennett Dunlap M.D.CC: Chris Dillon MD Technologist: Katalina Hill RT.(R) Transcribed D/ (2013) [facility] NAME: KATHRYN CHAUHAN [address] [facility] PHYS: Chris Guzman MD : 1945 AGE: 73 SEX: F [place] [address] LOC: Y.RAD PHONE #: [phone] EXAM DATE: 03/09/2019 STATUS: DEP CLI FAX #: [phone] RAD #: D/C DT PAGE 1 Signed Re port Patient Name: KATHRYN CHAUHAN Unit No: [id number] EXAMS: CPT CODE: [id number] XR FLUORO [id number] <Continued> Orig Print D/T: S: 03/12/2019 (2016) [facility] NAME: KATHRYN CHAUHAN [address] [facility] PHYS: Chris Guzman MD : 1945 AGE: 73 SEX: F [place] [address] LOC: Y.RAD PHONE #: [phone] EXAM DATE: 03/09/2019 STATUS: DEP CLI FAX #: [phone] RAD #: D/C DT PAGE 2 Signed Report- MRI LOW EXT W/O CONT [id number] 11:52:00 Patient Name: KATHRYN CHAUHAN Unit No: [id number] EXAMS: CPT CODE: [id number] MRI LOW EXT W/[place] [address] TECHNIQUE: Multiplanar multisequence images of the right foot were obtained without the administration of intravenous contrast. COMPARISON STUDY: None available. FINDINGS: Severe degenerative changes of the naviculocuneiform joint are demonstrated with scattered subchondral edema present. There is also moderate second and third TMT joint degeneration and mild fourth TMT joint degenerativechange. No acute fracture is visualized. Alignment is within normal limits. The Lisfranc ligament isintact. Visualized tendons are maintained. Musculature is normal in size and signal intensity. No significant soft tissue abnormality. IMPRESSION: 1. Severe naviculocuneiform joint degenerative change. 2. 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 at 1152 Reported and signed by: Bennett Dunlap M.D. CC: Yumiko Dinero MD Technologist: Mala Jolly(R) Transcribed D/ (3077) tANTWONFormerly [facility] NAME: KATHRYN CHAUHAN [address] [place] [address] PHYS: Yumiko Kasper MD : 1945 AGE: 73 SEX: F [place] [address] LOC: Y.MRI PHONE #: [phone] EXAM DATE: 02/08/2019 STATUS: DEP CLI FAX #: [phone] RAD #: D/C DT PAGE 1 Signed Report Patient Name: KATHRYN CHAUHAN Unit No: [id number] EXAMS: CPT CODE: [id number] MRI LOW EXT W/[place] [address] <Continued> Orig Print D/T: S: 02/09/2019 (1088) [facility] NAME: KATHRYN CHAUHAN [address] [facility] PHYS: Yumiko Kasper MD : 1945 AGE: 73 SEX: F [place] [address] LOC: Y.MRI PHONE #: [phone] EXAM DATE: 02/08/2019 STATUS: DEP CLI FAX #: [phone] RAD #: D/C DT PAGE 2 Signed Report- XR ARTHROGRAM HIP W/O AN RT+2018-11-20 06:26:00 Patient Name: KATHRYN CHAUHAN Unit No: [id number] EXAMS: CPT CODE: [id number] XR ARTHROGRAM HIPW/O AN RT+ 99224 Right hip arthrogram COMPARISON: No prior exams available. FINDINGS: After informed consent was obtained a 22-gauge needle is inserted into the right hip joint under fluoroscopic control using sterile technique. A total volume of 10 mL consisting of a combination of equal parts Isovue-300 and gadolinium is instilled into the joint space. The patient tolerated the procedure well. Fluor oscopic Time: 14 seconds IMPRESSION: Technically successful right hip arthrogram at 0626 Reported and signed by: Bennett Dunlap M.D. CC: Chris Dillon MD Technologist: Katalina Hill RT.(R); MOOKIE FERMIN RT(R) Transcribed D/ (06) [facility] NAME: KATHRYN CHAUHAN [address] [facility] PHYS: Chris Guzman MD : 1945 AGE: 73 SEX: F [place], [place] [address] LOC: Y.RAD PHONE #: [phone] EXAM DATE: 11/17/2018 STATUS: DEP CLI FAX #: [phone] RAD #: D/C DT PAGE 1 Signed Report Patient Name: KATHRYN CHAUHAN Unit No: [id number] EXAMS: CPTCODE: [id number] XR ARTHROGRAM HIP W/O AN RT+ 63272 <Continued> Orig Print D/T: S: 11/20/2018 (0629) [facility] NAME: KATHRYN CHAUHAN [address] [facility] PHYS: Bill Guzman MD : 1945 AGE: 73 SEX: F [place], [place] [address] LOC: SALOME PHONE#: [phone] EXAM DATE: 11/17/2018 STATUS: FELIX CLI FAX #: [phone] RAD #: D/C DT PAGE 2 Signed Report- MRI LW JNT W/CONTRAST [id number] 09:59:00 Patient Name: KATHRYN CHAUHAN Unit No: [id number] EXAMS: CPT CODE: [id number] MRI LW JNT W/[place] [address] TECHNIQUE: Multiplanar multisequence MR images of the right hip were obtained following intra-articular administration of gadolinium contrast (see separately dictated procedure note for details). Images were then viewed on the PACS workstation in the axial, coronal and sagittal planes. COMPARISON: None available. FINDINGS: Bone: No acute fracture. No significant osseous abnormality. Cartilage: Articular cartilage is largely maintained. No full-thickness defect visualized. Labrum: Linear gadolinium signal undermining the anterior superior labrum is consistent with a labral tear. Femoroacetabular Impingement Assessment: Alpha Angle (normal= <55 degrees) : 55 degrees Lateral Center Edge Angle (normal=25-39 degrees): 37 degrees Tendons: Hamstring tendinosis is demonstrated without evidence of tear. Bursitis: Gluteus medius tendinosis is also seen with small low-grade tear at at itsinsertion. Muscles: Signal intensity and volume are preserved. Other: Partially visualized intrapelvic structures are unremarkable. IMPRESSION: 1. Tear of the anterior superior labrum. 2. 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 3. Hamstring tendinosis. at 0959 Reported and signed by: Bennett Dunlap M.D. CC: Chris Dillon MD Technologist: NAPOLEON CASTELLANOS RT(R) Transcribed D/ (0959) t.[email or web address].SLJ [facility] NAME: KATHRYN CHAUHAN [address] [facility] PHYS: CORAL - Chris Dillon MD : 1945 AGE: 73 SEX: F [place], [place] [address] LOC: Y.RAD PHONE #: [phone] EXAM DATE: 11/17/2018 STATUS: DEP CLI FAX #: [phone] RAD #: D/C DT PAGE 1 Signed Report Patient Name: KATHRYN CHAUHAN Unit No: [id number] EXAMS: CPT CODE: [id number] MRI LW JNT W/[place] [address] <Continued> Orig Print D/T: S: 11/19/2018 (1002) [facility] NAME: KATHRYN CHAUHAN [address] [facility] PHYS: Chris Guzman MD : 1945 AGE: 73 SEX: F [place], [place] [address] LOC: Y.RAD PHONE #: [phone] EXAM DATE: 11/17/2018 STATUS: DEP CLI FAX #: [phone] RAD #: D/C DT PAGE 2 Signed ReportRAD, HAND, 2 VIEWS, [id number] 17:14:00Reason for Exam:->m05.79FINAL REPORT 3 VIEWS OF THE RIGHT HAND, 3 VIEWS OF THE LEFT HAND HISTORY: Bilateral hand pain, M COMPARISON: No comparison hand imaging FINDINGS: RIGHT HAND: AP, oblique, andlateral views of the right hand were obtained. No fracture or dislocation are identified. 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 Mild to moderate osteoarthritis of the thumb CMC andIP joints. Mild osteoarthritis of the third through [...] [place] Verified Date/Time: 08/03/2017 17:14:37 Reading Location: [facility] Radiology Reading Room RAD, HAND, 2 VIEWS, [id number] 17:14:00Reason for Exam:->m05.79FINAL REPORT 3 VIEWS OF THE RIGHT HAND, 3 VIEWS OF THE LEFT HAND HISTORY: Bilate ral hand pain, M COMPARISON: No comparison hand imaging FINDINGS: RIGHT HAND: AP, oblique, andlateral views of the right hand were obtained. No fracture or dislocation are identified. 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 Mild to moderate osteoarthritis of the thumb CMC andIP joints. Mild osteoarthritis of the third through fifth DIP joints. Mild soft tissue swelling at the level of the second DIP joint. No erosive changes are visualized in the hand. No acral osteolysis.LEFT HAND: AP, oblique, and lateral views the [...] [place] Verified Date/Time: 08/03/2017 17:14:37 Reading Location: [facility] Radiology Reading Room RAD, HIP, 2 VIEWS, [id number] 14:30:00Reason for Exam:->m05.79FINAL REPORT RIGHT HIP 2 VIEWS, LEFT HIP 2 VIEWS HISTORY: Bilateral hip pain, m COMPARISON: No comparison hip imaging FINDINGS: AP [...] [place] Verified Date/Time: 08/03/2017 14:30:48 Reading Location: [facility] Radiology Reading Room RAD, HIP, 2 VIEWS, [id number] 14:30:00Reason for Exam:->m05.79FINAL REPORT RIGHT HIP 2 VIEWS, LEFT HIP 2 [...]
[2022-11-18 19:00] LABS: Absolute Lymphocytes (CBC) 1.5 K/uL (0.7-4.9); MPV 7.7 fL (7.6-11.3)
[2022-11-18 19:08] LABS: Hematocrit 38.6 % (36.0-45.0); Lymphocytes % 19.7 % (15.3-44.8); MCV 96.4 fL (80-100); RBC Red Blood Cell Count 4.01 M/uL (3.86-4.86)
[2022-11-18 19:18] LABS: Albumin 3.5 g/dL (3.4-5.0); Bilirubin Total 0.7 mg/dL (0.2-1.0); Potassium 4.3 mEq/L (3.5-5.1); Protein, Total 7.7 g/dL (6.4-8.2)
--- NOTE | 2022-11-18 19:46 | RAD REPORT ---
EXAM DESCRIPTION: US - Extremity Venous Uni Ltd - 11/18/2022 7:37 pm CLINICAL HISTORY: Swelling COMPARISON: None. TECHNIQUE: Real-time sonographic evaluation of the left lower extremity deep venous system was perfo rmed. FINDINGS: Extensive thrombus within the left lower extremity which includes the common femoral vein, femoral vein, greater saphenous vein, popliteal vein, and posterior tibial vein. IMPRESSION: Positive for deep venous thrombosis. All of the interrogated veins in the left lower ext remity for noncompressible consistent with thrombosis and extensive clot.
--- NOTE | 2022-11-18 20:04 | RAD REPORT ---
EXAM DESCRIPTION: CTAbdomen Pelvis W Contrast - 11/18/2022 7:51 pm CLINICAL HISTORY: PAIN COMPARISON: Abdomen Pelvis W Contrast dated 05/31/2022 TECHNIQUE: CT of the abdomen and pelvis was performed. All CT scans are performed using dose optimization technique as appropriate and may include automated exposure control or mA/KV adjustment according to patient size. FINDINGS: Lower chest: No acute abnormality. Liver: Several subcentimeter low-density liver lesions are statistically benign. Biliary: Cholelithiasis. No CT evidence acute cholecystitis. Stomach: No significant focal abnormality. Duodenum: No significant focal abnormality. Pancreas: No significant abnormality. Spleen: No significant abnormality. Adrenal: No suspicious lesions. Kidney/ureter: No hydronephrosis. No renal calculi. Retroperitoneum: No retroperitoneal adenopathy. Vascular: There is an intraluminal filling defect of the left femoral and common femoral vein. The ve ins are expanded . Note that extensive left lower extremity deep venous thrombosis were present on e same-day ultrasound Bowel: No significant focal abnormality. Peritoneum: No ascites or free air. Bladder: Grossly unremarkable. Reproductive: No adnexal masses. Hysterectomy. Bones: No acute fracture. Fusion hardware in the spine. Trans SI joint screws. Spinal stimulator. Other: n/a IMPRESSION: Left iliofemoral deep venous thrombosis. No specific findings to suggest an etiology. Incidental findings as noted above.
--- NOTE | 2022-11-18 20:37 | EDPHYS ---
Physician Documentation [facility] Name: Leonor Beasley Age: 77 yrs Sex: Female : 1945 Arrival Date: 11/18/2022 Time: 18:10 Bed 7 Private MD: Christina Coleman C ED Physician Edilberto Hanna HPI: 11/18 20:43 This 77 yrs old Female presents to ER via Ambulatory with complaints of Leg Swelling. rt 20:43 Presents to the ED with swelling to the left lower extremity which she first noted this rt morning. She was sent from her primary care for rule out of DVT. Of note, patient also has had a left lower quadrant pain for about 4 months now and was also sent for CT for further evaluation of this. Pain is aching nature, nonradiating, no other aggravating alleviating factors. Denies other acute complaints at this time including chest pain, shortness of breath.. Historical: - Allergies: 18:33 Demerol; ld1 - PMHx: 18:33 High Cholesterol; Hypertensive disorder; Pneumonia; Rheumatoid Arthritis; ld1 - PSHx: 18:33 Stented artery; ld1 - Immunization history:: Adult Immunizations up to date, Client reports receiving the 2nd dose of the Covid vaccine. - Social history:: Smoking status: Patient denies any tobacco usage or history of. Patient/guardian denies using alcohol. - Family history:: not pertinent. ROS: 20:43 Constitutional: Negative for fever, chills, and weight loss, Eyes: Negative for injury, rt pain, redness, and discharge, Cardiovascular: Negative for chest pain, palpitations, and edema, Respiratory: Negative for shortness of breath, cough, wheezing, and pleuritic chest pain, Skin: Negative for injury, rash, and discoloration, Neuro: Negative for headache, weakness, numbness, tingling, and seizure, Psych: Negative for depression, anxiety, suicide ideation, homicidal ideation, and hallucinations. 20:43 Abdomen/GI: Positive for abdominal pain, Negative for nausea and vomiting. 20:43 MS/extremity: Positive for swelling, Negative for injury or acute deformity. Exam: 20:43 Constitutional: This is a well developed, well nourished patient who is awake, alert, rt and in no acute distress. Head/Face: Normocephalic, atraumatic. Chest/axilla: Normal chest wall appearance and motion. Nontender with no deformity. No lesions are appreciated. Cardiovascular: Regular rate and rhythm with a normal S1 and S2. No gallops, murmurs, or rubs. Normal PMI, no JVD. No pulse deficits. Respiratory: Lungs have equal breath sounds bilaterally, clear to auscultation and percussion. No rales, rhonchi or wheezes noted. No increased work of breathing, no retractions or nasal flaring. Abdomen/GI: Soft, non-tender, with normal bowel sounds. No distension or tympany. No guarding or rebound. No evidence of tenderness throughout. Skin: Warm, dry with normal turgor. Normal color with no rashes, no lesions, and no evidence of cellulitis. Neuro: Awake and alert, GCS 15, oriented to person, place, time, and situation. Cranial nerves II-XII grossly intact. Motor strength 5/5 in all extremities. Sensory grossly intact. Cerebellar exam normal. Normal gait. Psych: Awake, alert, with orientation to person, place and time. Behavior, mood, and affect are within normal limits. 20:43 Musculoskeletal/extremity: Plus pitting edema to the left lower extremity without cellulitic changes, pulses, motor, sensation intact. Vital Signs: 18:30 BP 122 / 84; Pulse 88; Resp 18; Temp 97.6(TE); Pulse Ox 100% on R/A; Weight 99.79 kg; ld1 Height 5 ft. 4 in. ; Pain 8/10; 19:48 BP 138 / 53; Pulse 71; Resp 18; Pulse Ox 96% on R/A; aa9 21:17 BP 130 / 71; Pulse 80; Resp 17; Temp 98.5(O); Pulse Ox 100% ; aa9 21:45 BP 126 / 75; Pulse 82; Resp 20; Pulse Ox 100% on R/A; Pain 0/10; pf1 18:30 Body Mass Index 37.76 (99.79 kg, 162.56 cm) ld1 18:30 Pain Scale: Adult ld1 21:45 Pain Scale: Adult pf1 MDM: 18:35 Patient medically screened. rt 20:43 Differential Diagnosis VTE, PE, cellulitis. Data reviewed: vital signs, nurses notes, rt lab test result(s), EKG, radiologic studies. Consideration of Admission/Observation Patient was admitted/placed on observation. Management of patient was discussed with the following: Primary Care Provider: carmen Aguayo, full bedrest, admission to the hospital.. I considered the following discharge prescriptions or medication management in the emergency department Medications were administered in the Emergency Department. See MAR. Care significantly affected by the following chronic conditions: Hypertension. Counseling: I had a detailed discussion with the patient and/or guardian regarding: the historical points, exam findings, and any diagnostic results supporting the discharge/admit diagnosis, lab results, radiology results, the need for further work-up and treatment in the hospital. 11/18 18:48 Order name: CBC with Diff; Complete Time: 20:12 rt 11/18 18:48 Order name: CMP; Complete Time: 20:12 rt 11/18 18:48 Order name: Lipase; Complete Time: 20:12 rt 11/18 18:48 Order name: UAM; Complete Time: 21:49 rt 11/18 20:41 Order name: PT-INR; Complete Time: 21:49 rt 11/18 20:41 Order name: Ptt, Activated; Complete Time: 21:49 rt 11/18 18:48 Order name: Extremity Venous Uni Ltd US; Complete Time: 20:12 rt 11/18 18:48 Order name: CT Abd/Pelvis - IV Contrast Only rt Administered Medications: 21:25 Drug: Enoxaparin Sub-Q 1 mg/kg Route: Sub-Q; Site: right lower abdomen; aa9 21:47 Follow up: Response: Adverse reaction, Physician notified pf1 22:08 Drug: Rocephin IV 1 grams Route: IV; Rate: calculated rate; Site: right antecubital; pf1 22:10 Follow up: Response: No adverse reaction; IV Status: Completed infusion; IV Intake: [id number] Disposition Summary: 11/18/22 20:36 Hospitalization Ordered Hospitalization Status: Observation rt Provider: Christina Coleman rt Location: Telemetry/MedSurg (observation) rt Condition: Fair rt Problem: new rt Symptoms: are unchanged rt Bed/Room Type: Standard rt Room Assignment: 230(11/18/22 20:46) cg Diagnosis - Acute embolism and thrombosis of deep veins of lower extremity rt Forms: - Medication Reconciliation Form rt - SBAR form rt Signatures: Dispatcher [employer] Raymond Enriquez MD MD rn Garcia, Cindy RN RN cg Treva Freeman RN RN ld1 Elvira Huitron RN RN aa9 Edilberto Hanna MD MD rt Veda cole RN RN pf1 Corrections: (The following items were deleted from the chart) 20:46 20:36 rt cg
--- NOTE | 2022-11-18 20:37 | ER ---
Nurse's Notes [facility] Name: Leonor Beasley Age: 77 yrs Sex: Female : 1945 Arrival Date: 11/18/2022 Time: 18:10 Bed 7 Private MD: Christina Coleman C Diagnosis: Acute embolism and thrombosis of deep veins of lower extremity Presentation: 11/18 18:30 Chief complaint: Patient states: Swelling to left leg since this morning - Pt reports ld1 "This has never happened this bad before." Also reports LLQ pain X 4 months. Denies N/V/D. Coronavirus screen: At this time, the client does not indicate any symptoms associated with coronavirus-19. Ebola Screen: No symptoms or risks identified at this time. Initial Sepsis Screen: Does the patient meet any 2 criteria? No. Patient's initial sepsis screen is negative. Does the patient have a suspected source of infection? No. Patient's initial sepsis screen is negative. Risk Assessment: Do you want to hurt yourself or someone else? Patient reports no desire to harm self or others. Onset of symptoms was November 18, 2022. 18:30 Method Of Arrival: Ambulatory ld1 18:30 Acuity: BOUCHRA 3 ld1 Triage Assessment: 18:33 General: Appears in no apparent distress. comfortable, Behavior is calm, cooperative, ld1 appropriate for age. Pain: Complains of pain in left lower quadrant Pain does not radiate. Pain currently is 8 out of 10 on a pain scale. Quality of pain is described as throbbing, Pain began suddenly. EENT: No signs and/or symptoms were reported regarding the EENT system. Neuro: Level of Consciousness is awake, alert, obeys commands, Oriented to person, place, time, situation. Cardiovascular: Capillary refill < 3 seconds Patient's skin is warm and dry. Respiratory: Airway is patent Respiratory effort is even, unlabored. GI: Abdomen is round non-distended. : No signs and/or symptoms were reported regarding the genitourinary system. Derm: No signs and/or symptoms reported regarding the dermatologic system. Musculoskeletal: No signs and/or symptoms reported regarding the musculoskeletal system. Historical: - Allergies: 18:33 Demerol; ld1 - PMHx: 18:33 High Cholesterol; Hypertensive disorder; Pneumonia; Rheumatoid Arthritis; ld1 - PSHx: 18:33 Stented artery; ld1 - Immunization history:: Adult Immunizations up to date, Client reports receiving the 2nd dose of the Covid vaccine. - Social history:: Smoking status: Patient denies any tobacco usage or history of. Patient/guardian denies using alcohol. - Family history:: not pertinent. Screenin:16 [facility] ED Fall Risk Assessment (Adult) History of falling in the last 3 months, aa9 including since admission No falls in past 3 months (0 pts). Abuse screen: Denies threats or abuse. Denies injuries from another. Nutritional screening: No deficits noted. Tuberculosis screening: Assessment: 18:34 Reassessment:. ld1 19:49 Reassessment: Patient appears in no apparent distress at this time. Patient and/or aa9 family updated on plan of care and expected duration. Pain level reassessed. Patient is alert, oriented x 3, equal unlabored respirations, skin warm/dry/pink. Patient denies pain at this time. 20:00 General: Appears in no apparent distress. comfortable, obese, well groomed, well pf1 developed, Behavior is calm, cooperative, appropriate for age, quiet. Pain: Denies pain. Neuro: No deficits noted. Level of Consciousness is awake, alert, obeys commands, Oriented to person, place, time, situation. 20:00 Cardiovascular: No deficits noted. Capillary refill < 3 seconds Patient's skin is warm pf1 and dry. Respiratory: No deficits noted. Airway is patent Trachea midline Respiratory effort is even, unlabored, Respiratory pattern is regular, symmetrical. GI: No deficits noted. No signs and/or symptoms were reported involving the gastrointestinal system. Abdomen is round non-distended, Bowel sounds present X 4 quads. : No deficits noted. No signs and/or symptoms were reported regarding the genitourinary system. EENT: No deficits noted. No signs and/or symptoms were reported regarding the EENT system. Musculoskeletal: Reports. 20:00 Musculoskeletal: Circulation, motion, and sensation intact. Capillary refill < 3 pf1 seconds, Swelling present in left leg. 21:19 Reassessment: attempted to call report. aa9 21:21 Reassessment: No changes from previously documented assessment. Patient and/or family pf1 updated on plan of care and expected duration. Pain level reassessed. Patient is alert, oriented x 3, equal unlabored respirations, skin warm/dry/pink. Vital Signs: 18:30 BP 122 / 84; Pulse 88; Resp 18; Temp 97.6(TE); Pulse Ox 100% on R/A; Weight 99.79 kg; ld1 Height 5 ft. 4 in. ; Pain 8/10; 19:48 BP 138 / 53; Pulse 71; Resp 18; Pulse Ox 96% on R/A; aa9 21:17 BP 130 / 71; Pulse 80; Resp 17; Temp 98.5(O); Pulse Ox 100% ; aa9 21:45 BP 126 / 75; Pulse 82; Resp 20; Pulse Ox 100% on R/A; Pain 0/10; pf1 18:30 Body Mass Index 37.76 (99.79 kg, 162.56 cm) ld1 18:30 Pain Scale: Adult ld1 21:45 Pain Scale: Adult pf1 Vitals: 21:17 Cardiac Rhythm Assessment Regular. aa9 ED Course: 18:13 Patient arrived in ED. mr 18:14 Christina Coleman MD is Private Physician. mr 18:16 Edilberto Hanna MD is Attending Physician. rt 18:33 Triage completed. ld1 18:33 Arm band placed on right wrist. ld1 18:41 Inserted saline lock: 20 gauge in right antecubital area, using aseptic technique. ld1 Blood collected. 18:50 Lipase Sent. ld1 18:50 CMP Sent. ld1 18:50 CBC with Diff Sent. ld1 19:39 Extremity Venous Uni Ltd US In Process Unspecified. EDMS 19:47 Elvira Huitron, MARGOT is Primary Nurse. aa9 19:49 Patient has correct armband on for positive identification. Bed in low position. Call aa9 light in reach. Side rails up X 1. Adult w/ patient. Client placed on continuous cardiac and pulse oximetry monitoring. NIBP monitoring applied. 19:53 CT Abd/Pelvis - IV Contrast Only In Process Unspecified. EDMS 20:35 Christina Coleman MD is Hospitalizing Provider. rt 21:16 No provider procedures requiring assistance completed. Patient admitted, IV remains in aa9 place. Administered Medications: 21:25 Drug: Enoxaparin Sub-Q 1 mg/kg Route: Sub-Q; Site: right lower abdomen; aa9 21:47 Follow up: Response: Adverse reaction, Physician notified pf1 22:08 Drug: Rocephin IV 1 grams Route: IV; Rate: calculated rate; Site: right antecubital; pf1 22:10 Follow up: Response: No adverse reaction; IV Status: Completed infusion; IV Intake: [id number] Medication: 21:14 VIS not applicable for this client. aa9 Intake: 22:10 IV: 10ml; Total: 10ml. pf1 Outcome: 20:36 Decision to Hospitalize by Provider. rt 21:16 Admitted to Med/surg accompanied by nurse, room 230, with chart. aa9 21:16 Condition: stable 21:16 Instructed on the need for admit. 21:48 Admitted to Med/surg Report called to MARGOT Sheikh pf1 22:25 Patient left the ED. pf1 Signatures: Dispatcher [employer] [facility] BarrettLesli lerma FreemanTreva frye RN RN ld1 Elvira Huitron RN RN aa9 Edilberto Hanna MD MD rt Veda cole RN RN pf1
[2022-11-18 20:58] LABS: Renal Epithelial <5 /HPF (None Seen); Specific Gravity 1.018 (1.005-1.030); Urine Bacteria <20 /HPF (<20); Urine Bilirubin NEGATIVE (Negative); Urine Blood Negative (Negative); Urine Clarity Clear (Clear); Urine Color Colorless (Yellow); Urine Glucose NEGATIVE (Negative); Urine Mucus Slight /HPF (None Seen); Urine Protein NEGATIVE (Negative); Urine RBC None Seen /HPF (None Seen); Urine Urobilinogen Normal (Normal); Urine Yeast with Hyphae Trace /HPF (None Seen); Urine pH 5.5 (5.0-7.0)
[2022-11-18 21:08] LABS: Protime INR 1.07
[2022-11-18] MEDS ORDERED: ENOXAPARIN 100 MG/ML SYR SQ ONE (21:27)
[2022-11-18] MEDS ORDERED: CEFTRIAXONE 1000 MG/VIAL ONE (22:14)
[2022-11-19 00:02] VITALS: BMI 37.8
[2022-11-19 03:05] LABS: Absolute Lymphocytes (CBC) 1.2 K/uL (0.7-4.9); Hematocrit 33.4 % (36.0-45.0); Lymphocytes % 20.5 % (15.3-44.8); MCV 95.6 fL (80-100); MPV 7.9 fL (7.6-11.3); RBC Red Blood Cell Count 3.49 M/uL (3.86-4.86)
[2022-11-19 03:11] LABS: Potassium 3.4 mEq/L (3.5-5.1)
[2022-11-19] MEDS: PANTOPRAZOLE 40MG TABLET PO SCH (06:13)
[2022-11-19] MEDS: ENOXAPARIN 100 MG/ML SYR SQ SCH ×2 (08:37→20:52)
[2022-11-19] MEDS: METOPROLOL XL 25 MG TAB PO SCH (08:37)
[2022-11-19] MEDS: GABAPENTIN 100 MG CAP PO SCH ×2 (08:39→20:52)
[2022-11-19] MEDS: CEFTRIAXONE 1,000 MG in NA CHLORIDE 0.9% 50 ML IVPB SCH ×2 (08:39→20:51)
[2022-11-19] MEDS: DULOXETINE 30 MG CAP PO SCH (08:39)
[2022-11-19] MEDS: LOSARTAN POTASSIUM 50 MG TABLET PO SCH ×2 (08:41→20:45)
[2022-11-19] MEDS ORDERED: LOSARTAN POTASSIUM 50 MG TABLET PO SCH (09:00)
[2022-11-19] MEDS ORDERED: METOPROLOL XL 25 MG TAB PO SCH (09:00)
--- NOTE | 2022-11-19 09:10 | RAD REPORT ---
EXAM DESCRIPTION: CT - Chest For Pe Angio - 11/19/2022 8:57 am CLINICAL HISTORY: rule out PE COMPARISON: Abdomen Pelvis W Contrast dated 11/18/2022 TECHNIQUE: Dynamically enhanced axial 3 mm thick images of the chest were obtained during administra tion of <100> mL Isovue 370 IV contrast. Coronal and oblique reconstruction images were generated and reviewed. Exam utilizes a protocol for optimal evaluation of pulmonary arterial tree. Maximum intensity projections 3D imaging was utilized All CT scans are performed using dose optimization technique as appropriate and may include automated exposure control or mA/KV adjustment according to patient size. FINDINGS: Chest Wall: No suspicious thyroid nodules or pathologic lymphadenopathy. Lungs: Small nonspecific areas of subpleural wedge-shaped consolidation in the lower lungs. Motion ar tifact. Calcified pulmonary nodules. No suspicious lesions identified. Pleura: No significant effusions or pneumothorax. Mediastinum/clinton: No pathologic lymphadenopathy. Pulmonary arteries/Aorta: Positive for pulmonary embolism with saddle pulmonary embolus extends into the left lower and right lower lobe segmental pulmonary arteries. No aortic aneurysm. Heart: No significant pericardial effusion. Normal heart size. Upper abdomen: No acute abnormality.Cholelithiasis . Bones: No acute abnormality. IMPRESSION: Positive for pulmonary embolism with saddle pulmonary embolus as noted above. Overall cl ot burden is mild to moderate. No convincing evidence of right heart strain. Small subpleural densiti es could reflect small pulmonary infarcts. Discussed with Dr. Coleman by Dr. Stephen at 0906 on 11/19/22.
[2022-11-19] MEDS: BUDESONIDE 0.5 MG/2 ML NEB NEB SCH ×2 (09:37→21:40)
--- NOTE | 2022-11-19 09:40 | P.CNS ---
Date of Consult: 11/19/22 Reason for Consult: DVT PE Chief Complaint: Swelling of the left leg History of Present Illness: Patient is 77 years of age was doing well has some swelling in the left leg on Tuesday became progressively worse ended up here in the hospital was diagnosed with extensive DVT and PE no other risk factors patient denies any shortness of breath no recent surgery from complaining of a chronic cough since she had a COVID in September Allergies meperidine [From Demerol] Adverse Reaction (Verified 10/23/18 08:49) hallucinations Home Medications: Aspirin [Aspirin EC 81 MG] 81 mg PO DAILY 09/08/18 Atorvastatin Calcium [Lipitor] 40 mg PO BEDTIME 09/08/18 Cholecalciferol (Vitamin D3) [Vitamin D3] 1,000 unit PO DAILY 09/08/18 Duloxetine HCl [Cymbalta] 100 mg PO DAILY 09/08/18 Losartan Potassium 100 mg PO [id number] 09/08/18 Melatonin/Pyridoxine HCl (B6) [Melatonin-Vit B6 3-10 mg Tab] 1 each PO BEDTIME 09/08/18 Metoprolol Succinate 25 mg PO DAILY AFTER SUPPER 09/08/18 Tofacitinib Citrate [Xeljanz] 10 mg PO DAILY 09/08/18 Pantoprazole [Protonix Tab*] 40 mg PO DAILY 10/19/18 - Past Medical/Surgical History Diabetic: No -: Pneumonia -: high cholesterol -: HTN -: RA -: covid -: coronary stent - Social History Alcohol use: Yes CD- Drugs: No Caffeine use: Yes Place of Residence: Home Review of Systems 10-point ROS is otherwise unremarkable Respiratory: Cough Physical Examination Temp Pulse Resp BP Pulse Ox 97.4 F 82 16 133/61 93 11/19/22 08:00 11/19/22 08:37 11/19/22 08:00 11/19/22 08:37 11/19/22 08:00 General: Alert, In no apparent distress, Oriented x3 Respiratory: Clear to auscultation bilaterally, Diminished Cardiovascular: Regular rate/rhythm, Normal S1 S2, Edema (Left leg edema 2+) Gastrointestinal: Normal bowel sounds, Soft and benign, Non-distended Laboratory Data (last 24 hrs) 11/18/22 18:52: PT 11.8, INR 1.07, APTT 30.2 11/18/22 18:52: Sodium 132 L, Potassium 4.3, BUN 17, Creatinine 0.97, Glucose 126 H, Total Bilirubin 0.7, AST 23, ALT 30, Alkaline Phosphatase 103, Lipase 47 11/18/22 18:52: WBC 7.60, Hgb 13.1, Hct 38.6, Plt Count 231 - Problems (1) DVT of lower extremity (deep venous thrombosis) Current Visit: Yes Status: Acute Plan: Patient is 77 years of age admitted with acute DVT of the left leg with pulmonary embolism she is currently doing well hemodynamically stable CT scan and ultrasound reviewed vital signs are stable oxygenation satisfactory swelling of the left leg has reduced there is no redness feels better/DC bedrest ambulate no indication for thrombolytic therapy right now unless her condition deteriorates agree with Lovenox changed over to p.o. Eliquis stable indefinite anticoagulation Labs chemistries all reviewed no significant risk factors for bleeding CT scan reviewed Qualifiers: Affected thrombotic vein of extremity: femoral Laterality: left (2) Chronic cough Current Visit: Yes Status: Acute Plan: Patient has been complaining of a chronic cough since she had COVID the end of September which has been persistent add low-dose Decadron nebulized Pulmicort recommend Advair or Symbicort at discharge
[2022-11-19] MEDS ORDERED: ONDANSETRON 4 MG/2 ML VIAL IV PRN (10:02)
[2022-11-19] MEDS: dexAMETHasone 4 MG TAB PO SCH (10:28)
[2022-11-19] MEDS: HYDROCODONE/CHLORPHEN 5 ML/OSYR PO SCH ×2 (10:28→21:03)
--- NOTE | 2022-11-19 13:31 | ECHO ---
HEIGHT: 5 ft 4 in WEIGHT: 220 lb 0 oz DATE OF STUDY: 11/19/[address]: Gold Coleman MD 2-DIMENSIONAL: YES M.MODE: YES DOPPLER: YES COLOR FLOW: YES TDS: YES PORTABLE: YES DEFINITY: NO BUBBLE STUDY: NO DIAGNOSIS: PULMONARY EMBOLISM CARDIAC HISTORY: CATHERIZATION: YES SURGERY: NO PROSTHETIC VALVE: NO PACEMAKER: NO MEASUREMENTS (cm) DIASTOLIC (NORMALS) SYSTOLIC (NORMALS) IVSd (0.6-1.2) LA Diam (1.9-4.0) LVEF 65-69% LVIDd (3.5-5.7) LVIDs (2.0-3.5) %FS % LVPWd (0.6-1.2) Ao Diam (2.0-3.7) 2 DIMENSIONAL ASSESSMENT: RIGHT ATRIUM: NORMAL LEFT ATRIUM: NORMAL RIGHT VENTRICLE: NORMAL LEFT VENTRICLE: NORMAL TRICUSPID VALVE: NORMAL MITRAL VALVE: NORMAL PULMONIC VALVE: NORMAL AORTIC VALVE: NORMAL PERICARDIAL EFFUSION: NONE AORTIC ROOT: NORMAL LEFT VENTRICULAR WALL MOTION: NORMAL. DOPPLER/COLOR FLOW: TRACE OF TRICUSPID REGURGITATION. COMMENTS: TECHNICALLY DIFFICULT STUDY GROSSLY NORMAL LEFT VENTRICULAR SIZE AND FUNCTION NO MITRAL VALVE PROLAPSE NO EFFUSION TECHNOLOGIST: CARRIE THOMPSON
[2022-11-19] MEDS ORDERED: ATORVASTATIN 80 MG TAB PO SCH (21:00)
[2022-11-19] MEDS ORDERED: EZETIMIBE 10 MG TAB PO SCH (21:00)
[2022-11-19] MEDS ORDERED: FAMOTIDINE 20 MG TAB PO SCH (21:00)
--- NOTE | 2022-11-19 21:44 | HP ---
Date of Admission: 11/18/2022 Chief Complaint: Leg swelling. History Of Present Illness: This is a 77-year-old very pleasant female patient who came into office yesterday with acute onset of left lower extremity swelling that started as of yesterday and subseque ntly she started to have pain in her left lower quadrant just above the groin area. After she was ev aluated at office, she was sent to emergency room for further evaluation and management of this probl em and she had a CAT scan of abdomen and pelvis done in the emergency room, which was unremarkable fo r any acute finding in the left lower quadrant and venous Doppler of lower extremity showed extensive DVT involving her entire left lower extremity. After this, the patient was admitted to the hospital . She received first dose of Lovenox injection in the emergency room, as soon as I was notified abou t the results and starting today she will get her Lovenox injection as well. When I saw her this mor [place], she denied any chest pain or shortness of breath and no hemoptysis. After I saw her, CAT scan of the chest was ordered per PE protocol and that has shown subtle embolus in the main pulmonary manfred ry with evidence of pulmonary infarction. I visited the patient this morning and this afternoon, 2 d ifferent times and I have discussed details regarding all the test results with her. Allergies: MEPERIDINE CAUSING HALLUCINATIONS. Medications: At home she takes aspirin 81 mg daily, atorvastatin 80 mg daily, duloxetine 60 mg daily , Senokot-S 2 tablets daily, ezetimibe 10 mg daily, famotidine 40 mg at bedtime, fluticasone nasal sp ray 1 spray each nostril 2 times a day, gabapentin 100 mg 2 times a day, hydrochlorothiazide 12.5 mg daily, losartan 100 mg daily, methotrexate once a week, metoprolol succinate 50 mg daily, and pantopr azole 40 mg daily. Review of Systems: Cardiovascular: As mentioned above for left leg swelling. GI: Left lower quadrant abdominal pain. All other systems reviewed and negative. Past Medical History: Significant for impaired fasting glucose, hypertension, mixed hyperlipidemia, coronary artery disease, gastroesophageal reflux disease, ulcerative colitis, osteoarthritis at multi ple sites, rheumatoid arthritis, and depression. Past Surgical History: Cataract surgery and also had surgery for correction of ptosis on December 10. Breast biopsy, coronary artery angioplasty with stent placement, hysterectomy, back surgery, and hip surgery. Family History: Father , had colon cancer. Mother , details unknown. Brother has seizure d isorder. Sister has myocardial infarction and osteopenia. Social History: Negative for smoking, but has a history of secondhand smoke exposure. Use of alcoho l, a glass of wine daily. Physical Examination: Vital Signs: Temperature 98.6, pulse 81, respiratory rate 16, blood pressure 130/64, and oxygen satu ration 95%. Height 5 feet 4 inches, weight 220 pounds. General: Awake, alert, oriented, not in distress. HEENT: Head atraumatic, normocephalic. Conjunctivae nonerythematous. Sclerae white. Mouth, no thr ush or edema noted. Ears/Nose, no mass, lesion, discharge noted. Neck: Supple. No JVD, lymph nodes, bruit, thyromegaly noted. Lungs: Bilateral good equal air entry. Clear to auscultation. No rhonchi. No rales. Heart: Normal heart sounds, no murmur or gallop. Abdomen: Soft. Bowel sounds normal. No guarding, rigidity, or distention. No tenderness. She had mild left lower quadrant tenderness yesterday, but today she does not have any such tenderness. No bruit. Extremities: The patient's entire left lower extremity has grade 1 to grade 2 pedal edema. It is sl ightly better today than yesterday. Skin: No rash, ulcer, cellulitis. Lymphatics: No lymph node enlargement in neck, supraclavicular, infraclavicular or neck region. Neuro: No focal neurological deficit. Chest: Unremarkable. External Genitalia: Deferred. Rectal: Deferred. Breasts: We also did a breast exam today in presence of nurse and breasts bilaterally symmetrical. No mass. No tenderness. Laboratory Data: Yesterday: White count 7.6, hemoglobin 13.1, and platelets 231. Sodium 132, potas sium 4.3, chloride 101, bicarb 26, BUN 17, creatinine 0.97, and glucose 126. Liver function tests un remarkable. Urinalysis: Leukocyte esterase positive, WBC 10 to 20. This morning white count is 6.1 , hemoglobin 11.7, and platelets 205. Sodium 134, potassium 3.4, chloride 105, bicarb 23, BUN 14, cr eatinine 0.80, and glucose 125. CAT scan of the abdomen and pelvis shows multiple tiny liver lesions , appear to be benign and I have discussed with the radiologist Dr. Stephen. He has reviewed current CAT scan and compared with previous CAT scan from May 2022 and informed me that these liver lesions appear unchanged and appears to be benign and presence of gallstones and no other acute intraabdomin al finding noted. Venous Doppler of lower extremity shows extensive DVT of entire left lower extremi ty and on basis of CAT scan finding, she also has DVT involving her iliac vein. Today CAT scan of th e chest per PE protocol shows saddle pulmonary embolism with moderate clot burden and evidence of pul monary infarction. No evidence of any pulmonary mass. Impression: 1.Deep vein thrombosis, left leg. 2.Pulmonary embolism. 3.Pulmonary infarction due to pulmonary embolism. 4.Hypokalemia. 5.Anemia, unspecified. 6.Coronary artery disease. 7.Hypertension. 8.Mixed hyperlipidemia. 9.Impaired fasting glucose. 10.Gastroesophageal reflux disease. 11.Ulcerative colitis. 12.Depression. 13.Rheumatoid arthritis. 14.Osteoarthritis, multiple sites. Plan: We will go ahead and admit the patient to hospital for further evaluation and management of th is problem. The patient is appropriate for inpatient and is expected to spend 2 midnights in the [facility]. For her DVT, subcutaneous injection every 12 hours. She received first dose in the emergency room and we will continue this today. The patient was placed on bedrest with elevation of left lowe r extremity. After today's CT scan result, I did communicate with Dr. Waters and requested consult ation and also ordered echo with Doppler. There was no evidence of has evaluated the jayesh ent and I have communicated with him after his evaluation as well and he does not recommend any furth er intervention at this point. Obviously, no need for any thrombolytic therapy. [facility] and communicated with the patient regarding CAT scan findings. I will see her tomorrow for followup and possible discharge to go home tomorrow depending on her condition. I have ordered hypercoagulable workup and will follow up on those results once it is available. Details and plan of treatment discussed with the patient. I have informed her that she should stop her aspirin and she should not take any form of nonsteroidal antiinflammatory medications like Advil, Aleve, etc. Fall precaution was advised and the patient was also advised that she should return to emergency ro om if she has any head injury or if she notices any bleeding for example hemoptysis, nosebleed, blood in urine, blood in stool, or if she has any skin laceration and if the bleeding does not stop, then she will need to come to the emergency room for further evaluation and management. She will need to stay on anticoagulation therapy for 6 months. She was made aware of the possibility of any underlyin g occult malignancy and she gets her mammogram done on a yearly basis in [place] and so far we do not have any evidence of any underlying malignancy anywhere and if she has any radicular symptoms indica ting any such problem, then we will need to pursue further investigation depending on the symptoms an d all these details were discussed with her today as well. YENY/CAROLINA Voice ID: [id number]
[2022-11-19 22:53] VITALS: O2SAT 97
[2022-11-20] MEDS: PANTOPRAZOLE 40MG TABLET PO SCH (06:12)
[2022-11-20] MEDS: BUDESONIDE 0.5 MG/2 ML NEB NEB SCH (08:34)
[2022-11-20] MEDS: GABAPENTIN 100 MG CAP PO SCH (09:00)
[2022-11-20] MEDS ORDERED: APIXABAN 5 MG TABLET PO SCH (09:00)
[2022-11-20 09:09] VITALS: BP 123/58; TEMP 97.6
[2022-11-20] MEDS: DULOXETINE 30 MG CAP PO SCH (09:11)
[2022-11-20] MEDS: LOSARTAN POTASSIUM 50 MG TABLET PO SCH (09:11)
[2022-11-20] MEDS: dexAMETHasone 4 MG TAB PO SCH (09:11)
[2022-11-20] MEDS: METOPROLOL XL 25 MG TAB PO SCH (09:11)
[2022-11-20] MEDS: HYDROCODONE/CHLORPHEN 5 ML/OSYR PO SCH (09:12)
[2022-11-20] MEDS: CEFTRIAXONE 1,000 MG in NA CHLORIDE 0.9% 50 ML IVPB SCH (09:13)
--- NOTE | 2022-11-20 09:28 | P.PN ---
Subjective Date of Service: 11/20/22 Chief Complaint: DVT of the left leg and PE Subjective: Improving (Patient is improving doing well swelling is decreased cough is also improved) Review of Systems Respiratory: Cough Musculoskeletal: Leg Pain Physical Examination - Vital Signs Temperature: 97.6 F Blood Pressure: 123/58 Pulse: 85 Respirations: 16 Pulse Ox (%): 96 - Physical Exam General: Alert, Oriented x3 Respiratory: Clear to auscultation bilaterally Cardiovascular: Edema (Edema of the left leg has improved) Gastrointestinal: Normal bowel sounds, Soft and benign, Non-distended - Studies Microbiology Data (last 24 hrs): 11/18/22 20:36 Clean Catch Urine [place] Count - Final <10,000 CFU/ML. 11/18/22 20:36 Clean Catch Urine - Final MIXED LUIS. Assessment And Plan - Current Problems (Diagnosis) (1) DVT of lower extremity (deep venous thrombosis) Current Visit: Yes Status: Acute Plan: Doing much better vital signs oxygenation satisfactory echocardiogram is also normal private branch exchange installer to p.o. Eliquis we will check with the pharmacy for Eliquis is covered to need lifelong treatment with Eliquis 10 mg twice a day for 7 days then 5 twice daily vital signs oxygenation satisfactory denies any dyspnea on exertion stable for discharge patient advised to avoid any strenuous activity for the next 2 weeks elevate left leg and use a compression stocking till the swelling has resolved Qualifiers: Affected thrombotic vein of extremity: femoral Laterality: left (2) Chronic cough Current Visit: Yes Status: Acute Plan: Cough is also improved also ordered Kaushik as an outpatient
== END 2022-11-20 12:20 | disposition home or self-care (01) | DRG 299 ==
LOC: ER 18:10 → ERHOLD 20:37 → 2ND 21:23 → OBSVTOIN 22:52
PROVIDERS: ADMIT Internal Medicine; ATTEND Internal Medicine
DX: I82.412 Acute embolism and thrombosis of left femoral vein (principal); I26.99 Other pulmonary embolism without acute cor pulmonale; K51.90 Ulcerative colitis, unspecified, without complications; M06.9 Rheumatoid arthritis, unspecified; E78.00 Pure hypercholesterolemia, unspecified; I10 Essential (primary) hypertension; K21.9 Gastro-esophageal reflux disease without esophagitis; M19.09 Primary osteoarthritis, other specified site; E87.6 Hypokalemia; D64.9 Anemia, unspecified; F32.A Depression, unspecified; I25.10 Atherosclerotic heart disease of native coronary artery without angina pectoris; R05.3 Chronic cough; R73.01 Impaired fasting glucose; Z95.5 Presence of coronary angioplasty implant and graft; Z88.5 Allergy status to narcotic agent; Z86.16 Personal history of COVID-19; Z79.82 Long term (current) use of aspirin; Z90.710 Acquired absence of both cervix and uterus; Z79.899 Other long term (current) drug therapy
CPT/HCPCS: 36415; 71275; 74177; 80048; 80053; 81001; 81240; 83090; 83690; 85025; 85301; 85302; 85305; 85306; 85610; 85730; 87086; 87088; 93306; 93971; 94640; 96372; 96374; 99285; G0378; J0696; J1650; J2405; J8540; Q9967

== ENCOUNTER 2023-10-20 08:16 | Emergency (ER) | payer OTHER ==
[2023-10-20] MEDS ORDERED: ONDANSETRON 4 MG/2 ML VIAL ONE (08:55)
[2023-10-20] MEDS ORDERED: dexAMETHasone 10 MG/ML VIAL ONE (08:55)
[2023-10-20] MEDS ORDERED: HYDROMORPHONE HCL 1 MG/ML INJ ONE (08:55)
[2023-10-20] MEDS ORDERED: KETOROLAC 30 MG/ML INJ ONE (08:55)
[2023-10-20] MEDS ORDERED: NA CHLORIDE 0.9% 1,000 ML ONE (08:56)
[2023-10-20] MEDS ORDERED: DIAZEPAM 5 MG TABLET ONE (08:56)
--- NOTE | 2023-10-20 09:20 | RAD REPORT ---
EXAM DESCRIPTION: CT - Thoracic Spine W/o Cont - 10/20/2023 9:01 am CLINICAL HISTORY: PAIN COMPARISON: Spine Lumbar Wo Con dated 10/20/2023; Chest For Pe Angio dated 11/19/2022; Abdomen Pelvi s W Contrast dated 05/31/2022 TECHNIQUE: Axial CT imaging through the thoracic spine was performed with coronal and sagittal re-fo rmatted images. All CT scans are performed using dose optimization technique as appropriate and may include automated exposure control or mA/KV adjustment according to patient size. FINDINGS: Disc height loss is present at T11-12 and T12-L1 that is severe. Mild disc height loss at the other levels. Scattered bridging osteophytes. A compression fracture is not present. Posterior linda and pedicle screw fusion hardware extends from T9 into the lumbar spine. There is evide nce of posterior decompression and probably bone graft harvest material within the posterior soft tis sues. Intervertebral disc detail is inherently limited on CT without gross findings of canal compromise. Mild opacities in the medial right lower lobe is probably chronic are doubtful acute clinical signifi cance. IMPRESSION: No acute fracture of the thoracic spine. Partially imaged fusion hardware extending from T9 into the lumbar spine. 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
--- NOTE | 2023-10-20 09:34 | RAD REPORT ---
EXAM DESCRIPTION: CT - Spine Lumbar Wo Con - 10/20/2023 9:08 am CLINICAL HISTORY: PAIN COMPARISON: Abdomen Pelvis W Contrast dated 11/18/2022; Thoracic Spine W/o Cont dated 10/20/2023; Ch est For Pe Angio dated 11/19/2022 TECHNIQUE: Axial noncontrast CT imaging of the lumbar spine was performed with coronal and sagittal re-formatted images. All CT scans are performed using dose optimization technique as appropriate and may include automated exposure control or mA/KV adjustment according to patient size. FINDINGS: Spinal fusion extending from T9 through the sacroiliac joints. There has been a posterior decompression at these levels with a large low-density fluid collection with some peripheral calcific ation that may reflect bone graft material extending from the thoracic spine down to the sacrum. At i ts largest dimension and measures approximately 9.1 x 4.2 cm transverse by AP. In CC dimension it shayy sures at least 20 cm. Interbody cages are present at L2-3, L3-4, L4-5, and L5-S1. Advanced degenerati ve changes are present at the T11-T12 and T12-L1 levels. Retrolisthesis of T12 on L1 by approximately 5 millimeters is presumably chronic. There is severe neural foraminal narrowing bilaterally at these levels. No hardware complications identified. No high-grade central spinal stenosis. No acute fractu re. IMPRESSION: No acute fracture. Interval spinal fusion revision with extension of the fusion to T9. M idline posterior paraspinal fluid collection is likely postoperative. No high-grade central spinal st enosis identified. Note that the artifact from the hardware significantly limits evaluation of the ce ntral canal. There is probably at least moderate central spinal stenosis at T12-L1.
--- NOTE | 2023-10-20 09:48 | EDPHYS ---
Physician Documentation [facility] Name: Leonor Beasley Age: 78 yrs Sex: Female : 1945 Arrival Date: 10/20/2023 Time: 08:16 Bed 5 Private MD: Julio Norman HPI: 10/19 09:43 This 78 yrs old Female presents to ER via EMS with complaints of intractable jocelyn back pain , sp surgery. 09:43 The patient presents with pain that is acute, with no known mechanism of injury. The jocelyn symptoms are located in the low back. Onset: The symptoms/episode began/occurred 5 day(s) ago. The pain does not radiate. Associated signs and symptoms: Pertinent positives: intractable pain 3 weeks ago surgery. The problem was sustained from unknown cause. Modifying factors: The patient symptoms are alleviated by nothing, remaining still, the patient symptoms are aggravated by any movement, bending, movement. Severity of symptoms: At their worst the symptoms were moderate, in the emergency department the symptoms are unchanged. The patient has experienced similar episodes in the past, multiple times. Historical: - Allergies: 08:31 Demerol; ph - PMHx: 08:31 High Cholesterol; Hypertensive disorder; Pneumonia; Rheumatoid Arthritis; ph - PSHx: 08:31 Stented artery; ph - Immunization history:: Adult Immunizations unknown. - Infectious Disease History:: Denies. - Social history:: Smoking status: Patient denies any tobacco usage or history of. ROS: 09:45 Constitutional: Negative for fever, chills, and weight loss, Eyes: Negative for injury, jocelyn pain, redness, and discharge, ENT: Negative for injury, pain, and discharge, Neck: Negative for injury, pain, and swelling, Cardiovascular: Negative for chest pain, palpitations, and edema, Respiratory: Negative for shortness of breath, cough, wheezing, and pleuritic chest pain, Abdomen/GI: Negative for abdominal pain, nausea, vomiting, diarrhea, and constipation, : Negative for injury, bleeding, discharge, and swelling, MS/Extremity: Negative for injury and deformity, Skin: Negative for injury, rash, and discoloration, Neuro: Negative for headache, weakness, numbness, tingling, and seizure, Psych: Negative for depression, anxiety, suicide ideation, homicidal ideation, and hallucinations, Allergy/Immunology: Negative for hives, rash, and allergies, Endocrine: Negative for neck swelling, polydipsia, polyuria, polyphagia, and marked weight changes, Hematologic/Lymphatic: Negative for swollen nodes, abnormal bleeding, and unusual bruising, 09:45 Back: Positive for injury or acute deformity, decreased range of motion, pain at rest, pain with movement, of the lumbar area, Exam: 09:45 Constitutional: This is a well developed, well nourished patient who is awake, alert, jocelyn and in no acute distress. Head/Face: Normocephalic, atraumatic. Eyes: Pupils equal round and reactive to light, extra-ocular motions intact. Lids and lashes normal. Conjunctiva and sclera are non-icteric and not injected. Cornea within normal limits. Periorbital areas with no swelling, redness, or edema. ENT: Nares patent. No nasal discharge, no septal abnormalities noted. Tympanic membranes are normal and external auditory canals are clear. Oropharynx with no redness, swelling, or masses, exudates, or evidence of obstruction, uvula midline. Mucous membranes moist. Neck: Trachea midline, no thyromegaly or masses palpated, and no cervical lymphadenopathy. Supple, full range of motion without nuchal rigidity, or vertebral point tenderness. No Meningismus. Chest/axilla: Normal chest wall appearance and motion. Nontender with no deformity. No lesions are appreciated. Cardiovascular: Regular rate and rhythm with a normal S1 and S2. No gallops, murmurs, or rubs. Normal PMI, no JVD. No pulse deficits. Respiratory: Lungs have equal breath sounds bilaterally, clear to auscultation and percussion. No rales, rhonchi or wheezes noted. No increased work of breathing, no retractions or nasal flaring. Abdomen/GI: Soft, non-tender, with normal bowel sounds. No distension or tympany. No guarding or rebound. No evidence of tenderness throughout. Female : Normal external genitalia. Skin: Warm, dry with normal turgor. Normal color with no rashes, no lesions, and no evidence of cellulitis. MS/ Extremity: Pulses equal, no cyanosis. Neurovascular intact. Full, normal range of motion. Neuro: Awake and alert, GCS 15, oriented to person, place, time, and situation. Cranial nerves II-XII grossly intact. Motor strength 5/5 in all extremities. Sensory grossly intact. Cerebellar exam normal. Normal gait. Psych: Awake, alert, with orientation to person, place and time. Behavior, mood, and affect are within normal limits. 09:45 Back: pain, that is moderate, ROM is painful, with all movement, normal spinal alignment noted, CVA tenderness, that is mild, vertebral tenderness, is appreciated at thoracic spine and lumbar spine, 10:38 ECG was reviewed by the Attending Physician. [facility] Vital Signs: 08:25 BP 155 / 61; Pulse 72; Resp 18; Temp 98.2; Pulse Ox 100% on R/A; Weight 99.79 kg; ph Height 5 ft. 3 in. ; 10:00 BP 132 / 62; Pulse 75; Resp 18; Pulse Ox 98% on R/A; ph 11:26 BP 128 / 71; Pulse 66; Resp 18; Temp 97.9; Pulse Ox 100% on R/A; ph 08:25 Body Mass Index 38.97 (99.79 kg, 160.02 cm) ph MDM: 08:27 Patient medically screened. jocelyn 10:36 Differential diagnosis: chronic back pain, Epidural or Perispinal Abcess Epidural or jocelyn Perispinal Bleed Fatigue Fracture Obesity ruptured disc, Scoliosis spinal injury, sprain, Ureterolithiasis vertebral fracture. Data reviewed: vital signs, nurses notes, EMS record, lab test result(s), EKG, radiologic studies, CT scan, plain films. Consideration of Admission/Observation Escalation of care including admission/observation considered. I considered the following discharge prescriptions or medication management in the emergency department Medications were administered in the Emergency Department. See MAR. Independent interpretation of the following test(s) in the Emergency Department EKG: See my EKG interpretation above. Test considered but Not performed: MRI: no mri lumbar, thoracic. Historians other than the Patient: Family Member: daughter well informed. Care significantly affected by the following chronic conditions: Hypertension, Obesity, pna, high cholesterol. 10/19 08:44 Order name: CBC with Diff; Complete Time: 10:39 [facility] 10/19 08:44 Order name: Comprehensive Metabolic Panel; Complete Time: 10:39 jocelyn 10/19 08:44 Order name: Urinalysis w/ reflexes; Complete Time: 12:05 jocelyn 10/19 11:05 Order name: Urine Culture EDMS 10/19 08:44 Order name: CT Lumbar Spine Wo Con; Complete Time: 09:34 [facility] 10/19 08:44 Order name: CT Thoracic Spine Wo Cont; Complete Time: 09:34 [facility] 10/19 08:44 Order name: EKG - Nurse/Tech; Complete Time: 10:59 jocelyn EC:38 Rate is 73 beats/min. Rhythm is regular. QRS [place] is Normal. CA interval is normal. QRS jocelyn interval is normal. QT interval is normal. No Q waves. T waves are Normal. No ST changes noted. Clinical impression: NSR w/ Non-specific ST/T Changes and No evidence of ischemia. Interpreted by me. Reviewed by me. Administered Medications: 09:37 Drug: NS 0.9% IV 1000 ml IV at 1 bolus Per protocol; 1000 mL bolus Route: IV; Rate: 1 ph bolus; Site: right antecubital; 12:16 Follow up: Response: No adverse reaction; IV Status: Completed infusion; IV Intake: ph 1000ml 09:37 Drug: Diazepam PO 10 mg PO once Route: PO; ph 12:17 Follow up: Response: No adverse reaction; Pain is decreased; RASS: Drowsy (-1) ph 09:37 Drug: Ketorolac IVP 30 mg IVP once Route: IVP; Site: right antecubital; ph 12:17 Follow up: Response: No adverse reaction; Pain is decreased ph 09:37 Drug: Decadron - Dexamethasone IVP 10 mg IVP once Route: IVP; Site: right antecubital; ph 12:17 Follow up: Response: No adverse reaction ph 09:37 Drug: HYDROmorphone IVP 1 mg IVP once Route: IVP; Site: right antecubital; ph 12:17 Follow up: Response: No adverse reaction; Pain is decreased; RASS: Drowsy (-1) ph 09:37 Drug: Ondansetron IVP 4 mg IVP once; over 2 minutes Route: IVP; Site: right antecubital;ph 12:17 Follow up: Response: No adverse reaction ph 11:26 Drug: Potassium PO Effervescent Tablet 50 mEq PO once; dissolve in 4 ounces of water or ph juice Route: PO; 12:17 Follow up: Response: No adverse reaction ph 12:26 Drug: Meropenem IV 1 grams IV at per protocol once; (mix in NS 100 mL) Route: IV; Rate: mb9 per protocol; Site: right antecubital; 12:33 Follow up: Response: No adverse reaction; IV Status: Completed infusion; IV Intake: tl4 100ml Disposition Summary: 10/20/23 09:47 Transfer Ordered Notes: Transfer Location: [facility] jocelyn Reason: Higher level of care jocelyn Condition: Stable jocelyn Problem: new jocelyn Symptoms: have improved jocelyn Accepting Physician: to meño ovalles(10/20/23 12:33) ren Diagnosis - Low back pain jocelyn - Pain in thoracic spine - sp fusion, surgey jocelyn - Anemia, unspecified jocelyn - Hypokalemia jocelyn - UTI/ Urinary tract infection, site not specified jocelyn Forms: - Medication Reconciliation Form jocelyn - SBAR form jocelyn Signatures: Dispatcher [employer] EDMS Julio Oro MD MD cha Williams, Irene, RN RN iw Vania Multani RN RN Nilesh, Lesli You RN RN [id number] [facility], Osvaldo FROST tl4 Corrections: (The following items were deleted from the chart) 08:44 08:44 CBC+H.LAB.BRZ ordered. EDMS EDMS 08:44 08:44 COMPREHENSIVE METABOLIC PANEL+C.LAB.BRZ ordered. EDMS EDMS 08:44 08:44 Urinalysis+U.LAB.BRZ ordered. EDMS EDMS 08:44 08:44 Spine Lumbar Wo Con+CT.RAD.BRZ ordered. EDMS EDMS 08:45 08:45 Thoracic Spine WO Cont+CT.RAD.BRZ ordered. EDMS EDMS 10:40 09:47 to meño ovalles cha jocelyn 12:06 10:40 to meño ovalles [facility] jocelyn 12:33 12:06 to meño ovalles cha iw
--- NOTE | 2023-10-20 09:48 | ER ---
Nurse's Notes [facility] Name: Leonor Beasley Age: 78 yrs Sex: Female : 1945 Arrival Date: 10/20/2023 Time: 08:16 Bed 5 Private MD: Diagnosis: Low back pain;Pain in thoracic spine-sp fusion, surgey;Anemia, unspecified;Hypokalemia;UTI/ Urinary tract infection, site not specified Presentation: 10/19 08:25 Chief complaint: EMS states: Had lumbar sx approx 4 weeks ago, d/c from rehab 2 weeks ph ago, c/o pain to lumbar area, prescribed Nardin not helping, denies numbness or tingling to legs, states that the pain has gotten worse since she's been home from rehab. Coronavirus screen: Vaccine status: Patient reports being unvaccinated. Ebola Screen: No symptoms or risks identified at this time. 08:25 Method Of Arrival: EMS: [facility] 08:30 Initial Sepsis Screen: Does the patient meet any 2 criteria? No. Patient's initial ph sepsis screen is negative. Does the patient have a suspected source of infection? No. Patient's initial sepsis screen is negative. Risk Assessment: Do you want to hurt yourself or someone else? Patient reports no desire to harm self or others. Onset of symptoms was October 20, 2023. 08:30 Acuity: BOUCHRA 3 ph Triage Assessment: 08:41 General: Appears in no apparent distress. Behavior is calm, cooperative. Pain: ph Complains of pain in lumbar area. Neuro: Level of Consciousness is awake, alert, obeys commands, Oriented to person, place, time, situation. Cardiovascular: Capillary refill < 3 seconds in bilateral fingers Patient's skin is warm and dry. Derm: Skin is pink, warm \T\ dry. Historical: - Allergies: 08:31 Demerol; ph - PMHx: 08:31 High Cholesterol; Hypertensive disorder; Pneumonia; Rheumatoid Arthritis; ph - PSHx: 08:31 Stented artery; ph - Immunization history:: Adult Immunizations unknown. - Infectious Disease History:: Denies. - Social history:: Smoking status: Patient denies any tobacco usage or history of. Screenin:40 [facility] ED Fall Risk Assessment (Adult) History of falling in the last 3 months, ph including since admission No falls in past 3 months (0 pts) Confusion or Disorientation No (0 pts) Intoxicated or Sedated Yes (3 pts) Impaired Gait No (0 pts) Mobility Assist Device Used No (0 pt) Altered Elimination No (0 pt) Score/Fall Risk Level 0 - 2 = Low Risk Oriented to surroundings, Maintained a safe environment, Hourly rounding (assess needs \T\ fall precautionary measures) done. Abuse screen: Denies threats or abuse. Denies injuries from another. Nutritional screening: No deficits noted. Tuberculosis screening: No symptoms or risk factors identified. Assessment: 08:30 General: Appears in no apparent distress. uncomfortable, Behavior is calm, cooperative. ph Pain: Complains of pain in lumbar area. Neuro: Level of Consciousness is awake, alert, obeys commands, Oriented to person, place, time, situation. Respiratory: Airway is patent Respiratory effort is even, unlabored. Derm: Skin is pink, warm \T\ dry. 11:43 Reassessment: Report called to [facility], waiting EMS for transport. ph Vital Signs: 08:25 BP 155 / 61; Pulse 72; Resp 18; Temp 98.2; Pulse Ox 100% on R/A; Weight 99.79 kg; ph Height 5 ft. 3 in. ; 10:00 BP 132 / 62; Pulse 75; Resp 18; Pulse Ox 98% on R/A; ph 11:26 BP 128 / 71; Pulse 66; Resp 18; Temp 97.9; Pulse Ox 100% on R/A; ph 08:25 Body Mass Index 38.97 (99.79 kg, 160.02 cm) ph ED Course: 08:25 Patient arrived in ED. em1 08:25 Vania Multani, MARGOT is Primary Nurse. ph 08:27 Julio Oro MD is Attending Physician. jocelyn 08:31 Triage completed. ph 08:41 Arm band placed on Patient placed in an exam room, on a stretcher. ph 08:58 CT Lumbar Spine Wo Con In Process Unspecified. EDMS 08:58 CT Thoracic Spine Wo Cont In Process Unspecified. EDMS 10:30 Attempt to initiate transfer with [facility]. em1 10:30 Patient has correct armband on for positive identification. Bed in low position. Call ph light in reach. Pulse ox on. NIBP on. Door closed. Noise minimized. Warm blanket given. 10:35 Attempt to initiate transfer with [facility]. em1 11:00 Straight cath inserted, using sterile technique, 16 Fr. Specimen obtained. Returned ph cloudy urine. 12:33 No provider procedures requiring assistance completed. Patient transferred, IV remains ph in place. Administered Medications: 09:37 Drug: NS 0.9% IV 1000 ml IV at 1 bolus Per protocol; 1000 mL bolus Route: IV; Rate: 1 ph bolus; Site: right antecubital; 12:16 Follow up: Response: No adverse reaction; IV Status: Completed infusion; IV Intake: ph 1000ml 09:37 Drug: Diazepam PO 10 mg PO once Route: PO; ph 12:17 Follow up: Response: No adverse reaction; Pain is decreased; RASS: Drowsy (-1) ph 09:37 Drug: Ketorolac IVP 30 mg IVP once Route: IVP; Site: right antecubital; ph 12:17 Follow up: Response: No adverse reaction; Pain is decreased ph 09:37 Drug: Decadron - Dexamethasone IVP 10 mg IVP once Route: IVP; Site: right antecubital; ph 12:17 Follow up: Response: No adverse reaction ph 09:37 Drug: HYDROmorphone IVP 1 mg IVP once Route: IVP; Site: right antecubital; ph 12:17 Follow up: Response: No adverse reaction; Pain is decreased; RASS: Drowsy (-1) ph 09:37 Drug: Ondansetron IVP 4 mg IVP once; over 2 minutes Route: IVP; Site: right antecubital;ph 12:17 Follow up: Response: No adverse reaction ph 11:26 Drug: Potassium PO Effervescent Tablet 50 mEq PO once; dissolve in 4 ounces of water or ph juice Route: PO; 12:17 Follow up: Response: No adverse reaction ph 12:26 Drug: Meropenem IV 1 grams IV at per protocol once; (mix in NS 100 mL) Route: IV; Rate: mb9 per protocol; Site: right antecubital; 12:33 Follow up: Response: No adverse reaction; IV Status: Completed infusion; IV Intake: tl4 100ml Medication: 11:05 VIS not applicable for this client. ph Intake: 12:16 IV: 1000ml; Total: 1000ml. ph 12:33 IV: 100ml; Total: 1100ml. tl4 Outcome: 09:47 ER care complete, transfer ordered by . jocelyn 12:33 Patient left the ED. iw 12:33 Transferred by ground EMS to [facility], Transfer form completed. X-rays ph sent w/ patient. 12:33 Condition: stable 12:33 Instructed on the need for transfer, Addendum: 10/23/2023 07:33 Addendum: Culture Results: Positive urine culture. faxed culture reports to [facility] tower to [place] at [phone]. Signatures: Dispatcher [employer] EDMS Julio Oro MD MD cha Williams, Irene, RN RN Arnie Aguila emVania Galindo, RN RN Honey Verde, Lesli You, RN RN mb9 Osvaldo Alas RN RN tl4
[2023-10-20 10:14] LABS: Absolute Eosinophils 0.1 K/uL (0-0.5); Absolute Lymphocytes (CBC) 0.8 K/uL (0.7-4.9); Absolute Monocytes 0.5 K/uL (0.1-1.3); Absolute Neutrophil 2.2 K/uL (1.8-8.0); Basophils % 0.8 % (0-1.3); Eosinophils % 2.4 % (0-4.4); Lymphocytes % 22.5 % (15.3-44.8); MCH 30.2 pg (27.0-35.0); MCHC 33.4 g/dL (32.0-36.0); MCV 90.5 fL (80-100); MPV 7.9 fL (7.6-11.3); Monocytes % 12.6 % (3.3-12.3); Neutrophils % 61.7 % (41.7-73.7); Platelets 300 thou/uL (152-406); RBC Red Blood Cell Count 2.98 M/uL (3.86-4.86); Red Cell Distribution Width 14.9 % (12.1-15.2)
[2023-10-20 10:32] LABS: Albumin 2.5 g/dL (3.4-5.0); Albumin/Globulin Ratio 0.6 (1.1-1.8); Anion Gap 9.1 mEq/L (5.0-15.0); Bilirubin Total 0.6 mg/dL (0.2-1.0); Potassium 3.1 mEq/L (3.5-5.1); Protein, Total 6.5 g/dL (6.4-8.2)
[2023-10-20 11:00] LABS: Specific Gravity 1.016 (1.005-1.030); Sqamous Epithelial None Seen /HPF (None Seen); Urine Bacteria >50 /HPF (<20); Urine Bilirubin NEGATIVE (Negative); Urine Blood 1+ (Negative); Urine Clarity Extremely Turbid (Clear); Urine Color Light-Orange (Yellow); Urine Culture Reflex Order REFLEXED; Urine Glucose NEGATIVE (Negative); Urine Ketones NEGATIVE (Negative); Urine Microscopic Reflex YN ORDER UMIC; Urine Mucus Slight /HPF (None Seen); Urine Nitrite 1+ (Negative); Urine Protein 1+ (Negative); Urine Urobilinogen Normal (Normal); Urine WBC >50 /HPF (<5); Urine WBC Clump Moderate /HPF (None Seen)
[2023-10-20] MEDS ORDERED: POTASSIUM 25 MEQ EFFERV TAB ONE (11:29)
[2023-10-20] MEDS ORDERED: Meropenem 1000 MG/VIAL IV ONE (12:22)
[2023-10-20] MEDS ORDERED: NA CHLORIDE 0.9% 100 ML ONE (12:22)
[2023-10-20 13:21] VITALS: BP 128/71; TEMP 97.9; O2SAT 100
--- NOTE | 2023-10-21 13:40 | EKG ---
Test Date: 2023-10-20 Test Time: 10:19:36 Bag Printer: PH MEASUREMENT RESULTS: Intervals: Rate: 73 ME: 148 QRSD: 80 QT: 406 QTc: 447 [place]: P: 65 ME: 148 QRS: 24 T: 30 INTERPRETIVE STATEMENTS: Normal sinus rhythm with sinus arrhythmia Septal infarct, age undetermined Abnormal ECG No previous ECG available for comparison Electronically Signed On 10-21-23 13:37:56 CDT by Rony Rojas
== END 2023-10-20 12:33 | disposition short-term general hospital (02) ==
LOC: ER 08:16
DX: M54.50 Low back pain, unspecified (principal); M54.6 Pain in thoracic spine; Z98.890 Other specified postprocedural states; N39.0 Urinary tract infection, site not specified; D64.9 Anemia, unspecified; E87.6 Hypokalemia; I10 Essential (primary) hypertension; Z88.5 Allergy status to narcotic agent
CPT/HCPCS: 96361; 93005; 87088; 85025; 81001; 87086; 36415; 87077; 87186; 80053; 72131; 72128; 51702; 96375; 96374; 99285; J1100; J2185; J1170; J2405; J7030

== ENCOUNTER 2023-12-26 15:51 | Emergency (ER) | payer OTHER ==
[2023-12-26] MEDS ORDERED: NA CHLORIDE 0.9% 500 ML ONE (17:29)
[2023-12-26 17:46] LABS: Absolute Basophils 0.1 K/uL (0-0.5); Absolute Eosinophils 0.1 K/uL (0-0.5); Absolute Lymphocytes (CBC) 1.6 K/uL (0.7-4.9); Absolute Monocytes 0.4 K/uL (0.1-1.3); Absolute Neutrophil 3.6 K/uL (1.8-8.0); Eosinophils % 1.7 % (0-4.4); Hematocrit 34.3 % (36.0-45.0); Hemoglobin 11.2 g/dL (12.0-15.0); Lymphocytes % 27.5 % (15.3-44.8); MCH 28.1 pg (27.0-35.0); MCHC 32.6 g/dL (32.0-36.0); MPV 7.4 fL (7.6-11.3); Monocytes % 7.4 % (3.3-12.3); Neutrophils % 62.4 % (41.7-73.7); Platelets 340 thou/uL (152-406); RBC Red Blood Cell Count 3.98 M/uL (3.86-4.86); Red Cell Distribution Width 17.5 % (12.1-15.2)
--- NOTE | 2023-12-26 17:52 | RAD REPORT ---
EXAM DESCRIPTION: CT - Head Brain Wo Cont - 12/26/2023 4:21 pm CLINICAL HISTORY: headache, confusion COMPARISON: Head Brain Wo Cont dated 10/15/2021 TECHNIQUE: Noncontrast head CT images were obtained without IV contrast. Multiplanar reformats were generated and reviewed. All CT scans are performed using dose optimization technique as appropriate and may include automated exposure control or mA/KV adjustment according to patient size. FINDINGS: No intracranial hemorrhage, mass, or edema. Midline structures are unremarkable. Stable ventricular caliber. Mild diffuse parenchymal volume loss. Adkins-white matter differentiation is preserved, without evidence of acute infarct. No abnormal extra- axial fluid collections. Mastoid air cells and visualized portions of the paranasal sinuses are clear. No acute bony findings. IMPRESSION: No evidence of an acute intracranial process.
[2023-12-26 17:55] LABS: PT Prothrombin Time 11.8 SECONDS (9.5-12.5); PTT, Activated Partial Thromb 36.1 SECONDS (24.3-36.9); Protime INR 1.07
[2023-12-26 18:05] LABS: Specific Gravity 1.013 (1.005-1.030); Sqamous Epithelial <5 /HPF (None Seen); Urine Bacteria <20 /HPF (<20); Urine Bilirubin NEGATIVE (Negative); Urine Blood Negative (Negative); Urine Clarity Turbid (Clear); Urine Color Light-Yellow (Yellow); Urine Crystals Unidentified Few /HPF (None Seen); Urine Culture Reflex Order REFLEXED; Urine Glucose NEGATIVE (Negative); Urine Ketones NEGATIVE (Negative); Urine Microscopic Reflex YN ORDER UMIC; Urine Mucus Slight /HPF (None Seen); Urine Nitrite NEGATIVE (Negative); Urine Protein NEGATIVE (Negative); Urine RBC <5 /HPF (None Seen); Urine Urobilinogen Normal (Normal); Urine pH 5.5 (5.0-7.0)
[2023-12-26 18:08] LABS: ALT/SGPT 23 U/L (13-56); AST/SGOT 18 U/L (15-37); Albumin 3.4 g/dL (3.4-5.0); Albumin/Globulin Ratio 0.8 (1.1-1.8); Alkaline Phosphatase 170 U/L (45-117); Anion Gap 9.8 mEq/L (5.0-15.0); BUN Blood Urea Nitrogen 15 mg/dL (7-18); Bicarbonate 26 mEq/L (21-32); Bilirubin Total 0.3 mg/dL (0.2-1.0); Globulin 4.5 g/dL (2.3-3.5); Glomerular Filtration Rate 68 ml/min (=/>90); Glucose Level 112 mg/dL (74-106); Magnesium 2.1 mg/dL (1.6-2.4); Potassium 3.8 mEq/L (3.5-5.1); Protein, Total 7.9 g/dL (6.4-8.2); Sodium Level 136 mEq/L (136-145); Troponin High Sensitivity 5.8 pg/mL (<58.9)
[2023-12-26 18:17] LABS: Bilirubin Direct < 0.2 mg/dL (0-0.2); Bilirubin Indirect, Calculated 0.1 mg/dL (0.2-0.8)
--- NOTE | 2023-12-26 18:26 | EDPHYS ---
Physician Documentation [facility] Name: Leonor Beasley Age: 78 yrs Sex: Female : 1945 Arrival Date: 12/26/2023 Time: 15:51 Bed 18 Private MD: Christina Coleman C ED Physician Raymond Shelton HPI: 12/25 16:07 This 78 yrs old Female presents to ER via Wheelchair with complaints of Confusion, rn Headache. 16:07 The patient complains of pain to the top of head and forehead. The patient describes rn the headache as aching. Onset: The symptoms/episode began/occurred yesterday. Severity of symptoms: At its worst the pain was mild, in the emergency department the pain is unchanged. Headache History: Denies prior headaches. The symptoms are alleviated by nothing. the symptoms are aggravated by nothing. The patient has not experienced similar symptoms in the past. Patient reports headache and confusion since yesterday. Bent over yesterday and when got up saw colors, did not feel right. No focal weakness or numbness. No speech problem. No vision loss. Today at rehab was noted to be confused and hypertensive, told to come in for evaluation. Patient also reports could not answer normal questions this morning. States has not felt completely normal since yesterday. No head injury. Feels better now and daughter states not acting confused at this time. Multiple urine infections recently.. Historical: - Allergies: 15:59 Demerol; aa5 - PMHx: 15:59 High Cholesterol; Hypertensive disorder; Pneumonia; Rheumatoid Arthritis; aa5 - PSHx: 15:59 Stented artery; aa5 16:00 Back sx; aa5 - Immunization history:: Adult Immunizations unknown. - Infectious Disease History:: Denies. - Social history:: Smoking status: Patient denies any tobacco usage or history of. - Family history:: not pertinent. - Hospitalizations: : No recent hospitalization is reported. ROS: 16:07 Constitutional: Negative for fever, chills, and weight loss, Eyes: Negative for injury, rn pain, redness, and discharge, ENT: Negative for injury, pain, and discharge, Neck: Negative for injury, pain, and swelling, Cardiovascular: Negative for chest pain, palpitations, and edema, Respiratory: Negative for shortness of breath, cough, wheezing, and pleuritic chest pain, Abdomen/GI: Negative for abdominal pain, nausea, vomiting, diarrhea, and constipation, Back: Negative for injury and pain, MS/Extremity: Negative for injury and deformity, Skin: Negative for injury, rash, and discoloration, Neuro: Positive for headache and confusion Exam: 16:07 Constitutional: This is a well developed, well nourished patient who is awake, alert, rn and in no acute distress. Head/Face: Normocephalic, atraumatic. Eyes: Pupils equal round and reactive to light, extra-ocular motions intact. ENT: Dry mucous membranes. Cardiovascular: Regular rate and rhythm. No pulse deficits. Respiratory: No increased work of breathing, no retractions or nasal flaring. Abdomen/GI: Soft, nontender MS/ Extremity: Pulses equal, no cyanosis. Neurovascular intact. Full, normal range of motion. Equal circumference. Neuro: Awake and alert, GCS 15, oriented to person, place, time, and situation. Cranial nerves II-XII grossly intact. Motor strength 5/5 in all extremities. Sensory grossly intact. Cerebellar exam normal. Vital Signs: 15:59 BP 112 / 85; Pulse 72; Resp 18 S; Temp 97.5(TE); Pulse Ox 100% on R/A; Weight 99.79 kg aa5 (R); Height 5 ft. 4 in. (R); 18:30 BP 132 / 76; Pulse 74; Resp 18; Pulse Ox 100% on R/A; mb9 15:59 Body Mass Index 37.76 (99.79 kg, 162.56 cm) aa5 Veda Coma Score: 18:23 Eye Response: spontaneous(4). Motor Response: obeys commands(6). Verbal Response: rn oriented(5). Total: 15. MDM: 15:56 Patient medically screened. rn 18:23 Differential diagnosis: hypertensive headache, intracerebral hemorrhage, migraine, rn neoplasm, sinusitis, subdural hematoma, uremia, vasomotor headache, Ocular migraine, TIA, CVA. Data reviewed: vital signs, nurses notes, lab test result(s), EKG, radiologic studies, CT scan, plain films, and as a result, I will discharge patient. Care significantly affected by the following chronic conditions: Hypertension. Counseling: I had a detailed discussion with the patient and/or guardian regarding the historical points, exam findings, and any diagnostic results supporting the discharge/admit diagnosis, lab results, radiology results, the need for outpatient follow up, to return to the emergency department if symptoms worsen or persist or if there are any questions or concerns that arise at home. Special discussion: I discussed with the patient/guardian in detail that at this point there is no indication for admission to the hospital. It is understood, however, that if the symptoms persist or worsen the patient needs to return immediately for re-evaluation. Based on the history and exam findings, there is no indication for further emergent testing or inpatient evaluation. I discussed with the patient/guardian the need to see the primary care provider for further evaluation of the symptoms. ED course: No acute findings and workup today including negative CT head. Urine negative for infection and does not show bacteria. Afebrile. Normal vital signs. Patient completely back to normal with normal neurological exam. Recommend blood pressure diary and follow-up with her PCP. Has an appointment set for Tuesday already. I have personally reviewed all of the results, including but not limited to blood tests and imaging deemed necessary to safely discharge this patient at this time. All results given to and printed out for patient. I personally went over all the results with the patient and answered all questions. Patient will follow-up with PCP and or specialist as discussed. Return precautions given and understood.. 12/25 16:05 Order name: Basic Metabolic Panel; Complete Time: 18: rn 12/25 16:05 Order name: CBC with Diff; Complete Time: 18: 12/25 16:05 Order name: Hepatic Function; Complete Time: 18:12/25 16:05 Order name: Magnesium; Complete Time: 18: rn 12/25 16:05 Order name: Protime (+inr); Complete Time: 18:10 rn 12/25 16:05 Order name: Ptt, Activated; Complete Time: 18:12/25 16:05 Order name: Troponin High Sensitivity; Complete Time: 18:12/25 16:05 Order name: Urinalysis w/ reflexes; Complete Time: 18:10 12/25 18:09 Order name: Urine Culture EDMS 12/25 16:05 Order name: CT Head Brain wo Cont; Complete Time: 18: rn 12/25 16:05 Order name: Chest Single View XRAY rn 12/25 16:05 Order name: Cardiac monitoring; Complete Time: 17:20 rn 12/25 16:05 Order name: EKG - Nurse/Tech; Complete Time: 17:52 rn 12/25 16:05 Order name: IV Saline Lock; Complete Time: 17:52 rn 12/25 16:05 Order name: Labs collected and sent; Complete Time: 17:52 rn 12/25 16:05 Order name: O2 Per Protocol; Complete Time: 17:20 rn 12/25 16:05 Order name: O2 Sat Monitoring; Complete Time: 17:20 rn Administered Medications: 17:52 Drug: NS 0.9% IV 500 ml IV at bolus once Route: IV; Rate: bolus; Site: right mb9 antecubital; Disposition Summary: 12/26/23 18:25 Discharge Ordered Notes: Location: Home rn Problem: new rn Symptoms: have improved rn Condition: Stable rn Diagnosis - Headache rn - Essential (primary) hypertension rn Followup: rn - With: Christina Coleman MD - When: 5 - 6 days - Reason: Recheck today's complaints, Re-evaluation by your physician Discharge Instructions: - Discharge Summary Sheet rn - General Headache Without Cause rn - Hypertension, Adult rn - Managing Your Hypertension rn Forms: - Medication Reconciliation Form rn - Antibiotic hemodialysis rn - Prescription Opioid Use rn - Patient Portal Instructions rn - Leadership Thank You Letter rn Signatures: Dispatcher [employer] Raymond Enriquez MD MD rn Calderon, Audri RN RN aa5 Lesli Galloway, RN RN mb9 Corrections: (The following items were deleted from the chart) 16: 16:06 Head Brain Wo Cont+CT.RAD.BRZ ordered. EDMS EDMS 16:06 16:06 Chest Single View+RAD.RAD.BRZ ordered. EDMS EDMS
--- NOTE | 2023-12-26 18:26 | ER ---
Nurse's Notes [facility] Name: Leonor Beasley Age: 78 yrs Sex: Female : 1945 Arrival Date: 12/26/2023 Time: 15:51 Bed 18 Private MD: Christina Coleman C Diagnosis: Headache;Essential (primary) hypertension Presentation: 12/25 15:59 Chief complaint: Chief complaint: Patient states: "yesterday I bent over and I saw aa5 colors for about 30 minutes but it went away; today I went to the dry claim investigator and I couldn't even remember my name". Pt reports having trouble remembering since today around 1200. Pt currently A\\T\\O x 4. Pt reports headache. 15:59 Acuity: BOUCHRA 2 aa5 15:59 Coronavirus screen: At this time, the client does not indicate any symptoms associated aa5 with coronavirus-19. Ebola Screen: Patient denies travel to an Ebola-affected area in the 21 days before illness onset. Initial Sepsis Screen: Does the patient meet any 2 criteria? No. Patient's initial sepsis screen is negative. Does the patient have a suspected source of infection? No. Patient's initial sepsis screen is negative. Risk Assessment: Do you want to hurt yourself or someone else? Patient reports no desire to harm self or others. Onset of symptoms was December 26, 2023. 15:59 Method Of Arrival: Wheelchair aa5 Historical: - Allergies: 15:59 Demerol; aa5 - PMHx: 15:59 High Cholesterol; Hypertensive disorder; Pneumonia; Rheumatoid Arthritis; aa5 - PSHx: 15:59 Stented artery; aa5 16:00 Back sx; aa5 - Immunization history:: Adult Immunizations unknown. - Infectious Disease History:: Denies. - Social history:: Smoking status: Patient denies any tobacco usage or history of. - Family history:: not pertinent. - Hospitalizations: : No recent hospitalization is reported. Screenin:18 [facility] ED Fall Risk Assessment (Adult) History of falling in the last 3 months, mb9 including since admission No falls in past 3 months (0 pts) Confusion or Disorientation No (0 pts) Intoxicated or Sedated No (0 pts) Impaired Gait No (0 pts) Mobility Assist Device Used No (0 pt) Altered Elimination No (0 pt) Score/Fall Risk Level 0 - 2 = Low Risk Oriented to surroundings, Maintained a safe environment, Educated pt \\T\\ family on fall prevention, incl call for assistance when getting out of bed. Abuse screen: Denies threats or abuse. Nutritional screening: No deficits noted. Tuberculosis screening: No symptoms or risk factors identified. Assessment: 17:18 Reassessment: pt brought back to ER room. mb9 17:52 General: Appears in no apparent distress. Behavior is calm, cooperative. Pain: mb9 Complains of pain in top of head Pain does not radiate. Pain currently is 8 out of 10 on a pain scale. Quality of pain is described as pressure, Pain began 1 day ago. Is continuous. Neuro: Mccray Agitation-Sedation Scale (RASS): 0 - Alert and Calm Level of Consciousness is awake, alert, obeys commands, Oriented to person, place, time, situation, Appropriate for age Reports headache. Cardiovascular: Heart tones S1 S2 present Patient's skin is warm and dry. Respiratory: Airway is patent Respiratory effort is even, unlabored, Respiratory pattern is regular, symmetrical, Breath sounds are clear bilaterally. GI: Abdomen is round non-distended, Bowel sounds present X 4 quads. Abd is soft and non tender X 4 quads. : Urine is cloudy. EENT: No signs and/or symptoms were reported regarding the EENT system. Derm: Skin is pink, warm \\T\\ dry. Musculoskeletal: Range of motion: intact in all extremities. 18:30 Reassessment: No changes from previously documented assessment. Patient and/or family mb9 updated on plan of care and expected duration. Pain level reassessed. Patient is alert, oriented x 3, equal unlabored respirations, skin warm/dry/pink. Vital Signs: 15:59 BP 112 / 85; Pulse 72; Resp 18 S; Temp 97.5(TE); Pulse Ox 100% on R/A; Weight 99.79 kg aa5 (R); Height 5 ft. 4 in. (R); 18:30 BP 132 / 76; Pulse 74; Resp 18; Pulse Ox 100% on R/A; mb9 15:59 Body Mass Index 37.76 (99.79 kg, 162.56 cm) aa5 Kimball Coma Score: 18:23 Eye Response: spontaneous(4). Motor Response: obeys commands(6). Verbal Response: rn oriented(5). Total: 15. ED Course: 15:52 Patient arrived in ED. mr 15:53 Christina Coleman MD is Private Physician. mr 15:56 Raymond Shelton MD is Attending Physician. rn 15:59 Arm band placed on. aa5 16:02 Triage completed. aa5 16:23 CT Head Brain wo Cont In Process Unspecified. EDMS 16:26 Chest Single View XRAY In Process Unspecified. EDMS 17:17 Lesli Galloway, RN is Primary Nurse. mb9 17:19 Placed in gown. Bed in low position. Call light in reach. Side rails up X 1. Provided mbAmandeep Education on: press call light if needing anything. Client placed on continuous cardiac and pulse oximetry monitoring. NIBP monitoring applied. telemetry monitor on. 17:50 Initial lab(s) drawn, by me, sent to lab. EKG done, by ED staff, reviewed by Raymond Shelton MD. Inserted saline lock: 22 gauge in right antecubital area, using aseptic technique. 17:52 Urine collected: clean catch specimen, cloudy. mb9 17:53 No provider procedures requiring assistance completed. mb9 18:25 Christina Coleman MD is Referral Physician. rn 18:30 IV discontinued, intact, bleeding controlled, No redness/swelling at site. Pressure mb9 dressing applied. Administered Medications: 17:52 Drug: NS 0.9% IV 500 ml IV at bolus once Route: IV; Rate: bolus; Site: right mb9 antecubital; Medication: 17:19 VIS not applicable for this client. mb9 Outcome: 18:25 Discharge ordered by MD. rn 18:30 Discharged to home ambulatory, mb9 18:30 Condition: stable 18:30 Discharge instructions given to patient, family, Instructed on discharge instructions, follow up and referral plans. Demonstrated understanding of instructions, follow-up care, medications, 18:30 Patient left the ED. mb9 Signatures: Dispatcher [employer] EDLesli Sweet, Reg Reg Raymond Shelton MD MD rn Calderon, Audri RN RN aa5 Lesli Galloway, MARGOT RN ade Corrections: (The following items were deleted from the chart) 16:02 15:59 Chief complaint: aa5 aa5 16:02 15:59 Chief complaint: Patient states: "yesterday I bent over and I saw colors for aa5 about 30 minutes but it went away; today I went to the dry claim investigator and I couldn't even remember my name". Pt reports having trouble remembering since today around 1200. Pt currently A\\T\\O x 4 Chief complaint: Patient states: "yesterday I bent over and I saw colors for about 30 minutes but it went away; today I went to the dry claim investigator and I couldn't even remember my name". Pt reports having trouble remembering since today around 1200. Pt currently A\\T\\O x 4 aa5 16:05 15:59 BP 112 / 85; Pulse 72bpm; Resp 18bpm; Spontaneous; Pulse Ox 100% RA; aa5 aa5
--- NOTE | 2023-12-26 18:54 | RAD REPORT ---
EXAM DESCRIPTION: RADChest Single View12/26/2023 4:28 pm CLINICAL HISTORY: confusion COMPARISON: Chest Pa And Lat (2 Views) dated 10/25/2022; Chest Pa And Lat (2 Views) dated 10/09/2022; C hest Pa And Lat (2 Views) dated 04/09/2021; Chest Pa And Lat (2 Views) dated 05/24/2017 TECHNIQUE: Portable AP view of the chest. FINDINGS: The lungs are clear. No pneumothorax or effusion. The cardiomediastinal contours are unre markable. IMPRESSION: No acute cardiopulmonary process. No significant interval change.
[2023-12-26 19:06] VITALS: BP 132/76; TEMP 97.5; O2SAT 100
--- NOTE | 2023-12-27 14:14 | EKG ---
Test Date: 2023-12-26 Test Time: 17:31:28 Manager Forensic: MB MEASUREMENT RESULTS: Intervals: Rate: 68 SD: 136 QRSD: 76 QT: 410 QTc: 435 [place]: P: 66 SD: 136 QRS: 22 T: 60 INTERPRETIVE STATEMENTS: Normal sinus rhythm Nonspecific ST abnormality Abnormal ECG Compared to ECG 10/20/2023 10:19:36 ST (T wave) deviation now present Sinus arrhythmia no longer present Myocardial infarct finding no longer present Electronically Signed On 12-27-23 14:12:24 CDT by Rony Rojas
== END 2023-12-26 18:30 | disposition home or self-care (01) ==
LOC: ER 15:51
DX: R51.9 Headache, unspecified (principal); I10 Essential (primary) hypertension
CPT/HCPCS: 93005; 87088; 85025; 81001; 87086; 80048; 36415; 83735; 85610; 80076; 85730; 84484; 70450; 71045; 99285; J7040

== ENCOUNTER 2024-11-26 08:14 | Day surgery (SDC) | payer OTHER ==
[2024-11-26 09:24] LABS: Absolute Eosinophils 0.1 K/uL (0-0.5); Absolute Lymphocytes (CBC) 1.3 K/uL (0.7-4.9); Absolute Monocytes 0.4 K/uL (0.1-1.3); Absolute Neutrophil 3.1 K/uL (1.8-8.0); Basophils % 0.8 % (0-1.3); Eosinophils % 2.6 % (0-4.4); Hematocrit 35.9 % (36.0-45.0); Hemoglobin 12.3 g/dL (12.0-15.0); Lymphocytes % 26.4 % (15.3-44.8); MCH 32.4 pg (27.0-35.0); MCHC 34.3 g/dL (32.0-36.0); MCV 94.5 fL (80-100); MPV 8.1 fL (7.6-11.3); Monocytes % 8.1 % (3.3-12.3); Neutrophils % 62.1 % (41.7-73.7); Nucleated Red Blood Cells % 0.1 % (0-0); Platelets 217 thou/uL (152-406); Red Cell Distribution Width 16.2 % (12.1-15.2)
[2024-11-26 09:25] LABS: ALT/SGPT 39 U/L (13-56); AST/SGOT 26 U/L (15-37); Albumin 3.1 g/dL (3.4-5.0); Albumin/Globulin Ratio 0.9 (1.1-1.8); Alkaline Phosphatase 106 U/L (45-117); BUN Blood Urea Nitrogen 18 mg/dL (7-18); Bicarbonate 24 mEq/L (21-32); Bilirubin Total 0.4 mg/dL (0.2-1.0); Globulin 3.6 g/dL (2.3-3.5); Glomerular Filtration Rate 70 ml/min (=/>90); Glucose Level 124 mg/dL (74-106); Protein, Total 6.7 g/dL (6.4-8.2); Sodium Level 141 mEq/L (136-145)
[2024-11-26 09:26] LABS: Bilirubin Direct < 0.2 mg/dL (0-0.2); Bilirubin Indirect, Calculated 0.2 mg/dL (0.2-0.8)
[2024-11-26 09:30] LABS: PT Prothrombin Time 12.7 SECONDS (10-13.0); PTT, Activated Partial Thromb 31.1 SECONDS (27.2-37.4); Protime INR 1.12
[2024-11-26 09:31] VITALS: BMI 36.1
[2024-11-26 13:05] LABS: CSF Glucose 63 mg/dL (40-70)
[2024-11-26 13:48] LABS: Appearance CLEAR (CLEAR); Body Fluid Source CSF; Body Fluid WBC 1 /mm^3; Color of Supernate Not Xanthochromic (Not Xantho); Color of fluid Colorless (COLORLESS); Fluid Total Volume 15 ml; Tube # #2
[2024-11-26 15:44] VITALS: TEMP 97.9
[2024-11-26 15:45] VITALS: BP 125/90; O2SAT 99
--- NOTE | 2024-11-26 16:13 | RAD REPORT ---
XR SPINE LUMBAR PUNCTURE CLINICAL INDICATION: DEMENTIA. TECHNIQUE: The risks (including the risks of bleeding, infection, headache, and need for an epidural blood patch), benefits, and alternatives of the procedure were carefully explained to the patient who wished to proceed. Informed written consent was obtained and a timeout procedure was performed pr ior to beginning the study. The patient was positioned on the fluoroscopy table in an oblique prone position. The skin over the l er back was prepped and draped in the usual, sterile fashion. Local anesthesia was used for the subcutaneous soft tissues. A lumbar puncture was performed directing a spinal needle into the spinal canal under direct fluoroscopic guidance targeting L4-5 level, until the return of clear CSF was observed. FINDINGS: CSF appearance: Clear and free-flowing Total CSF volume removed: 14 cc. Samples were sent to the lab per the ordering physician's orders. Following completion of the procedure the needle was withdrawn and a band-aid placed over the punctur e site. Postprocedural instructions were given to the patient. Complications: None IMPRESSION: Successful fluoroscopically-guided LP, as above. Total fluoroscopy time was 1:03 minutes. Skin dose: 51.04 mGy
== END 2024-11-26 14:35 | disposition home or self-care (01) ==
LOC: DS 08:14
PROVIDERS: ATTEND Psychiatry & Neurology Neurology with Special Qualifications in Child Neurology
PROC: 009U3ZX Drainage of Spinal Canal, Percutaneous Approach, Diagnostic (ICD-10-PCS; principal; 2024-11-26)
PROC: B01BZZZ Fluoroscopy of Spinal Cord (ICD-10-PCS; 2024-11-26)
DX: R41.3 Other amnesia (principal); F03.90 Unspecified dementia, unspecified severity, without behavioral disturbance, psychotic disturbance, mood disturbance, and anxiety; I10 Essential (primary) hypertension; M19.90 Unspecified osteoarthritis, unspecified site
CPT/HCPCS: 36415; 77003; 80048; 80076; 82542; 82945; 84157; 85025; 85610; 85730; 89050